=== PATIENT | male | born 1940 | race Caucasian/White ===

== ENCOUNTER → 2016-06-16 | Outpatient (CLI) | payer BC ==
[~2016-06-16] MED LIST: CETI10TA10 PO; FLUO0.05 TOP; LORA-741 PO; LOSA1TAB PO; MISCCAP80 PO; MULT-506 PO; PRAV40TA2 PO; SENNTAB23 PO; TRAM-10 PO
--- NOTE | 2016-06-16 10:56 | DIAGNOSTIC IMAGING REPORT ---
CHEST 2 VIEWS ROUTINE CLINICAL HISTORY: Syncope and collapse. COMPARISON STUDY: Chest radiograph December 20, 2014. FINDINGS: No pneumothorax or pleural effusion is present. There is no evidence of pulmonary edema. No consolidation is identified. Mild cardiomegaly is noted. IMPRESSION: No acute findings. No change in appearance of the chest. Electronically signed by: Art Rivas M.D. 06/16/2016 10:55 AM Dictated Date/Time: 06/16/2016 10:54 AM
[2016-06-16 12:14] LABS: BASO % 0.7 %; BASO ABS # 0.06 K/uL (0-0.2); COMPLETE YES; EOS % 4.6 %; HEMATOCRIT 47.9 % (42-52); IG% 0.1 %; LYMPH % 36.7 %; LYMPH ABS # 3.11 K/uL (1.2-3.4); MEAN CELL VOLUME 93.2 fL (80-100); MEAN CORPUSCULAR HEMOGLOBIN 33.9 pg (25-34); MEAN CORPUSCULAR HGB CONC 36.3 g/dl (32-36); MEAN PLATELET VOLUME 9.7 fL (7.4-10.4); MONO % 11.2 %; NEUT % 46.7 %; PLATELET COUNT 261 K/uL (130-400); RED BLOOD COUNT 5.14 M/uL (4.7-6.1); WHITE BLOOD COUNT 8.47 K/uL (4.8-10.8)
[2016-06-16 12:23] LABS: ALT/SGPT 34 U/L (12-78); BLOOD UREA NITROGEN 14 mg/dl (7-18); BUN/CREATININE RATIO 12.8 (10-20); CALCIUM 8.7 mg/dl (8.5-10.1); CARBON DIOXIDE 29 mmol/L (21-32); CHLORIDE 103 mmol/L (98-107); GLUCOSE 98 mg/dl (70-99); POTASSIUM 3.5 mmol/L (3.5-5.1); SODIUM 140 mmol/L (136-145)
[2016-06-16 12:26] LABS: ALKALINE PHOSPHATASE 73 U/L (45-117); AST/SGOT 17 U/L (15-37)
== END | disposition home or self-care (01) ==
LOC: C.RAD1850 10:26
PROVIDERS: ATTEND Family Medicine
DX: R55 Syncope and collapse (principal)

== ENCOUNTER → 2016-09-07 | Outpatient (CLI) | payer BC ==
[2016-09-07 09:43] LABS: ALT/SGPT 31 U/L (12-78); BLOOD UREA NITROGEN 19 mg/dl (7-18); BUN/CREATININE RATIO 19.3 (10-20); CARBON DIOXIDE 25 mmol/L (21-32); CHLORIDE 105 mmol/L (98-107); CREATININE 0.96 mg/dl (0.60-1.40); GLUCOSE 105 mg/dl (70-99); POTASSIUM 3.9 mmol/L (3.5-5.1); SODIUM 140 mmol/L (136-145)
[2016-09-07 09:44] LABS: CALCIUM 9.1 mg/dl (8.5-10.1)
[2016-09-07 09:46] LABS: CHOLESTEROL 172 mg/dl (0-200); CHOLESTEROL/HDL RATIO 4.2; HDL CHOLESTEROL 41 mg/dl; LDL CHOLESTEROL CALCULATED 93 mg/dl; TRIGLYCERIDES 189 mg/dl (0-150); VERY LOW DENSITY LIPOPROT CALC 38 mg/dl
[2016-09-07 09:56] LABS: ESTIMATED AVERAGE GLUCOSE 126 mg/dl; HA1C FLAG Normal (Normal)
== END | disposition home or self-care (01) ==
LOC: C.LAB1850 07:40
PROVIDERS: ATTEND Family Medicine
DX: R73.9 Hyperglycemia, unspecified (principal); E78.00 Pure hypercholesterolemia, unspecified; I10 Essential (primary) hypertension

== ENCOUNTER → 2017-03-16 | Outpatient (CLI) | payer BC ==
[2017-03-16 09:48] LABS: ESTIMATED AVERAGE GLUCOSE 126 mg/dl; HA1C FLAG Normal (Normal)
[2017-03-16 09:52] LABS: ALT/SGPT 34 U/L (12-78); BLOOD UREA NITROGEN 19 mg/dl (7-18); BUN/CREATININE RATIO 16.9 (10-20); CALCIUM 8.8 mg/dl (8.5-10.1); CARBON DIOXIDE 24 mmol/L (21-32); CHLORIDE 108 mmol/L (98-107); CHOLESTEROL 183 mg/dl (0-200); GLUCOSE 105 mg/dl (70-99); POTASSIUM 3.7 mmol/L (3.5-5.1); SODIUM 141 mmol/L (136-145); TRIGLYCERIDES 207 mg/dl (0-150); VERY LOW DENSITY LIPOPROT CALC 41 mg/dl
[2017-03-16 09:56] LABS: CHOLESTEROL/HDL RATIO 4.1; HDL CHOLESTEROL 45 mg/dl; LDL CHOLESTEROL CALCULATED 97 mg/dl
== END | disposition home or self-care (01) ==
LOC: C.LAB 07:21
PROVIDERS: ATTEND Family Medicine
DX: R73.9 Hyperglycemia, unspecified (principal); E78.00 Pure hypercholesterolemia, unspecified; I10 Essential (primary) hypertension

== ENCOUNTER → 2017-09-07 | Outpatient (CLI) | payer BC ==
--- NOTE | 2017-09-07 15:47 | DIAGNOSTIC IMAGING REPORT ---
L-SPINE MIN 4 VIEWS ROUTINE HISTORY: 77 years-old Male M79.604 Leg pain, diffuse acute low back and right leg pain COMPARISON: Lumbar spine radiographs 10/26/2013 TECHNIQUE: 5 views of the lumbar spine FINDINGS: 12 degrees dextroscoliosis of the lumbar spine measured from L2-L4 there is no acute fracture or subluxation identified. Moderate multilevel endplate spurring with at least mild multilevel intervertebral disc space narrowing. Moderate multilevel facet arthrosis, most pronounced at L4-L5 and L5-S1. No compression fracture, spondylolysis or spondylolisthesis identified. Mild gaseous distention of the stomach incidentally noted. IMPRESSION: 1. Degenerative changes as above without acute fracture or subluxation. 2. Mild dextroscoliosis. The above report was generated using voice recognition software. It may contain grammatical, syntax or spelling errors. Electronically signed by: Maico Joseph M.D. 09/07/2017 3:46 PM Dictated Date/Time: 09/07/2017 3:44 PM
--- NOTE | 2017-09-07 15:49 | DIAGNOSTIC IMAGING REPORT ---
R HIP UNILATERAL 2 VIEWS HISTORY: 77 years-old Male RT LEG PAIN acute right leg pain COMPARISON: CT abdomen and pelvis 02/04/2015 TECHNIQUE: 2 views of the right hip FINDINGS: Mild to moderate degenerative changes about the right femoral acetabular and sacroiliac joints. No acute fracture or dislocation. The imaged right hemipelvis appears intact. Soft tissues are unremarkable without opaque foreign body. IMPRESSION: No acute fracture or dislocation. The above report was generated using voice recognition software. It may contain grammatical, syntax or spelling errors. Electronically signed by: Maico Joseph M.D. 09/07/2017 3:47 PM Dictated Date/Time: 09/07/2017 3:46 PM
== END | disposition home or self-care (01) ==
LOC: C.RAD1850 15:21
PROVIDERS: ATTEND Nurse Practitioner Family
DX: M79.604 Pain in right leg (principal)

== ENCOUNTER → 2017-09-20 | Outpatient (CLI) | payer BC ==
[2017-09-20 11:47] LABS: HEMOGLOBIN A1C 6.3 % (4.5-5.6)
[2017-09-20 13:50] LABS: BLOOD UREA NITROGEN 22 mg/dl (7-18); CALCIUM 8.9 mg/dl (8.5-10.1); CARBON DIOXIDE 29 mmol/L (21-32); CREATININE 1.19 mg/dl (0.60-1.40); GLUCOSE 102 mg/dl (70-99); POTASSIUM 3.4 mmol/L (3.5-5.1); SODIUM 142 mmol/L (136-145)
[2017-09-20 13:53] LABS: ALT/SGPT 51 U/L (12-78); CHOLESTEROL 212 mg/dl (0-200); LDL CHOLESTEROL CALCULATED 111 mg/dl
== END | disposition home or self-care (01) ==
LOC: C.LAB1850 07:37
PROVIDERS: ATTEND Family Medicine
DX: R73.9 Hyperglycemia, unspecified (principal); E78.00 Pure hypercholesterolemia, unspecified; I10 Essential (primary) hypertension

== ENCOUNTER 2022-02-03 09:13 | Observation (INO) ==
[2022-02-03] MEDS ORDERED: LIDOCAINE/EPINEPH/TETRACAINE 1 EA SYR EXT STA (09:24)
[2022-02-03 09:49] LABS: Basophils # (auto) 0.06 K/uL (0-0.2); Basophils % (auto) 0.7 %; Eosinophils # (auto) 0.05 K/uL (0-0.50); Eosinophils % (auto) 0.6 %; Hematocrit (blood only) 47.6 % (40.1-51.0); Immature Granulocytes # (auto) 0.03 K/uL (0.00-0.02); Immature Granulocytes % (auto) 0.4 %; Lymphocytes % (auto) 21.2 %; Mean Corpuscular Hemoglobin 33.1 pg (25.0-34.0); Mean Corpuscular Hgb Conc 35.7 g/dL (32.0-36.0); Mean Corpuscular Volume 92.6 fL (80.0-100.0); Mean Platelet Volume 9.7 fL (9.4-12.4); Monocytes % (auto) 14.2 %; Neutrophils # (auto) 5.34 K/uL (1.4-6.5); Neutrophils % (auto) 62.9 %; Platelet Count 215 K/uL (130-400); RDW Coefficient of Variation 12.3 % (11.5-14.5); RDW Standard Deviation 42.2 fL (36.4-46.3); Red Blood Count 5.14 M/uL (4.63-6.08); White Blood Count 8.48 K/ul (4.8-10.8)
[2022-02-03] MEDS ORDERED: SODIUM CHLORIDE 0.9% 1000ML 1,000 ML IV STA (09:59)
--- NOTE | 2022-02-03 09:59 | Emergency Department Note ---
Impression & Plan Syncope and collapse, Chest pain, CHI (closed head injury), Laceration of scalp, Cervical strain, acute, COVID-19 ED Provider Note INFORMANT: Patient, family, EMS ED PROVIDER(S): Ashwin Luu MD CHIEF COMPLAINT: Syncope PLAN: Disposition: Admitted Condition: Good Outpatient prescription management: none Referral: MEDICAL DECISION MAKING: Patient presented after a syncopal episode. He was evaluated. ECG did not reveal any acute ischemia or dysrhythmia. Cardiac monitoring shows sinus rhythm. The patient was hydrated. Let gel was applied. Patient was sent for CT imaging. CT imaging of the head and cervical spine did not reveal any acute traumatic pathology other than a scalp laceration. The patient's CBC and chemistry panel were well. ECG did not show any acute ischemic change. Patient's laceration was closed by me as noted below. COVID testing was performed on patient and was positive. On further discussion with the patient's she has had URI symptoms recently as well. Further management in the hospital was deemed appropriate. [facility] with the [facility]. Patient was evaluated in the ER and admitted for further management Triage Nursing notes reviewed and agree them. Vital Signs: reviewed and remarkable for no significant abnormalities Differential diagnosis: Vasovagal event, dehydration, infection, hypoglycemia, electrolyte abnormalities , cardiac sources, intracerebral event, pulmonary embolism, seizure, toxicologic, neurologic, as well as other pathologies. Diagnostics interpreted by me: ECG: Twelve-lead ECG reveals sinus rhythm with sinus arrhythmia and first-degree block at [address] Prolonged QT. No ST elevation. Cardiac Monitoring: Cardiac monitoring ordered by me: The patient was placed on continuous cardiac monitoring and observed. It revealed a normal sinus rhythm at 82 beats per minute without ectopy or evidence of dysrhythmia. Imaging studies: CT HPI: The patient is a 81year old male who presents to the Emergency Room with complaints of syncope. This started this morning and is described as a 30-60 second episode. Patient states that he was shaving after getting out of shower. He felt lightheaded and dizziness. He also had some shortness of breath. Patient had the episode and noted chest pain. When he passed out he did strike the back of his head and suffered a laceration. The patient also notes the following associated symptoms, mild cough and generalized weakness. The patient has aspirin for EMS relieving factors. EMS noted the patient's O2 saturation was 70% on room air. He responded well to 6 L nasal cannula oxygen. Upon arrival to the ER patient is pain-free and his O2 saturations are 97% on room air. Current pain is rated as 0/10. Pt denies headache, fevers, chills, diaphoresis, visual changes, neck pain,nausea, vomiting, abdominal pain, back pain, melena, hematochezia, urinary symptoms, numbness, focal weakness, l ymphadenopathy, rash, or other complaints. ROS: See above HPI for pertinent positives & negatives. A total of 10 systems reviewed and were otherwise negative. PAST MEDICAL HISTORY:See Below , high cholesterol, aortic aneurysm, diabetes PAST SURGICAL HISTORY:See Below, FAMILY HISTORY:See Below SOCIAL HISTORY:See Below, non-smoker HOME MEDICATIONS:See Below ALLERGIES:See Below VITALS:See Below PHYSICAL EXAMINATION: GENERAL: Awake, alert, well-appearing, in no distress HENT: Normocephalic, occipital scalp laceration present. Oropharynx unremarkab le. EYES: Normal conjunctiva. Sclera non-icteric. NECK: Inspection normal. Non-tender. Supple. No nuchal rigidity. FROM. No masses. RESPIRATORY: Clear to auscultation. No wheezes. No rales. Normal respiratory effort. CARDIAC: Normal rate. Normal rhythm. No murmurs. No rubs. Extremities warm and well perfused. Pulses equal. No JVD. GI: Soft, non-distended. No tenderness to palpation. No rebound or guarding. No masses. RECTAL: Deferred. MUSCULOSKELETAL: Atraumatic. Chest examination reveals no tenderness. The back is symmetrical on inspection without obvious abnormality. There is no CVA ten derness to palpation. No joint edema. LOWER EXTREMITIES: Calves are equal size bilaterally and non-tender. No edema. No discoloration. NEURO: Normal sensorium. No sensory or motor deficits noted. SKIN: No rash or jaundice noted. LACERATION REPAIR: Location: Scalp Total length: 2.7 cm Complexity: Simple Verbal consent was obtained after the risks and benefits were explained, including but not limited to bleeding, scarring, infection, pain, and bone/nerve damage. At this time, the risks of the procedure are less than the risks of NOT performing the procedure. A time out was taken and the correct patient and site identified. The scalp was prepped with betadine. The target area was anesthetized with let gel and then 3 ml of 1% lidocaine without epinephrine. C opious irrigation was performed using saline. The skin was re-prepped with betadine, the hair cleared from the wound, and a sterile field set. The wound was explored for foreign bodies and none found. Debridement was not performed. The wound edges were approximated using 4 surgical aida in the standard fashion. Hemostasis and excellent approximation was achieved. Antibacterial ointment and a sterile dressing applied. Detailed wound care instructions and signs and symptoms of infection reviewed with the patient and . No complications and the patient tolerated the procedure well. Ashwin Luu MD Past Med/Surg History Medical History Anxiety Bleeding hemorrhoid NOT CURRENLTY BLEEDING Diabetes mellitus type 2, diet-controlled History of anesthesia reaction BRADYCARDIA AND O2 SAT DROPS Hyperlipemia Hypertension Irregular heart beat Osteoarthritis Syncopal episodes "A COUPLE MONTHS AGO" FOLLOWED UP WITH NEUROLOGY (RESULT OF ILLNESS AND DEH YDRATION" Transient ischemic attack (TIA) ? (DX ON MRI BUT NEVER HAD SYMPTOMS OF EVENT) Surgical History History of cataract surgery RT/LEFT History of colonoscopy History of removal of cyst (03/30/19) Back Sebaceous Cyst Excision Dr. Galloway 03/30/19 History of tooth extraction Family History Mother Diabetes Hypertension Father Cancer Family/Other Cancer Other Family history non-contributory Denies family history of Ovarian cancer Prostate cancer Myocardial infarction Breast cancer Colorectal cancer Social History Smoking Status: Never smoker Second Hand Exposure: No; Hx Alcohol Use: No Hx Substance Use: No Preferred Language: Finnish Communication Ability: Effective Visual Impairment: No Limitations Hearing Ability: Normal Certified Caregiver Required: No Beliefs That Will Affect Care: None marital status: Current Living Situation: Spouse current occupational status: retired Feels Safe at Home: Yes Childhood Exposure to Second-Hand Smoke: Yes Dental Care, Regularly: Yes Physical Activity Frequency: 1-2 Times per Week Seatbelt Use: always Sunscreen Use: Yes Assistive Devices: Glasses Allergies Allergies Allergy/AdvReac Type Severity Reaction Status Date / Time acetaminophen AdvReac Intermediate "DOES NOT Verified 02/03/22 10:38 AGREE WITH ME" aspirin AdvReac Intermediate "THIN Verified 02/03/22 10:38 BLOOD" caffeine AdvReac Intermediate "THIN Verified 02/03/22 10:38 BLOOD" phenacetin AdvReac Intermediate "THIN Verified 02/03/22 10:38 BLOOD" Sulfa (Sulfonamide AdvReac Intermediate GI UPSET Verified 02/03/22 10:38 Antibiotics) ANESTHESIA Allergy Intermediate Bradycardia Uncoded 02/03/22 10:38 Arrhythmia and Diaphoretic Home Meds Home Medications Medication Instructions Recorded Confirmed lactobacillus combination no.4 3 3,000 mmu cells PO 3XWK 09/14/18 02/03/22 billion cell capsule (Probiotic) fluocinonide 0.05 % topical cream 1 appln topical DAILY PRN Rash #1 g 12/15/18 02/03/22 cholecalciferol (vitamin D3) 25 1,000 unit PO MOWEFR 03/30/19 02/03/22 mcg (1,000 unit) capsule (Vitamin D3) multivit with min-folic 1 tab PO 3XWK 03/30/19 02/03/22 acid-lutein 400 mcg-250 mcg chewable tablet (Centrum Silver) cetirizine 10 mg tablet (24Hour 10 mg PO DAILY 04/03/19 02/03/22 Allergy) Previous Rx's Medication Instructions Recorded fluticasone propionate 50 2 spray intranasal DAILY #16 grams 09/22/20 mcg/actuation nasal spray,suspension losartan 25 mg tablet 12.5 mg PO QAM #45 tabs 11/21/20 lorazepam 0.5 mg tablet 0.5 mg PO DAILY PRN anxiety #20 09/29/21 tabs pravastatin 40 mg tablet 40 mg PO HS #90 tabs 01/05/22 Results & Data (ED) Vital Signs Vital Signs - 24 hr 02/03/22 09:19 02/03/22 09:30 02/03/22 10:00 Temperature 37.0 C Temperature Source Oral Pulse Rate 82 80 83 Pulse Rate [Apical] Pulse Rate from SpO2 Sensor 79 82 Pulse Rhythm Regular Pulse Strength Normal Respiratory Rate 17 25 H 19 Respiratory Effort / Characteristics Non-Labored Respiratory Depth Normal Respiratory Pattern Regular Blood Pressure 172/108 H 148/102 H 157/103 H Blood Pressure [Right Arm] Blood Pressure Mean 129 117 121 Blood Pressure Mean [Right Arm] Blood Pressure Position Lying Pulse Oximetry 97 95 93 Oxygen Delivery Method Room Air Room Air Room Air Sepsis Recent Fever Within 48 Hours No Sepsis New/Unexplained Change in Mental Status N/A Sepsis Action Taken by Nursing No Action Required 02/03/22 10:30 02/03/22 11:39 Temperature Temperature Source Pulse Rate 72 Pulse Rate [Apical] 86 Pulse Rate from SpO2 Sensor 70 Pulse Rhythm Pulse Strength Respiratory Rate 20 18 Respiratory Effort / Characteristics Non-Labored Spontaneous Respiratory Depth Normal Respiratory Pattern Blood Pressure 151/105 H Blood Pressure [Right Arm] 158/83 H Blood Pressure Mean 120 Blood Pressure Mean [Right Arm] 108 Blood Pressure Position Pulse Oximetry 94 93 Oxygen Delivery Method Room Air Room Air Sepsis Recent Fever Within 48 Hours Sepsis New/Unexplained Change in Mental Status Sepsis Action Taken by Nursing Laboratory Data Result diagrams: 02/03/22 09:30 02/03/22 09:30 Lab Results 02/03/22 02/03/22 02/03/22 Range/Units 09:30 09:30 09:30 WBC 8.48 (4.8-10.8) K/ul RBC 5.14 (4.63-6.08) M/uL Hgb 17.0 (14.0-18.0) g/dl Hct 47.6 (40.1-51.0) % MCV 92.6 (80.0-100.0) fL MCH 33.1 (25.0-34.0) pg MCHC 35.7 (32.0-36.0) g/dL RDW Std Deviation 42.2 (36.4-46.3) fL RDW Coeff of Marily 12.3 (11.5-14.5) % Plt Count 215 (130-400) K/uL MPV 9.7 (9.4-12.4) fL Immature Gran % (Auto) 0.4 % Neut % (Auto) 62.9 % Lymph % (Auto) 21.2 % [place] % (Auto) 14.2 % Eos % (Auto) 0.6 % Baso % (Auto) 0.7 % Neut # (Auto) 5.34 (1.4-6.5) K/uL Lymph # (Auto) 1.80 (1.2-3.4) K/uL [place] # (Auto) 1.20 H (0.24-0.82) K/uL Eos # (Auto) 0.05 (0-0.50) K/uL Baso # (Auto) 0.06 (0-0.2) K/uL Immature Gran # (Auto) 0.03 H (0.00-0.02) K/uL PT 11.6 (9.0-12.0) Seconds INR 1.1 (0.9-1.1) Sodium 136 (136-145) mmol/L Potassium 3.9 (3.5-5.1) mmol/L Chloride 100 (98-107) mmol/L Carbon Dioxide 26 (21-32) mmol/L Anion Gap 10 (3-11) BUN 14 (6-23) mg/dl Creatinine 1.14 (0.6-1.4) mg/dl Est Cr Clr Drug Dosing 61.1 ml/min Est GFR ( Amer) 70.5 ml/min Est GFR (Non-Af Amer) 60.8 ml/min BUN/Creatinine Ratio 12.3 (10-20) Glucose 156 H (70-99(Fasting)) mg/dl Calcium 9.1 (8.5-10.1) mg/dl Magnesium 1.9 (1.7-2.4) mg/dl Total Bilirubin 1.6 H (0.2-1.0) mg/dl AST 22 (13-39) U/L ALT 24 (7-52) U/L Alkaline Phosphatase 50 (34-104) U/L Troponin I High Sens (0-20) pg/ml Total Protein 8.0 (6.0-8.3) gm/dl Albumin 4.3 (3.4-5.0) gm/dl Globulin 3.7 (2.5-4.0) gm/dl Albumin/Globulin Ratio 1.2 (0.9-2) TSH (0.300-4.500) uIu/ml SARS-CoV-2 (PCR) (Negative) 02/03/22 02/03/22 02/03/22 Range/Units 09:30 09:30 09:37 WBC (4.8-10.8) K/ul RBC (4.63-6.08) M/uL Hgb (14.0-18.0) g/dl Hct (40.1-51.0) % MCV (80.0-100.0) fL MCH (25.0-34.0) pg MCHC (32.0-36.0) g/dL RDW Std Deviation (36.4-46.3) fL RDW Coeff of Marily (11.5-14.5) % Plt Count (130-400) K/uL MPV (9.4-12.4) fL Immature Gran % (Auto) % Neut % (Auto) % Lymph % (Auto) % [place] % (Auto) % Eos % (Auto) % Baso % (Auto) % Neut # (Auto) (1.4-6.5) K/uL Lymph # (Auto) (1.2-3.4) K/uL [place] # (Auto) (0.24-0.82) K/uL Eos # (Auto) (0-0.50) K/uL Baso # (Auto) (0-0.2) K/uL Immature Gran # (Auto) (0.00-0.02) K/uL PT (9.0-12.0) Seconds INR (0.9-1.1) Sodium (136-145) mmol/L Potassium (3.5-5.1) mmol/L Chloride (98-107) mmol/L Carbon Dioxide (21-32) mmol/L Anion Gap (3-11) BUN (6-23) mg/dl Creatinine (0.6-1.4) mg/dl Est Cr Clr Drug Dosing ml/min Est GFR ( Amer) ml/min Est GFR (Non-Af Amer) ml/min BUN/Creatinine Ratio (10-20) Glucose (70-99(Fasting)) mg/dl Calcium (8.5-10.1) mg/dl Magnesium (1.7-2.4) mg/dl Total Bilirubin (0.2-1.0) mg/dl AST (13-39) U/L ALT (7-52) U/L Alkaline Phosphatase (34-104) U/L Troponin I High Sens 12.7 (0-20) pg/ml Total Protein (6.0-8.3) gm/dl Albumin (3.4-5.0) gm/dl Globulin (2.5-4.0) gm/dl Albumin/Globulin Ratio (0.9-2) TSH 2.139 (0.300-4.500) uIu/ml SARS-CoV-2 (PCR) POSITIVE A* (Negative) Administered Medications Sodium Chloride (Nss 1000ml) 1,000 mls @ 125 mls/hr IV .Q8H STA Stop: 02/03/22 17:58 Last Admin: 02/03/22 10:58 Dose: 125 mls/hr Documented By: NANCY Magnesium Sulfate/Dextrose (Magnesium Sulfate / D5w) 1 gm in 100 mls @ 50 mls/hr IV ONE ONE Stop: 02/03/22 13:59 Last Admin: 02/03/22 12:27 Dose: 50 mls/hr Documented By: SULMA Discontinued Medications Lidocaine (Lidocaine/Epineph/Tetracaine 1 Ea Syr) 1 each EXT NOW STA Stop: 02/03/22 09:25 Last Admin: 02/03/22 09:34 Dose: 1 each Documented By: NANCY Lidocaine HCl (Xylocaine 1%/Sod Bicarb 20 Ml Vial) Confirm Administered Dose 20 ml INFIL .STK-MED ONE Stop: 02/03/22 11:23 Last Admin: 02/03/22 11:23 Dose: 20 ml Documented By: SULMA Potassium Chloride (Potassium Chloride 20 Meq/15 Ml Udc) Confirm Administered Dose 20 meq .ROUTE .STK-MED ONE Stop: 02/03/22 12:24 Last Admin: 02/03/22 12:27 Dose: 20 meq Documented By: SULMA Imaging Data Radiologist's Impression: Cervical Spine CT 02/03/22 09:21 CT cervical spine wo con CLINICAL HISTORY: fall, CHI TECHNIQUE: Multidetector row helical CT of the cervical spine was performed administration of intravenous contrast. Coronal and sagittal reformations were obtained. Automated dose lowering techniques and/or adjustment according to patient size were utilized for this exam. Comparison: None available at the time of this dictation. FINDINGS: No acute fractures or subluxations are identified. Degenerative changes are seen in the visualized spine. 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 Soft tissues are unremarkable. IMPRESSION: Degenerative changes without evidence of acute bony injury. ACT 112: Negative or not required by law. Electronically signed by: David Pérez M.D. 02/03/2022 10:[address] 02/03/22 09:21 CT head/brain wo con CLINICAL HISTORY: 81 years-old Male with CHI. Acute head trauma status post fall TECHNIQUE: Multiple axial CT images of the head were obtained without contrast. A dose lowering technique was utilized adhering to the principles of ALARA. CT DOSE: 1062.40 mGy.cm COMPARISON: CT cervical spine of same day, head CT 09/14/2018 FINDINGS: No acute intracranial hemorrhage, midline shift, intracranial mass, hydrocephalus, territorial ischemia or abnormal extra-axial collection. Age- related involutional changes. White matter hypodensities suggestive of chronic microvascular ischemic disease. Cerebral vascular calcifications. The calvarium is intact. Mastoid air cells are clear. Moderate mucosal thic kening of the maxillary sinuses with air-fluid levels. Moderate to severe mucosal thickening of the ethmoid air cells with a 2.4 cm focus of polypoid mucosal thickening within the right nasal turbinate. Small contusion with laceration of the right occipital scalp. Prior bilateral lens repair. IMPRESSION: 1. No acute intracranial abnormality or calvarial fracture. 2. Small right occipital scalp with laceration. ACT 112: Negative or not required by law. The above report was generated using voice recognition software. It may contain grammatical, syntax or spelling errors. Electronically signed by: Augusto Joseph M.D. 02/03/2022 10:05 AM Chest X-Ray 02/03/22 09:22 XR chest 1V portable CLINICAL HISTORY: weakness COMPARISON STUDY: Chest radiograph March 28, 2019. Chest CT May 18, 2019. FINDINGS: There is no pneumothorax or pleural effusion. Cardiomegaly is unchanged. There is no evidence for pulmonary edema. There is no consolidation to suggest pneumonia. There is mild elevation of the left hemidiaphragm. IMPRESSION: No acute cardiopulmonary findings. No significant change in appearance of the chest. ACT 112: Negative or not required by law. Electronically signed by: Art Rivas M.D. 02/03/2022 10:56 AM Discharge Plan Visit Data Chief Complaint: Syncope Stated Complaint: CHEST PAIN, SYNCOPE ED Provider: Ashwin Luu Discharge Problem: Syncope and collapse, Chest pain, CHI (closed head injury), Laceration of scalp, Cervical strain, acute, COVID-19 Forms Stand Alone Forms: [employer] Prescriptions Prescriptions: No Action losartan 25 mg tablet 12.5 mg PO QAM Qty: 45 5RF pravastatin 40 mg tablet 40 mg PO HS Qty: 90 3RF fluocinonide 0.05 % cream 1 appln topical DAILY PRN (Reason: Rash) Qty: 1 cetirizine [24Hour Allergy] 10 mg tablet 10 mg PO DAILY fluticasone propionate 50 mcg/actuation spray,suspension 2 spray intranasal DAILY Qty: 16 3RF Rx Instructions: administer 2 sprays into each nostril daily lorazepam 0.5 mg tablet 0.5 mg PO DAILY PRN (Reason: anxiety) Qty: 20 0RF Probiotic 3 billion cell Capsule 3,000 mmu cells PO 3XWK Rx Instructions: TAKES MON, WED, & FRI Centrum Silver 400-250 mcg Tablet,Chewable 1 tab PO 3XWK Rx Instructions: TAKES MON, WED, & FRI. cholecalciferol (vitamin D3) [Vitamin D3] 1,000 unit Capsule 1,000 unit PO MOWEFR Referrals Referrals: Shy Lugo MD [Primary Care Provider] -
--- NOTE | 2022-02-03 10:06 | CT Scan Report ---
CT head/brain wo con CLINICAL HISTORY: 81 years-old Male with CHI. Acute head trauma status post fall TECHNIQUE: Multiple axial CT images of the head were obtained without contrast. A dose lowering tech nique was utilized adhering to the principles of ALARA. CT DOSE: 1062.40 mGy.cm COMPARISON: CT cervical spine of same day, head CT 09/14/2018 FINDINGS: No acute intracranial hemorrhage, midline shift, intracranial mass, hydrocephalus, territorial ischem ia or abnormal extra-axial collection. Age-related involutional changes. White matter hypodensities s uggestive of chronic microvascular ischemic disease. Cerebral vascular calcifications. The calvarium is intact. Mastoid air cells are clear. Moderate mucosal thickening of the maxillary s inuses with air-fluid levels. Moderate to severe mucosal thickening of the ethmoid air cells with a 2 .4 cm focus of polypoid mucosal thickening within the right nasal turbinate. Small contusion with lac eration of the right occipital scalp. Prior bilateral lens repair. IMPRESSION: 1. No acute intracranial abnormality or calvarial fracture. 2. Small right occipital scalp with laceration. ACT 112: Negative or not required by law. The above report was generated using voice recognition software. It may contain grammatical, syntax o r spelling errors. Electronically signed by: Augusto Joseph M.D. 02/03/2022 10:05 AM
[2022-02-03 10:15] LABS: Albumin Globulin Ratio 1.2 (0.9-2); Albumin Level 4.3 gm/dl (3.4-5.0); BUN Creatinine Ratio 12.3 (10-20); Bilirubin,Total 1.6 mg/dl (0.2-1.0); Calcium 9.1 mg/dl (8.5-10.1); Creatinine Clr Calc Pharmacy 61.1 ml/min; Est GFR (African American) 70.5 ml/min; Est GFR (Non-African American) 60.8 ml/min; Globulin 3.7 gm/dl (2.5-4.0); Magnesium 1.9 mg/dl (1.7-2.4); Potassium 3.9 mmol/L (3.5-5.1)
--- NOTE | 2022-02-03 10:22 | CT Scan Report ---
CT cervical spine wo con CLINICAL HISTORY: fall, CHI TECHNIQUE: Multidetector row helical CT of the cervical spine was performed administration of intrave nous contrast. Coronal and sagittal reformations were obtained. Automated dose lowering techniques an d/or adjustment according to patient size were utilized for this exam. Comparison: None available at the time of this dictation. FINDINGS: No acute fractures or subluxations are identified. Degenerative changes are seen in the visualized sp ine. 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 Soft tissues are unremarkable. IMPRESSION: Degenerative changes without evidence of acute bony injury. ACT 112: Negative or not required by law. Electronically signed by: David Pérez M.D. 02/03/2022 10:20 AM
[2022-02-03 10:52] LABS: INR 1.1 (0.9-1.1); Prothrombin Time 11.6 Seconds (9.0-12.0)
--- NOTE | 2022-02-03 10:57 | XRay Report ---
XR chest 1V portable CLINICAL HISTORY: weakness COMPARISON STUDY: Chest radiograph March 28, 2019. Chest CT May 18, 2019. FINDINGS: There is no pneumothorax or pleural effusion. Cardiomegaly is unchanged. There is no eviden ce for pulmonary edema. There is no consolidation to suggest pneumonia. There is mild elevation of th e left hemidiaphragm. IMPRESSION: No acute cardiopulmonary findings. No significant change in appearance of the chest. ACT 112: Negative or not required by law. Electronically signed by: Art Rivas M.D. 02/03/2022 10:56 AM
[2022-02-03] MEDS ORDERED: XYLOCAINE 1%/SOD BICARB 20 ML VIAL INFIL ONE (11:22)
--- NOTE | 2022-02-03 11:22 | History & Physical Report ---
Date of Service February 03, 2022 Assessment & Plan (1) Syncope and collapse: Plan: - Likely vasovagal secondary to recently showering, possibly due to volume depletion/general illness in setting of COVID-19 infection. Also wonder if patient has UTI, given reported increase in urination x 2 days, however no dysuria or elevated WBC to indicate bacterial infection. Patient has had vasovagal episodes previously in the setting of illness. HE was hypoxic right after syncopal event, otherwise without tachycardiac or hypoxia to suggest PE. Patient did have transient chest heaviness/palpitations with incident, however so far EKG unrevealing of any obvious ischemia. Lower suspicion for ACS. 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 - He does have a reported history of an SVT that can last at times for a minute or two, which is typically asymptomatic. He has had a stress echo in 2019 which recorded him to be in A. fib at the end of the test during recovery which resolved on its own abruptly within a minute or two. Per cardiology, no specific therapy required. - Patient will be brought in for observation for IV hydration, echocardiogram, and to trend troponin. - Chest CT w w/o contrast given known aortic dilatation. Last imaging and echo was in 2019 - Aim for K+ > 4.0, Mg++ > 2.0 (2) COVID: Plan: - 2-3 days of general fatigue/weakness/loose stools without any pulmonary or cardiac symptoms until today;s syncopal event.. - Received COVID vaccines and most recent booster last Tuesday. - Transiently 70% on RA after syncopal event, placed on 6L NC and rapidly weaned bcak to RA. - SpO2 > 95% on RA, therefore will defer on remdesivir or steroid treatment for now. - Symptomatic care: IVF, Tylenol for pain or fever, breathing treatments prn. - Isolation precautions. - COVID VTE ppx: 0.5 mg/kg Lovenox BID. (3) Aortic aneurysm: Plan: - Present since 2010, last imaging in May 2019: Mild aneurysmal dilatation of the aortic root measuring 4.5 cm and the ascending aorta measuring 4.4 cm. This has slightly increased since 2010. - Will obtain chest CT w/ w/o contrast while in hospital. (4) Pure hypercholesterolemia: Plan: - Continue pravastatin 40 mg HS. (5) Anxiety state: Plan: - Continue lorazepam 0.5 mg daily PRN. (6) Seasonal allergies: Plan: - Continue Flonase, Zyrtec prn. (7) Benign essential hypertension: Plan: - Continue losartan with BP goal < 150/90. Plan - OBS to med/tele. - SCDs and Lovenox 50 mg BID for VTE ppx. - DNR/DNI. History of Present Illness Chief Complaint: syncopal episode this morning Primary Care Provider: Shy Lugo MD Jamal Barbourr is a 81-year-old male with past medical history significant for hypertension, hyperlipidemia, anxiety, aortic root dilation/aneurysm, and allergies who presents today after syncopal episode at home. Patient was shaving after getting out of the shower when he suddenly felt lightheaded and dizzy. He also notes associated shortness of breath, chest heaviness, and palpitations shortly after passed out for estimated 30 to 60 seconds. He did hit his head off the bathroom floor and has a small laceration occipital region. His witnessed the event did say that he fell very hard and did not lose consciousness during the event but had his eyes open but was unable to speak. Patient was incontinent of bowel. EMS arrived within 5 to 10 minutes of the event transported patient to ED for further evaluation. Prior to this, patient had been feeling generally more weak and fatigued over the past 2 days or so but did not have any fever chills, chest pain, palpitations, shortness of breath at rest or with activity. He has not noticed any leg swelling or pain. He does have a history of vasovagal syncopal events related to illnesses and dehydration. As noted patient's O2 sats were 70% on room air responded well to 6 L NC. On arrival to the ED patient slightly hypertensive, otherwise vital signs within normal limits, HR 70-80s, 97% on RA, afebrile. He is COVID-positive in ED, otherwise labs largely unremarkable, his T bili is elevated at 1.6 is consistent with his baseline over the past 2 years. Glucose is mildly elevated 156. No leukocytosis, anemia, electrolyte abnormalities, or acute renal or hepatic dysfunction. trop pending Imaging was given due to trauma sustained in fall, CT of the spine shows degenerative changes without evidence of acute bony injury. Head CT shows small right septal scalp laceration, no acute intracranial abnormality or fractures. Chest x-ray without any acute cardiopulmonary findings or significant change in appearance of chest when compared with imaging from 2 years ago. Allergies Allergy/AdvReac Type Severity Reaction Status Date / Time acetaminophen AdvReac Intermediate "DOES NOT Verified 02/03/22 10:38 AGREE WITH ME" aspirin AdvReac Intermediate "THIN Verified 02/03/22 10:38 BLOOD" caffeine AdvReac Intermediate "THIN Verified 02/03/22 10:38 BLOOD" phenacetin AdvReac Intermediate "THIN Verified 02/03/22 10:38 BLOOD" Sulfa (Sulfonamide AdvReac Intermediate GI UPSET Verified 02/03/22 10:38 Antibiotics) ANESTHESIA Allergy Intermediate Bradycardia Uncoded 02/03/22 10:38 Arrhythmia and Diaphoretic Home Medications Medication Instructions Recorded Confirmed Type lactobacillus combination no.4 3 3,000 mmu cells PO 3XWK 09/14/18 02/03/22 History billion cell capsule (Probiotic) fluocinonide 0.05 % topical cream 1 appln topical DAILY PRN Rash #1 g 12/15/18 02/03/22 History cholecalciferol (vitamin D3) 25 1,000 unit PO MOWEFR 03/30/19 02/03/22 History mcg (1,000 unit) capsule (Vitamin D3) multivit with min-folic 1 tab PO 3XWK 03/30/19 02/03/22 History acid-lutein 400 mcg-250 mcg chewable tablet (Centrum Silver) cetirizine 10 mg tablet (24Hour 10 mg PO DAILY 04/03/19 02/03/22 History Allergy) fluticasone propionate 50 2 spray intranasal DAILY #16 grams 09/22/20 02/03/22 Rx mcg/actuation nasal spray,suspension losartan 25 mg tablet 12.5 mg PO QAM #45 tabs 11/21/20 02/03/22 Rx lorazepam 0.5 mg tablet 0.5 mg PO DAILY PRN anxiety #20 09/29/21 02/03/22 Rx tabs pravastatin 40 mg tablet 40 mg PO HS #90 tabs 01/05/22 02/03/22 Rx Past Med/Surg History Medical History Anxiety Bleeding hemorrhoid NOT CURRENLTY BLEEDING Diabetes mellitus type 2, diet-controlled History of anesthesia reaction BRADYCARDIA AND O2 SAT DROPS Hyperlipemia Hypertension Irregular heart beat Osteoarthritis Syncopal episodes "A COUPLE MONTHS AGO" FOLLOWED UP WITH NEUROLOGY (RESULT OF ILLNESS AND DEHYDRATION" Transient ischemic attack (TIA) ? (DX ON MRI BUT NEVER HAD SYMPTOMS OF EVENT) Surgical History History of cataract surgery RT/LEFT History of colonoscopy History of removal of cyst (03/30/19) Back Sebaceous Cyst Excision Dr. Galloway 03/30/19 History of tooth extraction Family History Mother Diabetes Hypertension Father Cancer Family/Other Cancer Other Family history non-contributory Denies family history of Ovarian cancer Prostate cancer Myocardial infarction Breast cancer Colorectal cancer Social History Smoking Status: Never smoker Second Hand Exposure: No; Hx Alcohol Use: No Hx Substance Use: No Preferred Language: Thai Communication Ability: Effective Visual Impairment: No Limitations Hearing Ability: Normal Tail Dogger Required: No Beliefs That Will Affect Care: None marital status: Current Living Situation: Spouse current occupational status: retired Feels Safe at Home: Yes Childhood Exposure to Second-Hand Smoke: Yes Dental Care, Regularly: Yes Physical Activity Frequency: 1-2 Times per Week Seatbelt Use: always Sunscreen Use: Yes Assistive Devices: Glasses Review of Systems Review of Systems: Constitutional: general weakness/fatigue x 1-2 days; No fever/chills, myalgias, anorexia, night sweats Eyes: No diplopia, no worsening or blurred vision ENT: normal hearing, no trouble swallowing Respiratory: transient SOB prior to passing out today, resolved; No cough, sputum, dyspnea at rest or on exertion Cardiovascular: transient chest heaviness with palpitations prior to passing out today, resolved Abdomen: intermittent loose stools x several days; No pain, nausea, vomiting, or constipation : increased urinary frequency x 1-2 days; Denies dysuria, hematuria, urinary retention Musculoskeletal: No joint pain, calf pain, swelling Neurologic: No weakness, numbness/tingling, or balance problems Psychiatric: No anxiety or depression Skin: No rash or itch Physical Exam Physical Exam: General: awake, alert, no apparent distress Head: Normocephalic, atraumatic ENT: PERRL, EOMI, no pharyngeal exudate, mucous membranes moist Chest: Clear to auscultation, on room air, no adventitious breath sounds Cardiac: Regular rate and rhythm, no murmur, no JVD, normal peripheral pulses, equal; good capillary refill Abdominal: NABS x 4 quadrants, soft, nontender to palpation, no rebound, guarding or tenderness Extremities: Normal inspection, no peripheral edema or erythema, calfs nonten edwin to palpation Psych: Normal mood and affect Neuro: AAO x 3, strength intact bilaterally and rated 5/5, no motor deficits, speech is clear, no peripheral sensory deficits Skin: no rash or erythema Results & Data Results & Data ([facility]) Vital Signs (Past 12 Hours) Vital Signs Temp Pulse Resp BP Pulse Ox O2 Del Method 02/03/22 10:30 72 20 151/105 H 94 Room Air 02/03/22 10:00 83 19 157/103 H 93 Room Air 02/03/22 09:30 80 25 H 148/102 H 95 Room Air 02/03/22 09:19 37.0 C 82 17 172/108 H 97 Room Air Laboratory Results Abnormal lab results 02/03/22 02/03/22 02/03/22 Range/Units 09:30 09:30 09:37 [place] # (Auto) 1.20 H (0.24-0.82) K/uL Immature Gran # (Auto) 0.03 H (0.00-0.02) K/uL Glucose 156 H (70-99(Fasting)) mg/dl Total Bilirubin 1.6 H (0.2-1.0) mg/dl SARS-CoV-2 (PCR) POSITIVE A* (Negative) Diagnostic Findings Cervical Spine CT 02/03/22 09:21 CT cervical spine wo con CLINICAL HISTORY: fall, CHI TECHNIQUE: Multidetector row helical CT of the cervical spine was performed administration of intravenous contrast. Coronal and sagittal reformations were obtained. Automated dose lowering techniques and/or adjustment according to patient size were utilized for this exam. Comparison: None available at the time of this dictation. FINDINGS: No acute fractures or subluxations are identified. Degenerative changes are seen in the visualized spine. 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 Soft tissues are unremarkable. IMPRESSION: Degenerative changes without evidence of acute bony injury. ACT 112: Negative or not required by law. Electronically signed by: David Péerz M.D. 02/03/2022 10:[address] 02/03/22 09:21 CT head/brain wo con CLINICAL HISTORY: 81 years-old Male with CHI. Acute head trauma status post fall TECHNIQUE: Multiple axial CT images of the head were obtained without contrast. A dose lowering technique was utilized adhering to the principles of ALARA. CT DOSE: 1062.40 mGy.cm COMPARISON: CT cervical spine of same day, head CT 09/14/2018 FINDINGS: No acute intracranial hemorrhage, midline shift, intracranial mass, hydrocephalus, territorial ischemia or abnormal extra-axial collection. Age- related involutional changes. White matter hypodensities suggestive of chronic microvascular ischemic disease. Cerebral vascular calcifications. The calvarium is intact. Mastoid air cells are clear. Moderate mucosal thickening of the maxillary sinuses with air-fluid levels. Moderate to severe mucosal thickening of the ethmoid air cells with a 2.4 cm focus of polypoid mucosal thickening within the right nasal turbinate. Small contusion with laceration of the right occipital scalp. Prior bilateral lens repair. IMPRESSION: 1. No acute intracranial abnormality or calvarial fracture. 2. Small right occipital scalp with laceration. ACT 112: Negative or not required by law. The above report was generated using voice recognition software. It may contain grammatical, syntax or spelling errors. Electronically signed by: Augusto Joseph M.D. 02/03/2022 10:05 AM Chest X-Ray 02/03/22 09:22 XR chest 1V portable CLINICAL HISTORY: weakness COMPARISON STUDY: Chest radiograph March 28, 2019. Chest CT May 18, 2019. FINDINGS: There is no pneumothorax or pleural effusion. Cardiomegaly is unchanged. There is no evidence for pulmonary edema. There is no consolidation to suggest pneumonia. There is mild elevation of the left hemidiaphragm. IMPRESSION: No acute cardiopulmonary findings. No significant change in appearance of the chest. ACT 112: Negative or not required by law. Electronically signed by: Art Rivas M.D. 02/03/2022 10:56 AM Code Status & VTE Plan Code Status Sinus rhythm with sinus arrhythmia with 1st degree A-V block Nonspecific T wave abnormality Prolonged QT Abnormal ECG When compared with ECG of 30-MAR-2019 10:09, No significant change was found. Supervising Physician Co-Signing Physician Notes Patient seen and examined, chart reviewed, case discussed with Kristyn Escamilla PA-C and I agree with the assessment and plan as above except as otherwise noted Labs and images reviewed 81-year-old male with a history of vasovagal syncope who presents with an episode of syncope and hypoxia and to is COVID-positive in ER. He has been recommended for observation and treatment of COVID given hypoxia requiring initial 6 L nasal cannula now weaned to room air and cardiac evaluation. Your imaging including CTspine, CThead shows no fracture or bony injury, right scalp laceration is present. No stroke/hemorrhage. CXR without acute findings. Troponin is normal on admission. At bedside assessment patient reports he feels well, no symptoms including shortness of breath, chest pain, chest pressure, lightheadedness, headache. He reports he has had episodes of vasovagal syncope when standing, and has a prodrome where he gets lightheaded before this occurs. No episodes of sudden syncope. He reports he had used the bathroom, showered, and then was standing from a stooped position to shave when he felt a wave of lightheadedness, over him and for which she sat down and then had an episode of passing out similar to his prior vasovagal episodes. Denies chest pain at assessment, reports he felt a little bit of chest discomfort on initially waking up. Was noted by EMS report to be hypoxic which improved with 6 L of nasal cannula, rapidly returned to normal oxygen saturations on room air. CTA B, RRR, no acute distress. Head is in bandage. Has had no updated thoracic aneurysm screening in the last 2 years as far as he is aware Syncope, suspect vasovagal in the setting of COVID - Did repeat momentary chest pressure when waking up No KARINE - Hx ascending aneurysm at noted below Hypoxia resolved with 6 L nasal cannula rapidly weaned back to room air, no acute findings on CT TTE pending for syncope Troponin normal on initial assessment, 2-hour trend pending. EKG NSR without ST segment changes. QTc 465, ID 214. First-degree AV block. As patient was hypoxic in the setting of syncope and rapidly returned to the duration >98% on room air 1st Degree HB: Noted on EKG, By report hx of type 2, but no ekg to confirm. Continue tele, K goal 4.0, Mg 2.0. Ascending AA: Minimal change on serial imaging over last decade. 4.5cm in 2020. Surveillence biannual recommended, repeat CTA pending. Not on BB. Hx SVT: Continue on monitor, RRR at beside Agree with management above. PG Care Time/CCT Total # of Minutes Spent Total Time Spent with Patient: Total time spent is greater than 50% in coordination of care (as documented) at patient's floor/unit and/or counseling patient: Coding Level of Care Code INT OBSERVATION CARE 70M LVL 3 Diagnoses Syncope and collapse R55 COVID U07.1 Aortic aneurysm I71.9 Pure hypercholesterolemia E78.00 Anxiety state F41.1 Seasonal allergies J30.2 Benign essential hypertension I10
[2022-02-03] MEDS ORDERED: MAGNESIUM SULFATE / D5W 1 GM/100 ML BAG IV ONE (12:00)
[2022-02-03] MEDS ORDERED: POTASSIUM CHLORIDE 20 MEQ/15 ML UDC ONE (12:23)
[2022-02-03] MEDS: POTASSIUM CHLORIDE 20 MEQ/15 ML UDC PO SCH ×2 (12:51→20:42)
[2022-02-03] MEDS ORDERED: CHOLECALCIFEROL 1,000 UNITS 25 MCG TAB PO SCH (14:41)
[2022-02-03] MEDS ORDERED: ACETAMINOPHEN 325 MG TAB PO PRN (14:41)
[2022-02-03] MEDS ORDERED: POLYETHYLENE (MIRALAX) 17 GM PACK PO PRN (14:41)
[2022-02-03] MEDS ORDERED: LORazepam 0.5 MG TAB PO PRN (14:41)
[2022-02-03] MEDS ORDERED: ONDANSETRON INJ 2 MG/ML 2 ML VIAL IV PRN (14:41)
[2022-02-03] MEDS ORDERED: NITROGLYCERIN SL 0.4 MG/TAB TAB SL PRN (14:41)
[2022-02-03] MEDS ORDERED: FLUOCINONIDE 0.05% CR 15 GM TUBE EXT PRN (14:46)
[2022-02-03] MEDS ORDERED: CEROVITE ADV FORMULA TAB PO SCH (14:55)
[2022-02-03] MEDS ORDERED: ADVANCED PROBIOTIC 1250 MG CAPSULE PO SCH (14:56)
[2022-02-03 15:10] LABS: Appearance Urine Cloudy (Clear); Bacteria Urine Automated Negative (Negative); Bilirubin Urine Negative (Negative); Blood Urine Trace (Negative); Color Urine Yellow; Glucose Urine UA 1+ (Negative); Ketones Urine Trace (Negative); Leukocyte Esterase Urine Negative (Negative); Nitrite Urine Negative (Negative); Protein Urine 1+ (Negative); RBC Urine Automated 0-4 /hpf (0-4); Specific Gravity Urine 1.014 (1.000-1.030); Urobilinogen Urine Negative (Negative)
[2022-02-03] MEDS: ENOXAPARIN INJ 60 MG/0.6 ML SYR SQ SCH (19:04)
[2022-02-03] MEDS ORDERED: OPTIRAY 300 500mL IV ONE (19:57)
--- NOTE | 2022-02-03 20:46 | CT Scan Report ---
CT ANGIOGRAM OF THE CHEST COMBO CLINICAL HISTORY: Syncope. Aortic dilatation. COMPARISON STUDY: Chest CT dated 05/18/2019. Chest x-ray dated 02/03/2022. TECHNIQUE: Before and following the IV administration of 118 cc of Optiray 300, CT angiogram of the c hest was performed from the thoracic inlet to the upper abdomen utilizing the dissection protocol. Im ages are reviewed in the axial, sagittal, and coronal planes. 3-D MIPS images are created and assesse d. IV contrast was administered without complication. A dose lowering technique was utilized adherin g to the principles of ALARA. CT DOSE: 1124.00 mGy.cm FINDINGS: Thyroid: Imaged portions of the thyroid gland are normal in size and attenuation. Thoracic aorta: No intramural hematoma is seen on the unenhanced series. There is mild atheroscleroti c calcification of the thoracic aorta. There is ectasia of the aortic root which measures up to 4.6 c m. There is mild aneurysmal dilatation of the ascending thoracic aorta which measures up to 4.6 cm d iameter. The remainder of the thoracic aorta is normal in caliber, and the arch demonstrates standard 3-vessel anatomy. No dissection is seen. The arch vessels are widely patent. Pulmonary vasculature: The pulmonary trunk is normal in caliber. There are no filling defects identif ied in the major, lobar, or segmental pulmonary vessels to indicate pulmonary embolus. Heart: The heart is mildly enlarged noting trace pericardial effusion. The coronary arteries are dens anastasia calcified. Lungs and pleural spaces: There is no airspace consolidation or pleural effusion. Scarring/atelectasi s is seen at the lung bases. Minimal secretions are noted in the trachea. An 8 mm right middle lobe n odular density on image #183 and a 4 mm left basilar nodule image 214 are unchanged from 2020 and of doubtful significance. Mediastinum: There is no mediastinal lymphadenopathy. Kathleen: Clear. Axillae: There is no axillary lymphadenopathy. Upper abdomen: A 2.7 cm simple cyst is noted in the right lobe of the liver. A 2.2 cm cyst is again s een in the upper pole of the right kidney. Skeletal structures: The skeletal structures are osteopenic. Degenerative change and hyperkyphosis is noted in the thoracic spine. No lytic or blastic bony lesions are seen. IMPRESSION: 1. Ectasia of the aortic root and mild aneurysmal dilatation of the ascending thoracic aorta has not significantly changed as compared to 05/18/2019. This measures up to 4.6 cm diameter. 2. No dissection is seen. 3. There is no evidence of pulmonary embolus in the main, lobar, or segmental pulmonary arteries. 4. There is no airspace consolidation or pleural effusion. 5. Additional findings as above. ACT 112: Negative or not required by law. Electronically signed by: Donte Viramontes M.D. 02/03/2022 8:45 PM
[2022-02-03] MEDS ORDERED: PRAVASTATIN SOD 40 MG TAB PO SCH (21:00)
[2022-02-04] MEDS: ENOXAPARIN INJ 60 MG/0.6 ML SYR SQ SCH (04:00)
--- NOTE | 2022-02-04 05:54 | Electrocardiogram Report ---
Test Reason : Blood Pressure : / mmHG Vent. Rate : 078 BPM Atrial Rate : 078 BPM P-R Int : 214 ms QRS Dur : 096 ms QT Int : 408 ms P-R-T Axes : 071 -14 121 degrees QTc Int : 465 ms Sinus rhythm with sinus arrhythmia with 1st degree A-V block Nonspecific T wave abnormality Abnormal ECG When compared with ECG of 30-MAR-2019 10:09, No significant change was found Confirmed by Rob Cooper ([id number]) on 02/04/2022 5:54:22 AM Referred By: Confirmed By:Rob Cooper
--- NOTE | 2022-02-04 05:56 | Electrocardiogram Report ---
Test Reason : Blood Pressure : / mmHG Vent. Rate : 091 BPM Atrial Rate : 091 BPM P-R Int : 220 ms QRS Dur : 080 ms QT Int : 368 ms P-R-T Axes : 076 -05 070 degrees QTc Int : 452 ms Sinus rhythm with 1st degree A-V block Cannot rule out Anterior infarct , age undetermined Nonspecific ST abnormality Abnormal ECG When compared with ECG of 03-FEB-2022 09:22, Nonspecific T wave abnormality no longer evident in Inferior leads Nonspecific T wave abnormality no longer evident in Anterolateral leads Confirmed by Rob Cooper ([id number]) on 02/04/2022 5:56:21 AM Referred By: REFERRED SELF Confirmed By:Rob Cooper
[2022-02-04 07:23] LABS: Basophils # (auto) 0.06 K/uL (0-0.2); Basophils % (auto) 1.1 %; Eosinophils # (auto) 0.18 K/uL (0-0.50); Eosinophils % (auto) 3.3 %; Hematocrit (blood only) 43.3 % (40.1-51.0); Hemoglobin 15.4 g/dl (14.0-18.0); Immature Granulocytes # (auto) 0.02 K/uL (0.00-0.02); Immature Granulocytes % (auto) 0.4 %; Lymphocytes # (auto) 1.82 K/uL (1.2-3.4); Lymphocytes % (auto) 33.6 %; Mean Corpuscular Hemoglobin 33.1 pg (25.0-34.0); Mean Corpuscular Hgb Conc 35.6 g/dL (32.0-36.0); Mean Corpuscular Volume 93.1 fL (80.0-100.0); Mean Platelet Volume 9.9 fL (9.4-12.4); Monocytes # (auto) 0.89 K/uL (0.24-0.82); Monocytes % (auto) 16.4 %; Neutrophils # (auto) 2.45 K/uL (1.4-6.5); Neutrophils % (auto) 45.2 %; Platelet Count 202 K/uL (130-400); RDW Coefficient of Variation 12.5 % (11.5-14.5); RDW Standard Deviation 42.7 fL (36.4-46.3); Red Blood Count 4.65 M/uL (4.63-6.08); White Blood Count 5.42 K/ul (4.8-10.8)
[2022-02-04] MEDS ORDERED: CETIRIZINE HCL 10 MG TABLET PO SCH (09:00)
[2022-02-04] MEDS ORDERED: LOSARTAN POTASSIUM 25 MG TAB PO SCH (09:00)
[2022-02-04] MEDS ORDERED: FLUTICASONE PROPIONATE NA SPR 16 GM BTL SCH (09:00)
[2022-02-04 10:33] LABS: Albumin Globulin Ratio 1.3 (0.9-2); BUN Creatinine Ratio 17.3 (10-20); Bilirubin,Total 1.3 mg/dl (0.2-1.0); Calcium 8.6 mg/dl (8.5-10.1); Est GFR (African American) 78.8 ml/min; Globulin 3.2 gm/dl (2.5-4.0); Magnesium 2.2 mg/dl (1.7-2.4); Potassium 3.8 mmol/L (3.5-5.1); Total Protein 7.2 gm/dl (6.0-8.3); Troponin I High Sensitivity 9.8 pg/ml (0-20)
--- NOTE | 2022-02-04 11:10 | Discharge Summary ---
Date of Service February 04, 2022 Admission HPI Per Admitting Provider Jamal Monson is a 81-year-old male with past medical history significant for hypertension, hyperlipidemia, anxiety, aortic root dilation/aneurysm, and allergies who presents today after syncopal episode at home. Patient was shaving after getting out of the shower when he suddenly felt lightheaded and dizzy. He also notes associated shortness of breath, chest heaviness, and palpitations shortly after passed out for estimated 30 to 60 seconds. He did hit his head off the bathroom floor and has a small laceration occipital region. His witnessed the event did say that he fell very hard and did not lose consciousness during the event but had his eyes open but was unable to speak. Patient was incontinent of bowel. EMS arrived within 5 to 10 minutes of the event transported patient to ED for further evaluation. Prior to this, patient had been feeling generally more weak and fatigued over the past 2 days or so but did not have any fever chills, chest pain, palpitations, shortness of breath at rest or with activity. He has not noticed any leg swelling or pain. He does have a history of vasovagal syncopal events related to illnesses and dehydration. As noted patient's O2 sats were 70% on room air responded well to 6 L NC. On arrival to the ED patient slightly hypertensive, otherwise vital signs within normal limits, HR 70-80s, 97% on RA, afebrile. He is COVID-positive in ED, otherwise labs largely unremarkable, his T bili is elevated at 1.6 is consistent with his baseline over the past 2 years. Glucose is mildly elevated 156. No leukocytosis, anemia, electrolyte abnormalities, or acute renal or hepatic dysfunction. trop pending Imaging was given due to trauma sustained in fall, CT of the spine shows degenerative changes without evidence of acute bony injury. Head CT shows small right septal scalp laceration, no acute intracranial abnormality or fractures. Chest x-ray without any acute cardiopulmonary findings or significant change in appearance of chest when compared with imaging from 2 years ago. Principal Diagnosis Vasovagal syncope, COVID-19 without hypoxia Discharge Exam General: A&Ox3. NAD. Cooperative. HEENT: Atraumatic, normocephalic. Pupils equal and reactive to light. Visual acuity and hearing grossly intact Pulm: CTAB A&P. -wheezes, -rales, -rhonchi. Symmetrical chest rise. No increase in work of breathing. No respiratory distress. Cardiac: RRR, -mrg. Radial pulses intact and symmetrical. Abdominal: Nontender, nondistended, soft. BS present. Extremities: Warm, dry. Sensation soft touch intact in hands and feet without asymmetry. Manager Valuation strength, hip flexion, elbow flexion, and dorsiflexion/plantarflexion 5/5 at bedside. Patient able to pass get up and go test without supporting arms on bed at bedside. Discharge Data Allergies Allergy/AdvReac Type Severity Reaction Status Date / Time acetaminophen AdvReac Intermediate "DOES NOT Verified 02/03/22 10:38 AGREE WITH ME" aspirin AdvReac Intermediate "THIN Verified 02/03/22 10:38 BLOOD" caffeine AdvReac Intermediate "THIN Verified 02/03/22 10:38 BLOOD" phenacetin AdvReac Intermediate "THIN Verified 02/03/22 10:38 BLOOD" Sulfa (Sulfonamide AdvReac Intermediate GI UPSET Verified 02/03/22 10:38 Antibiotics) ANESTHESIA Allergy Intermediate Bradycardia Uncoded 02/03/22 10:38 Arrhythmia and Diaphoretic Consultations 02/03/22 11:37 ED Decision to Admit Stat Ordered Studies 02/03/22 09:21 CT cervical spine wo con Stat CT head/brain wo con Stat 02/03/22 14:41 CT angio chest dissec wo/w con Routine Hospital Course (1) Syncope and collapse: Syncope, suspect vasovagal - Likely vasovagal secondary to recently showering, possibly due to volume depletion/general illness in setting of COVID-19 infection. Also wonder if patient has UTI, given reported increase in urination x 2 days, however no dysuria or elevated WBC to indicate bacterial infection. Patient has had vasovagal episodes previously in the setting of illness. HE was hypoxic right after syncopal event, otherwise without tachycardiac or hypoxia to suggest PE. Patient did have transient chest heaviness/palpitations with incident, however so far EKG unrevealing of any obvious ischemia. Lower suspicion for ACS. 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 - He does have a reported history of an SVT that can last at times for a minute or two, which is typically asymptomatic. He has had a stress echo in 2019 which recorded him to be in A. fib at the end of the test during recovery which resolved on its own abruptly within a minute or two. Per cardiology, no specific therapy required. No SVT appreciated on monitoring, electrolytes were normal at discharge including sodium/potassium/chloride, renal function was normal and discharge creatinine 1.04 -CTA shows stable thoracic aortic aneurysm without interval change, no PEs EKG with no ST changes/arrhythmia, high-sensitivity troponin normal x3 (2) COVID: - 2-3 days of general fatigue/weakness/loose stools without any pulmonary or cardiac symptoms until today;s syncopal event.. - Received COVID vaccines and most recent booster last Tuesday. - Transiently 70% on RA after syncopal event, placed on 6L NC and rapidly weaned bcak to RA. - SpO2 > 95% on RA, therefore will defer on remdesivir or steroid treatment for now. - Symptomatic care: IVF, Tylenol for pain or fever, breathing treatments prn. - Isolation precautions. - COVID VTE ppx: 0.5 mg/kg Lovenox BID during admission Return precautions given for worsening symptoms (3) Aortic aneurysm: - Present since 2010, last imaging in May 2019: Mild aneurysmal dilatation of the aortic root measuring 4.5 cm and the ascending aorta measuring 4.4 cm. This has slightly increased since 2010. -Repeat CTA stable without expansion of aneurysm. (4) Pure hypercholesterolemia: - Continue pravastatin 40 mg HS. (5) Anxiety state: - Continue lorazepam 0.5 mg daily PRN. (6) Seasonal allergies: - Continue Flonase, Zyrtec prn. (7) Benign essential hypertension: - Continue losartan with BP goal < 150/90. Plan - OBS to med/tele. - SCDs and Lovenox 50 mg BID for VTE ppx. - DNR/DNI. Total Time Total Time Spent Total Time Spent (In Minutes): Time spend day of discharge 35 minutes including direct patient care, documentation, review of labs and images, and coordination of care. Discharge Plan Discharge Items Patient Disposition: Home - Self-Care Reason For Visit: CHEST PAIN, SYNCOPE Discharge Diagnosis: Vasovagal syncope, COVID-19 without hypoxia Activity: Per Instructions section Non-emergency contact: Primary Care Provider Call non-emergency contact if: you have any medication questions, your symptoms worsen and you have a fever Follow-up/Referrals: Shy Lugo MD [Primary Care Provider] - Diet: Heart Healthy Addtl Attending Provider Instructions: You are seen in the hospital for an episode of syncope which occurred after using the bathroom, showering, and standing. EKG did not show any rhythm abnormalities, and no ST segment changes suggestive of heart attack. A CT of your chest with contrast was performed which did not show any evidence of blood clots in your known aortic dilatation/thoracic aneurysm showed no change from prior testing in 2021. You were positive for COVID, you did not require oxygen following admission and as such steroids/remdesivir was not recommended. He felt well with supportive care overnight, and were comfortable with discharge home. Please continue to stay hydrated and continue a normal salt intake. If you have any new or worsening symptoms please seek medical reevaluation. Some patients with COVID worsen after 10 days of illness, if you experience shortness of breath, difficulty breathing, low oxygen levels (below 90% on home pulse ox), or other concerning symptoms please seek prompt medical reevaluation. Your kidney numbers (creatinine), liver numbers (AST/ALT/alkaline phosphatase, and heart markers (high-sensitivity troponin) were all normal at time of discharge. If you develop any new or worsening symptoms including fever, chills, sweats, chest pain, chest pressure, difficulty breathing, uncontrolled nausea/vomiting, rash, wheezing, passing out or nearly passing out, bleeding, black/bloody bowel movements, or other new or concerning symptoms please call your primary care physician, or call 911 for re-evaluation in the emergency department if you are very concerned. Pending Studies at Discharge: No Stand-Alone Forms: [facility], Sm[facility] Cessation Medications and DC Order Prescriptions: Continued losartan 25 mg tablet 12.5 mg PO QAM Qty: 45 5RF pravastatin 40 mg tablet 40 mg PO HS Qty: 90 3RF fluocinonide 0.05 % cream 1 appln topical DAILY PRN (Reason: Rash) Qty: 1 cetirizine [24Hour Allergy] 10 mg tablet 10 mg PO DAILY fluticasone propionate 50 mcg/actuation spray,suspension 2 spray intranasal DAILY Qty: 16 3RF Rx Instructions: administer 2 sprays into each nostril daily lorazepam 0.5 mg tablet 0.5 mg PO DAILY PRN (Reason: anxiety) Qty: 20 0RF Probiotic 3 billion cell Capsule 3,000 mmu cells PO 3XWK Rx Instructions: TAKES MON, WED, & FRI Centrum Silver 400-250 mcg Tablet,Chewable 1 tab PO 3XWK Rx Instructions: TAKES MON, WED, & FRI. cholecalciferol (vitamin D3) [Vitamin D3] 1,000 unit Capsule 1,000 unit PO MOWEFR Discharge Orders: Discharge Order (Routine); Ordered 02/04/22 Ordered By: Hoawrd Xiong Admission Data Admit Date/Time: 02/03/22 11:46 Attending Provider: Howard Xiong Admit Provider: Howard Xiong Primary Care Provider: Shy Lugo Other Providers: Howard Xiong Coding Level of Care Code D/C DAY MANAGEMENT >30 MINS Diagnoses Syncope and collapse R55 COVID U07.1 Aortic aneurysm I71.9 Pure hypercholesterolemia E78.00 Anxiety state F41.1 Seasonal allergies J30.2 Benign essential hypertension I10
[2022-02-04] MEDS ORDERED: amLODIPine BESYLATE 5 MG TAB PO STA (11:35)
--- NOTE | 2022-02-04 13:10 | XCELERA ---
[id number]
--- NOTE | 2022-02-04 21:24 | Electrocardiogram Report ---
Test Reason : Blood Pressure : / mmHG Vent. Rate : 070 BPM Atrial Rate : 070 BPM P-R Int : 212 ms QRS Dur : 104 ms QT Int : 428 ms P-R-T Axes : 057 -37 042 degrees QTc Int : 462 ms Sinus rhythm with 1st degree A-V block with occasional Premature ventricular complexes and Premature atrial complexes Left axis deviation Abnormal ECG When compared with ECG of 03-FEB-2022 10:23, Premature ventricular complexes are now Present Premature atrial complexes are now Present QRS duration has increased T wave amplitude has decreased in Inferior leads Confirmed by Rob Cooper ([id number]) on 02/04/2022 9:23:41 PM Referred By: REFERRED SELF Confirmed By:Rob Cooper
[2022-02-05] MEDS ORDERED: amLODIPine BESYLATE 5 MG TAB PO SCH (09:00)
== END 2022-02-04 12:51 | disposition home or self-care (01) ==
LOC: ED 09:13 → EDINP 09:13 → 2S 14:40

== ENCOUNTER 2023-03-11 09:52 | Observation (INO) ==
[2023-03-11] MEDS ORDERED: OPTIRAY 320 500ml IV ONE (09:59)
[2023-03-11] MEDS ORDERED: SODIUM CHLORIDE 0.9% 1,000 ML IV SCH (10:00)
--- NOTE | 2023-03-11 10:16 | CT Scan Report ---
CT OF THE HEAD WITHOUT CONTRAST CLINICAL HISTORY: neuro deficit, acute stroke suspected COMPARISON STUDY: MRI of the brain October 01, 2020. Head CT February 03, 2022. TECHNIQUE: Helical axial images of the head were obtained without IV contrast. Automated exposure con trol was utilized for the study. A dose lowering technique was utilized adhering to the principles o f ALARA. FINDINGS: No acute intracranial hemorrhage, midline shift or mass effect is present. The ventricular system is stable. White matter hypodensities are similar to prior exam and favor small vessel disease . The basal cisterns are patent. No extra-axial collections are present. There are no findings to sug gest acute dural sinus thrombosis or acute territorial infarct. No significant calvarial abnormalitie s are present. Left maxillary sinus air-fluid level is noted. This has decreased in size when compare d to prior CT. There are secretions within the left maxillary sinus. There is mild ethmoid sinus muco ejff thickening. IMPRESSION: No acute intracranial findings. ACT 112: Negative or not required by law. Electronically signed by: Art Rivas M.D. 03/11/2023 10:14 AM
[2023-03-11 10:24] LABS: Basophils # (auto) 0.08 K/uL (0.00-0.20); Basophils % (auto) 1.2 %; Eosinophils # (auto) 0.29 K/uL (0.00-0.50); Eosinophils % (auto) 4.3 %; Hematocrit (blood only) 41.7 % (42.0-52.0); Hemoglobin 15.1 g/dl (14.0-18.0); Immature Granulocytes # (auto) 0.01 K/uL (0.01-0.20); Immature Granulocytes % (auto) 0.1 %; Lymphocytes # (auto) 2.33 K/uL (1.20-3.40); Lymphocytes % (auto) 34.2 %; Mean Corpuscular Hemoglobin 33.9 pg (25.0-34.0); Mean Corpuscular Hgb Conc 36.2 g/dL (32.0-36.0); Mean Corpuscular Volume 93.7 fL (80.0-100.0); Mean Platelet Volume 9.6 fL (9.4-12.4); Monocytes # (auto) 0.69 K/uL (0.11-0.59); Monocytes % (auto) 10.1 %; Neutrophils # (auto) 3.42 K/uL (1.40-6.50); Neutrophils % (auto) 50.1 %; Platelet Count 213 K/uL (130-400); RDW Coefficient of Variation 12.7 % (11.5-14.5); RDW Standard Deviation 43.8 fL (36.4-46.3); Red Blood Count 4.45 M/uL (4.70-6.10); White Blood Count 6.82 K/ul (4.8-10.8)
--- NOTE | 2023-03-11 10:26 | XRay Report ---
XR chest 1V portable HISTORY: neuro deficit, acute stroke suspected COMPARISON: Chest 02/03/2022. FINDINGS: There are low lung volumes. The heart remains enlarged. No new focal lung consolidations to suggest a pneumonia. No evidence for pulmonary edema. No acute fractures identified. IMPRESSION: Stable cardiomegaly. ACT 112: Negative or not required by law. Electronically signed by: Ilia Miller M.D. 03/11/2023 10:24 AM
--- NOTE | 2023-03-11 10:27 | CT Scan Report ---
CT ANGIOGRAPHY OF THE NECK WITH CONTRAST CLINICAL HISTORY: neuro deficit, acute stroke suspected COMPARISON STUDY: No previous studies for comparison. Technique: CT angiography of the carotid and vertebral arteries was obtained using Opt[employer] and 3D rec onstruction on an independent workstation. NASCET criteria was utilized. Automated exposure control was utilized for the study. A dose lowering technique was utilized adhering to the principles of ALA RA. CT DOSE: 1339.47 mGy.cm Findings: Visualized portions of these are unremarkable. There is no cervical lymphadenopathy. No cer vical spine fracture is present. There is dilatation of visualized portions of the ascending aorta, m easuring up to 4.3 cm. The bilateral common carotid, cervical internal carotid and vertebral arteries are patent. There is moderate plaque within the proximal left internal carotid artery without signif icant stenosis. There is mild plaque within the proximal right internal carotid artery without stenos is. Stenosis of the intracranial portions of the vertebral arteries are better depicted on the CTA of the head. No dissection or aneurysm within the neck. IMPRESSION: 1. Mild to moderate plaque within the proximal bilateral internal carotid arteries without stenosis. 2. No stenoses within the cervical portions of the bilateral vertebral arteries. 3. Mild dilatation of visualized portions of the ascending aorta, measuring up to 4.3 cm. ACT 112: Negative or not required by law. Electronically signed by: Art Rivas M.D. 03/11/2023 10:26 AM
--- NOTE | 2023-03-11 10:31 | Emergency Department Note ---
Impression & Plan Stroke-like symptoms ED Provider Note NAME: JACQUELYN JUAREZR AGE: 82 SEX: Male INFORMANT: Patient and ED PROVIDER(S): Ashwin Luu MD CHIEF COMPLAINT: Strokelike symptoms PLAN: Disposition: Admitted Outpatient prescription management: none Referral: None MEDICAL DECISION MAKING: Patient was brought in as a stroke alert. Prehospital medical command was done by me. Patient was taken emergently to CT imaging. Thankfully CT imaging did not reveal any acute findings. Patient was feeling better on reassessment with only minimal findings of left lower facial droop. Patient had a consultation placed with telestroke, Dr. Singh. He noted given the minimal findings the patient was not recommended for TNK. Patient also has a history of recent GI bleed. He felt that given the strokelike event that the patient would likely require reinitiation of his anticoagulation but recommended stroke work-up first. Patient was given aspirin by his direction. The patient will need further management in the hospital. Consultation was made with Dr. Elliott of the [facility] service. Case was discussed and diagnostics were reviewed. Patient was evaluated in the ER and admitted for further management. Care/management discussed with: cleaning manager Level of care consideration(s): After review of the information above and other included data, I feel the patient requires escalation of care to admission. Triage Nursing notes: reviewed and agree them. Vital Signs: reviewed and remarkable for no significant abnormalities Additional History obtained from: Patient's . She does note that he has persistent left facial droop. Chronic Medical/Social Conditions affecting care: Atrial fibrillation Prior/ Outside/ External records reviewed: Cardiology records reviewed. Patient is currently off anticoagulation. Differential Diagnosis: CVA, TIA, ICH, Infection, dehydration, metabolic abnormality, hypo/hyperglycemia, electrolyte disturbance, anemia, hypoxia, cardiac sources, intracerebral event, toxicologic, neurologic, as well as other pathologies. Diagnostics, independently interpreted by me: ECG: Twelve-lead ECG reveals atrial fibrillation at 77 bpm. Inferior Q waves. Poor R wave progression anteriorly. No ST elevation. Cardiac Monitoring: Cardiac monitoring ordered by me: The patient was placed on continuous cardiac monitoring and observed. It revealed a atrial fibrillation at 68 bpm. Medical decision rules: none Imaging studies: Head CT: A noncontrast CT scan of the head was performed and was negative for tumor, fracture, intracranial hemorrhage, or other acute pathology. HPI: 82 year old Male arrives for evaluation of strokelike symptoms. Patient notes the onset of slurred speech and weakness that occurred at about 910 this morning. Patient was doing some work on a house with other people and symptoms started abruptly. Patient does have a history of atrial fibrillation and is currently not on anticoagulation. EMS was summoned. They did note some slurred speech as well as left facial weakness. They appreciated some left arm weakness as well. They were concerned about stroke and called for medical command. I discussed the case with the construction controller and patient was made a stroke alert. On arrival the patient is feeling much better. He does not note any weakness in the extremities. He feels his speech is back to normal. He still has some mild left facial droop. Denies any fall or trauma. Pt denies LOC, headache, fevers, chills, diaphoresis, visual changes, neck pain, chest pain, breathing difficulties, nausea, vomiting, abdominal pain, back pain, melena, hematochezia, urinary symptoms, numbness, lymphadenopathy, rash, or other complaints. PAST MEDICAL HISTORY: See Below, GI bleed, atrial fibrillation PAST SURGICAL HISTORY: See Below, ablation SOCIAL HISTORY: , see below HOME MEDICATIONS: See Below ALLERGIES: See Below VITALS: See Below PHYSICAL EXAMINATION: GENERAL: Awake, alert, well-appearing, in no distress HENT: Normocephalic, atraumatic. Oropharynx unremarkable. EYES: Normal conjunctiva. Sclera non-icteric. PERRLA. EOMI. NECK: Inspection normal. Non-tender. Supple. No nuchal rigidity. FROM. No masses. RESPIRATORY: Clear to auscultation. No wheezes. No rales. Normal respiratory effort. CARDIAC: Normal rate. Normal rhythm. No murmurs. No rubs. Extremities warm and well perfused. Pulses equal. No JVD. GI: Soft, non-distended. No tenderness to palpation. No rebound or guarding. No masses. RECTAL: Deferred. MUSCULOSKELETAL: Atraumatic. Chest examination reveals no tenderness. The back is symmetrical on inspection without obvious abnormality. There is no CVA tenderness to palpation. No joint edema. LOWER EXTREMITIES: Calves are equal size bilaterally and non-tender. No edema. No discoloration. NEURO: Normal sensorium. No sensory or motor deficits noted except for some mild left facial droop in the nasolabial fold. Speech normal. Cranial nerves II through XII intact otherwise. No drift. Normal rapid alternating movements. SKIN: No rash or jaundice noted. PROCEDURES: none CRITICAL CARE: none OBSERVATION NOTE: none Past Med/Surg History Medical History Anxiety Bleeding hemorrhoid COVID-19 Diabetes mellitus type 2, diet-controlled History of anesthesia reaction Hyperlipemia Hypertension Irregular heart beat Osteoarthritis Stroke Syncopal episodes Transient ischemic attack (TIA) Surgical History History of cataract surgery History of colonoscopy History of removal of cyst (03/30/19) History of tooth extraction Family History Mother Diabetes Hypertension Father Cancer Family/Other Cancer Other Family history non-contributory Denies family history of Ovarian cancer Prostate cancer Myocardial infarction Breast cancer Colorectal cancer Social History Smoking Status: Former smoker Second Hand Exposure: No; Do You Dip or Chew Tobacco: No; Hx Alcohol Use: No Hx Substance Use: No Preferred Language: Somali Communication Ability: Effective Visual Impairment: No Limitations Hearing Ability: Normal Finisher Machine Required: No Beliefs That Will Affect Care: None marital status: Current Living Situation: Spouse current occupational status: retired 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 Feels Safe at Home: Yes Safety Concerns: Feels Safe At This Time Childhood Exposure to Second-Hand Smoke: Yes Diet: regular Dental Care, Regularly: Yes Physical Activity Frequency: Does not Exercise Seatbelt Use: always Sunscreen Use: No Assistive Devices: Glasses Allergies Allergies Allergy/AdvReac Type Severity Reaction Status Date / Time acetaminophen AdvReac Intermediate "DOES NOT Verified 03/11/23 11:42 AGREE WITH ME" aspirin AdvReac Intermediate "THIN Verified 03/11/23 11:42 BLOOD" caffeine AdvReac Intermediate "THIN Verified 03/11/23 11:42 BLOOD" phenacetin AdvReac Intermediate "THIN Verified 03/11/23 11:42 BLOOD" Sulfa (Sulfonamide AdvReac Intermediate GI UPSET Verified 03/11/23 11:42 Antibiotics) ANESTHESIA Allergy Intermediate Bradycardia Uncoded 03/11/23 11:42 Arrhythmia and Diaphoretic Home Meds Home Medications Medication Instructions Recorded Confirmed lactobacillus combination no.4 3 3,000 mmu cells PO 3XWK 09/14/18 03/11/23 billion cell capsule (Probiotic) cholecalciferol (vitamin D3) 25 1,000 unit PO MOWEFR 03/30/19 03/11/23 mcg (1,000 unit) capsule (Vitamin D3) multivit with min-folic 1 tab PO 3XWK 03/30/19 03/11/23 acid-lutein 400 mcg-250 mcg chewable tablet (Centrum Silver) metoprolol succinate 50 mg 50 mg PO QAM 03/11/23 03/11/23 tablet,extended release 24 hr Previous Rx's Medication Instructions Recorded fluticasone propionate 50 2 spray intranasal DAILY #16 grams 09/22/20 mcg/actuation nasal spray,suspension lorazepam 0.5 mg tablet 0.5 mg PO DAILY PRN anxiety #20 09/29/21 tabs losartan 25 mg tablet 12.5 mg (1/2 x 25 mg) PO QAM #45 02/08/22 tabs pravastatin 40 mg tablet 40 mg PO HS #90 tabs 07/05/22 Results & Data (ED) Vital Signs Vital Signs - 24 hr 03/11/23 09:47 03/11/23 10:08 03/11/23 10:50 Temperature 36.5 C Temperature Source Oral Pulse Rate 96 H 82 81 Pulse Rate from SpO2 Sensor 85 Respiratory Rate 18 17 Respiratory Effort / Characteristics Non-Labored Spontaneous Respiratory Depth Normal Respiratory Pattern Regular Blood Pressure 146/98 H 146/98 H Blood Pressure Mean 114 114 Pulse Oximetry 96 96 Oxygen Delivery Method Room Air Sepsis Recent Fever Within 48 Hours No Sepsis New/Unexplained Change in Mental Status No Sepsis Action Taken by Nursing No Action Required Laboratory Data 03/11/23 10:08 03/11/23 10:08 Lab Results 03/11/23 03/11/23 Range/Units 10:08 10:18 WBC 6.82 (4.8-10.8) K/ul RBC 4.45 L (4.70-6.10) M/uL Hgb 15.1 (14.0-18.0) g/dl Hct 41.7 L (42.0-52.0) % MCV 93.7 (80.0-100.0) fL MCH 33.9 (25.0-34.0) pg MCHC 36.2 H (32.0-36.0) g/dL RDW Std Deviation 43.8 (36.4-46.3) fL RDW Coeff of Marily 12.7 (11.5-14.5) % Plt Count 213 (130-400) K/uL MPV 9.6 (9.4-12.4) fL Immature Gran % (Auto) 0.1 % Neut % (Auto) 50.1 % Lymph % (Auto) 34.2 % Cuming % (Auto) 10.1 % Eos % (Auto) 4.3 % Baso % (Auto) 1.2 % Neut # (Auto) 3.42 (1.40-6.50) K/uL Lymph # (Auto) 2.33 (1.20-3.40) K/uL Cuming # (Auto) 0.69 H (0.11-0.59) K/uL Eos # (Auto) 0.29 (0.00-0.50) K/uL Baso # (Auto) 0.08 (0.00-0.20) K/uL Immature Gran # (Auto) 0.01 (0.01-0.20) K/uL PT 12.1 H (9.0-12.0) Seconds INR 1.1 (0.9-1.1) APTT 25.6 (21.0-31.0) Seconds PTT Ratio 0.9 Sodium 134 L (136-145) mmol/L Potassium 4.1 (3.5-5.1) mmol/L Chloride 101 (98-107) mmol/L Carbon Dioxide 26 (21-32) mmol/L Anion Gap 7 (3-11) BUN 19 (6-23) mg/dl Creatinine 1.16 (0.6-1.4) mg/dl Est Cr Clr Drug Dosing 64.5 ml/min Est GFR ( Amer) 68.6 ml/min Est GFR (Non-Af Amer) 59.1 ml/min BUN/Creatinine Ratio 16.4 (10-20) Glucose 177 H (70-99(Fasting)) mg/dl POC Glucose 166 H (70-99) mg/dl Calcium 8.6 (8.6-10.3) mg/dl Magnesium 1.9 (1.7-2.4) mg/dl Total Bilirubin 1.4 H (0.2-1.0) mg/dl AST 17 (13-39) U/L ALT 17 (7-52) U/L Alkaline Phosphatase 38 (34-104) U/L Troponin I High Sens 3.3 (0-20) pg/ml Total Protein 6.9 (6.0-8.3) gm/dl Albumin 3.9 (3.4-5.0) gm/dl Globulin 3.0 (2.5-4.0) gm/dl Albumin/Globulin Ratio 1.3 (0.9-2) Blood Type A Positive Antibody Screen NEGATIVE Administered Medications Discontinued Medications Aspirin (Aspirin Chew 324 Mg) 324 mg PO NOW STA Stop: 03/11/23 10:56 Last Admin: 03/11/23 11:17 Dose: 324 mg Documented By: TRISTON Sodium Chloride (Nss) 1,000 mls @ 50 mls/hr IV .Q20H HAWK Stop: 04/10/23 09:59 Last Admin: 03/11/23 13:53 Dose: Not Given Documented By: NADYA Ioversol (Optiray 320 500ml) 118 ml IV ONCE ONE Stop: 03/11/23 10:00 Last Admin: 03/11/23 09:59 Dose: 118 ml Documented By: PAMELA Imaging Data Radiologist's Impression: Chest X-Ray 03/11/23 09:47 XR chest 1V portable HISTORY: neuro deficit, acute stroke suspected COMPARISON: Chest 02/03/2022. FINDINGS: There are low lung volumes. The heart remains enlarged. No new focal lung consolidations to suggest a pneumonia. No evidence for pulmonary edema. No acute fractures identified. IMPRESSION: Stable cardiomegaly. ACT 112: Negative or not required by law. Electronically signed by: Ilia Miller M.D. 03/11/2023 10:[address] 03/11/23 09:47 CT OF THE HEAD WITHOUT CONTRAST CLINICAL HISTORY: neuro deficit, acute stroke suspected COMPARISON STUDY: MRI of the brain October 01, 2020. Head CT February 03, 2022. TECHNIQUE: Helical axial images of the head were obtained without IV contrast. Automated exposure control was utilized for the study. A dose lowering technique was utilized adhering to the principles of ALARA. FINDINGS: No acute intracranial hemorrhage, midline shift or mass effect is present. The ventricular system is stable. White matter hypodensities are similar to prior exam and favor small vessel disease. The basal cisterns are patent. No extra-axial collections are present. There are no findings to suggest acute dural sinus thrombosis or acute territorial infarct. No significant calvarial abnormalities are present. Left maxillary sinus air-fluid level is noted. This has decreased in size when compared to prior CT. There are secretions within the left maxillary sinus. There is mild ethmoid sinus mucosal thickening. IMPRESSION: No acute intracranial findings. ACT 112: Negative or not required by law. Electronically signed by: Art Rivas M.D. 03/11/2023 10:14 AM Head CTA 03/11/23 09:47 HEAD CTA HISTORY: neuro deficit, acute stroke suspected TECHNIQUE: Multiaxial CT images of the head were performed both before and after the intravenous administration of contrast to evaluate the major cerebral vessels. 3D/MIP images were also obtained. Sagittal and coronal reformats were reviewed. A dose lowering technique was utilized adhering to the principles of ALARA. COMPARISON: Noncontrast head CT 03/11/2023. FINDINGS: There is no mass, hematoma, midline shift, or acute infarct. Moderate calcified plaque within the bilateral carotid siphons with mild to moderate stenosis of the bilateral supraclinoid ICAs. There is multifocal stenosis within the bilateral distal intracranial vertebral arteries. This is most pronounced on the right which demonstrates a focal area of high-grade stenosis on image 29. Mild multifocal stenosis within the basilar artery. There is a 3 mm segment of high-grade stenosis versus near occlusion within the P2 segment of the left ASSEMBLY TECHNICIAN on image 98. There is immediate distal reconstitution of the distal left ASSEMBLY TECHNICIAN. There is a persistent left posterior circulation. There is multifocal mild stenosis within the right ASSEMBLY TECHNICIAN. There is a hypoplastic left A1 segment. Multifocal mild to moderate stenoses within the bilateral mid to distal ACAs. Focal area of moderate stenosis within the left proximal MCA. Multifocal areas of mild stenosis within the remaining bilateral MCAs. No aneurysms identified. The major dural venous sinuses are patent. IMPRESSION: 1. There is a 3 mm segment of high-grade stenosis versus near occlusion within the mid left ASSEMBLY TECHNICIAN. However, there is immediate reconstitution of flow within the distal left ASSEMBLY TECHNICIAN. 2. Multiple additional areas of multifocal stenosis seen throughout the cerebral arteries as described above. ACT 112: Negative or not required by law. Electronically signed by: Ilia Miller M.D. 03/11/2023 10:34 AM Neck CTA 03/11/23 09:47 CT ANGIOGRAPHY OF THE NECK WITH CONTRAST CLINICAL HISTORY: neuro deficit, acute stroke suspected COMPARISON STUDY: No previous studies for comparison. Technique: CT angiography of the carotid and vertebral arteries was obtained using Opt[employer] and 3D reconstruction on an independent workstation. NASCET criteria was utilized. Automated exposure control was utilized for the study. A dose lowering technique was utilized adhering to the principles of ALARA. CT DOSE: 1339.47 mGy.cm Findings: Visualized portions of these are unremarkable. There is no cervical lymphadenopathy. No cervical spine fracture is present. There is dilatation of visualized portions of the ascending aorta, measuring up to 4.3 cm. The bilateral common carotid, cervical internal carotid and vertebral arteries are patent. There is moderate plaque within the proximal left internal carotid artery without significant stenosis. There is mild plaque within the proximal right internal carotid artery without stenosis. Stenosis of the intracranial portions of the vertebral arteries are better depicted on the CTA of the head. No dissection or aneurysm within the neck. IMPRESSION: 1. Mild to moderate plaque within the proximal bilateral internal carotid arteries without stenosis. 2. No stenoses within the cervical portions of the bilateral vertebral arteries. 3. Mild dilatation of visualized portions of the ascending aorta, measuring up to 4.3 cm. ACT 112: Negative or not required by law. Electronically signed by: Art Rivas M.D. 03/11/2023 10:26 AM Discharge Plan Visit Data Chief Complaint: Stroke Alert ED Provider: Ashwin Luu Discharge Problem: Stroke-like symptoms Patient Disposition: Admitted As Inpatient Discharge Instructions Interventions: ED Discharge Assessment Last Done: 03/11/23 12:43
--- NOTE | 2023-03-11 10:36 | CT Scan Report ---
HEAD CTA HISTORY: neuro deficit, acute stroke suspected TECHNIQUE: Multiaxial CT images of the head were performed both before and after the intravenous admi nistration of contrast to evaluate the major cerebral vessels. 3D/MIP images were also obtained. Sag ittal and coronal reformats were reviewed. A dose lowering technique was utilized adhering to the mona William. COMPARISON: Noncontrast head CT 03/11/2023. FINDINGS: There is no mass, hematoma, midline shift, or acute infarct. Moderate calcified plaque with in the bilateral carotid siphons with mild to moderate stenosis of the bilateral supraclinoid ICAs. T here is multifocal stenosis within the bilateral distal intracranial vertebral arteries. This is most pronounced on the right which demonstrates a focal area of high-grade stenosis on image 29. Mild mul tifocal stenosis within the basilar artery. There is a 3 mm segment of high-grade stenosis versus jessica r occlusion within the P2 segment of the left COMMERCIAL SALES SPECIALIST on image 98. There is immediate distal reconstituti on of the distal left COMMERCIAL SALES SPECIALIST. There is a persistent left posterior circulation. There is multifoca l mild stenosis within the right COMMERCIAL SALES SPECIALIST. There is a hypoplastic left A1 segment. Multifocal mild to mode rate stenoses within the bilateral mid to distal ACAs. Focal area of moderate stenosis within the lef t proximal MCA. Multifocal areas of mild stenosis within the remaining bilateral MCAs. No aneurysms i dentified. The major dural venous sinuses are patent. IMPRESSION: 1. There is a 3 mm segment of high-grade stenosis versus near occlusion within the mid left COMMERCIAL SALES SPECIALIST. Britton alexia, there is immediate reconstitution of flow within the distal left COMMERCIAL SALES SPECIALIST. 2. Multiple additional areas of multifocal stenosis seen throughout the cerebral arteries as describe d above. ACT 112: Negative or not required by law. Electronically signed by: Ilia Miller M.D. 03/11/2023 10:34 AM
[2023-03-11 10:41] LABS: Albumin Globulin Ratio 1.3 (0.9-2); Albumin Level 3.9 gm/dl (3.4-5.0); BUN Creatinine Ratio 16.4 (10-20); Bilirubin,Total 1.4 mg/dl (0.2-1.0); Calcium 8.6 mg/dl (8.6-10.3); Creatinine Clr Calc Pharmacy 64.5 ml/min; Est GFR (African American) 68.6 ml/min; Est GFR (Non-African American) 59.1 ml/min; Magnesium 1.9 mg/dl (1.7-2.4); Potassium 4.1 mmol/L (3.5-5.1); Total Protein 6.9 gm/dl (6.0-8.3)
[2023-03-11 10:47] LABS: Troponin I High Sensitivity 3.3 pg/ml (0-20)
[2023-03-11 10:53] LABS: INR 1.1 (0.9-1.1); Partial Thromboplastin Ratio 0.9; Partial Thromboplastin Time 25.6 Seconds (21.0-31.0); Prothrombin Time 12.1 Seconds (9.0-12.0)
[2023-03-11] MEDS ORDERED: ASPIRIN CHEW 324 MG PO STA (10:55)
--- NOTE | 2023-03-11 13:07 | History & Physical Report ---
Date of Service March 11, 2023 Assessment & Plan (1) Stroke-like symptoms: Plan: History more consistent with presyncopal episode in setting of working outside rather than stroke Telestroke did note mild left facial droop however therefore will get brain MRI Will continue his usual BP medications if Brain MRI negative but with orthostatics tomorrow to make sure dizziness does not recur - stop losartan if orthostatic as he requires metoprolol for rate control No clear cause of his lightheadedness with nausea the last 2 days but appears to be very intermittent - will get serial troponins to rule out cardiac cause TTE for stroke workup and also to assess cause of dizziness/presyncope Will defer consulting neurology unless MRI brain shows stroke Patient to consider going back on anticoagulation for a. fib as he remains higher risk of a stroke even if this was not one - consider watchman as outpatient (2) Unspecified atrial fibrillation: Plan: Continue metoprolol for rate control Previous Eliquis use caused hematochezia that was never investigated Recommend trying again and if hematochezia recurs to have colonoscopy F/U with cardiology to consider watchman (3) Hypertension, essential: Plan: Continue current medication if MRI negative for stroke (4) Diabetes mellitus type 2, diet-controlled: Plan: HbA1C 7.0. Patient is not on any outpatient medications for this Diet controlled Consider metformin on discharge given known carotid and intracerebral artery disease HbA1C with AM labs BSG ACHS Novolog for correction only (5) S/P ablation of atrial flutter: Plan VTE Prophylaxis - deferred, pt to consider anticoagulation to start tomorrow Diet - heart healthy Disposition - observation to PCU Admission and Anticipated Discharge Date Admission Date: March 11, 2023 History of Present Illness Chief Complaint: Stroke-like symptoms Primary Care Provider: Shy Lugo MD Jamal Barbourr is an 82 year old male who presents to the ER as a stroke alert with concerns for left sided facial droop, slurred speech and weakness. Patient symptoms had completely resolved when seen and he denies ever having left sided weakness and left facial droop he reports was not noticed by any family members just by EMS and telestroke neurologist. He reports slipping on dewy grass this morning. 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 He slipped and fell around 8:30am. Did not hit his head or lose consciousness. Mild scratches on his right knee. He got back up and continued working. Half an hour later he started feeling nauseous and dizzy (lightheaded). He knew where he was but not direction he was pointed in and felt disorientated. He reports drifting off lying down but unsure if he fully lost consciousness. He reports similar dizziness episode occurred once yesterday in addition but was short lived. No chest pain, abdominal pain, respiratory symptoms, diarrhea or urinary symptoms. He reports getting heartburn once tori while and takes tums once every 2-3 weeks but did not have heartburn yesterday or today. No recent lorazepam use. He has a notably history of atrial fibrillation for which he was tried on Eliquis by his cardiology in April 2022. Unfortunately this caused some hematochezia for which he never sought medical attention but self discontinued the Eliquis following this and has not wanted to go back on anticoagulation. He has no prior history of stroke. HbA1C 7.0 - he has been advised diet modification by his PCP for this. Allergies Allergy/AdvReac Type Severity Reaction Status Date / Time acetaminophen AdvReac Intermediate "DOES NOT Verified 03/11/23 11:42 AGREE WITH ME" aspirin AdvReac Intermediate "THIN Verified 03/11/23 11:42 BLOOD" caffeine AdvReac Intermediate "THIN Verified 03/11/23 11:42 BLOOD" phenacetin AdvReac Intermediate "THIN Verified 03/11/23 11:42 BLOOD" Sulfa (Sulfonamide AdvReac Intermediate GI UPSET Verified 03/11/23 11:42 Antibiotics) ANESTHESIA Allergy Intermediate Bradycardia Uncoded 03/11/23 11:42 Arrhythmia and Diaphoretic Home Medications Medication Instructions Recorded Confirmed Type lactobacillus combination no.4 3 3,000 mmu cells PO 3XWK 09/14/18 03/11/23 History billion cell capsule (Probiotic) cholecalciferol (vitamin D3) 25 1,000 unit PO MOWEFR 03/30/19 03/11/23 History mcg (1,000 unit) capsule (Vitamin D3) multivit with min-folic 1 tab PO 3XWK 03/30/19 03/11/23 History acid-lutein 400 mcg-250 mcg chewable tablet (Centrum Silver) fluticasone propionate 50 2 spray intranasal DAILY #16 grams 09/22/20 03/11/23 Rx mcg/actuation nasal spray,suspension lorazepam 0.5 mg tablet 0.5 mg PO DAILY PRN anxiety #20 09/29/21 03/11/23 Rx tabs losartan 25 mg tablet 12.5 mg (1/2 x 25 mg) PO QAM #45 02/08/22 03/11/23 Rx tabs pravastatin 40 mg tablet 40 mg PO HS #90 tabs 07/05/22 03/11/23 Rx metoprolol succinate 50 mg 50 mg PO QAM 03/11/23 03/11/23 History tablet,extended release 24 hr Past Med/Surg History Medical History Anxiety Bleeding hemorrhoid COVID-19 Diabetes mellitus type 2, diet-controlled History of anesthesia reaction Hyperlipemia Hypertension Irregular heart beat Osteoarthritis Stroke Syncopal episodes Transient ischemic attack (TIA) Surgical History History of cataract surgery History of colonoscopy History of removal of cyst (03/30/19) History of tooth extraction Family History Mother Diabetes Hypertension Father Cancer Family/Other Cancer Other Family history non-contributory Denies family history of Ovarian cancer Prostate cancer Myocardial infarction Breast cancer Colorectal cancer Social History Smoking Status: Former smoker Second Hand Exposure: No; Do You Dip or Chew Tobacco: No; Hx Alcohol Use: No Hx Substance Use: No Preferred Language: Wolof Communication Ability: Effective Visual Impairment: No Limitations Hearing Ability: Normal 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[employer] Work Required: No Beliefs That Will Affect Care: None marital status: Current Living Situation: Spouse current occupational status: retired 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 Feels Safe at Home: Yes Safety Concerns: Feels Safe At This Time Childhood Exposure to Second-Hand Smoke: Yes Diet: regular Dental Care, Regularly: Yes Physical Activity Frequency: Does not Exercise Seatbelt Use: always Sunscreen Use: No Assistive Devices: Glasses Review of Systems Review of Systems: All systems reviewed & are unremarkable except as noted in HPI & below Physical Exam Constitutional: WD/WN, vitals as above Eyes: PERRL, conjunctivae normal, anicteric sclerae ENMT: external ear and nose normal, oropharynx normal Neck: trachea midline, no thyromegaly Respiratory: normal respiratory effort, lungs clear to auscultation Cardiovascular: Rate/Rhythm: regular rhythm and + irregularly irregular Heart Sounds: no murmur Extremities: normal capillary refill; no calf tenderness and no pedal edema Gastrointestinal (Abdomen): normal bowel sounds, soft, nontender, no hepatosplenomegaly Musculoskeletal: no cyanosis or clubbing, extremities motor strength 5/5 Skin: no rashes, warm and dry Neurologic: moves all extremities and awake; no focal motor deficits and not confused Speech / Cognition: normal speech Motor/Sensory: no tremor, normal movement, no pronator drift and no sensory deficit Cranial Nerves: PERRL, EOM intact bilaterally, normal facial strength, tongue midline, able to rotate head bilaterally, able to elevate shoulders bilaterally, no nystagmus and symmetric palate elevation Coordination: normal [id number] test lip thinner on left side and could be seen as possible mild facial droop although son reports not noticing any change from pt baseline and patient does not feel any change Psychiatric: A+Ox3, euthymic affect Results & Data Results & Data Vital Signs (Past 12 Hours) Vital Signs Temp Pulse Pulse Resp BP BP Pulse Ox 03/11/23 11:43 76 18 166/98 H 96 03/11/23 10:50 81 03/11/23 10:08 82 17 146/98 H 96 03/11/23 09:47 36.5 C 96 H 18 146/98 H 96 O2 Del Method 03/11/23 11:43 Room Air 03/11/23 10:50 03/11/23 10:08 03/11/23 09:47 Room Air Laboratory Results Abnormal lab results 03/11/23 03/11/23 03/11/23 Range/Units 10:08 10:18 13:45 RBC 4.45 L (4.70-6.10) M/uL Hct 41.7 L (42.0-52.0) % MCHC 36.2 H (32.0-36.0) g/dL [place] # (Auto) 0.69 H (0.11-0.59) K/uL PT 12.1 H (9.0-12.0) Seconds Sodium 134 L (136-145) mmol/L Glucose 177 H (70-99(Fasting)) mg/dl POC Glucose 166 H (70-99) mg/dl Total Bilirubin 1.4 H (0.2-1.0) mg/dl Ur Specific [place] > 1.045 H (1.000-1.030) Diagnostic Findings XR chest 1V portable HISTORY: neuro deficit, acute stroke suspected COMPARISON: Chest 02/03/2022. FINDINGS: There are low lung volumes. The heart remains enlarged. No new focal lung consolidations to suggest a pneumonia. No evidence for pulmonary edema. No acute fractures identified. IMPRESSION: Stable cardiomegaly. CT OF THE HEAD WITHOUT CONTRAST CLINICAL HISTORY: neuro deficit, acute stroke suspected COMPARISON STUDY: MRI of the brain October 01, 2020. Head CT February 03, 2022. TECHNIQUE: Helical axial images of the head were obtained without IV contrast. Automated exposure control was utilized for the study. A dose lowering technique was utilized adhering to the principles of ALARA. FINDINGS: No acute intracranial hemorrhage, midline shift or mass effect is present. The ventricular system is stable. White matter hypodensities are similar to prior exam and favor small vessel disease. The basal cisterns are patent. No extra-axial collections are present. There are no findings to suggest acute dural sinus thrombosis or acute territorial infarct. No significant calvarial abnormalities are present. Left maxillary sinus air-fluid level is noted. This has decreased in size when compared to prior CT. There are secretions within the left maxillary sinus. There is mild ethmoid sinus mucosal thickening. IMPRESSION: No acute intracranial findings. HEAD CTA HISTORY: neuro deficit, acute stroke suspected TECHNIQUE: Multiaxial CT images of the head were performed both before and after the intravenous administration of contrast to evaluate the major cerebral vessels. 3D/MIP images were also obtained. Sagittal and coronal reformats were reviewed. A dose lowering technique was utilized adhering to the principles of ALARA. COMPARISON: Noncontrast head CT 03/11/2023. FINDINGS: There is no mass, hematoma, midline shift, or acute infarct. Moderate calcified plaque within the bilateral carotid siphons with mild to moderate stenosis of the bilateral supraclinoid ICAs. There is multifocal stenosis within the bilateral distal intracranial vertebral arteries. This is most pronounced on the right which demonstrates a focal area of high-grade stenosis on image 29. Mild multifocal stenosis within the basilar artery. There is a 3 mm segment of high-grade stenosis versus near occlusion within the P2 segment of the left RESIDENTIAL ROOFER on image 98. There is immediate distal reconstitution of the distal left RESIDENTIAL ROOFER. There is a persistent left posterior circulation. There is multifocal mild stenosis within the right RESIDENTIAL ROOFER. There is a hypoplastic left A1 segment. Multifocal mild to moderate stenoses within the bilateral mid to distal ACAs. Focal area of moderate stenosis within the left proximal MCA. Multifocal areas of mild stenosis within the remaining bilateral MCAs. No aneurysms identified. The major dural venous sinuses are patent. IMPRESSION: 1. There is a 3 mm segment of high-grade stenosis versus near occlusion within the mid left RESIDENTIAL ROOFER. However, there is immediate reconstitution of flow within the distal left RESIDENTIAL ROOFER. 2. Multiple additional areas of multifocal stenosis seen throughout the cerebral arteries as described above. CT ANGIOGRAPHY OF THE NECK WITH CONTRAST CLINICAL HISTORY: neuro deficit, acute stroke suspected COMPARISON STUDY: No previous studies for comparison. Technique: CT angiography of the carotid and vertebral arteries was obtained using Optiray and 3D reconstruction on an independent workstation. NASCET criteria was utilized. Automated exposure control was utilized for the study. A dose lowering technique was utilized adhering to the principles of ALARA. CT DOSE: 1339.47 mGy.cm Findings: Visualized portions of these are unremarkable. There is no cervical lymphadenopathy. No cervical spine fracture is present. There is dilatation of visualized portions of the ascending aorta, measuring up to 4.3 cm. The bilateral common carotid, cervical internal carotid and vertebral arteries are patent. There is moderate plaque within the proximal left internal carotid artery without significant stenosis. There is mild plaque within the proximal right internal carotid artery without stenosis. Stenosis of the intracranial portions of the vertebral arteries are better depicted on the CTA of the head. No dissection or aneurysm within the neck. IMPRESSION: 1. Mild to moderate plaque within the proximal bilateral internal carotid arteries without stenosis. 2. No stenoses within the cervical portions of the bilateral vertebral arteries. 3. Mild dilatation of visualized portions of the ascending aorta, measuring up to 4.3 cm. Medications Administered ER Medications Given: ASA 324mg PO ECG Rate (beats per minute): 77 Rhythm: atrial fibrillation Findings: no acute ischemic change Comparison ECG Date: from (November 12, 2022) Change: no significant change Code Status & VTE Plan Code Status Full VTE Prophylaxis Plan VTE Prophylaxis will be ordered: No PG Care Time/CCT Total # of Minutes Spent Total Time Spent with Patient: Total time spent is greater than 50% in coordination of care (as documented) at patient's floor/unit and/or counseling patient: Coding Level of Care Code 66561 INT INP/OBS CARE 3/75MIN Diagnoses Stroke-like symptoms R29.90 Unspecified atrial fibrillation I48.91 Hypertension, essential I10 Diabetes mellitus type 2, diet-controlled E11.9 S/P ablation of atrial flutter Z98.890; Z86.79
--- NOTE | 2023-03-11 13:16 | Magnetic Resonance Report ---
MRI OF THE BRAIN WITHOUT CONTRAST CLINICAL HISTORY: Left sided facial droop, slurred speech, weakness COMPARISON STUDY: MRI of the brain October 01, 2020. Head CT and CTA of the head performed earlier today. TECHNIQUE: Utilizing a 1.5 Yovana magnet and dedicated coil, multiplanar, multiecho imaging of the bra in was performed without IV contrast. FINDINGS: There are no foci of restricted diffusion to suggest acute infarct. No acute intracranial h emorrhage, midline shift or mass effect is present. Ventricular system is stable since previous MRI. There is moderate atrophy. White matter T2 hyperintense foci are unchanged and suggest small vessel d isease. The appearance of the brain is similar to previous MRI. No intracranial masses are identified on this unenhanced exam. Calvarial signal is normal. Air-fluid level with secretions within the left maxillary sinus are noted. There is moderate ethmoid sinus mucosal thickening. IMPRESSION: No acute intracranial findings. No significant change in appearance of the brain since M RI of October 01, 2020. ACT 112: Negative or not required by law. Electronically signed by: Art Rivas M.D. 03/11/2023 1:15 PM
[2023-03-11] MEDS ORDERED: PHARMACIST DISCHARGE MED REC CONSULT PRN (13:29)
[2023-03-11] MEDS ORDERED: ACETAMINOPHEN 325 MG TAB PO PRN (13:29)
[2023-03-11 16:04] LABS: Appearance Urine Clear (Clear); Bilirubin Urine Negative (Negative); Blood Urine Negative (Negative); Color Urine Yellow; Glucose Urine UA Negative (Negative); Ketones Urine Negative (Negative); Leukocyte Esterase Urine Negative (Negative); Nitrite Urine Negative (Negative); Protein Urine Negative (Negative); Specific Gravity Urine > 1.045 (1.000-1.030); Urobilinogen Urine Negative (Negative); pH Urine 5.5 (4.5-7.5)
--- NOTE | 2023-03-11 19:48 | XCELERA ---
[id number] \\[email or web address]\[id number]
--- NOTE | 2023-03-11 20:35 | Electrocardiogram Report ---
Test Reason : Blood Pressure : / mmHG Vent. Rate : 077 BPM Atrial Rate : 000 BPM P-R Int : 000 ms QRS Dur : 094 ms QT Int : 402 ms P-R-T Axes : 000 -23 -05 degrees QTc Int : 454 ms Atrial fibrillation Abnormal ECG When compared with ECG of 12-NOV-2022 10:34, (unconfirmed) No significant change was found Confirmed by Farhan Henry ([id number]) on 03/11/2023 8:35:31 PM Referred By: REFERRED SELF Confirmed By:Gurpreet Henry
[2023-03-11] MEDS: PRAVASTATIN SOD 40 MG TAB PO SCH (22:12)
[2023-03-12] MEDS ORDERED: GLUCOSE 10 TAB/TUBE PO PRN (06:05)
[2023-03-12] MEDS ORDERED: GLUCOSE 40% GEL 15 GM TUBE PO PRN (06:05)
[2023-03-12] MEDS ORDERED: GLUCAGON FOR INJ 1 MG VIAL SQ PRN (06:05)
[2023-03-12] MEDS ORDERED: CARBOHYDRATES FOR HYPOGLYCEMIA PO PRN (06:05)
[2023-03-12] MEDS ORDERED: DEXTROSE 50% 50 ML SYRINGE IV PRN (06:05)
[2023-03-12 06:28] LABS: Basophils # (auto) 0.07 K/uL (0.00-0.20); Eosinophils # (auto) 0.31 K/uL (0.00-0.50); Eosinophils % (auto) 4.4 %; Hematocrit (blood only) 43.8 % (42.0-52.0); Hemoglobin 15.5 g/dl (14.0-18.0); Immature Granulocytes # (auto) 0.03 K/uL (0.01-0.20); Immature Granulocytes % (auto) 0.4 %; Lymphocytes # (auto) 2.14 K/uL (1.20-3.40); Lymphocytes % (auto) 30.4 %; Mean Corpuscular Hemoglobin 33.2 pg (25.0-34.0); Mean Corpuscular Hgb Conc 35.4 g/dL (32.0-36.0); Mean Corpuscular Volume 93.8 fL (80.0-100.0); Mean Platelet Volume 9.9 fL (9.4-12.4); Monocytes # (auto) 0.67 K/uL (0.11-0.59); Monocytes % (auto) 9.5 %; Neutrophils # (auto) 3.83 K/uL (1.40-6.50); Neutrophils % (auto) 54.3 %; Platelet Count 214 K/uL (130-400); RDW Coefficient of Variation 12.9 % (11.5-14.5); RDW Standard Deviation 44.1 fL (36.4-46.3); Red Blood Count 4.67 M/uL (4.70-6.10); White Blood Count 7.05 K/ul (4.8-10.8)
[2023-03-12 06:38] LABS: BUN Creatinine Ratio 18.3 (10-20); Calcium 8.9 mg/dl (8.6-10.3); Chol HDL Ratio 4.2 (0-5); Est GFR (African American) 69.3 ml/min; Est GFR (Non-African American) 59.8 ml/min; Potassium 3.9 mmol/L (3.5-5.1)
[2023-03-12 06:45] LABS: Troponin I High Sensitivity 4.4 pg/ml (0-20)
[2023-03-12 07:39] LABS: Estimated Average Glucose 154 mg/dl
[2023-03-12] MEDS: INSULIN ASPART PER UNIT CHARGE SC SCH ×4 (08:36→21:26)
[2023-03-12] MEDS: LOSARTAN POTASSIUM 25 MG TAB PO SCH (08:38)
[2023-03-12] MEDS: FLUTICASONE PROPIONATE NA SPR 16 GM BTL NAE SCH (08:38)
[2023-03-12] MEDS: METOPROLOL SUCC 50MG EXT REL TAB PO SCH (08:40)
[2023-03-12] MEDS: SODIUM CHLORIDE 0.9% 1,000 ML IV SCH ×2 (11:21→23:52)
--- NOTE | 2023-03-12 12:20 | Hospitalist Progress Note ---
Date of Service March 12, 2023 Assessment & Plan (1) Stroke-like symptoms: Plan: History more consistent with presyncopal episode in setting of working outside rather than stroke Telestroke did note mild left facial droop however. Therefore brain MRI was ordered which came back negative TTE was unreliable due to suboptimal image quality. May need to be repeated outpatient. There did not appear to be any PFO. Most likely her symptoms are related to dehydration and orthostatic hypotension Orthostatic vital signs were done today. There was a mild drop of less than 10 points. The patient stated that he had not been drinking enough fluids lately. We will hydrate him gently and repeat orthostatic vital signs tomorrow (2) Unspecified atrial fibrillation: Plan: Continue metoprolol for rate control Previous Eliquis use caused hematochezia that was never investigated Recommend trying again and if hematochezia recurs to have colonoscopy Spoke to the patient and his who wished to follow-up with PCP to decide on resuming Eliquis. F/U with cardiology to consider watchman (3) Hypertension, essential: Plan: Continue current medication if MRI negative for stroke (4) Diabetes mellitus type 2, diet-controlled: Plan: HbA1C 7.0. Patient is not on any outpatient medications for this Diet controlled Consider metformin on discharge given known carotid and intracerebral artery disease BSG ACHS Novolog for correction only (5) S/P ablation of atrial flutter: Plan VTE Prophylaxis -start Lovenox as the patient is deciding against starting anticoagulation during this hospital stay. Diet - heart healthy Likely discharge tomorrow if orthostatic vital signs are negative. Admission and Anticipated Discharge Date Admission Date: March 11, 2023 Subjective Patient feels well today. Denies chest pain or shortness of breath. He says that he has been feeling dizzy lately. He also says that he was not drinking enough fluids in the last few days. Review of Systems Review of Systems: All systems reviewed & are unremarkable except as noted in Subjective Physical Exam Physical Exam: General: Awake, conversant Heart: S1, S2/regular rate and rhythm, no murmur rubs or gallops Lungs: Clear to auscultation bilaterally. Normal effort Abdomen: Soft/nontender/nondistended. No hepatosplenomegaly Extremities: No clubbing/cyanosis. No edema Behavior: Appropriate, cooperative Results & Data Results & Data Vital Signs (Past 12 Hours) Vital Signs Temp Pulse Resp BP Pulse Ox O2 Del Method 03/12/23 07:44 36.5 C 89 18 125/74 95 Room Air 03/12/23 02:47 36.5 C 85 20 119/67 98 Room Air Laboratory Results Abnormal lab results 03/11/23 03/12/23 03/12/23 Range/Units 13:45 05:21 07:20 RBC 4.67 L (4.70-6.10) M/uL [place] # (Auto) 0.67 H (0.11-0.59) K/uL Glucose 149 H (70-99(Fasting)) mg/dl POC Glucose 153 H (70-99) mg/dl Hemoglobin A1c 7.0 H (4.5-5.6) % Triglycerides 174 H (0-150) mg/dl VLDL Cholesterol, Calc 35 H (0-30) mg/dl Ur Specific [place] > 1.045 H (1.000-1.030) 03/12/23 Range/Units 11:22 RBC (4.70-6.10) M/uL [place] # (Auto) (0.11-0.59) K/uL Glucose (70-99(Fasting)) mg/dl POC Glucose 142 H (70-99) mg/dl Hemoglobin A1c (4.5-5.6) % Triglycerides (0-150) mg/dl VLDL Cholesterol, Calc (0-30) mg/dl Ur Specific [place] (1.000-1.030) Diagnostic Findings Brain MRI 03/11/23 11:14 MRI OF THE BRAIN WITHOUT CONTRAST CLINICAL HISTORY: Left sided facial droop, slurred speech, weakness COMPARISON STUDY: MRI of the brain October 01, 2020. Head CT and CTA of the head performed earlier today. TECHNIQUE: Utilizing a 1.5 Yovana magnet and dedicated coil, multiplanar, multiecho imaging of the brain was performed without IV contrast. FINDINGS: There are no foci of restricted diffusion to suggest acute infarct. No acute intracranial hemorrhage, midline shift or mass effect is present. Ventricular system is stable since previous MRI. There is moderate atrophy. White matter T2 hyperintense foci are unchanged and suggest small vessel disease. The appearance of the brain is similar to previous MRI. No intracranial masses are identified on this unenhanced exam. Calvarial signal is normal. Air- fluid level with secretions within the left maxillary sinus are noted. There is moderate ethmoid sinus mucosal thickening. IMPRESSION: No acute intracranial findings. No significant change in appearance of the brain since MRI of October 01, 2020. ACT 112: Negative or not required by law. Electronically signed by: Art Rivas M.D. 03/11/2023 1:15 PM PG Care Time/CCT Total # of Minutes Spent Total Time Spent with Patient: Total time spent is greater than 50% in coordination of care (as documented) at patient's floor/unit and/or counseling patient: Coding Level of Care Code 64847 SUB INP/OBS CARE 2/35MIN Diagnoses Stroke-like symptoms R29.90 Unspecified atrial fibrillation I48.91 Hypertension, essential I10 Diabetes mellitus type 2, diet-controlled E11.9 S/P ablation of atrial flutter Z98.890; Z86.79
[2023-03-12] MEDS: ENOXAPARIN INJ 40 MG/0.4 ML SYR SQ SCH (14:00)
[2023-03-12] MEDS: PRAVASTATIN SOD 40 MG TAB PO SCH (21:26)
[2023-03-13] MEDS ORDERED: METOPROLOL TARTRATE 50 MG TAB PO STA (07:34)
[2023-03-13 07:39] LABS: Basophils # (auto) 0.06 K/uL (0.00-0.20); Eosinophils % (auto) 4.8 %; Hematocrit (blood only) 45.5 % (42.0-52.0); Hemoglobin 16.2 g/dl (14.0-18.0); Immature Granulocytes # (auto) 0.02 K/uL (0.01-0.20); Immature Granulocytes % (auto) 0.3 %; Lymphocytes # (auto) 1.81 K/uL (1.20-3.40); Lymphocytes % (auto) 29.1 %; Mean Corpuscular Hemoglobin 33.5 pg (25.0-34.0); Mean Corpuscular Hgb Conc 35.6 g/dL (32.0-36.0); Mean Platelet Volume 9.6 fL (9.4-12.4); Monocytes # (auto) 0.61 K/uL (0.11-0.59); Monocytes % (auto) 9.8 %; Neutrophils # (auto) 3.43 K/uL (1.40-6.50); Platelet Count 206 K/uL (130-400); RDW Coefficient of Variation 12.8 % (11.5-14.5); RDW Standard Deviation 44.1 fL (36.4-46.3); Red Blood Count 4.84 M/uL (4.70-6.10); White Blood Count 6.23 K/ul (4.8-10.8)
[2023-03-13] MEDS: INSULIN ASPART PER UNIT CHARGE SC SCH ×4 (07:56→21:03)
[2023-03-13 07:57] LABS: BUN Creatinine Ratio 16.3 (10-20); Calcium 8.8 mg/dl (8.6-10.3); Creatinine Clr Calc Pharmacy 69.9 ml/min; Est GFR (African American) 84.1 ml/min; Est GFR (Non-African American) 72.5 ml/min
[2023-03-13] MEDS: LOSARTAN POTASSIUM 25 MG TAB PO SCH (08:10)
[2023-03-13] MEDS: METOPROLOL SUCC 50MG EXT REL TAB PO SCH (08:10)
[2023-03-13] MEDS: ENOXAPARIN INJ 40 MG/0.4 ML SYR SQ SCH (08:12)
[2023-03-13] MEDS: FLUTICASONE PROPIONATE NA SPR 16 GM BTL NAE SCH (08:12)
--- NOTE | 2023-03-13 13:57 | Hospitalist Progress Note ---
Date of Service March 13, 2023 Assessment & Plan (1) Stroke-like symptoms: Plan: History more consistent with presyncopal episode in setting of working outside rather than stroke Telestroke did note mild left facial droop however. Therefore brain MRI was ordered which came back negative TTE was unreliable due to suboptimal image quality. May need to be repeated outpatient. There did not appear to be any PFO. Most likely his symptoms are related to dehydration and orthostatic hypotension Orthostatic vital signs mildly positive with a mild drop of less than 10 points. The patient stated that he had not been drinking enough fluids lately. Repeat orthostatic vital signs after hydration have been negative. Patient is feeling well today. (2) Unspecified atrial fibrillation: Plan: Continue metoprolol for rate control Previous Eliquis use caused hematochezia that was never investigated Patient was told to consider resuming Eliquis and he was been discussed with his PCP. However, he started having bright red blood per rectum in response to the prophylactic dose of Lovenox that he has been getting in the hospital. is requesting a GI work-up (3) Hypertension, essential: Plan: Continue current medication if MRI negative for stroke (4) Diabetes mellitus type 2, diet-controlled: Plan: HbA1C 7.0. Patient is not on any outpatient medications for this Diet controlled Consider metformin on discharge given known carotid and intracerebral artery disease BSG ACHS Novolog for correction only (5) S/P ablation of atrial flutter: (6) GI bleed: Plan: patient started having bright red blood per rectum today The first noticed blood staining the back of his scalp and then noticed that blood was flowing out of his rectum. Patient was on subcu Lovenox prophylactic dose Discontinue subcu Lovenox Consult GI N.p.o. postmidnight for possible GI procedure No belly pain Plan VTE Prophylaxis - discontinue Lovenox due to GI bleed Diet - heart healthy Admission and Anticipated Discharge Date Admission Date: March 11, 2023 Subjective patient does not feel dizzy today. Orthostatic vital signs are negative. pointed out that he has been GI bleeding. She still blood in the back of his gown and blood coming out of his rectum. would like a GI work-up done prior to discharge. She says that he has had bleeding per rectum in the past which is why he had stopped taking his Eliquis. the patient has not had any bowel movement. He does not complain of constipation. Review of Systems Review of Systems: All systems reviewed & are unremarkable except as noted in Subjective Physical Exam Physical Exam: General: Awake, conversant Heart: S1, S2/regular rate and rhythm, no murmur rubs or gallops Lungs: Clear to auscultation bilaterally. Normal effort Abdomen: Soft/nontender/nondistended. No hepatosplenomegaly Extremities: No clubbing/cyanosis. No edema Behavior: Appropriate, cooperative Results & Data Results & Data Vital Signs (Past 12 Hours) Vital Signs Temp Pulse Pulse Resp BP Pulse Ox O2 Del Method 03/13/23 11:27 36.5 C 82 16 143/88 H 94 Room Air 03/13/23 07:47 36.6 C 83 17 156/100 H 96 Room Air 03/13/23 07:13 110 H 03/13/23 03:00 36.7 C 61 18 148/75 H 97 Room Air PG Care Time/CCT Total # of Minutes Spent Total Time Spent with Patient: Total time spent is greater than 50% in coordination of care (as documented) at patient's floor/unit and/or counseling patient: Coding Level of Care Code 00905 SUB INP/OBS CARE 2/35MIN Diagnoses Stroke-like symptoms R29.90 Unspecified atrial fibrillation I48.91 Hypertension, essential I10 Diabetes mellitus type 2, diet-controlled E11.9 S/P ablation of atrial flutter Z98.890; Z86.79 GI bleed K92.2
[2023-03-13] MEDS: PRAVASTATIN SOD 40 MG TAB PO SCH (21:33)
[2023-03-14] MEDS ORDERED: Nursing to Pharmacy Communication ONE (05:51)
[2023-03-14] MEDS: INSULIN ASPART PER UNIT CHARGE SC SCH ×2 (06:03→11:59)
[2023-03-14 07:24] LABS: Basophils # (auto) 0.07 K/uL (0.00-0.20); Eosinophils # (auto) 0.37 K/uL (0.00-0.50); Eosinophils % (auto) 5.1 %; Hematocrit (blood only) 43.5 % (42.0-52.0); Hemoglobin 15.7 g/dl (14.0-18.0); Immature Granulocytes # (auto) 0.01 K/uL (0.01-0.20); Immature Granulocytes % (auto) 0.1 %; Lymphocytes # (auto) 2.04 K/uL (1.20-3.40); Lymphocytes % (auto) 27.9 %; Mean Corpuscular Hemoglobin 33.7 pg (25.0-34.0); Mean Corpuscular Hgb Conc 36.1 g/dL (32.0-36.0); Mean Corpuscular Volume 93.3 fL (80.0-100.0); Mean Platelet Volume 9.5 fL (9.4-12.4); Monocytes # (auto) 0.79 K/uL (0.11-0.59); Monocytes % (auto) 10.8 %; Neutrophils # (auto) 4.04 K/uL (1.40-6.50); Neutrophils % (auto) 55.1 %; Platelet Count 217 K/uL (130-400); RDW Coefficient of Variation 12.6 % (11.5-14.5); RDW Standard Deviation 43.3 fL (36.4-46.3); Red Blood Count 4.66 M/uL (4.70-6.10); White Blood Count 7.32 K/ul (4.8-10.8)
[2023-03-14] MEDS: METOPROLOL SUCC 50MG EXT REL TAB PO SCH (07:33)
[2023-03-14] MEDS: LOSARTAN POTASSIUM 25 MG TAB PO SCH (07:34)
[2023-03-14] MEDS: FLUTICASONE PROPIONATE NA SPR 16 GM BTL NAE SCH (07:34)
[2023-03-14 07:37] LABS: BUN Creatinine Ratio 16.8 (10-20); Calcium 8.9 mg/dl (8.6-10.3); Creatinine Clr Calc Pharmacy 67.8 ml/min; Est GFR (Non-African American) 69.9 ml/min; Potassium 3.8 mmol/L (3.5-5.1)
--- NOTE | 2023-03-14 10:23 | Gastrointestinal Consultation ---
Date of Consultation March 14, 2023 Assessment & Plan (1) Rectal bleeding: I had reviewed this case with Dr. Dunne. Patient tells me that he has had a long standing issue with rectal bleeding that does seem to worsen on anticoagulation. He tells me in the past he was told it was hemorrhoidal in nature and I do suspect his issue are hemorrhoidal since this has been such a long standing issue. no need for urgent colonoscopy at this time given stable hgb and the patient and his agree. They would like to pursue a colonoscopy as an outpatient. I will have our office reach out to the patient to have set up. Supervising Physician Co-Signing Physician Notes Agree with SALLIE Turner as above Patient was discharged prior to my evaluation History of Present Illness Reason for Consultation: GIB Requesting Physician: Fadumo Bruce MD Attending Physician: Fadumo Bruce MD History of Present Illness Patient is an 82 year old male who presented to the ER as a stroke alert with concerns for left sided facial droop, slurred speech and weakness. The patient denies any of this. 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 He tells me he has been having issues with this for a long time but those who he was working with had recommended he go to the hospital. He was brought to the ED for further evaluation. He had undergone evaluation for stroke but this was felt to have not been the case given negative MRI and it was questionable if symptoms he had were due to dehydration and/or hypotension. During his hospital stay he was given lovenox and had developed some rectal bleeding with this. Patient tells me that this is not new for him and that he has had episodes with rectal bleeding in the past when he was given eliquis for his a fib in 04/2022. He tells me he had another episode of bleeding with a retrial of eliquis in July earlier this year. he has not been on anticoagulation since. He tells me that issues with rectal bleeding have been happening on and off for the better part of 15 years. He tells me in the past it was thought that his bleeding was hemorrhoidal in nature. Last colonoscopy in 2015 shown internal hemorrhoids as well as tubular adenoma and hyperplastic colon polyps. Hgb on 03/13/23 was 16.2. Hgb on 03/14/23 was 15.7. He tells me that he moves his bowels daily to every other day which is his baseline. no straining. He has had no rectal bleeding today. Patient denies any current issues with nausea, vomiting, dysphagia, heartburn, abdominal pain, unintentional weight loss, change in bowels, or melena. patient's was at bedside and helped provide history. Allergies Allergy/AdvReac Type Severity Reaction Status Date / Time acetaminophen AdvReac Intermediate "DOES NOT Verified 03/11/23 11:42 AGREE WITH ME" aspirin AdvReac Intermediate "THIN Verified 03/11/23 11:42 BLOOD" caffeine AdvReac Intermediate "THIN Verified 03/11/23 11:42 BLOOD" phenacetin AdvReac Intermediate "THIN Verified 03/11/23 11:42 BLOOD" Sulfa (Sulfonamide AdvReac Intermediate GI UPSET Verified 03/11/23 11:42 Antibiotics) ANESTHESIA Allergy Intermediate Bradycardia Uncoded 03/11/23 11:42 Arrhythmia and Diaphoretic Home Medications Medication Instructions Recorded Confirmed Type lactobacillus combination no.4 3 3,000 mmu cells PO 3XWK 09/14/18 03/11/23 History billion cell capsule (Probiotic) cholecalciferol (vitamin D3) 25 1,000 unit PO MOWEFR 03/30/19 03/11/23 History mcg (1,000 unit) capsule (Vitamin D3) multivit with min-folic 1 tab PO 3XWK 03/30/19 03/11/23 History acid-lutein 400 mcg-250 mcg chewable tablet (Centrum Silver) fluticasone propionate 50 2 spray intranasal DAILY #16 grams 09/22/20 03/11/23 Rx mcg/actuation nasal spray,suspension lorazepam 0.5 mg tablet 0.5 mg PO DAILY PRN anxiety #20 09/29/21 03/11/23 Rx tabs losartan 25 mg tablet 12.5 mg (1/2 x 25 mg) PO QAM #45 02/08/22 03/11/23 Rx tabs pravastatin 40 mg tablet 40 mg PO HS #90 tabs 07/05/22 03/11/23 Rx metoprolol succinate 50 mg 50 mg PO QAM 03/11/23 03/11/23 History tablet,extended release 24 hr Patient History Medical History Anxiety Bleeding hemorrhoid COVID-19 Diabetes mellitus type 2, diet-controlled History of anesthesia reaction Hyperlipemia Hypertension Irregular heart beat Osteoarthritis Stroke Syncopal episodes Transient ischemic attack (TIA) Surgical History History of cataract surgery History of colonoscopy History of removal of cyst (03/30/19) History of tooth extraction Family History Mother Diabetes Hypertension Father Cancer Family/Other Cancer Other Family history non-contributory Denies family history of Ovarian cancer Prostate cancer Myocardial infarction Breast cancer Colorectal cancer Social History Smoking Status: Former smoker Second Hand Exposure: No; Do You Dip or Chew Tobacco: No; Hx Alcohol Use: No Hx Substance Use: No Preferred Language: [place] Communication Ability: Effective Visual Impairment: No Limitations Hearing Ability: Normal Knitting Tester Required: No Beliefs That Will Affect Care: None marital status: Current Living Situation: Spouse current occupational status: retired 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 Feels Safe at Home: Yes Childhood Exposure to Second-Hand Smoke: Yes Diet: regular Dental Care, Regularly: Yes Physical Activity Frequency: Does not Exercise Seatbelt Use: always Sunscreen Use: No Assistive Devices: None Review of Systems Review of Systems: All systems reviewed & are unremarkable except as noted in HPI & below Physical Exam Constitutional: WD/WN, vitals as above Respiratory: normal respiratory effort, lungs clear to auscultation Cardiovascular: RRR, no murmur, no edema Gastrointestinal (Abdomen): normal bowel sounds, soft, nontender, no hepatosplenomegaly Skin: no rashes, warm and dry Psychiatric: Orientation: alert and oriented x 3 Affect: euthymic affect Results & Data Vital Signs (Past 12 Hours) Vital Signs Temp Pulse Resp BP Pulse Ox O2 Del Method 03/14/23 08:00 97.7 F 95 H 26 H 151/86 H 95 Room Air PG Care Time/CCT Total # of Minutes Spent Total Time Spent with Patient: Total time spent is greater than 50% in coordination of care (as documented) at patient's floor/unit and/or counseling patient: Coding Level of Care Code 30579 INT INP/OBS CARE 2MIN Diagnoses Rectal bleeding K62.5 Time Spent (min) 63
--- NOTE | 2023-03-14 12:37 | Discharge Summary ---
Date of Service March 14, 2023 Admission HPI Per Admitting Provider Jamal Monson is an 82 year old male who presents to the ER as a stroke alert with concerns for left sided facial droop, slurred speech and weakness. Patient symptoms had completely resolved when seen and he denies ever having left sided weakness and left facial droop he reports was not noticed by any family members just by EMS and telestroke neurologist. He reports slipping on dewy grass this morning. 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 He slipped and fell around 8:30am. Did not hit his head or lose consciousness. Mild scratches on his right knee. He got back up and continued working. Half an hour later he started feeling nauseous and dizzy (lightheaded). He knew where he was but not direction he was pointed in and felt disorientated. He reports drifting off lying down but unsure if he fully lost consciousness. He reports similar dizziness episode occurred once yesterday in addition but was short lived. No chest pain, abdominal pain, respiratory symptoms, diarrhea or urinary symptoms. He reports getting heartburn once tori while and takes tums once every 2-3 weeks but did not have heartburn yesterday or today. No recent lorazepam use. He has a notably history of atrial fibrillation for which he was tried on Eliquis by his cardiology in April 2022. Unfortunately this caused some hematochezia for which he never sought medical attention but self discontinued the Eliquis following this and has not wanted to go back on anticoagulation. He has no prior history of stroke. HbA1C 7.0 - he has been advised diet modification by his PCP for this. Admission Exam Per Admitting Provider Constitutional: WD/WN, vitals as above Eyes: PERRL, conjunctivae normal, anicteric sclerae ENMT: external ear and nose normal, oropharynx normal Neck: trachea midline, no thyromegaly Respiratory: normal respiratory effort, lungs clear to auscultation Cardiovascular: Rate/Rhythm: regular rhythm and + irregularly irregular Heart Sounds: no murmur Extremities: normal capillary refill; no calf tenderness and no pedal edema Gastrointestinal (Abdomen): normal bowel sounds, soft, nontender, no hepatosplenomegaly Musculoskeletal: no cyanosis or clubbing, extremities motor strength 5/5 Skin: no rashes, warm and dry Neurologic: moves all extremities and awake; no focal motor deficits and not confused Speech / Cognition: normal speech Motor/Sensory: no tremor, normal movement, no pronator drift and no sensory deficit Cranial Nerves: PERRL, EOM intact bilaterally, normal facial strength, tongue midline, able to rotate head bilaterally, able to elevate shoulders bilaterally, no nystagmus and symmetric palate elevation Coordination: normal [id number] test lip thinner on left side and could be seen as possible mild facial droop although son reports not noticing any change from pt baseline and patient does not feel any change Psychiatric: A+Ox3, euthymic affect Principal Diagnosis Presyncope secondary to dehydration and orthostatic hypotension Atrial fibrillation, may need to be on anticoagulation once GI work-up completed Diabetes mellitus type 2, A1c 7. Will need to be started on oral hypoglycemic agents Hematochezia, likely hemorrhoidal bleed. Will need colonoscopy which will be arranged by GI Discharge Exam General: Awake, conversant Heart: S1, S2/regular rate and rhythm, no murmur rubs or gallops Lungs: Clear to auscultation bilaterally. Normal effort Abdomen: Soft/nontender/nondistended. No hepatosplenomegaly Extremities: No clubbing/cyanosis. No edema Behavior: Appropriate, cooperative Discharge Data Allergies Allergy/AdvReac Type Severity Reaction Status Date / Time acetaminophen AdvReac Intermediate "DOES NOT Verified 03/11/23 11:42 AGREE WITH ME" aspirin AdvReac Intermediate "THIN Verified 03/11/23 11:42 BLOOD" caffeine AdvReac Intermediate "THIN Verified 03/11/23 11:42 BLOOD" phenacetin AdvReac Intermediate "THIN Verified 03/11/23 11:42 BLOOD" Sulfa (Sulfonamide AdvReac Intermediate GI UPSET Verified 03/11/23 11:42 Antibiotics) ANESTHESIA Allergy Intermediate Bradycardia Uncoded 03/11/23 11:42 Arrhythmia and Diaphoretic Consultations 03/11/23 11:23 ED Decision to Admit Stat 03/13/23 12:22 Consult Gastroenterology Routine Ordered Studies 03/11/23 09:47 CT angio head w con Stat CT angio neck with con Stat CT head/brain wo con Stat 03/11/23 11:14 MRI Brain [MR brain wo con] Urgent Hospital Course (1) Stroke-like symptoms: History more consistent with presyncopal episode in setting of working outside rather than stroke Telestroke did note mild left facial droop however. Therefore brain MRI was ordered which came back negative TTE was unreliable due to suboptimal image quality. May need to be repeated outpatient. There did not appear to be any PFO. Most likely his symptoms are related to dehydration and orthostatic hypotension Orthostatic vital signs mildly positive with a mild drop of less than 10 points And not below systolic blood pressure of 120.. The patient stated that he had not been drinking enough fluids lately. Patient is feeling well today. (2) Unspecified atrial fibrillation: Continue metoprolol for rate control Previous Eliquis use caused hematochezia that was never investigated Patient was told to consider resuming Eliquis and he was been discussed with his PCP. However, he started having bright red blood per rectum in response to the prophylactic dose of Lovenox that he has been getting in the hospital. is requesting a GI work-up GI evaluated the patient and thought that this is most likely related to hemorrhoid. No drop in H&H GI plans to do a outpatient colonoscopy. GI office will call the patient. Hold anticoagulation until GI work-up completed (3) Hypertension, essential: Continue current medication if MRI negative for stroke Patient did have some episodes of orthostatic hypotension, part of which could be related to dehydration. This will need to be pursued outpatient. Emphasized on fluid intake (4) Diabetes mellitus type 2, diet-controlled: HbA1C 7.0. Patient is not on any outpatient medications for this Diet controlled Patient was told that he will need to be started on oral hypoglycemic agent Patient wanted to follow-up with his PCP to discuss initiation of oral hypoglycemic agents. BSG ACHS Novolog for correction only (5) S/P ablation of atrial flutter: (6) GI bleed: patient started having bright red blood per rectum 03/13 The first noticed blood staining the back of his scalp and then noticed that blood was flowing out of his rectum. Patient was on subcu Lovenox prophylactic dose Discontinue subcu Lovenox Consult GI GI recommended outpatient colonoscopy Most likely hemorrhoidal bleed No anticoagulation until GI work-up completed No drop in H&H Plan discharge today Total Time Total Time Spent Total Time Spent (In Minutes): 35 Discharge Plan Discharge Items Patient Disposition: Home - Self-Care Reason For Visit: STROKE LIKE SYMPTOMS Discharge Diagnosis: Presyncope secondary to dehydration and orthostatic hypotension Atrial fibrillation, may need to be on anticoagulation once GI work-up completed Diabetes mellitus type 2, A1c 7. Will need to be started on oral hypoglycemic agents Hematochezia, likely hemorrhoidal bleed. Will need colonoscopy which will be arranged by GI Activity: Resume your previous activity Non-emergency contact: Primary Care Provider Call non-emergency contact if: you have any medication questions and your symptoms worsen Follow-up/Referrals: Shy Lugo MD [Primary Care Provider] - 03/23/23 9:30 am (APPOINTMENT WITH TAWANNA CABRERA) Diet: Carb Consistent or DM2 and Heart Healthy Addtl Attending Provider Instructions: Advised to follow-up with PCP in 1 week Advised to talk to PCP about starting Eliquis trial again for stroke prophylaxis once the GI work-up has been completed Advised to talk to PCP about getting an echocardiogram done outpatient as the echocardiogram done in the hospital was unreliable due to suboptimal images. Advised to note that you are now a diabetic. He will now need to be on oral hypoglycemic agent. Advised to talk to your PCP Advised to note that the GI office will reach out to you to schedule your colonoscopy. Advised to drink plenty of fluids and to stay hydrated Pending Studies at Discharge: No Stand-Alone Forms: My [facility] Medications and DC Order Prescriptions: Continued losartan 25 mg tablet 12.5 mg PO QAM Qty: 45 5RF pravastatin 40 mg tablet 40 mg PO HS Qty: 90 3RF fluticasone propionate 50 mcg/actuation spray,suspension 2 spray intranasal DAILY Qty: 16 3RF Rx Instructions: administer 2 sprays into each nostril daily lorazepam 0.5 mg tablet 0.5 mg PO DAILY PRN (Reason: anxiety) Qty: 20 0RF Probiotic 3 billion cell Capsule 3,000 mmu cells PO 3XWK Rx Instructions: TAKES MON, WED, & FRI Centrum Silver 400-250 mcg Tablet,Chewable 1 tab PO 3XWK Rx Instructions: TAKES MON, WED, & FRI. cholecalciferol (vitamin D3) [Vitamin D3] 1,000 unit Capsule 1,000 unit PO MOWEFR metoprolol succinate 50 mg tablet extended release 24 hr 50 mg PO QAM Discharge Orders: Discharge Order (Routine); Ordered 03/14/23 Ordered By: Fadumo Ball/Other Patient Handouts: Managing Type 2 Diabetes Admission Data Admit Date/Time: 03/11/23 11:08 Attending Provider: Fadumo Bruce Admit Provider: Arash Elliott Primary Care Provider: Shy Lugo Other Providers: Arash Elliott; Raquel Britt Other Interventions: Discharge Summary Assessment (RN) Last Done: 03/14/23 12:55 Coding Level of Care Code 60289 INP/OBS DISCH >30 MIN Diagnoses Stroke-like symptoms R29.90 Unspecified atrial fibrillation I48.91 Hypertension, essential I10 Diabetes mellitus type 2, diet-controlled E11.9 S/P ablation of atrial flutter Z98.890; Z86.79 GI bleed K92.2
[2023-03-14] MEDS ORDERED: INSULIN ASPART PER UNIT CHARGE SC SCH (16:30)
== END 2023-03-14 13:44 | disposition home or self-care (01) ==
LOC: ED 09:52 → 2S 09:52 → SUATTDRO 11:08 → 2S 12:43 → 3W 03-13 19:01

== ENCOUNTER 2024-03-30 21:44 | Observation (INO) ==
[2024-03-30 22:06] LABS: Eosinophils # (auto) 0.55 K/uL (0.00-0.50); Eosinophils % (auto) 5.8 %; Hematocrit (blood only) 47.8 % (42.0-52.0); Immature Granulocytes # (auto) 0.03 K/uL (0.01-0.20); Immature Granulocytes % (auto) 0.3 %; Lymphocytes # (auto) 2.92 K/uL (1.20-3.40); Lymphocytes % (auto) 30.5 %; Mean Corpuscular Hemoglobin 33.1 pg (25.0-34.0); Mean Corpuscular Hgb Conc 35.6 g/dL (32.0-36.0); Mean Platelet Volume 9.3 fL (9.4-12.4); Monocytes # (auto) 1.18 K/uL (0.11-0.59); Monocytes % (auto) 12.3 %; Neutrophils # (auto) 4.78 K/uL (1.40-6.50); Neutrophils % (auto) 50.1 %; Platelet Count 231 K/uL (130-400); RDW Coefficient of Variation 12.2 % (11.5-14.5); RDW Standard Deviation 42.3 fL (36.4-46.3); Red Blood Count 5.14 M/uL (4.70-6.10); White Blood Count 9.56 K/ul (4.8-10.8)
--- NOTE | 2024-03-30 22:08 | Emergency Department Note ---
Impression & Plan Chest pain ED Provider Note HISTORY OF PRESENT ILLNESS: Patient is an 83-year-old male presenting with chest pain. Patient reports that he was in his bed and got up to go to the bathroom at around 2100 and when he came back to his bed he developed sudden onset of left-sided chest pain that radiated into his bilateral arms. He reports he was short of breath with the episode. Denies any lightheadedness or dizziness. Describes it as a pressure- like sensation. He denies any history of cardiac stents. He is on aspirin daily. He has a history of permanent A-fib and has a watchman in place. He reports some associated shortness of breath with the episode but denies any nausea or vomiting. Denies any pain radiating into his back or into his abdomen. He denies ever having pain like this before. Patient is chest pain free on arrival to ER. ROS: as above PHYSICAL EXAM: Constitutional: Patient appears in no acute distress. HENT: Head: Normocephalic and atraumatic. Eyes: EOMI, PERRL Mouth/Throat: Mucous membranes moist. Neck: Trachea midline. Neck supple. Cardiovascular: Tachycardic with irregularly irregular. No murmurs, rubs or gallops. Intact distal pulses. Pulmonary/Chest: No respiratory distress. Breath sounds clear and equal bilaterally. No wheezes or rales. Abdominal: Abdomen soft, no tenderness, rebound or guarding. Musculoskeletal: No edema, tenderness or deformity noted. Skin: Warm and dry. No rash, erythema, pallor or cyanosis Psychiatric: Appropriate mood and affect for situation. Neurological: Alert and keenly responsive. CN II-XII grossly intact, moving all extremities equally and fully. MDM: - Vitals signs showed hypertension and tachycardia - History obtained via patient. History as above. - Chronic conditions affecting care: DM-2; SVT; HTN; HLD; atrial flutter; CVA - Differential diagnoses include, but are not limited to: Acute coronary syndrome; pulmonary embolism; dissection; tension pneumothorax; esophageal rupture; pneumonia - Order placed for continuous cardiac monitoring. At this time, monitor showed rate of 101 bpm with irregular rhythm, per my interpretation. - External medical records reviewed. Cardiology visit note dated 03/23/2024 was reviewed. Patient has a history of paroxysmal supraventricular tachycardia and permanent A-fib. He has a known aortic root dilatation at 4.9 cm at last evaluation. - EKG interpreted by myself showed atrial fibrillation. Rate tachycardic at 119 bpm. QT 344. No acute ischemic changes. - Laboratory workup interpreted by myself showed normal WBC; normal PT/INR; stable electrolytes; elevated total bilirubin (1.3); normal troponin; normal lipase - CXR negative for pneumonia, per my interpretation. - CTA chest noted to have an ascending aortic aneurysm without any dissection. No focal airspace opacity. Noted to have some prominent peribronchial cuffing concerning for potential inflammatory or infectious bronchitis. - Patient pain free on arrival to ER. - HEART score 5 (History +1 moderately suspicious; EKG +0; Age +2; Risk factors +2; Initial troponin +0), amounting to a moderate score. - Repeat troponin within normal limits. - Discussion was had with caseworker about patient's case and need for admission - Hospitalist, Dr. Pena, consulted for admission - Patient admitted to [facility] service for further evaluation and management. ASSESSMENT AND PLAN: Diagnosis: chest pain Plan: admit Past Med/Surg History Problem List (Updated 03/31/24 @ 01:10 by Franny Mensah MD) Chest pain (Acute) Presence of Watchman left atrial appendage closure device Stroke-like symptoms (Acute) S/P ablation of atrial flutter Unspecified atrial fibrillation Status post catheter ablation of atrial flutter LVH (left ventricular hypertrophy) PSVT (paroxysmal supraventricular tachycardia) Atrial flutter Pure hypercholesterolemia (Chronic) Diverticulosis of colon (without mention of hemorrhage) (Chronic) Vasovagal syncope (Chronic) Umbilical hernia (Chronic) Seasonal allergies (Chronic) Osteoarthritis of knee (Chronic) Onychomycosis of toenail (Chronic) Hypercholesterolemia (Chronic) Essential hypertriglyceridemia (Chronic) Eczema (Chronic) Benign prostatic hyperplasia (Chronic) Atrial premature complex (Chronic) Arthritis (Chronic) Anxiety disorder (Chronic) Aneurysm of aortic arch (Chronic) Cyst of soft tissue Hypertension, essential SVT (supraventricular tachycardia) Diabetes mellitus type 2, diet-controlled Cervical strain, acute (Acute) Medical History Anxiety Bleeding hemorrhoid COVID-19 Diabetes mellitus type 2, diet-controlled History of anesthesia reaction Hyperlipemia Hypertension Irregular heart beat Osteoarthritis Stroke Syncopal episodes Transient ischemic attack (TIA) Surgical History History of removal of cyst (03/30/19) History of colonoscopy History of tooth extraction History of cataract surgery Family History Mother Diabetes Hypertension Father Cancer Family/Other Cancer Other Family history non-contributory Denies family history of Ovarian cancer Prostate cancer Myocardial infarction Breast cancer Colorectal cancer Social History Smoking Status: Former smoker Tobacco Type: Cigarettes Age Started Using Tobacco: 18; Age Quit Using Tobacco: 44; packs per day: 0.5; Second Hand Exposure: No; Do You Dip or Chew Tobacco: No; Hx Alcohol Use: No Hx Substance Use: No Preferred Language: Romansh Communication Ability: Effective Visual Impairment: No Limitations Hearing Ability: Normal [employer] Service Unit Operator Required: No Beliefs That Will Affect Care: None marital status: Current Living Situation: Spouse current occupational status: retired 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 Feels Safe at Home: Yes Childhood Exposure to Second-Hand Smoke: Yes Diet: regular Dental Care, Regularly: Yes Physical Activity Frequency: Does not Exercise Seatbelt Use: always Sunscreen Use: No Assistive Devices: None Allergies Allergies Allergy/AdvReac Type Severity Reaction Status Date / Time acetaminophen AdvReac Intermediate "DOES NOT Verified 03/23/24 10:41 AGREE WITH ME" aspirin AdvReac Intermediate "THIN Verified 03/23/24 10:41 BLOOD" caffeine AdvReac Intermediate "THIN Verified 03/23/24 10:41 BLOOD" phenacetin AdvReac Intermediate "THIN Verified 03/23/24 10:41 BLOOD" Sulfa (Sulfonamide AdvReac Intermediate GI UPSET Verified 03/23/24 10:41 Antibiotics) ANESTHESIA Allergy Intermediate Bradycardia Uncoded 03/23/24 10:41 Arrhythmia and Diaphoretic Home Meds Home Medications Medication Instructions Recorded Confirmed lactobacillus combination no.4 3 3,000 mmu cells PO 3XWK 09/14/18 03/23/24 billion cell capsule (Probiotic) cholecalciferol (vitamin D3) 25 1,000 unit PO MOWEFR 03/30/19 03/23/24 mcg (1,000 unit) capsule (Vitamin D3) tsrthmmaaurn-hobgcnd-zouoz acid 1 tab PO 3XWK 03/30/19 03/23/24 400 mcg-lutein 250 mcg chewable tablet (Centrum Silver) aspirin 81 mg tablet,delayed 81 mg PO DAILY 03/23/24 03/23/24 release (Adult Low Dose Aspirin) Previous Rx's Medication Instructions Recorded fluticasone propionate 50 2 spray intranasal DAILY #16 grams 09/22/20 mcg/actuation nasal spray,suspension lorazepam 0.5 mg tablet 0.5 mg PO DAILY PRN anxiety #20 09/29/21 tabs losartan 25 mg tablet 12.5 mg (1/2 x 25 mg) PO QAM #45 05/10/23 tabs pravastatin 40 mg tablet 40 mg PO HS #90 tabs 06/27/23 metoprolol succinate 50 mg 50 mg PO QAM #90 tabs 03/14/24 tablet,extended release 24 hr Results & Data (ED) Vital Signs Vital Signs - 24 hr 03/30/24 21:39 03/30/24 21:39 03/30/24 21:47 Temperature 36.4 C L Temperature Source Oral Pulse Rate Pulse Rate [Apical] 97 H Pulse Rhythm [Apical] Regular Pulse Strength [Apical] Normal Respiratory Rate 18 Respiratory Effort / Characteristics Non-Labored Respiratory Depth Normal Respiratory Pattern Regular Blood Pressure Blood Pressure [Right Arm] 137/119 H Blood Pressure Mean Blood Pressure Mean [Right Arm] 125 Blood Pressure Position Blood Pressure Position [Right Arm] Sitting Pulse Oximetry 95 95 Oxygen Delivery Method Room Air Room Air Room Air Sepsis Recent Fever Within 48 Hours Sepsis New/Unexplained Change in Mental Status Sepsis Action Taken by Nursing 03/30/24 21:51 03/30/24 21:56 Temperature 36.4 C L Temperature Source Oral Pulse Rate 102 H 103 H Pulse Rate [Apical] Pulse Rhythm [Apical] Pulse Strength [Apical] Respiratory Rate 18 Respiratory Effort / Characteristics Non-Labored Respiratory Depth Normal Respiratory Pattern Regular Blood Pressure 137/119 H Blood Pressure [Right Arm] Blood Pressure Mean 125 Blood Pressure Mean [Right Arm] Blood Pressure Position Sitting Blood Pressure Position [Right Arm] Pulse Oximetry 95 Oxygen Delivery Method Room Air Sepsis Recent Fever Within 48 Hours No Sepsis New/Unexplained Change in Mental Status N/A Sepsis Action Taken by Nursing No Action Required Laboratory Data 03/30/24 21:49 03/30/24 21:49 Lab Results 03/30/24 03/31/24 Range/Units 21:49 00:25 WBC 9.56 (4.8-10.8) K/ul RBC 5.14 (4.70-6.10) M/uL Hgb 17.0 (14.0-18.0) g/dl Hct 47.8 (42.0-52.0) % MCV 93.0 (80.0-100.0) fL MCH 33.1 (25.0-34.0) pg MCHC 35.6 (32.0-36.0) g/dL RDW Std Deviation 42.3 (36.4-46.3) fL RDW Coeff of Marily 12.2 (11.5-14.5) % Plt Count 231 (130-400) K/uL MPV 9.3 L (9.4-12.4) fL Immature Gran % (Auto) 0.3 % Neut % (Auto) 50.1 % Lymph % (Auto) 30.5 % [place] % (Auto) 12.3 % Eos % (Auto) 5.8 % Baso % (Auto) 1.0 % Neut # (Auto) 4.78 (1.40-6.50) K/uL Lymph # (Auto) 2.92 (1.20-3.40) K/uL [place] # (Auto) 1.18 H (0.11-0.59) K/uL Eos # (Auto) 0.55 H (0.00-0.50) K/uL Baso # (Auto) 0.10 (0.00-0.20) K/uL Immature Gran # (Auto) 0.03 (0.01-0.20) K/uL PT 10.9 (9.0-12.0) Seconds INR 1.0 (0.9-1.1) Sodium 137 (136-145) mmol/L Potassium 4.3 (3.5-5.1) mmol/L Chloride 102 (98-107) mmol/L Carbon Dioxide 29 (21-32) mmol/L Anion Gap 6 (3-11) BUN 15 (6-23) mg/dl Creatinine 1.07 (0.6-1.4) mg/dl Est Cr Clr Drug Dosing 63.0 ml/min eGFR 69.72 BUN/Creatinine Ratio 14.0 (10-20) Glucose 165 H (70-99(Fasting)) mg/dl Calcium 9.7 (8.6-10.3) mg/dl Total Bilirubin 1.3 H (0.2-1.0) mg/dl AST 17 (13-39) U/L ALT 19 (7-52) U/L Alkaline Phosphatase 50 (34-104) U/L Troponin I High Sens 8.2 9.1 (0-20) pg/ml Total Protein 8.2 (6.0-8.3) gm/dl Albumin 4.4 (3.4-5.0) gm/dl Globulin 3.8 (2.5-4.0) gm/dl Albumin/Globulin Ratio 1.2 (0.9-2) Lipase 41 (11-82) U/L Administered Medications Discontinued Medications Ioversol (Optiray 320 125ml) 120 ml IV ONCE ONE Stop: 03/30/24 22:56 Last Admin: 03/30/24 22:55 Dose: 120 ml Documented By: DENNIS Discharge Plan Visit Data Chief Complaint: Chest Pain Stated Complaint: Chest Pain, Afib RVR ED Provider: Franny Mensah Discharge Problem: Chest pain Forms Stand Alone Forms: My [facility] Prescriptions Prescriptions: No Action losartan 25 mg tablet 12.5 mg PO QAM Qty: 45 5RF pravastatin 40 mg tablet 40 mg PO HS Qty: 90 3RF metoprolol succinate 50 mg tablet extended release 24 hr 50 mg PO QAM Qty: 90 3RF fluticasone propionate 50 mcg/actuation spray,suspension 2 spray intranasal DAILY Qty: 16 3RF Rx Instructions: administer 2 sprays into each nostril daily lorazepam 0.5 mg tablet 0.5 mg PO DAILY PRN (Reason: anxiety) Qty: 20 0RF aspirin [Adult Low Dose Aspirin] 81 mg tablet,delayed release (DR/EC) 81 mg PO DAILY Probiotic 3 billion cell Capsule 3,000 mmu cells PO 3XWK Rx Instructions: TAKES MON, WED, & FRI Centrum Silver 400-250 mcg Tablet,Chewable 1 tab PO 3XWK Rx Instructions: TAKES MON, WED, & FRI. cholecalciferol (vitamin D3) [Vitamin D3] 1,000 unit Capsule 1,000 unit PO MOWEFR Referrals Referrals: Shy Lugo MD [Primary Care Provider] -
[2024-03-30 22:19] LABS: Albumin Globulin Ratio 1.2 (0.9-2); Albumin Level 4.4 gm/dl (3.4-5.0); Bilirubin,Total 1.3 mg/dl (0.2-1.0); Calcium 9.7 mg/dl (8.6-10.3); Globulin 3.8 gm/dl (2.5-4.0); Potassium 4.3 mmol/L (3.5-5.1); Total Protein 8.2 gm/dl (6.0-8.3)
[2024-03-30 22:26] LABS: Troponin I High Sensitivity 8.2 pg/ml (0-20)
[2024-03-30] MEDS: OPTIRAY 320 125ml IV ONE (22:55)
[2024-03-30 23:51] LABS: Prothrombin Time 10.9 Seconds (9.0-12.0)
--- NOTE | 2024-03-31 01:31 | History & Physical Report ---
Date of Service March 31, 2024 Assessment & Plan (1) Chest pain radiating to arm: (2) Presence of Watchman left atrial appendage closure device: (3) S/P ablation of atrial flutter: (4) Unspecified atrial fibrillation: (5) Thoracic ascending aortic aneurysm: (6) Shortness of breath: Plan Chest pain radiating to bilateral arms/accompanied by shortness of breath- The patient will be admitted to telemetry for serial cardiac enzymes, serial EKG's, cardiac rhythm monitoring and a 2-D echocardiogram with Dopplers. Initial troponin 8.2, with follow-up 9.1 CT angiography PE protocol, negative for PE or aortic dissection. Does note a 4.8 x 4.4 cm thoracic ascending aortic aneurysm, similar to previous size 4.6 x 4.5 Continue aspirin, metoprolol succinate. Hold losartan Follows with Dr. eHnry in the outpatient setting Presence of Watchman left atrial appendage closure device- Status postplacement 02/01/[address] Shields at [facility] [place] Infectious/inflammatory bronchitis- His ongoing shortness of breath over the past few months may be due to this diagnosis Placed on Mucinex 600 mg p.o. every 12 hours May benefit from a course of steroids/inhalers, but will wait until cardiac workup is complete Mild gastric distention and tympany Likely secondary to aerophagia Simethicone 80 mg chewables 4 times daily Right subclavian artery moderate proximal narrowing- As noted on CTA PE protocol Can be followed serially, as patient is not symptomatic at this time Hyperlipidemia- Continue pravastatin History of Present Illness Chief Complaint: The patient reports that he had gone to bed, and was getting up to go to the bathroom around 9:00 PM this evening, when he developed sudden onset of left- sided chest pain, radiating down to both arms, accompanied by shortness of breath. Due to the intensity persistence of the symptoms, he, per family, who then brought him to the emergency department for assessment. Primary Care Provider: Shy Lugo MD The patient is an 83-year-old male with a past medical history including atrial fibrillation status postplacement of Watchman left atrial appendage closure lelia ce on 02/01/2024, history of strokelike symptoms, status post ablation of atrial flutter, unspecified atrial fibrillation, PSVT history, history of vasovagal syncope, hypercholesterolemia, BPH with LUTS, diabetes mellitus type 2 and hypertension. Patient presents to the emergency department with symptoms as noted above. His reports that he has had a persistent intermittent cough over the past few months Allergies Allergy/AdvReac Type Severity Reaction Status Date / Time acetaminophen AdvReac Intermediate "DOES NOT Verified 03/31/24 02:00 AGREE WITH ME" aspirin AdvReac Intermediate "THIN Verified 03/31/24 02:00 BLOOD" caffeine AdvReac Intermediate "THIN Verified 03/31/24 02:00 BLOOD" phenacetin AdvReac Intermediate "THIN Verified 03/31/24 02:00 BLOOD" Sulfa (Sulfonamide AdvReac Intermediate GI UPSET Verified 03/31/24 02:00 Antibiotics) ANESTHESIA Allergy Intermediate Bradycardia Uncoded 03/31/24 02:00 Arrhythmia and Diaphoretic Home Medications Medication Instructions Recorded Confirmed Type lactobacillus combination no.4 3 3,000 mmu cells PO 3XWK 09/14/18 03/23/24 History billion cell capsule (Probiotic) cholecalciferol (vitamin D3) 25 1,000 unit PO MOWEFR 03/30/19 03/31/24 History mcg (1,000 unit) capsule (Vitamin D3) aybfhmnputzb-fokdyzg-pgqhl acid 1 tab PO 3XWK 03/30/19 03/31/24 History 400 mcg-lutein 250 mcg chewable tablet (Centrum Silver) fluticasone propionate 50 2 spray intranasal DAILY #16 grams 09/22/20 03/31/24 Rx mcg/actuation nasal spray,suspension lorazepam 0.5 mg tablet 0.5 mg PO DAILY PRN anxiety #20 09/29/21 03/31/24 Rx tabs losartan 25 mg tablet 12.5 mg (1/2 x 25 mg) PO QAM #45 05/10/23 03/31/24 Rx tabs pravastatin 40 mg tablet 40 mg PO HS #90 tabs 06/27/23 03/31/24 Rx metoprolol succinate 50 mg 50 mg PO QAM #90 tabs 03/14/24 03/31/24 Rx tablet,extended release 24 hr aspirin 81 mg tablet,delayed 81 mg PO DAILY 03/23/24 03/31/24 History release (Adult Low Dose Aspirin) Past Med/Surg History Problem List (Updated 03/31/24 @ 05:14 by Sunil Pena MD) Shortness of breath Thoracic ascending aortic aneurysm Chest pain radiating to arm Chest pain (Acute) Presence of Watchman left atrial appendage closure device Stroke-like symptoms (Acute) S/P ablation of atrial flutter Unspecified atrial fibrillation Status post catheter ablation of atrial flutter LVH (left ventricular hypertrophy) PSVT (paroxysmal supraventricular tachycardia) Atrial flutter Pure hypercholesterolemia (Chronic) Diverticulosis of colon (without mention of hemorrhage) (Chronic) Vasovagal syncope (Chronic) Umbilical hernia (Chronic) Seasonal allergies (Chronic) Osteoarthritis of knee (Chronic) Onychomycosis of toenail (Chronic) Hypercholesterolemia (Chronic) Essential hypertriglyceridemia (Chronic) Eczema (Chronic) Benign prostatic hyperplasia (Chronic) Atrial premature complex (Chronic) Arthritis (Chronic) Anxiety disorder (Chronic) Aneurysm of aortic arch (Chronic) Cyst of soft tissue Hypertension, essential SVT (supraventricular tachycardia) Diabetes mellitus type 2, diet-controlled Cervical strain, acute (Acute) Medical History Anxiety Bleeding hemorrhoid COVID-19 Diabetes mellitus type 2, diet-controlled History of anesthesia reaction Hyperlipemia Hypertension Irregular heart beat Osteoarthritis Stroke Syncopal episodes Transient ischemic attack (TIA) Surgical History History of removal of cyst (03/30/19) History of colonoscopy History of tooth extraction History of cataract surgery Family History Mother Diabetes Hypertension Father Cancer Family/Other Cancer Other Family history non-contributory Denies family history of Ovarian cancer Prostate cancer Myocardial infarction Breast cancer Colorectal cancer Social History Smoking Status: Former smoker Tobacco Type: Cigarettes Age Started Using Tobacco: 18; Age Quit Using Tobacco: 44; packs per day: 0.5; Smoking End Date: approx 40yrs ago; Second Hand Exposure: No; Do You Dip or Chew Tobacco: No; Hx Alcohol Use: No Hx Substance Use: No Preferred Language: [place] Communication Ability: Effective Visual Impairment: No Limitations Hearing Ability: Normal Employment Clerk Required: No Beliefs That Will Affect Care: None marital status: Current Living Situation: Spouse current occupational status: retired 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 Feels Safe at Home: Yes Safety Concerns: Feels Safe At This Time Childhood Exposure to Second-Hand Smoke: Yes Diet: regular Dental Care, Regularly: Yes Physical Activity Frequency: Does not Exercise Seatbelt Use: always Sunscreen Use: No Assistive Devices: Glasses Review of Systems Review of Systems: The patient denies palpitations, lower extremity swelling, sore throat, fevers, chills, sweats, nausea, vomiting, diarrhea , constipation, abdominal pain, pelvic pain, blood in urine or stool, dysuria, urinary frequency or urgency, lightheadedness, dizziness, headache, loss of consciousness, rash, abnormal bruising or bleeding, imbalance, focal weakness, numbness or tingling in arms or legs, generalized arthralgias or myalgias, back or neck pain, or night sweats. The review of systems is otherwise negative other than for that already noted above, and at least 10 systems have been reviewed. Physical Exam Physical Exam: The patient is awake, alert and oriented 3, well developed and well nourished, normocephalic and atraumatic, lying in bed and in no acute distress. HEENT--PERRL, EOMI, mucous membranes and oropharynx normal Neck--supple. No JVD. No bruits. Thyroid normal, trachea midline, no adenopathy. Heart--normal S1 and S2. No murmurs, rubs or gallops. Lungs--clear bilaterally. No respiratory distress, no accessory muscle use. Abdomen--normal bowel sounds and soft. Nontender. Nondistended, no hernias or masses, no organomegaly. Extremities--no cyanosis or clubbing. No edema. There are good distal pulses b/l. Dermatologic--normal skin turgor, normal color, no abnormal lymph nodes, no rash. Neurologic--cranial nerves II through XII grossly intact. Rheumatologic--normal range of motion. Psychiatric--normal affect. Results & Data Results & Data Vital Signs (Past 12 Hours) Vital Signs Temp Pulse Pulse Resp BP BP Pulse Ox 03/31/24 01:13 118 H 26 H 139/108 H 93 03/31/24 00:00 125 H 24 175/84 H 94 03/30/24 23:00 116 H 22 152/116 H 94 03/30/24 22:01 120 H 16 165/106 H 95 03/30/24 21:56 103 H 03/30/24 21:51 36.4 C L 102 H 18 137/119 H 95 03/30/24 21:47 95 03/30/24 21:39 36.4 C L 97 H 18 137/119 H 95 03/30/24 21:39 O2 Del Method 03/31/24 01:13 Room Air 03/31/24 00:00 03/30/24 23:00 03/30/24 22:01 03/30/24 21:56 03/30/24 21:51 Room Air 03/30/24 21:47 Room Air 03/30/24 21:39 Room Air 03/30/24 21:39 Room Air Laboratory Results Laboratory Results WBC 9.56 K/ul (4.8-10.8) 03/30/24 21:49 RBC 5.14 M/uL (4.70-6.10) 03/30/24 21:49 Hgb 17.0 g/dl (14.0-18.0) 03/30/24 21:49 Hct 47.8 % (42.0-52.0) 03/30/24 21:49 MCV 93.0 fL (80.0-100.0) 03/30/24 21:49 MCH 33.1 pg (25.0-34.0) 03/30/24 21:49 MCHC 35.6 g/dL (32.0-36.0) 03/30/24 21:49 RDW Std Deviation 42.3 fL (36.4-46.3) 03/30/24 21:49 RDW Coeff of Marily 12.2 % (11.5-14.5) 03/30/24 21:49 Plt Count 231 K/uL (130-400) 03/30/24 21:49 MPV 9.3 fL (9.4-12.4) L 03/30/24 21:49 Immature Gran % (Auto) 0.3 % 03/30/24 21:49 Neut % (Auto) 50.1 % 03/30/24 21:49 Lymph % (Auto) 30.5 % 03/30/24 21:49 [place] % (Auto) 12.3 % 03/30/24 21:49 Eos % (Auto) 5.8 % 03/30/24 21:49 Baso % (Auto) 1.0 % 03/30/24 21:49 Neut # (Auto) 4.78 K/uL (1.40-6.50) 03/30/24 21:49 Lymph # (Auto) 2.92 K/uL (1.20-3.40) 03/30/24 21:49 [place] # (Auto) 1.18 K/uL (0.11-0.59) H 03/30/24 21:49 Eos # (Auto) 0.55 K/uL (0.00-0.50) H 03/30/24 21:49 Baso # (Auto) 0.10 K/uL (0.00-0.20) 03/30/24 21:49 Immature Gran # (Auto) 0.03 K/uL (0.01-0.20) 03/30/24 21:49 PT 10.9 Seconds (9.0-12.0) 03/30/24 21:49 INR 1.0 (0.9-1.1) 03/30/24 21:49 Sodium 137 mmol/L (136-145) 03/30/24 21:49 Potassium 4.3 mmol/L (3.5-5.1) 03/30/24 21:49 Chloride 102 mmol/L (98-107) 03/30/24 21:49 Carbon Dioxide 29 mmol/L (21-32) 03/30/24 21:49 Anion Gap 6 (3-11) 03/30/24 21:49 BUN 15 mg/dl (6-23) 03/30/24 21:49 Creatinine 1.07 mg/dl (0.6-1.4) 03/30/24 21:49 Est Cr Clr Drug Dosing 63.0 ml/min 03/30/24 21:49 eGFR 69.72 03/30/24 21:49 BUN/Creatinine Ratio 14.0 (10-20) 03/30/24 21:49 Glucose 165 mg/dl (70-99(Fasting)) H 03/30/24 21:49 Calcium 9.7 mg/dl (8.6-10.3) 03/30/24 21:49 Total Bilirubin 1.3 mg/dl (0.2-1.0) H 03/30/24 21:49 AST 17 U/L (13-39) 03/30/24 21:49 ALT 19 U/L (7-52) 03/30/24 21:49 Alkaline Phosphatase 50 U/L (34-104) 03/30/24 21:49 Troponin I High Sens 9.1 pg/ml (0-20) 03/31/24 00:25 Total Protein 8.2 gm/dl (6.0-8.3) 03/30/24 21:49 Albumin 4.4 gm/dl (3.4-5.0) 03/30/24 21:49 Globulin 3.8 gm/dl (2.5-4.0) 03/30/24 21:49 Albumin/Globulin Ratio 1.2 (0.9-2) 03/30/24 21:49 Lipase 41 U/L (11-82) 03/30/24 21:49 Code Status & VTE Plan Code Status Full code VTE Prophylaxis Plan VTE Prophylaxis will be ordered: Yes PG Care Time/CCT Total # of Minutes Spent Total Time Spent with Patient: Total time spent is greater than 50% in coordination of care (as documented) at patient's floor/unit and/or counseling patient: Coding Level of Care Code 27437 INT INP/OBS CARE 3/75MIN Diagnoses Chest pain radiating to arm R07.89 Presence of Watchman left atrial appendage closure device Z95.818 S/P ablation of atrial flutter Z98.890; Z86.79 Atrial fibrillation, unspecified type I48.91 Atrial fibrillation type: unspecified Thoracic ascending aortic aneurysm I71.21 Shortness of breath R06.02 (4) Unspecified atrial fibrillation Atrial fibrillation type: unspecified Qualified Code(s): I48.91 - Unspecified atrial fibrillation
[2024-03-31] MEDS: SIMETHICONE 80 MG CHEW PO ONE (01:50)
[2024-03-31] MEDS ORDERED: ONDANSETRON INJ 2 MG/ML 2 ML VIAL IV PRN (02:36)
[2024-03-31] MEDS ORDERED: ACETAMINOPHEN 325 MG TAB PO PRN (02:36)
[2024-03-31] MEDS ORDERED: LORazepam 0.5 MG TAB PO PRN (02:36)
[2024-03-31 07:13] LABS: Basophils # (auto) 0.08 K/uL (0.00-0.20); Basophils % (auto) 0.8 %; Eosinophils % (auto) 3.9 %; Hematocrit (blood only) 43.9 % (42.0-52.0); Hemoglobin 15.9 g/dl (14.0-18.0); Immature Granulocytes # (auto) 0.04 K/uL (0.01-0.20); Immature Granulocytes % (auto) 0.4 %; Lymphocytes # (auto) 2.71 K/uL (1.20-3.40); Lymphocytes % (auto) 26.1 %; Mean Corpuscular Hemoglobin 33.8 pg (25.0-34.0); Mean Corpuscular Hgb Conc 36.2 g/dL (32.0-36.0); Mean Corpuscular Volume 93.2 fL (80.0-100.0); Mean Platelet Volume 9.6 fL (9.4-12.4); Monocytes # (auto) 1.31 K/uL (0.11-0.59); Monocytes % (auto) 12.6 %; Neutrophils # (auto) 5.84 K/uL (1.40-6.50); Neutrophils % (auto) 56.2 %; Platelet Count 210 K/uL (130-400); RDW Coefficient of Variation 12.3 % (11.5-14.5); RDW Standard Deviation 42.4 fL (36.4-46.3); Red Blood Count 4.71 M/uL (4.70-6.10); White Blood Count 10.38 K/ul (4.8-10.8)
--- NOTE | 2024-03-31 07:18 | Electrocardiogram Report ---
Test Reason : Blood Pressure : */* mmHG Vent. Rate : 119 BPM Atrial Rate : * BPM P-R Int : * ms QRS Dur : 92 ms QT Int : 344 ms P-R-T Axes : * -22 64 degrees QTcB Int : 483 ms Atrial fibrillation with rapid ventricular response Abnormal ECG When compared with ECG of 11-Mar-2023 10:20, Vent. rate has increased by 42 bpm Nonspecific T wave abnormality now evident in Lateral leads Confirmed by Farhan Henry ([id number]) on 03/31/2024 7:18:48 AM Referred By: REFERRED SELF Confirmed By: Farhan Henry
[2024-03-31 07:25] VITALS: BP 154/77; PULSE 99; RESP 18; TEMP 97.7; O2SAT 96
[2024-03-31 07:30] LABS: Appearance Urine Clear (Clear); Bilirubin Urine Negative (Negative); Blood Urine Negative (Negative); Color Urine Yellow; Glucose Urine UA 1+ (Negative); Ketones Urine Negative (Negative); Leukocyte Esterase Urine Negative (Negative); Nitrite Urine Negative (Negative); Protein Urine Negative (Negative); Specific Gravity Urine 1.033 (1.000-1.030); Urobilinogen Urine Negative (Negative); pH Urine 6.5 (4.5-7.5)
[2024-03-31 07:51] LABS: Albumin Level 4.1 gm/dl (3.4-5.0); BUN Creatinine Ratio 12.9 (10-20); Calcium 9.4 mg/dl (8.6-10.3); Creatinine Clr Calc Pharmacy 66.7 ml/min; Magnesium 1.9 mg/dl (1.7-2.4); Phosphorus 3.1 mg/dl (2.5-4.9); Potassium 3.9 mmol/L (3.5-5.1)
[2024-03-31] MEDS: ASPIRIN 81 MG ECTAB PO SCH (08:21)
[2024-03-31] MEDS: guaiFENesin 600 MG TABCR PO SCH (08:21)
[2024-03-31] MEDS: METOPROLOL SUCC 50MG EXT REL TAB PO SCH (08:21)
[2024-03-31] MEDS: FLUTICASONE PROPIONATE NA SPR 16 GM BTL NAE SCH (08:21)
[2024-03-31 08:31] LABS: Troponin I High Sensitivity 12.5 pg/ml (0-20)
--- NOTE | 2024-03-31 09:12 | Cardiology Consultation ---
Date of Consultation March 31, 2024 Assessment & Plan (1) Chest pain: (2) Presence of Watchman left atrial appendage closure device: (3) Unspecified atrial fibrillation: (4) Thoracic ascending aortic aneurysm: (5) Aortic regurgitation: Plan 1. Chest pain: Chest pain somewhat atypical in the sense that it was described as "sharp" and occurred at rest. According to his the initial symptoms seem to simply be restlessness and bilateral hand discomfort. Eventually he describes some chest discomfort as well. The symptoms appear to be fairly prolonged in nature. No objective evidence of cardiac ischemia. Biomarkers are normal. EKG demonstrates atrial fibrillation but no ischemic changes. This does not appear to have involved an acute coronary syndrome. 2. Atrial fibrillation: Permanent atrial fibrillation. On anticoagulation previously with hemorrhoidal bleeding and epistaxis. In January of this year he underwent left atrial appendage occlusion. Reportedly uncomplicated. Not symptomatic from the atrial fibrillation. Perhaps high rates at times. On outpatient basis seem to have good control but here in the hospital heart rates are elevated. I think will attempt increasing his metoprolol succinate to 75 mg daily. 3. Thoracic aortic aneurysm: This has been followed over time. We had a discussion in the clinic recently about repeat imaging. The conversation centered around whether he would want intervention if it became larger. He had not decided on whether he wanted repeat imaging. However, chest CTA was obtained at the time of admission. There does sound as if there has been any significant change. No evidence of dissection by report. 4. Aortic regurgitation: Mild to moderate. We will follow this over time. Essentially unchanged If he is feeling well and ambulatory think he could be safely discharged from a cardiac standpoint. (provided the formal CTA reports are available and there was no significant abnormality). Increasing his metoprolol succinate to 75 mg daily would be recommended. History of Present Illness Reason for Consultation: Chest pain Requesting Physician: Becky Attending Physician: Noreen Moss MD History of Present Illness The patient is an 83-year-old gentleman with a history of atrial fibrillation, valvular heart disease and aortic root dilation who presented to the hospital after an episode of chest discomfort. The patient states that he was performing his usual nighttime routine when he experienced an episode of "sharp" pains in the chest. The symptoms appear to radiate to both arms. He also described these symptoms as pains in the arms. It did not appear to involve significant breathing difficulty. It did not radiate to the back or jaw. The patient was concerned about the symptoms and called his who eventually notified EMS and he was brought to the hospital for an evaluation. It seems the patient may have initially attempted to improve his symptoms by getting ready for bed, but this did not change the pain. By his report the episode may have lasted up to an hour. He cannot recall any specific intervention which relieved his symptoms. He was confident that by the time he reached the emergency room his symptoms had resolved. I spoke to the patient's who provided some supplemental history. The patient does have an element of dementia, and may have forgotten some of the details of yesterday evening. However, his states that his symptoms started around 7 PM. At first the seem to be a very diffuse symptom complex. The patient was uncomfortable and restless. He complained of bilateral hand pain which was fairly severe. His could tell that he was not feeling well and recommended that he try to get in bed and become more comfortable. However, he continued to be restless and complaining of hand and arm pain. He eventually complained of some chest discomfort as well and she contacted EMS. On their arrival his blood pressure was notably elevated. By the time she met him at the emergency room his symptoms appeared to have resolved. She felt like he was somewhat pale initially but his color had improved by the time he reached the emergency room. Overall duration of symptoms appeared to exceed 2 hours. He states that he had not been feeling well earlier in the day. He had difficulty describing the exact symptoms, but appeared to be more fatigued. He had checked his pulse oximeter earlier in the day and may have had a lower heart rate. In general he is very sedentary. He rarely leaves the house for exercise or errands. Occasionally he will have some dyspnea with more extremes of activity. Currently feeling well. No current chest discomfort or breathing difficulty. Not currently aware of any palpitations. Allergies Allergy/AdvReac Type Severity Reaction Status Date / Time acetaminophen AdvReac Intermediate "DOES NOT Verified 03/31/24 02:00 AGREE WITH ME" aspirin AdvReac Intermediate "THIN Verified 03/31/24 02:00 BLOOD" caffeine AdvReac Intermediate "THIN Verified 03/31/24 02:00 BLOOD" phenacetin AdvReac Intermediate "THIN Verified 03/31/24 02:00 BLOOD" Sulfa (Sulfonamide AdvReac Intermediate GI UPSET Verified 03/31/24 02:00 Antibiotics) ANESTHESIA Allergy Intermediate Bradycardia Uncoded 03/31/24 02:00 Arrhythmia and Diaphoretic Home Medications Medication Instructions Recorded Confirmed Type lactobacillus combination no.4 3 3,000 mmu cells PO 3XWK 09/14/18 03/23/24 History billion cell capsule (Probiotic) cholecalciferol (vitamin D3) 25 1,000 unit PO MOWEFR 03/30/19 03/31/24 History mcg (1,000 unit) capsule (Vitamin D3) ruxotoqwbpxn-vrhbzak-tjjop acid 1 tab PO 3XWK 03/30/19 03/31/24 History 400 mcg-lutein 250 mcg chewable tablet (Centrum Silver) fluticasone propionate 50 2 spray intranasal DAILY #16 grams 09/22/20 03/31/24 Rx mcg/actuation nasal spray,suspension lorazepam 0.5 mg tablet 0.5 mg PO DAILY PRN anxiety #20 09/29/21 03/31/24 Rx tabs losartan 25 mg tablet 12.5 mg (1/2 x 25 mg) PO QAM #45 05/10/23 03/31/24 Rx tabs pravastatin 40 mg tablet 40 mg PO HS #90 tabs 06/27/23 03/31/24 Rx metoprolol succinate 50 mg 50 mg PO QAM #90 tabs 03/14/24 03/31/24 Rx tablet,extended release 24 hr aspirin 81 mg tablet,delayed 81 mg PO DAILY 03/23/24 03/31/24 History release (Adult Low Dose Aspirin) Patient History Medical History (Updated 03/31/24 @ 09:10 by Farhan Henry MD) Unspecified atrial fibrillation COVID-19 History of anesthesia reaction BRADYCARDIA AND O2 SAT DROPS Osteoarthritis Bleeding hemorrhoid NOT CURRENLTY BLEEDING Anxiety Syncopal episodes "A COUPLE MONTHS AGO" FOLLOWED UP WITH NEUROLOGY (RESULT OF ILLNESS AND DEHYDRATION" Transient ischemic attack (TIA) ? (DX ON MRI BUT NEVER HAD SYMPTOMS OF EVENT) Irregular heart beat Hyperlipemia Hypertension Stroke Surgical History History of removal of cyst (03/30/19) Back Sebaceous Cyst Excision Dr. Galloway 03/30/19 History of colonoscopy History of tooth extraction History of cataract surgery RT/LEFT Family History Mother Diabetes Hypertension Father Cancer Family/Other Cancer Other Family history non-contributory Denies family history of Ovarian cancer Prostate cancer Myocardial infarction Breast cancer Colorectal cancer Social History Smoking Status: Former smoker Tobacco Type: Cigarettes Age Started Using Tobacco: 18; Age Quit Using Tobacco: 44; packs per day: 0.5; Smoking End Date: approx 40yrs ago; Second Hand Exposure: No; Do You Dip or Chew Tobacco: No; Hx Alcohol Use: No Hx Substance Use: No Preferred Language: Japanese Communication Ability: Effective Visual Impairment: No Limitations Hearing Ability: Normal Account Liaison H[facility]ice Required: No Beliefs That Will Affect Care: None marital status: Current Living Situation: Spouse current occupational status: retired 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 Mood and affect appeared normal. He answered all questions appropriately. Forgetful at times. HEENT: Pupils are equal and reactive to light and accommodation. Extraocular movements are intact. The sclerae are anicteric. Neuro: Cranial nerves intact Lungs: Clear to auscultation bilaterally. He has good air movement without use of accessory muscles. No rales wheezes or rhonchi. Cardiac: Heart demonstrates an irregular rhythm and rapid rate. Normal S1 and S2. No murmurs on examination. Pulses: The patient has palpable radial pulses bilaterally that are equal in intensity Extremities: There was no evidence of hypoperfusion. There is no cyanosis or clubbing. There is no edema. Skin: I did not appreciate any rashes on examination today. Results & Data Vital Signs (Past 12 Hours) Vital Signs Temp Pulse Pulse Resp BP BP Pulse Ox 03/31/24 07:24 36.5 C 99 H 18 154/77 H 96 03/31/24 02:45 36.4 C L 108 H 16 164/98 H 94 03/31/24 02:36 03/31/24 02:15 107 H 21 138/104 H 98 03/31/24 01:13 118 H 26 H 139/108 H 93 03/31/24 00:00 125 H 24 175/84 H 94 03/30/24 23:00 116 H 22 152/116 H 94 03/30/24 22:01 120 H 16 165/106 H 95 03/30/24 21:56 103 H 03/30/24 21:51 36.4 C L 102 H 18 137/119 H 95 03/30/24 21:47 95 03/30/24 21:39 36.4 C L 97 H 18 137/119 H 95 03/30/24 21:39 Pulse Ox O2 Del Method O2 Del Method 03/31/24 07:24 Room Air 03/31/24 02:45 Room Air 03/31/24 02:36 94 Room Air 03/31/24 02:15 Room Air 03/31/24 01:13 Room Air 03/31/24 00:00 03/30/24 23:00 03/30/24 22:01 03/30/24 21:56 03/30/24 21:51 Room Air 03/30/24 21:47 Room Air 03/30/24 21:39 Room Air 03/30/24 21:39 Room Air Laboratory Results Abnormal Lab Results 03/30/24 03/31/24 03/31/24 21:49 00:25 06:00 WBC 9.56 RBC 5.14 Hgb 17.0 Hct 47.8 MCV 93.0 MCH 33.1 MCHC 35.6 RDW Std Deviation 42.3 RDW Coeff of Marily 12.2 Plt Count 231 MPV 9.3 L Immature Gran % (Auto) 0.3 Neut % (Auto) 50.1 Lymph % (Auto) 30.5 [place] % (Auto) 12.3 Eos % (Auto) 5.8 Baso % (Auto) 1.0 Neut # (Auto) 4.78 Lymph # (Auto) 2.92 [place] # (Auto) 1.18 H Eos # (Auto) 0.55 H Baso # (Auto) 0.10 Immature Gran # (Auto) 0.03 PT 10.9 INR 1.0 Sodium 137 Potassium 4.3 Chloride 102 Carbon Dioxide 29 Anion Gap 6 BUN 15 Creatinine 1.07 Est Cr Clr Drug Dosing 63.0 eGFR 69.72 BUN/Creatinine Ratio 14.0 Glucose 165 H Calcium 9.7 Phosphorus Magnesium Total Bilirubin 1.3 H AST 17 ALT 19 Alkaline Phosphatase 50 Troponin I High Sens 8.2 9.1 Total Protein 8.2 Albumin 4.4 Globulin 3.8 Albumin/Globulin Ratio 1.2 Lipase 41 Urine Color Yellow Urine Appearance Clear Urine pH 6.5 Ur Specific [place] 1.033 H Urine Protein Negative Urine Glucose (UA) 1+ H Urine Ketones Negative Urine Blood Negative Urine Nitrite Negative Urine Bilirubin Negative Urine Urobilinogen Negative Ur Leukocyte Esterase Negative 03/31/24 06:39 WBC 10.38 RBC 4.71 Hgb 15.9 Hct 43.9 MCV 93.2 MCH 33.8 MCHC 36.2 H RDW Std Deviation 42.4 RDW Coeff of Marily 12.3 Plt Count 210 MPV 9.6 Immature Gran % (Auto) 0.4 Neut % (Auto) 56.2 Lymph % (Auto) 26.1 [place] % (Auto) 12.6 Eos % (Auto) 3.9 Baso % (Auto) 0.8 Neut # (Auto) 5.84 Lymph # (Auto) 2.71 [place] # (Auto) 1.31 H Eos # (Auto) 0.40 Baso # (Auto) 0.08 Immature Gran # (Auto) 0.04 PT INR Sodium 138 Potassium 3.9 Chloride 102 Carbon Dioxide 28 Anion Gap 8 BUN 13 Creatinine 1.01 Est Cr Clr Drug Dosing 66.7 eGFR 74.72 BUN/Creatinine Ratio 12.9 Glucose 154 H Calcium 9.4 Phosphorus 3.1 Magnesium 1.9 Total Bilirubin AST ALT Alkaline Phosphatase Troponin I High Sens 12.5 Total Protein Albumin 4.1 Globulin Albumin/Globulin Ratio Lipase Urine Color Urine Appearance Urine pH Ur Specific [place] Urine Protein Urine Glucose (UA) Urine Ketones Urine Blood Urine Nitrite Urine Bilirubin Urine Urobilinogen Ur Leukocyte Esterase Diagnostic Findings Chest CTA obtained at the time of admission with demonstrated thoracic aneurysm (known) but no other acute findings. (this is by report only, formal report still pending) Echocardiogram obtained today revealed preserved LV systolic function. Hqrw-tz-wuqibieg aortic regurgitation. PG Care Time/CCT Total # of Minutes Spent Total Time Spent with Patient: Total time spent is greater than 50% in coordination of care (as documented) at patient's floor/unit and/or counseling patient: Coding Level of Care Code 28048 INT INP/OBS CARE 3/75MIN Diagnoses Chest pain R07.9 Presence of Watchman left atrial appendage closure device Z95.818 Atrial fibrillation, unspecified type I48.91 Atrial fibrillation type: unspecified Thoracic ascending aortic aneurysm I71.21 Aortic regurgitation I35.1 (3) Unspecified atrial fibrillation Atrial fibrillation type: unspecified Qualified Code(s): I48.91 - Unspecified atrial fibrillation
[2024-03-31] MEDS: SIMETHICONE 80 MG CHEW PO SCH (09:36)
--- NOTE | 2024-03-31 10:39 | Discharge Summary ---
Discharge Summary Date of Service March 31, 2024 Principal Dx & Hospital Course #1 = Principal Diagnosis (1) Chest pain radiating to arm: (2) Presence of Watchman left atrial appendage closure device: (3) S/P ablation of atrial flutter: (4) Unspecified atrial fibrillation: (5) Thoracic ascending aortic aneurysm: (6) Shortness of breath: Plan Chest pain radiating to bilateral arms/accompanied by shortness of breath- The patient was monitored on telemetry - no arrhythmic events noted. Ruled out for ACS with serial cardiac enzymes, serial EKG's. Cardiology consultation completed - recommended outpatient follow up. CT angiography PE protocol, negative for PE or aortic dissection. Does note a 4.8 x 4.4 cm thoracic ascending aortic aneurysm, similar to previous size 4.6 x 4.5 Continue aspirin, metoprolol succinate. Follows with Dr. Henry in the outpatient setting Presence of Watchman left atrial appendage closure device- Status postplacement 02/01/[address] Shields at [facility] [place] Right subclavian artery moderate proximal narrowing- As noted on CTA PE protocol Can be followed serially, as patient is not symptomatic at this time Hyperlipidemia- Continue pravastatin Admission HPI Per Admitting Provider The patient is an 83-year-old male with a past medical history including atrial fibrillation status postplacement of Watchman left atrial appendage closure device on 02/01/2024, history of strokelike symptoms, status post ablation of atrial flutter, unspecified atrial fibrillation, PSVT history, history of vasovagal syncope, hypercholesterolemia, BPH with LUTS, diabetes mellitus type 2 and hypertension. Patient presents to the emergency department with symptoms as noted above. His reports that he has had a persistent intermittent cough over the past few months Discharge Exam well appearing, comfortable at rest Respiratory clear to auscultation bilaterally Cardiovascular RRR Gastrointestinal (Abdomen) Soft, NT, ND, BS+ Neurologic AAO#3, Non focal Discharge Plan Discharge Items Patient Disposition: Home - Self-Care Reason For Visit: CHEST PAIN RADIATING TO B/L ARMS Discharge Diagnosis: ATYPICAL CHEST PAIN Activity: Resume your previous activity Bathing: No limitations Non-emergency contact: Primary Care Provider and Toll Mechanic Call non-emergency contact if: your symptoms worsen Follow-up/Referrals: Shy Lugo MD [Primary Care Provider] - Diet: Regular Addtl Attending Provider Instructions: follow up with primary care provider Pending Studies at Discharge: No Stand-Alone Forms: My [facility], Smoking Cessation Medications and DC Order Prescriptions: Continued losartan 25 mg tablet 12.5 mg PO QAM Qty: 45 5RF pravastatin 40 mg tablet 40 mg PO HS Qty: 90 3RF metoprolol succinate 50 mg tablet extended release 24 hr 50 mg PO QAM Qty: 90 3RF fluticasone propionate 50 mcg/actuation spray,suspension 2 spray intranasal DAILY Qty: 16 3RF Rx Instructions: administer 2 sprays into each nostril daily lorazepam 0.5 mg tablet 0.5 mg PO DAILY PRN (Reason: anxiety) Qty: 20 0RF aspirin [Adult Low Dose Aspirin] 81 mg tablet,delayed release (DR/EC) 81 mg PO DAILY Probiotic 3 billion cell Capsule 3,000 mmu cells PO 3XWK Rx Instructions: TAKES MON, WED, & FRI Centrum Silver 400-250 mcg Tablet,Chewable 1 tab PO 3XWK Rx Instructions: TAKES MON, WED, & FRI. cholecalciferol (vitamin D3) [Vitamin D3] 1,000 unit Capsule 1,000 unit PO MOWEFR Discharge Orders: Discharge Order (Routine); Ordered 03/31/24 Ordered By: Noreen Moss Admission Data Admit Date/Time: 03/31/24 01:30 Attending Provider: Noreen Moss Admit Provider: Sunil Pena Primary Care Provider: Shy Lugo Other Providers: Sunil Pena; Farhan Henry Hospital Stay Data Consultations 03/31/24 00:31 ED Decision to Admit Stat 03/31/24 02:36 Consult Cardiology Routine Diagnostic Imagining Performed 03/30/24 22:32 CTA chest dissec wo/w con [CT angio chest dissec wo/w con] Stat Pending Results Patient Have Any Pending Studies at Discharge: No Discharge Instructions Given to Patient (Per Discharging Provider) follow up with primary care provider Total Time Total Time Spent Total Time Spent (In Minutes): 35 min Coding Level of Care Code 69911 INP/OBS DISCH >30 MIN Diagnoses Chest pain radiating to arm R07.89 Presence of Watchman left atrial appendage closure device Z95.818 S/P ablation of atrial flutter Z98.890; Z86.79 Atrial fibrillation, unspecified type I48.91 Atrial fibrillation type: unspecified Thoracic ascending aortic aneurysm I71.21 Shortness of breath R06.02
--- NOTE | 2024-03-31 11:24 | XCELERA ---
[id number]
--- NOTE | 2024-03-31 12:29 | XRay Report ---
Exam(s): XR CXR 1 VIEW EXAM: XR Chest, 1 View CLINICAL HISTORY: Chest pain, nonspecific. TECHNIQUE: Frontal view of the chest. COMPARISON: Portable chest single view dated 03/11/2023 FINDINGS: Lungs: The interstitial markings are stable with questionable slight coarse senescent changes. No focal airspace consolidation. The pulmonary vasculature demonstrates no significant radiographic abnormality. Pleural space: Unremarkable. No pneumothorax. No large pleural effusion. Heart: Unremarkable. No cardiomegaly. Mediastinum: The mediastinal contours are unremarkable. No tracheal deviation. Bones/joints: Unremarkable. No acute fracture. IMPRESSION: No acute cardiopulmonary process or significant alteration from the prior examination. Electronically signed by: Beny Lowe MD 03/30/24 23:54 PM
--- NOTE | 2024-03-31 12:29 | CT Scan Report ---
Exam(s): CTA CHEST W/WO Contrast IV Amt: 120 cc's optiray 320 EXAM: CT Angiography Chest Without and With Intravenous Contrast CLINICAL HISTORY: chest pain radiating into arms. TECHNIQUE: Axial computed tomographic angiography images of the chest without and with intravenous contrast. CTDI is 72.56 mGy and DLP is 1286.85 mGy-cm. Automated exposure control was utilized for the study. A dose lowering technique was utilized adhering to the principles of ALARA. MIP reconstructed images were created and reviewed. CONTRAST: Patient received 120 cc's optiray 320 of IV contrast COMPARISON: CTA chest 02/03/2022 FINDINGS: Pulmonary arteries: Unremarkable. No pulmonary embolism. Aorta: Ascending aortic aneurysm, with the mid a sending aorta measuring 4.8 x 4.4 cm in diameter from 4.6 x 4.5 cm previously. There is a gradual tapering distally with the aortic arch and descending aorta normal in caliber. The aorta measures 3 x 2.7 cm at the hiatus. No dissection. No intimal wall abnormality identified on the precontrast imaging. Mild atherosclerotic calcification. Great vessels of aortic arch: The proximal great vessels are patent with a type II branching pattern. No ostial stenosis, occlusion or dissection. Other arteries: There is moderate, he percent luminal stenosis suggested involving the proximal right subclavian artery with focal kinking in this area and slight poststenotic dilatation, measuring up to 12 mm. The right subclavian and axillary artery are otherwise patent. Lungs: No focal airspace consolidation. Peribronchial cuffing noted centrally. This is more prominent than on the previous examination. Minimal dependent subsegmental changes noted in the posterior aspect of both lungs. Pleural space: Unremarkable. No significant effusion. No pneumothorax. Heart: Unremarkable. No cardiomegaly. No significant pericardial effusion. Bones/joints: No acute fracture. No dislocation. Soft tissues: Unremarkable. Lymph nodes: Unremarkable. No enlarged lymph nodes. Tubes, lines and devices: The cardiac chambers are enlarged, more prominent than on the previous examination. There is a new left atrial appendage occlusive device noted with filling defect identified within the device. The atrial appendages otherwise patent. Mild pericardial effusion. Moderate coronary artery calcification. IMPRESSION: 1. Ascending aortic aneurysm, with the mid a sending aorta measuring 4.8 x 4.4 cm in diameter from 4.6 x 4.5 cm previously. There is a gradual tapering distally with the aortic arch and descending aorta normal in caliber. The aorta measures 3 x 2.7 cm at the hiatus. No dissection. No intimal wall abnormality identified on the precontrast imaging. Mild atherosclerotic calcification. Significant periaortic abnormality. 2. The proximal great vessels are patent with a type II branching pattern. No ostial stenosis, occlusion or dissection. 3. There is moderate, he percent luminal stenosis suggested involving the proximal right subclavian artery with focal kinking in this area and slight poststenotic dilatation, measuring up to 12 mm. The right subclavian and axillary artery are otherwise patent. The left subclavian and axillary artery are widely patent. 4. No focal airspace consolidation. Peribronchial cuffing noted centrally. This is more prominent than on the previous examination. Differential consideration includes inflammatory or infectious bronchitis. No significant distal small airways alveolitis. Minimal dependent atelectatic changes noted posteriorly. No pleural effusion or pneumothorax. Electronically signed by: Beny Lowe MD 03/30/24 23:17 PM
[2024-03-31] MEDS ORDERED: PRAVASTATIN SOD 40 MG TAB PO SCH (21:00)
[2024-04-02] MEDS ORDERED: ADVANCED PROBIOTIC 625 MG CAPSULE PO SCH (09:00)
[2024-04-02] MEDS ORDERED: CHOLECALCIFEROL 25 MCG (1000 UNITS) TAB PO SCH (09:00)
--- NOTE | 2024-04-02 15:47 | Electrocardiogram Report ---
Test Reason : Blood Pressure : */* mmHG Vent. Rate : 100 BPM Atrial Rate : 102 BPM P-R Int : * ms QRS Dur : 88 ms QT Int : 368 ms P-R-T Axes : * -57 34 degrees QTcB Int : 474 ms Atrial fibrillation Left anterior fascicular block Nonspecific ST abnormality Abnormal ECG When compared with ECG of 30-Mar-2024 21:48, Left anterior fascicular block is now Present Confirmed by Farhan Henry ([id number]) on 04/02/2024 3:46:57 PM Referred By: REFERRED SELF Confirmed By: Farhan Henry
== END 2024-03-31 12:22 | disposition home or self-care (01) ==
LOC: 2S 21:44 → ED 21:44 → SUATTDRO 03-31 01:30 → 2S 03-31 02:15

== ENCOUNTER 2024-09-05 16:30 | Observation (INO) ==
--- NOTE | 2024-09-05 16:34 | Emergency Department Note ---
Impression & Plan Hypertensive emergency, Atrial fibrillation with rapid ventricular response, Substernal chest pain relieved by nitroglycerin ED Provider Note NAME: JACQUELYN JUAREZR AGE: 84 SEX: M : 1940 ARRIVES VIA: Ambulance INFORMANT: Patient ED PROVIDER(S): Jared Cedeño MD CHIEF COMPLAINT: Chest pain PLAN: Disposition: Admit MEDICAL DECISION MAKING: The patient is a pleasant 84-year-old gentleman with a past medical history of atrial fibrillation s/po watchman not on anticoagulation 2/2 h/o GIB per patient who presents to the emergency department via EMS for evaluation of acute onset chest pain across his chest that occurred when he was performing mild exertion moving chairs around his home and had associated lightheadedness and nausea as well as diaphoresis. EMS arrived and performed an EKG which demonstrated pronounced anterior lateral ST depressions with slight elevation in aVR. Patient's blood pressure was noted to be elevated in the 190s/100s. EMS did administer full dose aspirin and provided nitroglycerin which resulted in improvement in the patient's blood pressure and symptoms. On arrival nurse department patient reports residual discomfort of 1/10. On evaluation the patient is no acute distress, afebrile with heart rate in the 110s in atrial fibrillation and blood pressure 150s/120s. EKG demonstrates atrial fibrillation with RVR with ST abnormalities significantly improved from EMS twelve-lead without overt ST elevation. Chest x-ray demonstrates vascular congestion without focal infiltrates per my personal preliminary review/interpretation. WBC, H/H and platelets within normal limits. Chemistry without metabolic acidosis. Glucose 255. Magnesium 1.9. LFTs unremarkable. Initial high- sensitivity troponin was 7.7, within normal limits. Lipase is normal. UA without evidence of infection. Patient was administered nitroglycerin paste on arrival and experienced an additional improvement in his blood pressure and complete resolution of chest pain. CT of the chest was performed and was negative for acute aortic pathology, PE or acute process otherwise. Given the patient's resolution of symptoms in the setting of elevated blood pressure symptoms consistent with hypertensive emergency with ACS not completely excluded. Given resolution of chest pain no indication for heart alert at this time. Patient does agree plan for admission for further management. Case was discussed with QUENTIN Montoya PAC, with QUENTIN Schaefer hospitalist who will evaluate the patient for admission. Delta troponin elevated to 98.8. Further management per admitting team. Triage Nursing notes reviewed and agree them. Prior/external medical records reviewed Vital Signs: reviewed Differential diagnosis: Cardiac ischemia, aortic dissection, pulmonary embolism, pneumothorax, pneumonia, pericarditis, myocarditis, esophageal rupture, GERD, cholecystitis, pancreatitis, musculoskeletal, as well as other pathologies. ER treatment provided: See below. Diagnostics interpreted by me: ECG: Atrial fibrillation with RVR, 120 bpm, LVH, anterior lateral ST abnormalities without overt ST elevation, QTc 477, QRS 94. Cardiac Monitoring: An order for continuous cardiac monitoring was placed and demonstrated Atrial fibrillation with RVR, 120 bpm, no ectopy. Laboratory studies: See below Imaging studies: See below Consultation(s): QUENTIN Montoya PAC, with QUENTIN Schaefer hospitalist HPI: Per MDM. ROS: See above HPI for pertinent positives & negatives. A total of 10 systems reviewed and were otherwise negative. VITALS:See Below PHYSICAL EXAMINATION: GENERAL: Awake, alert, in no distress HENT: Normocephalic, atraumatic. Oropharynx unremarkable. EYES: Normal conjunctiva. Sclera non-icteric. NECK: Supple. No nuchal rigidity. FROM. No JVD. RESPIRATORY: Clear to auscultation. CARDIAC: Tachcyardic rate, irregular rhythm. Extremities warm and well perfused. Pulses equal. ABDOMEN: Soft, non-distended. No tenderness to palpation. No rebound or guarding. No masses. MUSCULOSKELETAL: Chest examination reveals no tenderness. The back is symmetrical on inspection without obvious abnormality. There is no CVA tenderness to palpation. No joint edema. LOWER EXTREMITIES: Calves are equal size bilaterally and non-tender. No edema. No discoloration. NEURO: Normal sensorium. No sensory or motor deficits noted. SKIN: No rash or jaundice noted. ED COURSE: Critical Care: I have personally spent greater than 35 minutes of critical care time in the direct management of this patient. This includes bedside care, interpretation of diagnostic studies, and testing, discussion with consultants, patient, and family members, and other required patient management activities. This 35 minutes is in excess of all separately billable procedures. Jared Cedeño MD Past Med/Surg History Problem List Substernal chest pain relieved by nitroglycerin (Acute) Atrial fibrillation with rapid ventricular response (Acute) Hypertensive emergency (Acute) Atrial fibrillation with rapid ventricular response ACS (acute coronary syndrome) Situational anxiety Chest pain (Acute) Aortic regurgitation Status post catheter ablation of atrial flutter LVH (left ventricular hypertrophy) PSVT (paroxysmal supraventricular tachycardia) Atrial flutter Pure hypercholesterolemia (Chronic) Diverticulosis of colon (without mention of hemorrhage) (Chronic) Vasovagal syncope (Chronic) Umbilical hernia (Chronic) Seasonal allergies (Chronic) Osteoarthritis of knee (Chronic) Onychomycosis of toenail (Chronic) Hypercholesterolemia (Chronic) Essential hypertriglyceridemia (Chronic) Eczema (Chronic) Benign prostatic hyperplasia (Chronic) Atrial premature complex (Chronic) Arthritis (Chronic) Anxiety disorder (Chronic) Aneurysm of aortic arch (Chronic) Cyst of soft tissue Hypertension, essential SVT (supraventricular tachycardia) Diabetes mellitus type 2, diet-controlled Cervical strain, acute (Acute) Medical History Thoracic ascending aortic aneurysm Presence of Watchman left atrial appendage closure device Unspecified atrial fibrillation History of anesthesia reaction BRADYCARDIA AND O2 SAT DROPS Osteoarthritis Bleeding hemorrhoid NOT CURRENLTY BLEEDING Anxiety Syncopal episodes "A COUPLE MONTHS AGO" FOLLOWED UP WITH NEUROLOGY (RESULT OF ILLNESS AND DEHYDRATION" Transient ischemic attack (TIA) ? (DX ON MRI BUT NEVER HAD SYMPTOMS OF EVENT) Irregular heart beat Hyperlipemia Hypertension Stroke Surgical History S/P ablation of atrial flutter History of removal of cyst (03/30/19) Back Sebaceous Cyst Excision Dr. Galloway 03/30/19 History of colonoscopy History of tooth extraction History of cataract surgery RT/LEFT Family History Mother Diabetes Hypertension Father Cancer Family/Other Cancer Other Family history non-contributory Denies family history of Ovarian cancer Prostate cancer Myocardial infarction Breast cancer Colorectal cancer Social History Smoking Status: Former smoker Tobacco Type: Cigarettes Age Started Using Tobacco: 18; Age Quit Using Tobacco: 44; packs per day: 0.5; Second Hand Exposure: No; Do You Dip or Chew Tobacco: No; Hx Alcohol Use: No Hx Substance Use: No Preferred Language: Turkmen Communication Ability: Effective Visual Impairment: No Limitations Hearing Ability: Normal Conveyor Technician Required: No Beliefs That Will Affect Care: None marital status: Current Living Situation: Spouse current occupational status: retired 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 Other Information That Helps Us Care for You: No Feels Safe at Home: Yes Safety Concerns: Feels Safe At This Time Childhood Exposure to Second-Hand Smoke: Yes Diet: regular Dental Care, Regularly: Yes Physical Activity Frequency: Does not Exercise Seatbelt Use: always Sunscreen Use: No Assistive Devices: Glasses Allergies Allergies Allergy/AdvReac Type Severity Reaction Status Date / Time acetaminophen AdvReac Intermediate "DOES NOT Verified 09/04/24 09:46 AGREE WITH ME" aspirin AdvReac Intermediate "THIN Verified 09/04/24 09:46 BLOOD" caffeine AdvReac Intermediate "THIN Verified 09/04/24 09:46 BLOOD" phenacetin AdvReac Intermediate "THIN Verified 09/04/24 09:46 BLOOD" Sulfa (Sulfonamide AdvReac Intermediate GI UPSET Verified 09/04/24 09:46 Antibiotics) ANESTHESIA Allergy Intermediate Bradycardia Uncoded 09/04/24 09:46 Arrhythmia and Diaphoretic Home Meds Home Medications Medication Instructions Recorded Confirmed lactobacillus combination no.4 3 3,000 mmu cells PO 3XWK 09/14/18 09/05/24 billion cell capsule (Probiotic) [id number] acid 1 tab PO 3XWK 03/30/19 09/05/24 400 mcg-lutein 250 mcg chewable tablet (Centrum Silver) aspirin 81 mg tablet,delayed 81 mg PO DAILY 03/23/24 09/05/24 release (Adult Low Dose Aspirin) fluticasone propionate 50 2 spray intranasal DAILY PRN 09/05/24 09/05/24 mcg/actuation nasal Congestion spray,suspension Previous Rx's Medication Instructions Recorded metoprolol succinate 50 mg 50 mg PO QAM #90 tabs 03/14/24 tablet,extended release 24 hr pravastatin 40 mg tablet 40 mg PO HS #90 tabs 07/03/24 losartan 25 mg tablet 12.5 mg (1/2 x 25 mg) PO QAM #45 08/07/24 tabs fluocinonide 0.05 % topical cream 1 applic topical BID #15 grams 09/04/24 lorazepam 0.5 mg tablet 0.5 mg PO DAILY PRN anxiety #20 09/04/24 tabs prednisone 10 mg tablet See Rx Instructions PO DAILY #30 09/04/24 tabs Results & Data (ED) Vital Signs Vital Signs - 24 hr 09/05/24 16:46 09/05/24 16:46 09/05/24 16:46 Temperature 36.3 C L 36.3 C L Temperature Source Axillary Axillary Pulse Rate 117 H Pulse Rate [Apical] 117 H Respiratory Rate 18 18 Blood Pressure 153/123 H Blood Pressure [Right Arm] 153/123 H Blood Pressure Mean 133 Blood Pressure Mean [Right Arm] 133 Pulse Oximetry 94 94 94 Oxygen Delivery Method Room Air Room Air Room Air Sepsis Recent Fever Within 48 Hours No Sepsis New/Unexplained Change in Mental Status N/A Sepsis Action Taken by Nursing No Action Required 09/05/24 16:46 09/05/24 16:48 09/05/24 18:50 Temperature Temperature Source Pulse Rate 117 H 110 H Pulse Rate [Apical] 103 H Respiratory Rate 18 25 H Blood Pressure Blood Pressure [Right Arm] 124/102 H Blood Pressure Mean Blood Pressure Mean [Right Arm] 109 Pulse Oximetry 94 94 Oxygen Delivery Method Room Air Room Air Sepsis Recent Fever Within 48 Hours Sepsis New/Unexplained Change in Mental Status Sepsis Action Taken by Nursing 09/05/24 19:32 Temperature Temperature Source Pulse Rate 115 H Pulse Rate [Apical] Respiratory Rate Blood Pressure 134/101 H Blood Pressure [Right Arm] Blood Pressure Mean Blood Pressure Mean [Right Arm] Pulse Oximetry Oxygen Delivery Method Sepsis Recent Fever Within 48 Hours Sepsis New/Unexplained Change in Mental Status Sepsis Action Taken by Nursing Laboratory Data Attestation: I reviewed the patient's lab results. 09/06/24 04:57 09/06/24 04:53 Lab Results 09/05/24 09/05/24 09/05/24 Range/Units 16:40 16:46 18:18 WBC 6.77 (4.8-10.8) K/ul RBC 5.10 (4.70-6.10) M/uL Hgb 16.7 (14.0-18.0) g/dl POC Hgb 16.3 (14.0-18.0) g/dl Hct 46.5 (42.0-52.0) % POC Hct 48 (42-52) % MCV 91.2 (80.0-100.0) fL MCH 32.7 (25.0-34.0) pg MCHC 35.9 (32.0-36.0) g/dL RDW Std Deviation 40.8 (36.4-46.3) fL RDW Coeff of Marily 12.1 (11.5-14.5) % Plt Count 239 (130-400) K/uL MPV 9.5 (9.4-12.4) fL Immature Gran % (Auto) 0.3 % Neut % (Auto) 77.1 % Lymph % (Auto) 19.1 % [place] % (Auto) 3.0 % Eos % (Auto) 0.1 % Baso % (Auto) 0.4 % Neut # (Auto) 5.22 (1.40-6.50) K/uL Lymph # (Auto) 1.29 (1.20-3.40) K/uL [place] # (Auto) 0.20 (0.11-0.59) K/uL Eos # (Auto) 0.01 (0.00-0.50) K/uL Baso # (Auto) 0.03 (0.00-0.20) K/uL Immature Gran # (Auto) 0.02 (0.01-0.20) K/uL PT 11.3 (9.0-12.0) Seconds INR 1.0 (0.9-1.1) POC Sodium 138 (135-144) mmol/L Sodium 135 L (136-145) mmol/L POC Potassium 4.2 (3.3-5.0) mmol/L Potassium 4.2 (3.5-5.1) mmol/L POC Chloride 100 L (101-112) mmol/L Chloride 101 (98-107) mmol/L Carbon Dioxide 25 (21-32) mmol/L POC Total CO2 20 L (24-31) mmol/L Anion Gap 9 (3-11) POC Anion Gap 23.0 (16-25) mmol/L POC BUN 19 H (7-18) mg/dl BUN 17 (6-23) mg/dl Creatinine 0.98 (0.6-1.4) mg/dl POC Creatinine 1.1 (0.6-1.3) mg/dl Est Cr Clr Drug Dosing Not Reportable eGFR 76.99 BUN/Creatinine Ratio 17.3 (10-20) Glucose 255 H (70-99(Fasting)) mg/dl POC Glucose (other) 258 H (70-99) mg/dl Calcium 9.3 (8.6-10.3) mg/dl POC Ioniz Calcium Claribel 1.13 (1.12-1.32) mmol/l Magnesium 1.9 (1.7-2.4) mg/dl Total Bilirubin 1.4 H (0.2-1.0) mg/dl AST 18 (13-39) U/L ALT 20 (7-52) U/L Alkaline Phosphatase 50 (34-104) U/L Troponin I High Sens 7.7 (0-20) pg/ml Total Protein 7.9 (6.0-8.3) gm/dl Albumin 4.5 (3.4-5.0) gm/dl Globulin 3.4 (2.5-4.0) gm/dl Albumin/Globulin Ratio 1.3 (0.9-2) Lipase 29 (11-82) U/L Urine Color Yellow Urine Appearance Clear (Clear) Urine pH 6.5 (4.5-7.5) Ur Specific Mineral 1.042 H (1.000-1.030) Urine Protein Trace H (Negative) Urine Glucose (UA) 3+ H (Negative) Urine Ketones 1+ H (Negative) Urine Blood Negative (Negative) Urine Nitrite Negative (Negative) Urine Bilirubin Negative (Negative) Urine Urobilinogen Negative (Negative) Ur Leukocyte Esterase Negative (Negative) Urine WBC (Auto) 0-5 (0-5) /hpf Urine RBC (Auto) 0-2 (0-2) /hpf U Hyaline Cast (Auto) 0-2 (0-2) /lpf U Epithel Cells (Auto) 0-2 (0-2) /hpf Urine Bacteria (Auto) None Seen (None Seen) 09/05/24 Range/Units 19:05 WBC (4.8-10.8) K/ul RBC (4.70-6.10) M/uL Hgb (14.0-18.0) g/dl POC Hgb (14.0-18.0) g/dl Hct (42.0-52.0) % POC Hct (42-52) % MCV (80.0-100.0) fL MCH (25.0-34.0) pg MCHC (32.0-36.0) g/dL RDW Std Deviation (36.4-46.3) fL RDW Coeff of Marily (11.5-14.5) % Plt Count (130-400) K/uL MPV (9.4-12.4) fL Immature Gran % (Auto) % Neut % (Auto) % Lymph % (Auto) % [place] % (Auto) % Eos % (Auto) % Baso % (Auto) % Neut # (Auto) (1.40-6.50) K/uL Lymph # (Auto) (1.20-3.40) K/uL [place] # (Auto) (0.11-0.59) K/uL Eos # (Auto) (0.00-0.50) K/uL Baso # (Auto) (0.00-0.20) K/uL Immature Gran # (Auto) (0.01-0.20) K/uL PT (9.0-12.0) Seconds INR (0.9-1.1) POC Sodium (135-144) mmol/L Sodium (136-145) mmol/L POC Potassium (3.3-5.0) mmol/L Potassium (3.5-5.1) mmol/L POC Chloride (101-112) mmol/L Chloride (98-107) mmol/L Carbon Dioxide (21-32) mmol/L POC Total CO2 (24-31) mmol/L Anion Gap (3-11) POC Anion Gap (16-25) mmol/L POC BUN (7-18) mg/dl BUN (6-23) mg/dl Creatinine (0.6-1.4) mg/dl POC Creatinine (0.6-1.3) mg/dl Est Cr Clr Drug Dosing eGFR BUN/Creatinine Ratio (10-20) Glucose (70-99(Fasting)) mg/dl POC Glucose (other) (70-99) mg/dl Calcium (8.6-10.3) mg/dl POC Ioniz Calcium Claribel (1.12-1.32) mmol/l Magnesium (1.7-2.4) mg/dl Total Bilirubin (0.2-1.0) mg/dl AST (13-39) U/L ALT (7-52) U/L Alkaline Phosphatase (34-104) U/L Troponin I High Sens 98.8 H* D (0-20) pg/ml Total Protein (6.0-8.3) gm/dl Albumin (3.4-5.0) gm/dl Globulin (2.5-4.0) gm/dl Albumin/Globulin Ratio (0.9-2) Lipase (11-82) U/L Urine Color Urine Appearance (Clear) Urine pH (4.5-7.5) Ur Specific Mineral (1.000-1.030) Urine Protein (Negative) Urine Glucose (UA) (Negative) Urine Ketones (Negative) Urine Blood (Negative) Urine Nitrite (Negative) Urine Bilirubin (Negative) Urine Urobilinogen (Negative) Ur Leukocyte Esterase (Negative) Urine WBC (Auto) (0-5) /hpf Urine RBC (Auto) (0-2) /hpf U Hyaline Cast (Auto) (0-2) /lpf U Epithel Cells (Auto) (0-2) /hpf Urine Bacteria (Auto) (None Seen) Administered Medications Aspirin (Aspirin 81 Mg Ectab) 81 mg PO DAILY [facility] Stop: 10/06/24 08:59 Last Admin: 09/06/24 07:57 Dose: 81 mg Documented By: SORIN Betamethasone Dipropion Augmented (Betamethasone Dip Aug (Diprolene) 0.05% Cr 15 Gm Tube) 1 appln EXT BID [facility] Stop: 10/05/24 20:59 Last Admin: 09/06/24 07:58 Dose: 1 appln Documented By: Admin: 09/05/24 21:31 Dose: 1 appln Documented By: JORJE Heparin Sodium/Dextrose (Heparin 60862 Unit/500 Ml D5w) 25,000 units in 500 mls @ 20 mls/hr IV .Q24H [facility]; Protocol Stop: 10/05/24 20:29 Last Titration: 09/06/24 11:43 Dose: 1,000 units/hr, 20 mls/hr Documented By: PETER Co-signed By: IVAN Titration: 09/06/24 10:54 Dose: 1,000 units/hr, 20 mls/hr Documented By: PETER Co-signed By: SORIN Titration: 09/06/24 07:13 Dose: 1,000 units/hr, 20 mls/hr Documented By: SORIN Co-signed By: [facility] Admin: 09/05/24 22:00 Dose: 1,000 units/hr, 20 mls/hr Documented By: JORJE Co-signed By: LEO Insulin Aspart (Insulin Aspart Per Unit Charge) 0 units SC Q6 [facility] Stop: 10/05/24 21:29 Last Admin: 09/06/24 12:26 Dose: Not Given Documented By: Admin: 09/06/24 05:49 Dose: Not Given Documented By: Admin: 09/05/24 21:35 Dose: Not Given Documented By: CRYS Losartan Potassium (Losartan Potassium 25 Mg Tab) 12.5 mg PO [facility] Stop: 10/06/24 08:59 Last Admin: 09/06/24 07:58 Dose: 12.5 mg Documented By: SORIN Metoprolol Succinate (Metoprolol Succ 50mg Ext Rel Tab) 50 mg PO [facility] Stop: 10/06/24 08:59 Last Admin: 09/06/24 07:58 Dose: 50 mg Documented By: SORIN Nitroglycerin (Nitroglycerin 2% Ointment 30gm Tube) 1 inch EXT Q6 [facility] Stop: 10/05/24 21:59 Last Admin: 09/06/24 12:25 Dose: 1 inch Documented By: Admin: 09/06/24 05:55 Dose: 1 inch Documented By: Admin: 09/05/24 22:41 Dose: 1 inch Documented By: CRYS Pravastatin Sodium (Pravastatin Sod 40 Mg Tab) 40 mg PO HS [facility] Stop: 10/05/24 20:59 Last Admin: 09/05/24 21:31 Dose: 40 mg Documented By: CRYS Prednisone (Prednisone 10 Mg Tablet) 40 mg PO DAILY [facility]; Taper Stop: 09/16/24 08:59 Last Admin: 09/06/24 07:57 Dose: 40 mg Documented By: SORIN Discontinued Medications Heparin Sodium (Porcine) (Heparin Sod (Porcine) 1000 Unit/Ml) 4,000 units IV NOW ONE Stop: 09/05/24 20:31 Last Admin: 09/05/24 21:59 Dose: 4,000 units Documented By: JORJE Co-signed By: LEO Ioversol (Optiray 320 125ml) 115 ml IV ONCE ONE Stop: 09/05/24 17:54 Last Admin: 09/05/24 17:54 Dose: 115 ml Documented By: SMITH Metoprolol Tartrate (Metoprolol Tartrate 1 Mg/Ml Vial) 5 mg IV NOW STA Stop: 09/05/24 19:02 Last Admin: 09/05/24 19:32 Dose: 5 mg Documented By: ANJELICA Nitroglycerin (Nitroglycerin 2% Ointment 30gm Tube) 1 inch EXT NOW STA Stop: 09/05/24 16:47 Last Admin: 09/05/24 17:11 Dose: 1 inch Documented By: AVM Imaging Data Radiologist's Impression: Chest X-Ray 09/05/24 16:33 EXAM: XR chest 1V portable CLINICAL HISTORY: Chest pain, nonspecific. TECHNIQUE: An X-ray image of the chest is obtained in AP projection. COMPARISON: No prior studies are available for comparison. FINDINGS: Pulmonary Parenchyma: Prominent vascular lung markings bilaterally. No evidence of consolidation, collapse, or focal opacities. No pulmonary nodules are identified. No evidence of pleural effusion or pleural thickening. Heart and Mediastinum: Heart size and shape are normal. No mediastinal widening or masses. Prominent hilar vascular shadows. Calcified aortic arch. Bony Thorax: Bony thorax appears intact without fractures or deformities. Soft Tissues: Soft tissues overlying the chest wall are unremarkable. IMPRESSION: Increased vascular lung markings with prominent hilar vascular shadows. Pulmonary congestion is suggested. Correlate with clinical findings. Electronically signed by Herminio Desouza 09-05-2024 6:43 PM Chest CTA 09/05/24 16:49 Clinical history: Chest pain and hypertension Technique: Axial computed tomography images were obtained of the chest before and after the administration of intravenous contrast according to the CT angiogram protocol Comparison is made to the prior CT dated 03/30/2024 Findings: There is subsegmental atelectasis in both lower lobes. There is an unchanged 8 mm irregular nodular opacity in the right middle lobe that could be due to focal scarring. There is no pleural effusion or pneumothorax. There is no sign of pulmonary fibrosis or other diffuse interstitial process. No endobronchial lesion is seen There is no mediastinal, hilar, or axillary adenopathy. There is an unchanged mild thoracic aortic aneurysm with the ascending aorta measuring up to 4.7 cm in diameter. The distal aortic arch measures up to 3.6 cm. The descending aorta is mildly aneurysmal, measuring up to 3.1 cm. No aortic dissection is seen. There is no pericardial effusion. There is coronary atherosclerosis. There is no definite sign of pulmonary embolism. There is a 2.4 cm cyst in the right hepatic lobe. There is an apparent 2 cm cyst in the upper pole of the right kidney. 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 No fracture is seen. No focal osseous lesion is evident Impression: 1. Unchanged thoracic aortic aneurysm 2. No sign of aortic dissection 3. No definite sign of pulmonary embolism 4. Coronary atherosclerosis 5. Unchanged nodular opacity in the right middle lobe, likely benign. A follow-up chest CT could be obtained in 6 months to ensure continued stability 6. Bilateral lower lobe atelectasis 7. Hepatic and right renal cysts ACT 112: Positive. There are findings on this exam that require communication between the performing entity and the patient following Patient Test Result Information Act ([place] ACT 112) guidelines. Electronically signed by Reuben Franklin 09-05-2024 6:40 PM Discharge Plan Visit Data Chief Complaint: Chest Pain Stated Complaint: CHEST PAIN ED Provider: Jared Cedeño Discharge Problem: Hypertensive emergency, Atrial fibrillation with rapid ventricular response, Substernal chest pain relieved by nitroglycerin Patient Disposition: Admitted As Inpatient Condition: Fair Discharge Instructions Interventions: ED Discharge Assessment Last Done: 09/05/24 20:31
[2024-09-05 16:59] LABS: Basophils # (auto) 0.03 K/uL (0.00-0.20); Basophils % (auto) 0.4 %; Eosinophils # (auto) 0.01 K/uL (0.00-0.50); Eosinophils % (auto) 0.1 %; Hematocrit (blood only) 46.5 % (42.0-52.0); Hemoglobin 16.7 g/dl (14.0-18.0); Immature Granulocytes # (auto) 0.02 K/uL (0.01-0.20); Immature Granulocytes % (auto) 0.3 %; Lymphocytes # (auto) 1.29 K/uL (1.20-3.40); Lymphocytes % (auto) 19.1 %; Mean Corpuscular Hemoglobin 32.7 pg (25.0-34.0); Mean Corpuscular Hgb Conc 35.9 g/dL (32.0-36.0); Mean Corpuscular Volume 91.2 fL (80.0-100.0); Mean Platelet Volume 9.5 fL (9.4-12.4); Neutrophils # (auto) 5.22 K/uL (1.40-6.50); Neutrophils % (auto) 77.1 %; Platelet Count 239 K/uL (130-400); RDW Coefficient of Variation 12.1 % (11.5-14.5); RDW Standard Deviation 40.8 fL (36.4-46.3); White Blood Count 6.77 K/ul (4.8-10.8)
[2024-09-05 17:11] LABS: Alanine Aminotransferase 20 U/L (7-52); Albumin Globulin Ratio 1.3 (0.9-2); Albumin Level 4.5 gm/dl (3.4-5.0); Alkaline Phosphatase 50 U/L (34-104); Anion Gap 9 (3-11); Aspartate Aminotransferase 18 U/L (13-39); BUN Creatinine Ratio 17.3 (10-20); Bilirubin,Total 1.4 mg/dl (0.2-1.0); Blood Urea Nitrogen 17 mg/dl (6-23); Calcium 9.3 mg/dl (8.6-10.3); Carbon Dioxide 25 mmol/L (21-32); Chloride 101 mmol/L (98-107); Globulin 3.4 gm/dl (2.5-4.0); Glucose 255 mg/dl (70-99(Fasting)); Lipase 29 U/L (11-82); Magnesium 1.9 mg/dl (1.7-2.4); Potassium 4.2 mmol/L (3.5-5.1); Sodium 135 mmol/L (136-145); Total Protein 7.9 gm/dl (6.0-8.3)
[2024-09-05] MEDS: NITROGLYCERIN 2% OINTMENT 30GM TUBE EXT STA (17:11)
[2024-09-05 17:19] LABS: Troponin I High Sensitivity 7.7 pg/ml (0-20)
[2024-09-05 17:32] LABS: Prothrombin Time 11.3 Seconds (9.0-12.0)
[2024-09-05] MEDS: OPTIRAY 320 125ml IV ONE (17:54)
[2024-09-05 18:17] LABS: iSTAT Creatinine 1.1 mg/dl (0.6-1.3); iSTAT Hemoglobin 16.3 g/dl (14.0-18.0); iSTAT Ionized Calcium 1.13 mmol/l (1.12-1.32); iSTAT Potassium 4.2 mmol/L (3.3-5.0)
--- NOTE | 2024-09-05 18:40 | CT Scan Report ---
Clinical history: Chest pain and hypertension Technique: Axial computed tomography images were obtained of the chest before and after the administration of intravenous contrast according to the CT angiogram protocol Comparison is made to the prior CT dated 03/30/2024 Findings: There is subsegmental atelectasis in both lower lobes. There is an unchanged 8 mm irregular nodular opacity in the right middle lobe that could be due to focal scarring. There is no pleural effusion or pneumothorax. There is no sign of pulmonary fibrosis or other diffuse interstitial process. No endobronchial lesion is seen There is no mediastinal, hilar, or axillary adenopathy. There is an unchanged mild thoracic aortic aneurysm with the ascending aorta measuring up to 4.7 cm in diameter. The distal aortic arch measures up to 3.6 cm. The descending aorta is mildly aneurysmal, measuring up to 3.1 cm. No aortic dissection is seen. There is no pericardial effusion. There is coronary atherosclerosis. There is no definite sign of pulmonary embolism. There is a 2.4 cm cyst in the right hepatic lobe. There is an apparent 2 cm cyst in the upper pole of the right kidney. 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 No fracture is seen. No focal osseous lesion is evident Impression: 1. Unchanged thoracic aortic aneurysm 2. No sign of aortic dissection 3. No definite sign of pulmonary embolism 4. Coronary atherosclerosis 5. Unchanged nodular opacity in the right middle lobe, likely benign. A follow-up chest CT could be obtained in 6 months to ensure continued stability 6. Bilateral lower lobe atelectasis 7. Hepatic and right renal cysts ACT 112: Positive. There are findings on this exam that require communication between the performing entity and the patient following Patient Test Result Information Act ([place] ACT 112) guidelines. Electronically signed by Reuben Franklin 09-05-2024 6:40 PM
[2024-09-05 18:43] LABS: Appearance Urine Clear (Clear); Bacteria Urine Automated None Seen (None Seen); Bilirubin Urine Negative (Negative); Blood Urine Negative (Negative); Cast Urine Automated 0-2 /lpf (0-2); Color Urine Yellow; Epithelial Cell Urine Auto 0-2 /hpf (0-2); Glucose Urine UA 3+ (Negative); Ketones Urine 1+ (Negative); Leukocyte Esterase Urine Negative (Negative); Nitrite Urine Negative (Negative); Protein Urine Trace (Negative); RBC Urine Automated 0-2 /hpf (0-2); Specific Gravity Urine 1.042 (1.000-1.030); Urobilinogen Urine Negative (Negative); WBC Urine Automated 0-5 /hpf (0-5); pH Urine 6.5 (4.5-7.5)
--- NOTE | 2024-09-05 18:44 | XRay Report ---
EXAM: XR chest 1V portable CLINICAL HISTORY: Chest pain, nonspecific. TECHNIQUE: An X-ray image of the chest is obtained in AP projection. COMPARISON: No prior studies are available for comparison. FINDINGS: Pulmonary Parenchyma: Prominent vascular lung markings bilaterally. No evidence of consolidation, collapse, or focal opacities. No pulmonary nodules are identified. No evidence of pleural effusion or pleural thickening. Heart and Mediastinum: Heart size and shape are normal. No mediastinal widening or masses. Prominent hilar vascular shadows. Calcified aortic arch. Bony Thorax: Bony thorax appears intact without fractures or deformities. Soft Tissues: Soft tissues overlying the chest wall are unremarkable. IMPRESSION: Increased vascular lung markings with prominent hilar vascular shadows. Pulmonary congestion is suggested. Correlate with clinical findings. Electronically signed by Herminio Desouza 09-05-2024 6:43 PM
[2024-09-05] MEDS: METOPROLOL TARTRATE 1 MG/ML VIAL IV STA (19:32)
--- NOTE | 2024-09-05 19:46 | History & Physical Report ---
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 ED evaluation reveals no leukocytosis, stable H&H; PT/INR WNL; CMP sodium 135, glucose 255, bilirubin 1.4; troponin 7.7, repeat 98.8; lipase 29; UA with glucose present; CXR with increased vascular lung markings and prominent hilar vascular shadows, pulmonary congestion suggested; chest CTA unchanged TAA, no dissection, no signs of pulmonary embolism, unchanged nodular opacity in RML, bilateral lower lobe atelectasis, coronary atherosclerosis, hepatic and right renal cyst; EKG A-fib with RVR at 120 bpm.; Provided with nitroglycerin paste and metoprolol tartrate 5 mg IV in ED #ACS/Afib with RVR Chest pain starting day of arrival, sudden onset and 9/10 on the pain scale, radiation bilateral arms, associated symptoms of nausea and diaphoresis; h/o Afib with Watchman YAMILEX closure procedure (02/01/2024, [facility]). Initial EKG per EMS with ST depressions in anterio-lateral leads, resolved once at ED. Currently chest pain free. Does follow with cardiology, most recent visit 01/03/2024. In terms of Afib, typically runs at faster rates, asymptomatic with such, presence of watchman, on metoprolol succinate for. No anticoagulants due to hemorrhoidal bleeding and epistaxis in past. However, given bump in troponin, patient agreeable to starting low dose heparin during inpatient stay for ACS. - CBC w/o leukocytosis, H/H stable - CBC am - EKG Afib w/ RVR @ 120 bpm, no ischemic changes; telemetry with afib and rate 90s-110s. - Troponin 7.7, repeat 98.8- continue to trend to peak - CXR increased vascular lung markings and prominent hilar vascular shadows with pulm congestion - Chest CTA w/ BLL atelectasis, coronary atherosclerosis - Echo 03/2024 mild to moderate AR, moderate aortic root dilatation, LA dilated - pending repeat - Lipid panel 08/29/2024 - total 176, LDL 87, HDL 44, TG 226 - Pravastatin 40mg outpatient - continue - NPO midnight - Heparin low dose started at time of admission - continue -- will monitor CBC given h/o bleeding in past, no recent major bleed and no prior transfusions required - patient and family agreeable to heparin while inpatient - Cardiology consulted - appreciate input + recs #T2DM H/o DMT2, managed by diet. Insulin sensitive. Elevated glucose on arrival, so added SSI. - Most recent A1C 08/2023 @ 7.1% - SSI range 110-140, CF 40, CR 20 - BSG ACHS - Pharm glycemic management consult placed, adjust regimen as needed - appreciate assistance + recs #HTN- Losartan - continue #Arthritis/Shoulder impingement- Prednisone taper - OK to continue #Situational anxiety- Lorazepam prn - continue #Dermatitis- Topical steroid - continue Of note, unchanged nodular opacity in RML identified on CTA chest-- F/u chest CT in 6 months recommended Dispo: Admit, PCU VTE Prophylaxis: Heparin started This document was dictated utilizing [employer] Please excuse any grammatical errors that may be secondary to use of this software. 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 States that he was outside moving some chairs around when he developed a sudden onset of "severe" chest pain that initiated under his bilateral armpits and then spread across to his chest like a band and radiated down both arms. States at that time he also had an episode of "incoherent" which lasted approximately 15 to 20 minutes per his . Patient states that he was doubled over in pain and had an episode of nausea without vomiting. Also had whole body diaphoresis. States that the pain continued at a 9 out of 10 on the pain scale until the ambulance was able to provide him with nitroglycerin, aspirin, and oxygen, then his pain subsided some. Was around a 6 out of 10 on the pain scale whenever he arrived to the ED. Since then his pain has come down to a 1 out of 10 on the pain scale and has just been coming and going. States that his chest pain, at its worst, lasted approximately 30 minutes in duration. He states he did have an episode similar to this in the past in March 2020 for which he had exertional chest pain but it was much less severe than this. States that this is the most severe chest pain he has had. He did have some SOB but not currently. 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 States that he has taken this before and has not had prior a dverse reactions from it. Patient resting comfortably in bed at time of evaluation, no current complaints. Denying SOB, palpitations, abdominal pain, diarrhea/constipation, fever/chills, URI symptoms, LUTS, numbness/tingling, weakness, or syncopal events. ED evaluation reveals no leukocytosis, stable H&H; PT/INR WNL; CMP sodium 135, glucose 255, bilirubin 1.4; troponin 7.7, repeat 98.8; lipase 29; UA with glucose present; CXR with increased vascular lung markings and prominent hilar vascular shadows, pulmonary congestion suggested; chest CTA unchanged TAA, no dissection, no signs of pulmonary embolism, unchanged nodular opacity in RML, bilateral lower lobe atelectasis, coronary atherosclerosis, hepatic and right renal cyst; EKG A-fib with RVR at 120 bpm.; Provided with nitroglycerin paste and metoprolol tartrate 5 mg IV in ED. Please see Dr. Elliott's attestation for adjustments/additions to treatment plan. Allergies Allergy/AdvReac Type Severity Reaction Status Date / Time acetaminophen AdvReac Intermediate "DOES NOT Verified 09/04/24 09:46 AGREE WITH ME" aspirin AdvReac Intermediate "THIN Verified 09/04/24 09:46 BLOOD" caffeine AdvReac Intermediate "THIN Verified 09/04/24 09:46 BLOOD" phenacetin AdvReac Intermediate "THIN Verified 09/04/24 09:46 BLOOD" Sulfa (Sulfonamide AdvReac Intermediate GI UPSET Verified 09/04/24 09:46 Antibiotics) ANESTHESIA Allergy Intermediate Bradycardia Uncoded 09/04/24 09:46 Arrhythmia and Diaphoretic Home Medications Medication Instructions Recorded Confirmed Type lactobacillus combination no.4 3 3,000 mmu cells PO 3XWK 09/14/18 09/05/24 History billion cell capsule (Probiotic) ftsabwlhqqkr-xxkesck-zisvb acid 1 tab PO 3XWK 03/30/19 09/05/24 History 400 mcg-lutein 250 mcg chewable tablet (Centrum Silver) metoprolol succinate 50 mg 50 mg PO QAM #90 tabs 03/14/24 09/05/24 Rx tablet,extended release 24 hr aspirin 81 mg tablet,delayed 81 mg PO DAILY 03/23/24 09/05/24 History release (Adult Low Dose Aspirin) pravastatin 40 mg tablet 40 mg PO HS #90 tabs 07/03/24 09/05/24 Rx losartan 25 mg tablet 12.5 mg (1/2 x 25 mg) PO QAM #45 08/07/24 09/05/24 Rx tabs fluocinonide 0.05 % topical cream 1 applic topical BID #15 grams 09/04/24 09/05/24 Rx lorazepam 0.5 mg tablet 0.5 mg PO DAILY PRN anxiety #20 09/04/24 09/05/24 Rx tabs prednisone 10 mg tablet See Rx Instructions PO DAILY #30 09/04/24 09/05/24 Rx tabs fluticasone propionate 50 2 spray intranasal DAILY PRN 09/05/24 09/05/24 History mcg/actuation nasal Congestion spray,suspension Past Med/Surg History Problem List (Updated 09/05/24 @ 20:35 by Jared Cedeño MD) Substernal chest pain relieved by nitroglycerin (Acute) Atrial fibrillation with rapid ventricular response (Acute) Hypertensive emergency (Acute) Atrial fibrillation with rapid ventricular response ACS (acute coronary syndrome) Situational anxiety Chest pain (Acute) Aortic regurgitation Status post catheter ablation of atrial flutter LVH (left ventricular hypertrophy) PSVT (paroxysmal supraventricular tachycardia) Atrial flutter Pure hypercholesterolemia (Chronic) Diverticulosis of colon (without mention of hemorrhage) (Chronic) Vasovagal syncope (Chronic) Umbilical hernia (Chronic) Seasonal allergies (Chronic) Osteoarthritis of knee (Chronic) Onychomycosis of toenail (Chronic) Hypercholesterolemia (Chronic) Essential hypertriglyceridemia (Chronic) Eczema (Chronic) Benign prostatic hyperplasia (Chronic) Atrial premature complex (Chronic) Arthritis (Chronic) Anxiety disorder (Chronic) Aneurysm of aortic arch (Chronic) Cyst of soft tissue Hypertension, essential SVT (supraventricular tachycardia) Diabetes mellitus type 2, diet-controlled Cervical strain, acute (Acute) Medical History Thoracic ascending aortic aneurysm Presence of Watchman left atrial appendage closure device Unspecified atrial fibrillation History of anesthesia reaction BRADYCARDIA AND O2 SAT DROPS Osteoarthritis Bleeding hemorrhoid NOT CURRENLTY BLEEDING Anxiety Syncopal episodes "A COUPLE MONTHS AGO" FOLLOWED UP WITH NEUROLOGY (RESULT OF ILLNESS AND DEHYDRATION" Transient ischemic attack (TIA) ? (DX ON MRI BUT NEVER HAD SYMPTOMS OF EVENT) Irregular heart beat Hyperlipemia Hypertension Stroke Surgical History S/P ablation of atrial flutter History of removal of cyst (03/30/19) Back Sebaceous Cyst Excision Dr. Galloway 03/30/19 History of colonoscopy History of tooth extraction History of cataract surgery RT/LEFT Family History Mother Diabetes Hypertension Father Cancer Family/Other Cancer Other Family history non-contributory Denies family history of Ovarian cancer Prostate cancer Myocardial infarction Breast cancer Colorectal cancer Social History Smoking Status: Unknown if ever smoked Tobacco Type: Cigarettes Age Started Using Tobacco: 18; Age Quit Using Tobacco: 44; packs per day: 0.5; Second Hand Exposure: No; Do You Dip or Chew Tobacco: No; Hx Alcohol Use: No Hx Substance Use: No Preferred Language: Persian Communication Ability: Effective Visual Impairment: No Limitations Hearing Ability: Normal Minister Helper Required: No Beliefs That Will Affect Care: None marital status: Current Living Situation: Spouse current occupational status: retired 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 Feels Safe at Home: Yes Childhood Exposure to Second-Hand Smoke: Yes Diet: regular Dental Care, Regularly: Yes Physical Activity Frequency: Does not Exercise Seatbelt Use: always Sunscreen Use: No Assistive Devices: Glasses Review of Systems Review of Systems: All systems reviewed & are unremarkable except as noted in Subjective Physical Exam Physical Exam: General: No acute distress Skin: Warm and dry Head: Normocephalic, atraumatic Eyes: PERRL, conjunctivae clear, sclera non-icteric; wearing glasses ENT: External ear and ear canal without swelling; nose atraumatic; good dentition, tongue normal appearance, pharynx normal Neck: Supple, no LAD Cardio: irregularly irregular rhythm, slightly tachycardic in 90s-110s, no M/G/R, S1 and S2 normal Resp: No respiratory distress, Lungs CTA in all lobes bilaterally, no wheezes, rales, or rhonchi Abdomen: Soft, symmetric, nontender; No masses or hepatosplenomegaly; Bowel sounds normoactive MSK: No deformities; pulses palpable and equal; no edema. Neuro: Awake, alert; Sensation intact bilaterally; CN grossly intact Psych: Appropriate mood and affect; good judgement and insight. and son present in room at time of visit. Results & Data Results & Data Vital Signs (Past 12 Hours) Vital Signs Temp Pulse Pulse Resp BP BP Pulse Ox 09/05/24 19:32 115 H 134/101 H 09/05/24 18:50 103 H 25 H 124/102 H 94 09/05/24 16:48 110 H 09/05/24 16:46 117 H 18 94 09/05/24 16:46 36.3 C L 117 H 18 153/123 H 94 09/05/24 16:46 94 09/05/24 16:46 36.3 C L 117 H 18 153/123 H 94 O2 Del Method 09/05/24 19:32 09/05/24 18:50 Room Air 09/05/24 16:48 09/05/24 16:46 Room Air 09/05/24 16:46 Room Air 09/05/24 16:46 Room Air 09/05/24 16:46 Room Air Laboratory Results 09/05/24 09/05/24 09/05/24 18:18 16:46 16:40 WBC 6.77 RBC 5.10 Hgb 16.7 POC Hgb 16.3 Hct 46.5 POC Hct 48 MCV 91.2 MCH 32.7 MCHC 35.9 RDW Std Deviation 40.8 RDW Coeff of Marily 12.1 Plt Count 239 MPV 9.5 Immature Gran % (Auto) 0.3 Neut % (Auto) 77.1 Lymph % (Auto) 19.1 [place] % (Auto) 3.0 Eos % (Auto) 0.1 Baso % (Auto) 0.4 Neut # (Auto) 5.22 Lymph # (Auto) 1.29 [place] # (Auto) 0.20 Eos # (Auto) 0.01 Baso # (Auto) 0.03 Immature Gran # (Auto) 0.02 PT 11.3 INR 1.0 POC Sodium 138 Sodium 135 L POC Potassium 4.2 Potassium 4.2 POC Chloride 100 L Chloride 101 Carbon Dioxide 25 POC Total CO2 20 L Anion Gap 9 POC Anion Gap 23.0 POC BUN 19 H BUN 17 Creatinine 0.98 POC Creatinine 1.1 Est Cr Clr Drug Dosing Not Reportable eGFR 76.99 BUN/Creatinine Ratio 17.3 Glucose 255 H POC Glucose (other) 258 H Calcium 9.3 POC Ioniz Calcium Claribel 1.13 Magnesium 1.9 Total Bilirubin 1.4 H AST 18 ALT 20 Alkaline Phosphatase 50 Troponin I High Sens 7.7 Total Protein 7.9 Albumin 4.5 Globulin 3.4 Albumin/Globulin Ratio 1.3 Lipase 29 Urine Color Yellow Urine Appearance Clear Urine pH 6.5 Ur Specific [place] 1.042 H Urine Protein Trace H Urine Glucose (UA) 3+ H Urine Ketones 1+ H Urine Blood Negative Urine Nitrite Negative Urine Bilirubin Negative Urine Urobilinogen Negative Ur Leukocyte Esterase Negative Urine WBC (Auto) 0-5 Urine RBC (Auto) 0-2 U Hyaline Cast (Auto) 0-2 U Epithel Cells (Auto) 0-2 Urine Bacteria (Auto) None Seen Diagnostic Findings Chest X-Ray 09/05/24 16:33 EXAM: XR chest 1V portable CLINICAL HISTORY: Chest pain, nonspecific. TECHNIQUE: An X-ray image of the chest is obtained in AP projection. COMPARISON: No prior studies are available for comparison. FINDINGS: Pulmonary Parenchyma: Prominent vascular lung markings bilaterally. No evidence of consolidation, collapse, or focal opacities. No pulmonary nodules are identified. No evidence of pleural effusion or pleural thickening. Heart and Mediastinum: Heart size and shape are normal. No mediastinal widening or masses. Prominent hilar vascular shadows. Calcified aortic arch. Bony Thorax: Bony thorax appears intact without fractures or deformities. Soft Tissues: Soft tissues overlying the chest wall are unremarkable. IMPRESSION: Increased vascular lung markings with prominent hilar vascular shadows. Pulmonary congestion is suggested. Correlate with clinical findings. Electronically signed by Herminio Desouza 09-05-2024 6:43 PM Chest CTA 09/05/24 16:49 Clinical history: Chest pain and hypertension Technique: Axial computed tomography images were obtained of the chest before and after the administration of intravenous contrast according to the CT angiogram protocol Comparison is made to the prior CT dated 03/30/2024 Findings: There is subsegmental atelectasis in both lower lobes. There is an unchanged 8 mm irregular nodular opacity in the right middle lobe that could be due to focal scarring. There is no pleural effusion or pneumothorax. There is no sign of pulmonary fibrosis or other diffuse interstitial process. No endobronchial lesion is seen There is no mediastinal, hilar, or axillary adenopathy. There is an unchanged mild thoracic aortic aneurysm with the ascending aorta measuring up to 4.7 cm in diameter. The distal aortic arch measures up to 3.6 cm. The descending aorta is mildly aneurysmal, measuring up to 3.1 cm. No aortic dissection is seen. There is no pericardial effusion. There is coronary atherosclerosis. There is no definite sign of pulmonary embolism. There is a 2.4 cm cyst in the right hepatic lobe. There is an apparent 2 cm cyst in the upper pole of the right kidney. 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 No fracture is seen. No focal osseous lesion is evident Impression: 1. Unchanged thoracic aortic aneurysm 2. No sign of aortic dissection 3. No definite sign of pulmonary embolism 4. Coronary atherosclerosis 5. Unchanged nodular opacity in the right middle lobe, likely benign. A follow-up chest CT could be obtained in 6 months to ensure continued stability 6. Bilateral lower lobe atelectasis 7. Hepatic and right renal cysts ACT 112: Positive. There are findings on this exam that require communication between the performing entity and the patient following Patient Test Result Information Act ([place] ACT 112) guidelines. Electronically signed by Reuben Franklin 09-05-2024 6:40 PM Medications Administered NTG paste Metoprolol tartrate 5mg IV ECG Additional Comments: A-fib with RVR, LAD, LVH 120 bpm, QRS 94, QT/QTc 338/477, PRT -/-37/20 Code Status & VTE Plan Code Status Full Supervising Physician Co-Signing Physician Notes I personally saw and examined the patient. I independently reviewed the labs, EKG, imaging, problem list, medication list, past medical history and family history. I verified all hurtado points and agree with Danita Dawson PA-C with the following exceptions and/or additions: 84-year-old male presents to the ER with chest pain lasting for multiple hours started at 1-3pm and lasted till he came to the ER, improved with nitro paste. Currently chest pain-free. EKG with ST depressions anteriorly. O/E HS increased rate, irregular rhythm, no murmurs, Chest CTAB, No calf tenderness or edema A/P Possible NSTEMI - currently chest pain free, continue nitro paste, start IV heparin low dose with bolus, NPO after midnight, consult cardiology for ongoing recommendations PG Care Time/CCT Total # of Minutes Spent Total Time Spent with Patient: Total time spent is greater than 50% in coordination of care (as documented) at patient's floor/unit and/or counseling patient: Coding Level of Care Code 82416 INT INP/OBS CARE 3/75MIN Diagnoses ACS (acute coronary syndrome) I24.9 Atrial fibrillation with rapid ventricular response I48.91 Diabetes mellitus type 2, diet-controlled E11.9
[2024-09-05] MEDS ORDERED: Heparin IV Adult Wt-Based Low-Dose w/ INITIAL Bolus Protocol IV STA (20:08)
[2024-09-05] MEDS ORDERED: POLYETHYLENE (MIRALAX) 17 GM PACK PO PRN (20:40)
[2024-09-05] MEDS ORDERED: DEXTROSE 50% 50 ML SYRINGE IV PRN (20:40)
[2024-09-05] MEDS ORDERED: MAGNESIUM HYDROXIDE SUSP 30 ML UDC PO PRN (20:40)
[2024-09-05] MEDS ORDERED: ONDANSETRON INJ 2 MG/ML 2 ML VIAL IV PRN (20:40)
[2024-09-05] MEDS ORDERED: MELATONIN 3 MG TAB PO PRN (20:40)
[2024-09-05] MEDS ORDERED: CARBOHYDRATES FOR HYPOGLYCEMIA PO PRN (20:40)
[2024-09-05] MEDS ORDERED: GLUCOSE 40% GEL 15 GM TUBE PO PRN (20:40)
[2024-09-05] MEDS ORDERED: PHARMACY GLYCEMIC MGMT CONSULT PRN (20:40)
[2024-09-05] MEDS ORDERED: GLUCAGON FOR INJ 1 MG VIAL SQ PRN (20:40)
[2024-09-05] MEDS ORDERED: GLUCOSE 10 TAB/TUBE PO PRN (20:40)
[2024-09-05] MEDS ORDERED: ALUMINUM/MAGNESIUM SUSP 30 ML UDC PO PRN (20:40)
[2024-09-05] MEDS ORDERED: LORazepam 0.5 MG TAB PO PRN (20:40)
[2024-09-05] MEDS: BETAMETHASONE DIP AUG (DIPROLENE) 0.05% CR 15 GM TUBE EXT SCH (21:31)
[2024-09-05] MEDS: PRAVASTATIN SOD 40 MG TAB PO SCH (21:31)
[2024-09-05] MEDS: INSULIN ASPART PER UNIT CHARGE SC SCH (21:35)
[2024-09-05] MEDS: HEPARIN SOD (PORCINE) 1000 UNIT/ML IV ONE (21:59)
[2024-09-05] MEDS: HEPARIN 25000 UNIT/500 ML D5W 25,000 UNITS/500 ML BAG IV SCH (22:00)
[2024-09-05] MEDS: NITROGLYCERIN 2% OINTMENT 30GM TUBE EXT SCH (22:41)
[2024-09-06 05:48] LABS: ANTI-Xa, UFH(UnfractionatedHep 0.33 IU/ml (0.3-0.7)
[2024-09-06 06:22] LABS: Troponin I High Sensitivity 968.4 pg/ml (0-20)
[2024-09-06 06:58] LABS: Hematocrit (blood only) 41.9 % (42.0-52.0); Hemoglobin 14.9 g/dl (14.0-18.0); Mean Corpuscular Hgb Conc 35.6 g/dL (32.0-36.0); Mean Corpuscular Volume 92.9 fL (80.0-100.0); Mean Platelet Volume 9.9 fL (9.4-12.4); Platelet Count 215 K/uL (130-400); RDW Coefficient of Variation 12.5 % (11.5-14.5); RDW Standard Deviation 43.2 fL (36.4-46.3); Red Blood Count 4.51 M/uL (4.70-6.10); White Blood Count 10.66 K/ul (4.8-10.8)
[2024-09-06 07:18] LABS: BUN Creatinine Ratio 18.5 (10-20); Calcium 9.1 mg/dl (8.6-10.3); Creatinine Clr Calc Pharmacy 61.3 ml/min; Potassium 3.9 mmol/L (3.5-5.1)
--- NOTE | 2024-09-06 07:56 | Hospitalist Progress Note ---
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 ED evaluation reveals no leukocytosis, stable H&H; PT/INR WNL; CMP sodium 135, glucose 255, bilirubin 1.4; troponin 7.7, repeat 98.8; lipase 29; UA with glucose present; CXR with increased vascular lung markings and prominent hilar vascular shadows, pulmonary congestion suggested; chest CTA unchanged TAA, no dissection, no signs of pulmonary embolism, unchanged nodular opacity in RML, bilateral lower lobe atelectasis, coronary atherosclerosis, hepatic and right renal cyst; EKG A-fib with RVR at 120 bpm.; Provided with nitroglycerin paste and metoprolol tartrate 5 mg IV in ED #ACS #Afib with RVR Chest pain starting day of arrival, sudden onset and 9/10 on the pain scale, radiation bilateral arms, associated symptoms of nausea and diaphoresis after eating (was lifting furniture and tarp in afternoon prior, reports started in left arm and radiated across the precordium and into the other arm.) H/o Afib with Watchman YAMILEX closure procedure (02/01/2024, [facility]). Initial EKG per EMS with ST depressions in anteriolateral leads, resolved once at ED. Currently chest pain free. Does follow with cardiology, most recent visit 01/03/2024. In terms of Afib, typically runs at faster rates, asymptomatic with such, presence of watchman, on metoprolol succinate for. No anticoagulants due to hemorrhoidal bleeding and epistaxis in past. However, given bump in troponin, patient agreeable to starting low dose heparin during inpatient stay for ACS. Noted HTN on arrival w/BP was 148/100, 153/123 on arrival EKG w/ afib w/ RVR 120bpm Troponin 7.7--> 98.8--> 592.8--> 968.4 to peak, trending down 834.9 on repeat EKG w/ CP -- currently CP free NPO Remains on Heparin gtt, ASA 81mg daily Metoprolol continued, rates improved but remains in afib Repeat ECHO ordered, not yet read (prior w/ mild-moderate AR, mod aortic root dilatation, LA dilated, EF 50-55%) Lipid panel 08/29/2024 - total 176, LDL 87, HDL 44, TG 226 - Pravastatin 40mg outpatient - continue A1c 7.1, not on meds, rec starting for 2nd prevention/control of DM, ?[facility] consulted and notified, plans for cath this afternoon Recs/assistance by cardiology appreciated #T2DM - h/o DMT2, A1c in August 13. but NOT on medications/reports diet controlled BSG AC/HS, DM diet Pharmacy consulted for glycemic ?[facility] benefit outpt for above #HTN- BP ELEVATED 153/123 on admission, IV lopressor provided Continues on losartan, metoprolol 50mg daily for now, BP stable 146/84 . Further recs pending cath above #Arthritis/Shoulder impingement- Prednisone taper - OK to continue for now #Situational anxiety- Lorazepam prn - continue #Dermatitis- Topical steroid - continue DVT proph: heparin continued Dispo: NPO for CATH this afternoon, further recs pending results Patient HOPEFUL for dc 5/2 Of note, unchanged nodular opacity in RML identified on CTA chest-- F/u chest CT in 6 months recommended Admission and Anticipated Discharge Date Admission Date: September 05, 2024 Supervising Physician Co-Signing Physician Notes The patient was not seen by me. The chart was reviewed. Case discussed with NADIRA Castaneda. Agree with assessment and plan Subjective Eval this morning, resting in bed.. No CP at present. Reported he was removing tarp from furniture yesterday, moved ~20 lb chair then ate lunch and developed pain about 20-30 minutes following. Started in left arm and radiated across the precordium and into the other arm. Hx watchman procedure. Cardiology consulted/NPO for possible cath. Questions/concerns addressed at this time. Physical Exam 2 Physical Exam: General: 84yo male resting in bed, NAD upon entry, no further reports CP HEENT: head atraumatic, normocephalic, mm stable, trachea midline Resp: even, unlabored, slightly diminished in the bases but no wheezing/rales, on room air CV: irregularly irregular, rates better controlled, +systolic murmur, no pitting edema/calf tenderness GI: +BS, soft/NT no miranad MSK/Neuro: nonfocal, ambulating in the room for nursing earlier, not confused, answering questions appropriately Psych: AOx3, cooperative with exam Results & Data Results & Data Vital Signs (Past 12 Hours) Vital Signs Temp Pulse Pulse Resp BP Pulse Ox O2 Del Method 09/06/24 07:26 36.4 C L 75 19 137/81 90 Room Air 09/06/24 02:35 36.6 C 80 20 134/80 94 Room Air 09/05/24 22:45 36.5 C 79 18 124/86 93 Room Air 09/05/24 22:16 91 H 09/05/24 21:04 94 H 09/05/24 20:47 36.7 C 101 H 16 152/99 H 95 Room Air Laboratory Results 09/06/24 04:57 09/06/24 04:53 Troponin 7.7--> 98.8--> 592.8--> 968.4 Diagnostic Findings Chest X-Ray 09/05/24 16:33 EXAM: XR chest 1V portable CLINICAL HISTORY: Chest pain, nonspecific. TECHNIQUE: An X-ray image of the chest is obtained in AP projection. COMPARISON: No prior studies are available for comparison. FINDINGS: Pulmonary Parenchyma: Prominent vascular lung markings bilaterally. No evidence of consolidation, collapse, or focal opacities. No pulmonary nodules are identified. No evidence of pleural effusion or pleural thickening. Heart and Mediastinum: Heart size and shape are normal. No mediastinal widening or masses. Prominent hilar vascular shadows. Calcified aortic arch. Bony Thorax: Bony thorax appears intact without fractures or deformities. Soft Tissues: Soft tissues overlying the chest wall are unremarkable. IMPRESSION: Increased vascular lung markings with prominent hilar vascular shadows. Pulmonary congestion is suggested. Correlate with clinical findings. Electronically signed by Herminio Desouza 09-05-2024 6:43 PM Chest CTA 09/05/24 16:49 Clinical history: Chest pain and hypertension Technique: Axial computed tomography images were obtained of the chest before and after the administration of intravenous contrast according to the CT angiogram protocol Comparison is made to the prior CT dated 03/30/2024 Findings: There is subsegmental atelectasis in both lower lobes. There is an unchanged 8 mm irregular nodular opacity in the right middle lobe that could be due to focal scarring. There is no pleural effusion or pneumothorax. There is no sign of pulmonary fibrosis or other diffuse interstitial process. No endobronchial lesion is seen There is no mediastinal, hilar, or axillary adenopathy. There is an unchanged mild thoracic aortic aneurysm with the ascending aorta measuring up to 4.7 cm in diameter. The distal aortic arch measures up to 3.6 cm. The descending aorta is mildly aneurysmal, measuring up to 3.1 cm. No aortic dissection is seen. There is no pericardial effusion. There is coronary atherosclerosis. There is no definite sign of pulmonary embolism. There is a 2.4 cm cyst in the right hepatic lobe. There is an apparent 2 cm cyst in the upper pole of the right kidney. 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 No fracture is seen. No focal osseous lesion is evident Impression: 1. Unchanged thoracic aortic aneurysm 2. No sign of aortic dissection 3. No definite sign of pulmonary embolism 4. Coronary atherosclerosis 5. Unchanged nodular opacity in the right middle lobe, likely benign. A follow-up chest CT could be obtained in 6 months to ensure continued stability 6. Bilateral lower lobe atelectasis 7. Hepatic and right renal cysts ACT 112: Positive. There are findings on this exam that require communication between the performing entity and the patient following Patient Test Result Information Act ([place] ACT 112) guidelines. Electronically signed by Reuben Franklin 09-05-2024 6:40 PM ECG Additional Comments: Initial EKG w/ ST depression in anterior leads, improved on repeat. Afib w/ RVR (rates improved on repeat to 60s) PG Care Time/CCT Total # of Minutes Spent Total Time Spent with Patient: Total time spent is greater than 50% in coordination of care (as documented) at patient's floor/unit and/or counseling patient: Coding Level of Care Code 69573 SUB INP/OBS CARE 3/50MIN Diagnoses ACS (acute coronary syndrome) I24.9 Atrial fibrillation with rapid ventricular response I48.91 Diabetes mellitus type 2, diet-controlled E11.9
[2024-09-06] MEDS: predniSONE 10 MG TABLET PO SCH (07:57)
[2024-09-06] MEDS: ASPIRIN 81 MG ECTAB PO SCH (07:57)
[2024-09-06] MEDS: LOSARTAN POTASSIUM 25 MG TAB PO SCH (07:58)
[2024-09-06] MEDS: METOPROLOL SUCC 50MG EXT REL TAB PO SCH ×2 (07:58→19:33)
--- NOTE | 2024-09-06 09:58 | Electrocardiogram Report ---
Test Reason : Blood Pressure : */* mmHG Vent. Rate : 120 BPM Atrial Rate : * BPM P-R Int : * ms QRS Dur : 94 ms QT Int : 338 ms P-R-T Axes : * -37 20 degrees QTcB Int : 477 ms Atrial fibrillation with rapid ventricular response Left axis deviation Minimal voltage criteria for LVH, may be normal variant ( Bertram product ) Cannot rule out Anterior infarct , age undetermined Abnormal ECG When compared with ECG of 31-Mar-2024 06:10, ST more depressed Anterior leads Confirmed by Asher Saldana ([id number]) on 09/06/2024 9:58:14 AM Referred By: REFERRED SELF Confirmed By: Asher Saldana
--- NOTE | 2024-09-06 11:37 | Cardiology Consultation ---
Date of Consultation September 06, 2024 Assessment & Plan (1) ACS (acute coronary syndrome): (2) Substernal chest pain relieved by nitroglycerin: (3) Atrial fibrillation with rapid ventricular response: (4) Hypertension, essential: (5) Hypercholesterolemia: Plan Mr. Monson is an 84-year-old male with a history of Hypertension, Hypercholesterolemia, PACs, PVCs, PSVT, Aneurysm of the Aortic Arch, BPH, Osteoarthritis, Prior CVA, history of Vasovagal Syncope (most likely to occur when patient is ill with a viral syndrome, bacterial infection, or after receiving anesthesia), Paroxysmal Atrial Fibrillation s/p Watchman LAAO, and ParoxysmalAtrial Flutter s/p Caval Tricuspid Isthmus Ablation 08/05/22 who presented 09/05/24 after the onset of Chest Pain with radiation down both arms L>R with associated nausea and diaphoresis. These symptoms came on after he moved some chairs around. Patient states that the pain was severe and had an episode of nausea without vomiting. Also had whole body diaphoresis. He states that the pain continued at a 9 out of 10 on the pain scale until the ambulance was able to provide him with nitroglycerin, aspirin, and oxygen, then his pain improved. His chest pain was around a 6 out of 10 on the pain scale whenever he arrived to the ER. Patient then had 1/10 chest intermittently thereafter. Heparin drip was started and the patient has remained completely asymptomatic since that time. Additionally, patient was found to be in A-Fib with RVR on admission but his rate is now well controlled. Initial EKG per EMS with ST depressions in the anterolateral leads, resolved after arriving in the ER. Initial high sensitivity troponin I was normal at 7.7 pg/mL however his follow-up values were abnormal at 98.8, 592.8, 968.4, and 834.9 pg/mL. Echocardiogram has been completed but is not read yet. Cardiac catheterization/Coronary Angiography +/- PCI is pending. Recommend the followin. Cardiac catheterization/coronary angiography. 2. Continue Aspirin 81 mg daily. 3. Continue the Heparin drip for the time being. 4. Continue Losartan 12.5 mg daily. 5. Continue Metoprolol Succinate ER 50 mg daily. 6. Continue Nitro-paste topical. 7. Continue Pravastatin 40 mg daily. Thank you for asking us to see this patient in consultation. Supervising Physician Co-Signing Physician Notes I have seen and examined this patient in conjunction with Chava Mejia PA-C. I have reviewed all available records. I have formulated the plan of care and discussed in detail with the patient and Mr. Mejia. I agree with the assessment and plan as documented. Patient will be undergoing coronary angiography to evaluate for occlusive coronary disease. Fortunately, his echo does not suggest segmental wall motion abnormality or change in EF. However, he certainly could have underlying CAD which manifest as elevated troponin and ST depressions with tachycardia events. Will make additional recommendations pending results of his catheterization. History of Present Illness Reason for Consultation: -- ACS/NSTEMI. Requesting Physician: Uche Hairston MD Attending Physician: Asher Saldana MD. History of Present Illness Mr. Monson is an 84-year-old male with a history of Hypertension, Hypercholesterolemia, PACs, PVCs, PSVT, Aneurysm of the Aortic Arch, BPH, Osteoarthritis, Prior CVA, history of Vasovagal Syncope (most likely to occur when patient is ill with a viral syndrome, bacterial infection, or after receiving anesthesia), Paroxysmal Atrial Fibrillation s/p Watchman LAAO, and ParoxysmalAtrial Flutter s/p Caval Tricuspid Isthmus Ablation 08/05/22 who presented 09/05/24 after the onset of Chest Pain with radiation down both arms L>R with associated nausea and diaphoresis. These symptoms came on after he moved some chairs around. Patient states that the pain was severe and had an episode of nausea without vomiting. Also had whole body diaphoresis. He states that the pain continued at a 9 out of 10 on the pain scale until the ambulance was able to provide him with nitroglycerin, aspirin, and oxygen, then his pain improved. His chest pain was around a 6 out of 10 on the pain scale whenever he arrived to the ER. Patient then had 1/10 chest intermittently thereafter. Heparin drip was started and the patient has remained completely asymptomatic since that time. Additionally, patient was found to be in A-Fib with RVR on admission but his rate is now well controlled. Initial EKG per EMS with ST depressions in nickolas-lateral leads, resolved once at ER. Initial high sensitivity troponin I was normal at 7.7 pg/mL however his follow-up values were abnormal at 98.8, 592.8, 968.4, and 834.9 pg/mL. Echocardiogram has been completed but is not read yet. HISTORICAL BACKGROUND: Patient had syncopal episodes twice before in 2017 in his typical scenario when he was acutely ill with something else and has a marked prodrome followed by vasovagal syncope. In the early part of September 2018 patient developed upper respir atory symptoms including sinus pressure, nasal congestion, postnasal drip, purulent rhinorrhea, and a cough with occasional sputum production. He also complained of some mild positional lightheaded during that same time span. He was seeing his PCP for these symptoms on 09/14/2018 -- when he began to feel nauseated, recurrently yawned, and disengaged from the conversation. Apparently the color drain from his face, and his told his PCP that he was going to pass out -- which the patient subsequently did. Patient did have some shaking movements when this occurred, but after being placed in a supine position, he developed a strong pulse within 1 minutes and came around relatively quickly. He felt somewhat fatigued afterwards. Interestingly, he had a seated BP of 132/90 and a standing BP of 110/65 on the day of his syncopal episode. Allergies Allergy/AdvReac Type Severity Reaction Status Date / Time acetaminophen AdvReac Intermediate "DOES NOT Verified 09/04/24 09:46 AGREE WITH ME" aspirin AdvReac Intermediate "THIN Verified 09/04/24 09:46 BLOOD" caffeine AdvReac Intermediate "THIN Verified 09/04/24 09:46 BLOOD" phenacetin AdvReac Intermediate "THIN Verified 09/04/24 09:46 BLOOD" Sulfa (Sulfonamide AdvReac Intermediate GI UPSET Verified 09/04/24 09:46 Antibiotics) ANESTHESIA Allergy Intermediate Bradycardia Uncoded 09/04/24 09:46 Arrhythmia and Diaphoretic Home Medications Medication Instructions Recorded Confirmed Type lactobacillus combination no.4 3 3,000 mmu cells PO 3XWK 09/14/18 09/05/24 History billion cell capsule (Probiotic) hsaglycmkepx-uhemtvl-lqfqn acid 1 tab PO 3XWK 03/30/19 09/05/24 History 400 mcg-lutein 250 mcg chewable tablet (Centrum Silver) metoprolol succinate 50 mg 50 mg PO QAM #90 tabs 03/14/24 09/05/24 Rx tablet,extended release 24 hr aspirin 81 mg tablet,delayed 81 mg PO DAILY 03/23/24 09/05/24 History release (Adult Low Dose Aspirin) pravastatin 40 mg tablet 40 mg PO HS #90 tabs 07/03/24 09/05/24 Rx losartan 25 mg tablet 12.5 mg (1/2 x 25 mg) PO QAM #45 08/07/24 09/05/24 Rx tabs fluocinonide 0.05 % topical cream 1 applic topical BID #15 grams 09/04/24 09/05/24 Rx lorazepam 0.5 mg tablet 0.5 mg PO DAILY PRN anxiety #20 09/04/24 09/05/24 Rx tabs prednisone 10 mg tablet See Rx Instructions PO DAILY #30 09/04/24 09/05/24 Rx tabs fluticasone propionate 50 2 spray intranasal DAILY PRN 09/05/24 09/05/24 History mcg/actuation nasal Congestion spray,suspension Patient History Medical History Thoracic ascending aortic aneurysm Presence of Watchman left atrial appendage closure device Unspecified atrial fibrillation History of anesthesia reaction BRADYCARDIA AND O2 SAT DROPS Osteoarthritis Bleeding hemorrhoid NOT CURRENLTY BLEEDING Anxiety Syncopal episodes "A COUPLE MONTHS AGO" FOLLOWED UP WITH NEUROLOGY (RESULT OF ILLNESS AND DEHYDRATION" Transient ischemic attack (TIA) ? (DX ON MRI BUT NEVER HAD SYMPTOMS OF EVENT) Irregular heart beat Hyperlipemia Hypertension Stroke Surgical History S/P ablation of atrial flutter History of removal of cyst (03/30/19) Back Sebaceous Cyst Excision Dr. Galloway 03/30/19 History of colonoscopy History of tooth extraction History of cataract surgery RT/LEFT Family History Mother Diabetes Hypertension Father Cancer Family/Other Cancer Other Family history non-contributory Denies family history of Ovarian cancer Prostate cancer Myocardial infarction Breast cancer Colorectal cancer Social History Smoking Status: Former smoker Tobacco Type: Cigarettes Age Started Using Tobacco: 18; Age Quit Using Tobacco: 44; packs per day: 0.5; Second Hand Exposure: No; Do You Dip or Chew Tobacco: No; Hx Alcohol Use: No Hx Substance Use: No Preferred Language: Filipino Communication Ability: Effective Visual Impairment: No Limitations Hearing Ability: Normal Ccu Nurse Required: No Beliefs That Will Affect Care: None marital status: Current Living Situation: Spouse current occupational status: retired 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 Physical Exam Physical Exam: Blood pressure is 146/84, pulse is 78 and irregularly irregular. General: Patient in no acute distress. HEENT: Head is atraumatic, normocephalic. EOM's intact. Sclerae anicteric. Facies symmetric. No perioral cyanosis. Neck: No JVD. JVP is not elevated. Carotid upstrokes +2 bilaterally without bruits. Chest and Lungs: Clear to auscultation throughout all lung dove, no wheezes, rales, or rhonchi. CVS: S1 and S2 are irregularly irregular at 78 bpm without murmurs, gallops, or rubs. PMI is nonpalpable. No lifts, heaves, or thrills. No abdominal aortic or renal bruits. Abdominal Exam: Bowel sounds present. Extremities: No clubbing, cyanosis, or edema. Elvin's test is positive for right radial and ulnar arterial reflow. Neurologic Exam: Patient is awake, alert, and interactive. Pleasant and cooperative. Answers questions appropriately. Echocardiogram was done today, interpretation is pending. Cardiac Catheterization/Coronary Angiography is planned. Results & Data Vital Signs (Past 12 Hours) Vital Signs Temp Pulse Pulse Resp BP Pulse Ox O2 Del Method 09/06/24 08:00 66 09/06/24 07:26 36.4 C L 75 19 137/81 90 Room Air 09/06/24 02:35 36.6 C 80 20 134/80 94 Room Air Laboratory Results Laboratory Results - last 24 hr 09/05/24 09/05/24 09/05/24 16:40 16:46 18:18 WBC 6.77 RBC 5.10 Hgb 16.7 POC Hgb 16.3 Hct 46.5 POC Hct 48 MCV 91.2 MCH 32.7 MCHC 35.9 RDW Std Deviation 40.8 RDW Coeff of Marily 12.1 Plt Count 239 MPV 9.5 Immature Gran % (Auto) 0.3 Neut % (Auto) 77.1 Lymph % (Auto) 19.1 Haywood % (Auto) 3.0 Eos % (Auto) 0.1 Baso % (Auto) 0.4 Neut # (Auto) 5.22 Lymph # (Auto) 1.29 Haywood # (Auto) 0.20 Eos # (Auto) 0.01 Baso # (Auto) 0.03 Immature Gran # (Auto) 0.02 PT 11.3 INR 1.0 Heparin Anti-Xa, Unfract POC Sodium 138 Sodium 135 L POC Potassium 4.2 Potassium 4.2 POC Chloride 100 L Chloride 101 Carbon Dioxide 25 POC Total CO2 20 L Anion Gap 9 POC Anion Gap 23.0 POC BUN 19 H BUN 17 Creatinine 0.98 POC Creatinine 1.1 Est Cr Clr Drug Dosing Not Reportable eGFR 76.99 BUN/Creatinine Ratio 17.3 Glucose 255 H POC Glucose POC Glucose (other) 258 H Calcium 9.3 POC Ioniz Calcium Claribel 1.13 Magnesium 1.9 Total Bilirubin 1.4 H AST 18 ALT 20 Alkaline Phosphatase 50 Troponin I High Sens 7.7 Total Protein 7.9 Albumin 4.5 Globulin 3.4 Albumin/Globulin Ratio 1.3 Lipase 29 Urine Color Yellow Urine Appearance Clear Urine pH 6.5 Ur Specific Mark 1.042 H Urine Protein Trace H Urine Glucose (UA) 3+ H Urine Ketones 1+ H Urine Blood Negative Urine Nitrite Negative Urine Bilirubin Negative Urine Urobilinogen Negative Ur Leukocyte Esterase Negative Urine WBC (Auto) 0-5 Urine RBC (Auto) 0-2 U Hyaline Cast (Auto) 0-2 U Epithel Cells (Auto) 0-2 Urine Bacteria (Auto) None Seen 09/05/24 09/05/24 09/06/24 19:05 20:58 00:29 WBC RBC Hgb POC Hgb Hct POC Hct MCV MCH MCHC RDW Std Deviation RDW Coeff of Marily Plt Count MPV Immature Gran % (Auto) Neut % (Auto) Lymph % (Auto) Haywood % (Auto) Eos % (Auto) Baso % (Auto) Neut # (Auto) Lymph # (Auto) Haywood # (Auto) Eos # (Auto) Baso # (Auto) Immature Gran # (Auto) PT INR Heparin Anti-Xa, Unfract POC Sodium Sodium POC Potassium Potassium POC Chloride Chloride Carbon Dioxide POC Total CO2 Anion Gap POC Anion Gap POC BUN BUN Creatinine POC Creatinine Est Cr Clr Drug Dosing eGFR BUN/Creatinine Ratio Glucose POC Glucose 169 H POC Glucose (other) Calcium POC Ioniz Calcium Claribel Magnesium Total Bilirubin AST ALT Alkaline Phosphatase Troponin I High Sens 98.8 H* D 592.8 H* D Total Protein Albumin Globulin Albumin/Globulin Ratio Lipase Urine Color Urine Appearance Urine pH Ur Specific Mark Urine Protein Urine Glucose (UA) Urine Ketones Urine Blood Urine Nitrite Urine Bilirubin Urine Urobilinogen Ur Leukocyte Esterase Urine WBC (Auto) Urine RBC (Auto) U Hyaline Cast (Auto) U Epithel Cells (Auto) Urine Bacteria (Auto) 09/06/24 09/06/24 09/06/24 04:53 04:57 10:48 WBC 10.66 RBC 4.51 L Hgb 14.9 POC Hgb Hct 41.9 L POC Hct MCV 92.9 MCH 33.0 MCHC 35.6 RDW Std Deviation 43.2 RDW Coeff of Marily 12.5 Plt Count 215 MPV 9.9 Immature Gran % (Auto) Neut % (Auto) Lymph % (Auto) Haywood % (Auto) Eos % (Auto) Baso % (Auto) Neut # (Auto) Lymph # (Auto) Haywood # (Auto) Eos # (Auto) Baso # (Auto) Immature Gran # (Auto) PT INR Heparin Anti-Xa, Unfract 0.33 0.30 POC Sodium Sodium 138 POC Potassium Potassium 3.9 POC Chloride Chloride 103 Carbon Dioxide 26 POC Total CO2 Anion Gap 9 POC Anion Gap POC BUN BUN 20 Creatinine 1.08 POC Creatinine Est Cr Clr Drug Dosing 61.3 eGFR 68.52 BUN/Creatinine Ratio 18.5 Glucose 204 H POC Glucose POC Glucose (other) Calcium 9.1 POC Ioniz Calcium Claribel Magnesium 2.0 Total Bilirubin AST ALT Alkaline Phosphatase Troponin I High Sens 968.4 H* D 834.9 H* Total Protein Albumin Globulin Albumin/Globulin Ratio Lipase Urine Color Urine Appearance Urine pH Ur Specific Mark Urine Protein Urine Glucose (UA) Urine Ketones Urine Blood Urine Nitrite Urine Bilirubin Urine Urobilinogen Ur Leukocyte Esterase Urine WBC (Auto) Urine RBC (Auto) U Hyaline Cast (Auto) U Epithel Cells (Auto) Urine Bacteria (Auto) Diagnostic Findings CXR 09/05/24: Increased vascular lung markings with prominent hilar vascular shadows. Pulmonary congestion is suggested. Correlate with clinical findings. CTA CHEST 09/05/24: There is subsegmental atelectasis in both lower lobes. There is an unchanged 8 mm irregular nodular opacity in the right middle lobe that could be due to focal scarring. There is no pleural effusion or pneumothorax. There is no sign of pulmonary fibrosis or other diffuse interstitial process. No endobronchial lesion is seen There is no mediastinal, hilar, or axillary adenopathy. There is an unchanged mild thoracic aortic aneurysm with the ascending aorta measuring up to 4.7 cm in diameter. The distal aortic arch measures up to 3.6 cm. The descending aorta is mildly aneurysmal, measuring up to 3.1 cm. No aortic dissection is seen. There is no pericardial effusion. There is coronary atherosclerosis. There is no definite sign of pulmonary embolism. There is a 2.4 cm cyst in the right hepatic lobe. There is an apparent 2 cm cyst in the upper pole of the right kidney. 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 No fracture is seen. No focal osseous lesion is evident Impression: 1. Unchanged thoracic aortic aneurysm 2. No sign of aortic dissection 3. No definite sign of pulmonary embolism 4. Coronary atherosclerosis 5. Unchanged nodular opacity in the right middle lobe, likely benign. A follow-up chest CT could be obtained in 6 months to ensure continued stability 6. Bilateral lower lobe atelectasis 7. Hepatic and right renal cysts Medications Administered Medication List Aspirin (Aspirin 81 Mg Ectab) 81 mg PO DAILY [facility] Stop: 10/06/24 08:59 Last Admin: 09/06/24 07:57 Dose: 81 mg Documented By: SORIN Betamethasone Dipropion Augmented (Betamethasone Dip Aug (Diprolene) 0.05% Cr 15 Gm Tube) 1 appln EXT BID [facility] Stop: 10/05/24 20:59 Last Admin: 09/06/24 07:58 Dose: 1 appln Documented By: Admin: 09/05/24 21:31 Dose: 1 appln Documented By: [facility] Heparin Sodium/Dextrose (Heparin 05661 Unit/500 Ml D5w) 25,000 units in 500 mls @ 20 mls/hr IV .Q24H HAWK; Protocol Stop: 10/05/24 20:29 Last Titration: 09/06/24 11:43 Dose: 1,000 units/hr, 20 mls/hr Documented By: PETER Co-signed By: IVAN Titration: 09/06/24 10:54 Dose: 1,000 units/hr, 20 mls/hr Documented By: PETER Co-signed By: SORIN Titration: 09/06/24 07:13 Dose: 1,000 units/hr, 20 mls/hr Documented By: SORIN Co-signed By: GT Admin: 09/05/24 22:00 Dose: 1,000 units/hr, 20 mls/hr Documented By: JORJE Co-signed By: LEO Insulin Aspart (Insulin Aspart Per Unit Charge) 0 units SC Q6 [facility] Stop: 10/05/24 21:29 Last Admin: 09/06/24 05:49 Dose: Not Given Documented By: GT Admin: 09/05/24 21:35 Dose: Not Given Documented By: JORJE Losartan Potassium (Losartan Potassium 25 Mg Tab) 12.5 mg PO [facility] Stop: 10/06/24 08:59 Last Admin: 09/06/24 07:58 Dose: 12.5 mg Documented By: SORIN Metoprolol Succinate (Metoprolol Succ 50mg Ext Rel Tab) 50 mg PO [facility] Stop: 10/06/24 08:59 Last Admin: 09/06/24 07:58 Dose: 50 mg Documented By: SORIN Nitroglycerin (Nitroglycerin 2% Ointment 30gm Tube) 1 inch EXT Q6 [facility] Stop: 10/05/24 21:59 Last Admin: 09/06/24 05:55 Dose: 1 inch Documented By: GT Admin: 09/05/24 22:41 Dose: 1 inch Documented By: JORJE Pravastatin Sodium (Pravastatin Sod 40 Mg Tab) 40 mg PO HS [facility] Stop: 10/05/24 20:59 Last Admin: 09/05/24 21:31 Dose: 40 mg Documented By: GT Prednisone (Prednisone 10 Mg Tablet) 40 mg PO DAILY [facility]; Taper Stop: 09/16/24 08:59 Last Admin: 09/06/24 07:57 Dose: 40 mg Documented By: SORIN Discontinued Medications Heparin Sodium (Porcine) (Heparin Sod (Porcine) 1000 Unit/Ml) 4,000 units IV NOW ONE Stop: 09/05/24 20:31 Last Admin: 09/05/24 21:59 Dose: 4,000 units Documented By: GT Co-signed By: LEO Ioversol (Optiray 320 125ml) 115 ml IV ONCE ONE Stop: 09/05/24 17:54 Last Admin: 09/05/24 17:54 Dose: 115 ml Documented By: SMITH Metoprolol Tartrate (Metoprolol Tartrate 1 Mg/Ml Vial) 5 mg IV NOW STA Stop: 09/05/24 19:02 Last Admin: 09/05/24 19:32 Dose: 5 mg Documented By: ANJELICA Nitroglycerin (Nitroglycerin 2% Ointment 30gm Tube) 1 inch EXT NOW STA Stop: 09/05/24 16:47 Last Admin: 09/05/24 17:11 Dose: 1 inch Documented By: SHAKA PG Care Time/CCT Total # of Minutes Spent Total Time Spent with Patient: Total time spent is greater than 50% in coordination of care (as documented) at patient's floor/unit and/or counseling patient:54 [place] [address] INT INP/OBS CARE 3/75MIN Patient Type Established Medical Decision Making High Complexity Diagnoses ACS (acute coronary syndrome) I24.9 Substernal chest pain relieved by nitroglycerin R07.2 Atrial fibrillation with rapid ventricular response I48.91 Hypertension, essential I10 Hypercholesterolemia E78.00 Time Spent (min) 82
--- NOTE | 2024-09-06 12:26 | XCELERA ---
[id number] [id number]
--- NOTE | 2024-09-06 13:18 | Pharmacy Report ---
Pharmacy Glycemic Short Note 2 - Date of Service September 06, 2024 - Glycemic Short BSG Results (Last 24 hours): 09/05/24 09/05/24 09/05/24 16:40 16:46 20:58 Glucose 255 H POC Glucose 169 H POC Glucose (other) 258 H 09/06/24 09/06/24 04:53 12:05 Glucose 204 H POC Glucose 200 H POC Glucose (other) OUTPATIENT ANTIDIABETIC REGIMEN: * Diet-controlled HbA1c: 7.1% (08/29/24) ASSESSMENT: * PETER is an 84 year old male who presented to ED on 09/05/24 w/ complaint of chest pain radiating to left arm * Diet-controlled T2DM as an outpatient * Recently prescribed a prednisone taper for shoulder pain, received prednisone 40 mg this morning * Patient is currently NPO pending cardiology plan * Blood sugars have been elevated, but patient has been refusing insulin thus far PLAN FOR INPATIENT GLYCEMIC CONTROL: * Hold outpatient oral diabetes medications * Basal insulin * Lantus 0-5-10 units SC HS (see EHR for details) * Bolus insulin * NovoLog per scale ACHS or Q6hrs while NPO * Goal Range: Low 110 mg/dL - High 140 mg/dL * Correction Factor: 30 mg/dL/unit * Nutritional / Prandial insulin per carb ratio of 1 unit per 15 grams CHO consumed
--- NOTE | 2024-09-06 14:18 | Pre Anesthesia Assessment ---
Date of Service September 06, 2024 Pre Sedation Assessment Vital Signs Temp Pulse Pulse Pulse Resp BP BP 09/06/24 14:00 86 09/06/24 13:53 36.6 C 67 18 164/102 H 09/06/24 11:36 36.7 C 71 20 146/84 H 09/06/24 08:00 66 09/06/24 07:26 36.4 C L 75 19 137/81 09/06/24 02:35 36.6 C 80 20 134/80 09/05/24 22:45 36.5 C 79 18 124/86 09/05/24 22:16 91 H 09/05/24 21:04 94 H 09/05/24 20:47 36.7 C 101 H 16 152/99 H 09/05/24 19:46 102 H 129/98 09/05/24 19:32 115 H 134/101 H 09/05/24 18:50 103 H 25 H 124/102 H 09/05/24 16:48 110 H 09/05/24 16:46 117 H 18 09/05/24 16:46 36.3 C L 117 H 18 153/123 H 09/05/24 16:46 09/05/24 16:46 36.3 C L 117 H 18 153/123 H Pulse Ox O2 Del Method 09/06/24 14:00 09/06/24 13:53 98 Room Air 09/06/24 11:36 91 Room Air 09/06/24 08:00 09/06/24 07:26 90 Room Air 09/06/24 02:35 94 Room Air 09/05/24 22:45 93 Room Air 09/05/24 22:16 09/05/24 21:04 09/05/24 20:47 95 Room Air 09/05/24 19:46 92 Room Air 09/05/24 19:32 09/05/24 18:50 94 Room Air 09/05/24 16:48 09/05/24 16:46 94 Room Air 09/05/24 16:46 94 Room Air 09/05/24 16:46 94 Room Air 09/05/24 16:46 94 Room Air Cardiovascular Additional Comments: irregular, normal rate no edema Respiratory normal respiratory effort, lungs clear to auscultation Pre-Sedation Airway Assessment Smoking Status: Former smoker Hx Sleep Apnea: No Hx Difficult Intubation: No Short, Thick Neck: No Thyromental Distance: > or= 3.5 Finger Breadths Oral Cavity: + WNL Mallampati Class: III ASA: ASA3 NPO Status Date of Last Intake of Fluids: 09/06/24 Time of Last Intake of Fluids: 04:00 Date of Last Intake of Solid Food: 09/05/24 Time of Last Intake of Solid Foods: 22:00 Notes The planned sedation has been discussed with the patient. Informed Consent was obtained. I have identified the patient, determined the appropriateness of sedation and have assessed the patient immediately prior to the procedure. All medicine(s) and interventions are by my order.
[2024-09-06] MEDS ORDERED: METOPROLOL TARTRATE 1 MG/ML VIAL IV PRN (14:25)
[2024-09-06] MEDS: hydrALAZINE HCL 20 MG/ML VIAL ONE (14:29)
[2024-09-06] MEDS: niCARdipine 2,000 MCG/20 ML SYR ONE (14:57)
[2024-09-06] MEDS: NITROGLYCERIN/D5W 100MCG/ML 20ML SYR ONE (14:57)
[2024-09-06] MEDS: MIDAZOLAM HCL 1 MG/ML 2ML VIAL ONE ×2 (14:57→15:09)
--- NOTE | 2024-09-06 15:04 | Post Anesthesia Assessment ---
Date of Service September 06, 2024 Post Sedation Assessment Vital Signs Temp Pulse Pulse Pulse Resp BP BP 09/06/24 14:00 86 09/06/24 13:53 36.6 C 67 18 164/102 H 09/06/24 11:36 36.7 C 71 20 146/84 H 09/06/24 08:00 66 09/06/24 07:26 36.4 C L 75 19 137/81 09/06/24 02:35 36.6 C 80 20 134/80 09/05/24 22:45 36.5 C 79 18 124/86 09/05/24 22:16 91 H 09/05/24 21:04 94 H 09/05/24 20:47 36.7 C 101 H 16 152/99 H 09/05/24 19:46 102 H 129/98 09/05/24 19:32 115 H 134/101 H 09/05/24 18:50 103 H 25 H 124/102 H 09/05/24 16:48 110 H 09/05/24 16:46 117 H 18 09/05/24 16:46 36.3 C L 117 H 18 153/123 H 09/05/24 16:46 09/05/24 16:46 36.3 C L 117 H 18 153/123 H Pulse Ox O2 Del Method 09/06/24 14:00 09/06/24 13:53 98 Room Air 09/06/24 11:36 91 Room Air 09/06/24 08:00 09/06/24 07:26 90 Room Air 09/06/24 02:35 94 Room Air 09/05/24 22:45 93 Room Air 09/05/24 22:16 09/05/24 21:04 09/05/24 20:47 95 Room Air 09/05/24 19:46 92 Room Air 09/05/24 19:32 09/05/24 18:50 94 Room Air 09/05/24 16:48 09/05/24 16:46 94 Room Air 09/05/24 16:46 94 Room Air 09/05/24 16:46 94 Room Air 09/05/24 16:46 94 Room Air Recovery Score Activity: Moves 4 extremities Respiration: Deep Breath/Cough Circulation: +/-20% PreAnes Value Consciousness: Fully Awake Oxygen Saturation: > 92% On Room Air Discharge Sedation Level of Care: Fast Track Phase II Post Sedation Plan On clinical assessment, the patient appears to have tolerated the sedation without complications. Patient is recovering as anticipated. Patient will continue to be monitored by nursing and may be discharged when sedation discharge criteria are met per below protocol. Upon Completions of procedure up to 15 minutes continue every 5 minute vital signs and the P.A.R. score; then discharge to a Phase I or Fast Track to Phase II per the following guidelines: * Discharge Patient to appropriate Phase II area if PAR is 8 or greater or return to pre- procedure baseline. The post - procedure orders will be as directed. * If PAR score is less than 8 or not return to pre-procedure baseline then patient will follow Phase I monitoring till PAR is reached for Phase II. The Phase I may be done in procedure room or may call to secure a Phase I area. * If naloxone or flumazenil are used for reversal, hold in Phase I for continued monitoring from when last reversal dose was given for a minimum of 60 minutes or longer pending the nurse and/or physician discretion of patient condition before discharge to Phase II. Please call the Sedation Physician to re-evaluate and complete post-note for discharge to Phase II area. Do NOT discharge from procedure sedation or Phase 1 until post- sedation evaluation note is complete by procedure /sedation MD Sedation Discharge Instructions to be given to the patient at discharge to home. [facility] [place] Procedure Codes (Charges) Indication for Procedure Indication for procedure: NSTEMI
[2024-09-06] MEDS: fentaNYL citrate PF 100 MCG/2 ML VIAL ONE (15:08)
[2024-09-06] MEDS: HEPARIN (PORCINE) 1000 UNIT/ML 10 ML (CATH LAB USE ONLY) ONE (15:09)
[2024-09-06] MEDS: OPTIRAY 350 ONE (15:09)
[2024-09-06] MEDS: IODIXANOL (VISIPAQUE) 320 MG/ML 100ML IV ONE (15:09)
--- NOTE | 2024-09-06 15:10 | Cardiac Catheterization ---
[facility] Data: Gin Operator Cardiac Status Clinical evaluation leading to the procedure CAD Presenation: Non STEMI Anginal Classification: CCS IV Heart Failure: No Cardiogenic Shock within 24 Hours: No Cardiac Arrest within 24 Hours: No Imaging Studies Past 6 Months: Yes Stress Studies Past 6 Months: No Coronary Anatomy Left Main (% Stenosis): Normal LAD (% Stenosis): Proximal (50%), Mid (70%) and Distal (99% (early)) D1 (% Stenosis): Proximal (80 to 90%) D2 (% Stenosis): Proximal (80 to 90%) Circumflex (% Stenosis): Proximal (60 to 80%), Mid and Distal (Long calcified up to 80%) OM1 (% Stenosis): Proximal (50 to 60%) OM2 (% Stenosis): Proximal (95 to 99%) L PL1 (% Stenosis): Ostial (99 to 100%) RCA (% Stenosis): Proximal (70%), Mid (99-100 %) and Distal (50%) R PDA (% Stenosis): Mid (100%) R PL1 (% Stenosis): Normal Diagnostic Physicians Name: Asher Saldana MD, PhD Closure Device Percutaneous Entry Location: Radial Closure Device: Radial Band Recommendations: Medical Therapy and/or Counseling, CABG and Management Recommendatons (Aortic repair) Cardiac Cath Procedure Full Procedure Date September 06, 2024 Pre-Procedure Diagnosis Pre-Procedure Diagnosis: Non STEMI and Arrhythmia (Atrial fibrillation) AUC Score AUC Score: 09 Post-Procedure Diagnosis Post-Procedure Diagnosis: Severe CAD Procedure(s) Performed Procedure(s) Performed: Coronary Angiography and Left Heart Cath Sizing Sprayer Asher Saldana MD, PhD Estimated Blood Loss Estimated Blood Loss: 5 cc Medication(s) Medication(s): Fentanyl, Heparin, Hydralazine, Lidocaine 1%, Nicardipine, Nitroglycerin and Versed Summary of Findings Brief description: Patient was brought to the cardiac catheterization suite where he was shaved and prepped in a sterile fashion. Sedated using IV Versed and fentanyl. Soft tissues of the right wrist were anesthetized using 2 mL of 1% Xylocaine. The right radial artery was accessed using a modified Seldinger technique and a 6 Norwegian radial artery glide sheath was placed. Patient was provided anticoagulation with IV heparin and antispasmodics including nicardipine and nitroglycerin. All catheters were advanced over a 0.035 J-tip wire. However, delivery and exchange of other catheters required an Amplatz stiff wire. Left coronary angiography was performed in orthogonal views with a 5 Norwegian Santee 4 diagnostic catheter. Right coronary angiography was performed with a 5 Norwegian JR 5 diagnostic catheter Left heart cath was performed with a 5 Norwegian 3 DRC diagnostic catheter. All diagnostic catheters were removed. Radial artery sheath was removed. Hemostasis was obtained using a TR band. Patient was hemodynamically stable and asymptomatic. He was returned to the recovery area. This ended the case. Coronary angiography findings: CEI-npizq-ydzfuvd short vessel bifurcating into LAD and circumflex. Mild luminal irregularities. OKZ-ksgvn-umtibkl and transapical. Gives a large branching first diagonal and a medium caliber second diagonal. Proximal LAD has diffuse disease and tapers down to 50% stenosis. Mid segment has up to 70% stenosis. Early distal vessel with 99% stenosis in the remainder of the distal vessel has scattered moderate disease. TYs-tshev-lrexkdt and nondominant. Proximal segment gives an atrial branch and then there is 60 to 80% long stenosis. First OM is large and branching and has proximal diffuse disease of 50 to 60% The mid AV groove circumflex is very short. There is a medium caliber OM 2 which has ostial to proximal diffuse 95 to 99% stenosis. The distal AV groove vessel continues on and there is diffuse calcification with up to 80% stenosis and a long lesion. Then, there is an ostial 99 to 100% stenosis for a branching posterior lateral. Left to left collateralization noted. [id number]-pwftp-[id number] and dominant. Proximal 70% stenosis. Mid vessel 99 to 100% stenosis just after the RV marginal. The distal segment has up to 50% stenosis and then bifurcates into the PDA and posterolateral branches. PDA has mid 100% stenosis. PLB with diffuse mild disease. There are [id number]-dj-qkcvq collaterals to the distal branches. Summary: 1. No acute thrombotic stenosis. Patient has severe multivessel coronary artery disease as described. 2. Continue guideline directed medical therapy for secondary prevention of coronary disease including low-dose aspirin, high intensity statin therapy, beta-doris, and angiotensin receptor doris. 3. Recommend referral to tertiary center regarding coronary artery bypass grafting and ascending aortic aneurysm repair. Hemodynamics Rest Ao:: 117/83 mmHg Final Ao: 103/74 mmHg LV: 90/13 mmHg Recommendations Recommendations: Medical Therapy and/or Counseling, CABG and Management Recommendatons (Aortic repair) Radiation Exposure (mGy) 1370 mGy. Fluoroscopy time 7.9 minutes Contrast (mls) 100 cc Anesthesia 2 mg Versed IV, 50 mcg fentanyl IV. Start 1433, end 1503 Procedural Complication(s) None Disposition Gin Operator Holding/Recovery I attest to the content of the Intraoperative Record and any orders documented therein. Any exceptions are noted below. [facility] Card Cath Procedure Codes Cardiac Catheterization Procedure 1: Cardiovascular Cath Procedures: 10091 Coronaries and LHC (+/-LV) Moderate Sedation Procedure 1: Sedation/Anesthesia: 71408 Mod Sedation by the same physician;Init15 Min Child Age 5 & Up (Initial 15 minutes, start 1433) Procedure 2: Sedation/Anesthesia: 22777 Mod Sedation by the same physician; Ea [id number] Minutes (Additional 15 minutes, and 1503) PG Care Time/CCT Total # of Minutes Spent Total Time Spent with Patient: Total time spent is greater than 50% in coordination of care (as documented) at patient's floor/unit and/or counseling patient:
[2024-09-06] MEDS: INSULIN ASPART PER UNIT CHARGE SC SCH (21:29)
[2024-09-06] MEDS: LANTUS PER UNIT CHARGE SC SCH (21:29)
[2024-09-07 06:09] LABS: Hemoglobin 15.9 g/dl (14.0-18.0); Mean Corpuscular Hemoglobin 32.9 pg (25.0-34.0); Mean Corpuscular Hgb Conc 35.3 g/dL (32.0-36.0); Mean Corpuscular Volume 93.2 fL (80.0-100.0); Mean Platelet Volume 9.5 fL (9.4-12.4); Platelet Count 235 K/uL (130-400); RDW Coefficient of Variation 12.6 % (11.5-14.5); RDW Standard Deviation 43.2 fL (36.4-46.3); Red Blood Count 4.83 M/uL (4.70-6.10); White Blood Count 9.97 K/ul (4.8-10.8)
[2024-09-07 06:30] LABS: Calcium 9.1 mg/dl (8.6-10.3); Creatinine Clr Calc Pharmacy 63.1 ml/min; Potassium 3.8 mmol/L (3.5-5.1)
[2024-09-07 06:42] LABS: ANTI-Xa, UFH(UnfractionatedHep < 0.10 IU/ml (0.3-0.7)
--- NOTE | 2024-09-07 08:04 | Hospitalist Progress Note ---
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 ED evaluation reveals no leukocytosis, stable H&H; PT/INR WNL; CMP sodium 135, glucose 255, bilirubin 1.4; troponin 7.7, repeat 98.8; lipase 29; UA with glucose present; CXR with increased vascular lung markings and prominent hilar vascular shadows, pulmonary congestion suggested; chest CTA unchanged TAA, no dissection, no signs of pulmonary embolism, unchanged nodular opacity in RML, bilateral lower lobe atelectasis, coronary atherosclerosis, hepatic and right renal cyst; EKG A-fib with RVR at 120 bpm.; Provided with nitroglycerin paste and metoprolol tartrate 5 mg IV in ED #ACS #Afib with RVR Chest pain starting day of arrival, sudden onset and 9/10 on the pain scale, radiation bilateral arms, associated symptoms of nausea and diaphoresis after eating (was lifting furniture and tarp in afternoon prior, reports started in left arm and radiated across the precordium and into the other arm.) H/o Afib with Watchman YAMILEX closure procedure (02/01/2024, [facility]). Initial EKG per EMS with ST depressions in anteriolateral leads, resolved once at ED. Currently chest pain free. Does follow with cardiology, most recent visit 01/03/2024. In terms of Afib, typically runs at faster rates, asymptomatic with such, presence of watchman, on metoprolol succinate for. No anticoagulants due to hemorrhoidal bleeding and epistaxis in past. However, given bump in troponin, patient agreeable to starting low dose heparin during inpatient stay for ACS. Noted HTN on arrival w/BP was 148/100, 153/123 on arrival EKG w/ afib w/ RVR 120bpm Troponin 7.7--> 98.8--> 592.8--> 968.4 to peak, trending down 834.9 on repeat EKG w/ CP -- currently CP free NPO Remains on Heparin gtt, ASA 81mg daily Metoprolol continued, rates improved but remains in afib Repeat ECHO ordered, not yet read (prior w/ mild-moderate AR, mod aortic root dilatation, LA dilated, EF 50-55%) Lipid panel 08/29/2024 - total 176, LDL 87, HDL 44, TG 226 - Pravastatin 40mg outpatient - continue A1c 7.1, not on meds, rec starting for 2nd prevention/control of DM, ?[facility] consulted and notified, plans for cath this afternoon Recs/assistance by cardiology appreciated 09/07 s/p cardiac cath 09/[address] Saldana, multivessel disease, need for ref for CABG at in. Patient updated last evening, wanting to talk w/ Kip today about [facility] [place] vs [place] and will have CM work on referral once decided --> Metoprolol tartrate increased to 50mg BID for BP/HR ?switch to succinate for longer term HR control? - defer to cards Will WI NITROPASTE, as scheduled q6h --> Started IMDUR 30mg daily for this morning for assistance while waiting for outpt cath Would CONTINUE IMDUR at in Notable A1C>7 for several years, discussed HIGH risk factor for disease and progression and recommendation to start treatment. Notable had DECLINED insulin sliding scale while inpatient. Messaged ANA about ?[facility], but recs to wait to start this until AFTER CABG ?WI on inc metoprolol BID, +imdur, outpt CABG ref #T2DM - h/o DMT2, A1c in August 13. but NOT on medications/reports diet controlled BSG AC/HS, DM diet Pharmacy consulted for glycemic ?[facility]ard[facility] benefit outpt for above #HTN- BP ELEVATED 153/123 on admission, IV lopressor provided Continues on losartan, metoprolol 50mg daily for now, BP stable 146/84 . Further recs pending cath above #Arthritis/Shoulder impingement- Prednisone taper - OK to continue for now #Situational anxiety- Lorazepam prn - continue #Dermatitis- Topical steroid - continue DVT proph: heparin continued Dispo: NPO for CATH this afternoon, further recs pending results Patient HOPEFUL for in 5/2 Of note, unchanged nodular opacity in RML identified on CTA chest-- F/u chest CT in 6 months recommended Admission and Anticipated Discharge Date Admission Date: September 05, 2024 Results & Data Results & Data Vital Signs (Past 12 Hours) Vital Signs Temp Pulse Resp BP Pulse Ox O2 Del Method 09/07/24 03:25 36.6 C 85 18 134/88 96 Room Air 09/06/24 23:36 36.8 C 82 19 138/70 94 Room Air PG Care Time/CCT Total # of Minutes Spent Total Time Spent with Patient: Total time spent is greater than 50% in coordination of care (as documented) at patient's floor/unit and/or counseling patient: Coding Diagnoses ACS (acute coronary syndrome) I24.9 Atrial fibrillation with rapid ventricular response I48.91 Diabetes mellitus type 2, diet-controlled E11.9 Substernal chest pain relieved by nitroglycerin R07.2 Hypertensive emergency I16.1 Multi-vessel coronary artery stenosis I25.10
[2024-09-07] MEDS: ISOSORBIDE MONO EXTENDED REL 30 MG TABCR PO ONE (09:22)
--- NOTE | 2024-09-07 09:53 | Cardiology Progress Note ---
Date of Service September 07, 2024 Assessment & Plan (1) ACS (acute coronary syndrome): (2) Substernal chest pain relieved by nitroglycerin: (3) Atrial fibrillation with rapid ventricular response: (4) Hypertension, essential: (5) Hypercholesterolemia: Plan Mr. Monson is an 84-year-old male with a history of Hypertension, Hypercholesterolemia, PACs, PVCs, PSVT, Aneurysm of the Aortic Arch, BPH, Osteoarthritis, Prior CVA, history of Vasovagal Syncope (most likely to occur when patient is ill with a viral syndrome, bacterial infection, or after receiving anesthesia), Paroxysmal Atrial Fibrillation s/p Watchman LAAO, and ParoxysmalAtrial Flutter s/p Caval Tricuspid Isthmus Ablation 08/05/22 who presented 09/05/24 after the onset of Chest Pain with radiation down both arms L>R with associated nausea and diaphoresis. These symptoms came on after he moved some chairs around. Patient states that the pain was severe and had an episode of nausea without vomiting. Also had whole body diaphoresis. He states that the pain continued at a 9 out of 10 on the pain scale until the ambulance was able to provide him with nitroglycerin, aspirin, and oxygen, then his pain improved. His chest pain was around a 6 out of 10 on the pain scale whenever he arrived to the ER. Patient then had 1/10 chest intermittently thereafter. Heparin drip was started and the patient has remained completely asymptomatic since that time. Additionally, patient was found to be in A-Fib with RVR on admission but his rate is now well controlled. Initial EKG per EMS with ST depressions in the anterolateral leads, resolved after arriving in the ER. Initial high sensitivity troponin I was normal at 7.7 pg/mL however his follow-up values were abnormal at 98.8, 592.8, 968.4, and 834.9 pg/mL. We reviewed his echocardiogram and coronary angiography in detail. He has multi- vessel CAD as described below and an ascending thoracic aortic aneurysm. Recommend the followin. Referral to Dr. Pimentel at [facility] for CABG and ascending aortic aneurysm repair. 2. Continue Aspirin 81 mg daily. 3. Begin Imdur ER 30 mg daily. 4. Continue Losartan 12.5 mg daily. 5. Continue Metoprolol Succinate ER 50 mg b.i.d.. 6. Stop Pravastatin. 7. Begin Atorvastatin 40 mg daily. 8. Prescribe SL Nitroglycerin 0.4 mg as needed and as directed. [place] with [facility] [place] heart surgery. Admission and Anticipated Discharge Date Admission Date: September 05, 2024 Subjective Mr. Monson is an 84-year-old male with a history of Hypertension, Hypercholes terolemia, PACs, PVCs, PSVT, Aneurysm of the Aortic Arch, BPH, Osteoarthritis, Prior CVA, history of Vasovagal Syncope (most likely to occur when patient is ill with a viral syndrome, bacterial infection, or after receiving anesthesia), Paroxysmal Atrial Fibrillation s/p Watchman LAAO, and ParoxysmalAtrial Flutter s/p Caval Tricuspid Isthmus Ablation 08/05/22 who presented with ACS/NSTEMI on 09/05/24 after the onset of Chest Pain with radiation down both arms L>R with associated nausea and diaphoresis. These symptoms came on after he moved some chairs around. Patient states that the pain was severe and had an episode of nausea without vomiting. Also had whole body diaphoresis. He states that the pain continued at a 9 out of 10 on the pain scale until the ambulance was able to provide him with nitroglycerin, aspirin, and oxygen, then his pain improved. His chest pain was around a 6 out of 10 on the pain scale whenever he arrived to the ER. Patient then had 1/10 chest intermittently thereafter. Heparin drip was started and the patient has remained completely asymptomatic since that time. Additionally, patient was found to be in A-Fib with RVR on admission but his rate is now well controlled. Initial EKG per EMS with ST depressions in nickolas-lateral leads, resolved once at ER. Initial high sensitivity troponin I was normal at 7.7 pg/mL however his follow-up values were abnormal at 98.8, 592.8, 968.4, and 834.9 pg/mL. Echocardiogram 09/06/24 showed normal LV size and systolic function, LVEF 50% to 55% with normal wall motion, normal RV size and systolic function, mildly dilated left atrium, moderately dilated aortic root, mild AI, mild MR. CARDIAC CATHETERIZATION/CORONARY ANGIOGRAPHY 09/06/24: LMCA- Large-caliber short vessel bifurcating into LAD and circumflex. Mild luminal irregularities. LAD- Large-caliber and transapical. Gives a large branching first diagonal and a medium caliber second diagonal. Proximal LAD has diffuse disease and tapers down to 50% stenosis. Mid segment has up to 70% stenosis. Early distal vessel with 99% stenosis in the remainder of the distal vessel has scattered moderate disease. LCx- Large-caliber and nondominant. Proximal segment gives an atrial branch and then there is 60% to 80% long stenosis. First OM is large and branching and has proximal diffuse disease of 50% to 60% The mid AV groove circumflex is very short. There is a medium caliber OM 2 which has ostial to proximal diffuse 95% to 99% stenosis. The distal AV groove vessel continues on and there is diffuse calcification with up to 80% stenosis and a long lesion. Then, there is an ostial 99% to 100% stenosis for a branching posterior lateral. Left to left collateralization noted. RCA- Large-caliber and dominant. Proximal 70% stenosis. Mid vessel 99% to 100% stenosis just after the RV marginal. The distal segment has up to 50% stenosis and then bifurcates into the PDA and posterolateral branches. PDA has mid 100% stenosis. PLB with diffuse mild disease. There are [id number] collaterals to the distal branches. Summary: 1. No acute thrombotic stenosis. Patient has severe multivessel coronary artery disease as described. 2. Continue guideline directed medical therapy for secondary prevention of coronary disease including low-dose aspirin, high intensity statin therapy, beta-doris, and angiotensin receptor doris. 3. Recommend referral to tertiary center regarding coronary artery bypass grafting and ascending aortic aneurysm repair. Review of Systems Review of Systems: -- As per HPI. Physical Exam Physical Exam: Blood pressure is 147/85. General: Patient in no acute distress. HEENT: Head is atraumatic, normocephalic. EOM's intact. Sclerae anicteric. Facies symmetric. No perioral cyanosis. Neck: No JVD. JVP is not elevated. Carotid upstrokes +2 bilaterally without bruits. Chest and Lungs: Clear to auscultation throughout all lung dove, no wheezes, rales, or rhonchi. CVS: S1 and S2 are irregularly irregular at 67 bpm without murmurs, gallops, or rubs. PMI is nonpalpable. No lifts, heaves, or thrills. No abdominal aortic or renal bruits. Abdominal Exam: Bowel sounds present. Extremities: No clubbing, cyanosis, or edema. Right radial arterial access site is closed, no hematoma. Neurologic Exam: Patient is awake, alert, and interactive. Pleasant and cooperative. Answers questions appropriately. Results & Data Vital Signs (Past 12 Hours) Vital Signs Temp Pulse Pulse Pulse Resp BP Pulse Ox 09/07/24 08:15 36.5 C 67 20 147/85 H 94 09/07/24 05:36 69 09/07/24 03:25 36.6 C 85 18 134/88 96 09/06/24 23:36 36.8 C 82 19 138/70 94 O2 Del Method 09/07/24 08:15 Room Air 09/07/24 05:36 09/07/24 03:25 Room Air 09/06/24 23:36 Room Air Laboratory Results Laboratory Results - last 24 hr 09/06/24 09/06/24 09/06/24 10:48 12:05 17:02 WBC RBC Hgb Hct MCV MCH MCHC RDW Std Deviation RDW Coeff of Marily Plt Count MPV Heparin Anti-Xa, Unfract 0.30 Sodium Potassium Chloride Carbon Dioxide Anion Gap BUN Creatinine Est Cr Clr Drug Dosing eGFR BUN/Creatinine Ratio Glucose POC Glucose 200 H 194 H Calcium Magnesium Troponin I High Sens 834.9 H* 09/06/24 09/07/24 09/07/24 20:25 05:36 07:41 WBC 9.97 RBC 4.83 Hgb 15.9 Hct 45.0 MCV 93.2 MCH 32.9 MCHC 35.3 RDW Std Deviation 43.2 RDW Coeff of Marily 12.6 Plt Count 235 MPV 9.5 Heparin Anti-Xa, Unfract < 0.10 L Sodium 137 Potassium 3.8 Chloride 103 Carbon Dioxide 26 Anion Gap 8 BUN 20 Creatinine 1.05 Est Cr Clr Drug Dosing 63.1 eGFR 70.87 BUN/Creatinine Ratio 19.0 Glucose 122 H POC Glucose 171 H 138 H Calcium 9.1 Magnesium 2.0 Troponin I High Sens Medications Administered Medication List Aspirin (Aspirin 81 Mg Ectab) 81 mg PO DAILY [facility] Stop: 10/06/24 08:59 Last Admin: 09/07/24 08:57 Dose: 81 mg Documented By: Admin: 09/06/24 07:57 Dose: 81 mg Documented By: SORIN Betamethasone Dipropion Augmented (Betamethasone Dip Aug (Diprolene) 0.05% Cr 15 Gm Tube) 1 appln EXT BID [facility] Stop: 10/05/24 20:59 Last Admin: 09/07/24 08:57 Dose: 1 appln Documented By: Admin: 09/06/24 19:32 Dose: 1 appln Documented By: Admin: 09/06/24 07:58 Dose: 1 appln Documented By: Admin: 09/05/24 21:31 Dose: 1 appln Documented By: CRYS Insulin Aspart (Insulin Aspart Per Unit Charge) 0 units SC ACHS [facility] Stop: 10/06/24 21:14 Last Admin: 09/07/24 08:56 Dose: 3 units Documented By: KRISTA Co-signed By: IVAN Admin: 09/06/24 21:29 Dose: 2 units Documented By: CRYS Co-signed By: MACO Insulin Glargine (Lantus Per Unit Charge) 0 units SC [facility]; Protocol Stop: 10/06/24 20:59 Last Admin: 09/06/24 21:29 Dose: 5 units Documented By: CRYS Co-signed By: MACO Losartan Potassium (Losartan Potassium 25 Mg Tab) 12.5 mg PO QAM [facility] Stop: 10/06/24 08:59 Last Admin: 09/07/24 08:58 Dose: 12.5 mg Documented By: Admin: 09/06/24 07:58 Dose: 12.5 mg Documented By: SORIN Metoprolol Succinate (Metoprolol Succ 50mg Ext Rel Tab) 50 mg PO BID [facility] Stop: 10/06/24 20:59 Last Admin: 09/07/24 08:58 Dose: 50 mg Documented By: Admin: 09/06/24 19:33 Dose: 50 mg Documented By: CRYS Nitroglycerin (Nitroglycerin 2% Ointment 30gm Tube) 1 inch EXT Q6 [facility] Stop: 10/05/24 21:59 Last Admin: 09/07/24 05:54 Dose: 1 inch Documented By: Admin: 09/07/24 00:21 Dose: 1 inch Documented By: Admin: 09/06/24 14:59 Dose: Not Given Documented By: Admin: 09/06/24 12:25 Dose: 1 inch Documented By: Admin: 09/06/24 05:55 Dose: 1 inch Documented By: Admin: 09/05/24 22:41 Dose: 1 inch Documented By: CRYS Pravastatin Sodium (Pravastatin Sod 40 Mg Tab) 40 mg PO HS [facility] Stop: 10/05/24 20:59 Last Admin: 09/06/24 19:34 Dose: 40 mg Documented By: Admin: 09/05/24 21:31 Dose: 40 mg Documented By: CRYS Prednisone (Prednisone 10 Mg Tablet) 30 mg PO DAILY HAWK; Taper Stop: 09/16/24 08:59 Last Admin: 09/07/24 08:58 Dose: 30 mg Documented By: Admin: 09/06/24 07:57 Dose: 40 mg Documented By: SORIN Discontinued Medications Fentanyl Citrate (Fentanyl Citrate Pf 100 Mcg/2 Ml Vial) Confirm Administered Dose 100 mcg .ROUTE .STK-MED ONE Stop: 09/06/24 13:38 Last Increment: 09/06/24 15:08 Dose: 50 mcg Documented By: DONAVAN Heparin Sodium (Porcine) (Heparin Sod (Porcine) 1000 Unit/Ml) 4,000 units IV NOW ONE Stop: 09/05/24 20:31 Last Admin: 09/05/24 21:59 Dose: 4,000 units Documented By: CRYS Co-signed By: LEO Heparin Sodium (Porcine) (Heparin (Porcine) 1000 Unit/Ml 10 Ml (Drum Tender Use Only)) Confirm Administered Dose 10,000 units .ROUTE .STK-MED ONE Stop: 09/06/24 13:38 Last Admin: 09/06/24 15:09 Dose: 5,000 units Documented By: DONAVAN Heparin Sodium/Sodium Chloride (Heparin In Nss Infusion 1000 Unit/500 Ml (2 U/Ml) Bag) Confirm Administered Dose 3,000 units IV .STK-MED ONE Stop: 09/06/24 13:38 Last Admin: 09/06/24 14:57 Dose: 3,000 units Documented By: DONAVAN Hydralazine HCl (Hydralazine Hcl 20 Mg/Ml Vial) Confirm Administered Dose 20 mg .ROUTE .STK-MED ONE Stop: 09/06/24 14:29 Last Increment: 09/06/24 14:29 Dose: 10 mg Documented By: DONAVAN Heparin Sodium/Dextrose (Heparin 16678 Unit/500 Ml D5w) 25,000 units in 500 mls @ 20 mls/hr IV .Q24H [facility]; Protocol Stop: 10/05/24 20:29 Last Titration: 09/06/24 16:12 Dose: Infused Documented By: PETER Co-signed By: IVAN Titration: 09/06/24 11:43 Dose: 1,000 units/hr, 20 mls/hr Documented By: PETER Co-signed By: IVAN Titration: 09/06/24 10:54 Dose: 1,000 units/hr, 20 mls/hr Documented By: PETER Co-signed By: SORIN Titration: 09/06/24 07:13 Dose: 1,000 units/hr, 20 mls/hr Documented By: SORIN Co-signed By: JORJE Admin: 09/05/24 22:00 Dose: 1,000 units/hr, 20 mls/hr Documented By: CRYS Co-signed By: LEO Insulin Aspart (Insulin Aspart Per Unit Charge) 0 units SC Q6 [facility] Stop: 10/05/24 21:29 Last Admin: 09/06/24 18:17 Dose: Not Given Documented By: Admin: 09/06/24 12:26 Dose: Not Given Documented By: Admin: 09/06/24 05:49 Dose: Not Given Documented By: Admin: 09/05/24 21:35 Dose: Not Given Documented By: JORJE Iodixanol (Iodixanol (Visipaque) 320 Mg/Ml 100ml) Confirm Administered Dose 1 ml IV .STK-MED ONE Stop: 09/06/24 13:39 Last Admin: 09/06/24 15:09 Dose: Not Given Documented By: DONAVAN Ioversol (Optiray 320 125ml) 115 ml IV ONCE ONE Stop: 09/05/24 17:54 Last Admin: 09/05/24 17:54 Dose: 115 ml Documented By: SMITH Ioversol (Optiray 350) Confirm Administered Dose 1 ml .ROUTE .STK-MED ONE Stop: 09/06/24 13:39 Last Admin: 09/06/24 15:09 Dose: 100 ml Documented By: DONAVAN Isosorbide Mononitrate (Isosorbide [place] Extended Rel 30 Mg Tabcr) 30 mg PO NOW ONE Stop: 09/07/24 08:48 Last Admin: 09/07/24 09:22 Dose: 30 mg Documented By: KRISTA Metoprolol Succinate (Metoprolol Succ 50mg Ext Rel Tab) [facility]: 10/06/24 08:59 Last Admin: 09/06/24 07:58 Dose: 50 mg Documented By: SORIN Metoprolol Tartrate (Metoprolol Tartrate 1 Mg/Ml Vial) 5 mg IV NOW STA Stop: 09/05/24 19:02 Last Admin: 09/05/24 19:32 Dose: 5 mg Documented By: ANJELICA Midazolam HCl (Midazolam Hcl 1 Mg/Ml 2ml Vial) Confirm Administered Dose 2 mg .ROUTE .STK-MED ONE Stop: 09/06/24 13:38 Last Admin: 09/06/24 14:57 Dose: 2 mg Documented By: DONAVAN Midazolam HCl (Midazolam Hcl 1 Mg/Ml 2ml Vial) Confirm Administered Dose 2 mg .ROUTE .STK-MED ONE Stop: 09/06/24 14:32 Last Admin: 09/06/24 15:09 Dose: Not Given Documented By: DONAVAN Nicardipine HCl (Nicardipine 2,000 Mcg/20 Ml Syr) Confirm Administered Dose 2,000 mcg .ROUTE .STK-MED ONE Stop: 09/06/24 13:39 Last Admin: 09/06/24 14:57 Dose: 2,000 mcg Documented By: DONAVAN Nitroglycerin (Nitroglycerin 2% Ointment 30gm Tube) 1 inch EXT NOW STA Stop: 09/05/24 16:47 Last Admin: 09/05/24 17:11 Dose: 1 inch Documented By: SHAKA Nitroglycerin/Dextrose (Nitroglycerin/D5w 100mcg/Ml 20ml Syr) Confirm Administered Dose 2,000 mcg .ROUTE .STK-MED ONE Stop: 09/06/24 13:39 Last Admin: 09/06/24 14:57 Dose: 2,000 mcg Documented By: DONAVAN PG Care Time/CCT Total # of Minutes Spent Total Time Spent with Patient: Total time spent is greater than 50% in coordination of care (as documented) at patient's floor/unit and/or counseling patient:44 Coding [place] [address] SUB INP/OBS CARE 3/50MIN Patient Type Established History Detailed Exam Detailed Medical Decision Making High Complexity Diagnoses ACS (acute coronary syndrome) I24.9 Substernal chest pain relieved by nitroglycerin R07.2 Atrial fibrillation with rapid ventricular response I48.91 Hypertension, essential I10 Hypercholesterolemia E78.00 Time Spent (min) 56
--- NOTE | 2024-09-07 09:58 | Discharge Summary ---
Discharge Summary Date of Service September 07, 2024 Principal Dx & Hospital Course #1 = Principal Diagnosis (1) Multi-vessel coronary artery stenosis: (2) ACS (acute coronary syndrome): (3) Atrial fibrillation with rapid ventricular response: (4) Diabetes mellitus type 2, diet-controlled: (5) Substernal chest pain relieved by nitroglycerin: (6) Hypertensive emergency: Plan #ACS, multivessel coronary artery disease #Afib with RVR #DM II 84yo male with PMHx significant for afib (s/p watchman procedure 01/2024 [facility]), HTN, HLD, dermatitis, anxiety, DM II (diet controlled, A1c >7 for ~5yrs per ) presented for CHEST PAIN. Patient reports CP starting in LEFT arm on 09/05 after moving furniture/eating and radiated across precordium and into other arm, sudden onset, 01/16 pain. Initial EKG per EMS with ST depressions in anteriolateral leads, resolved once at ED, AFIB w/ RVR to 120bpm Provided w/ Nitropaste and metoprolol tartrate 5mg IV in ER (reports got nitro spray w/ EMS en route). BP was 153/123 on admission. Trop initially 7.7 but rise to 592, peak 968 concerning for unstable angina/ACS and was placed on Heparin GTT (CTA negative for PE) and NPO at midnight with cardiology consult for catheterization for evaluation. Was placed nitropaste q6h and continued on metoprolol 50mg daily, losartan 12.5mg daily and statin. Repeat troponin 834 Echocardiogram 09/06/24 showed normal LV size and systolic function, LVEF 50% to 55% with normal wall motion, normal RV size and systolic function, mildly dilated left atrium, moderately dilated aortic root, mild AI, mild MR (no significant change) s/p cardiac cath 09/[address] Saldana, multivessel disease, need for ref for CABG at [place]. Patient updated last evening, wanting to talk w/ Kip today about [facility] vs [place] and will have CM work on referral once decided Coronary angiography findings: * JJX-lorxq-iuzhbok short vessel bifurcating into LAD and circumflex. Mild luminal irregularities. * BUU-kdhxd-txfyzhi and transapical. Gives a large branching first diagonal and a medium caliber second diagonal. Proximal LAD has diffuse disease and tapers down to 50% stenosis. Mid segment has up to 70% stenosis. Early distal vessel with 99% stenosis in the remainder of the distal vessel has scattered moderate disease. * FRu-ukrih-utrotaf and nondominant. Proximal segment gives an atrial branch and then there is 60 to 80% long stenosis. First OM is large and branching and has proximal diffuse disease of 50 to 60% * The mid AV groove circumflex is very short. There is a medium caliber OM 2 which has ostial to proximal diffuse 95 to 99% stenosis. The distal AV groove vessel continues on and there is diffuse calcification with up to 80% stenosis and a long lesion. Then, there is an ostial 99 to 100% stenosis for a branching posterior lateral. Left to left collateralization noted. * LXN-yoxza-elsvyaj and dominant. Proximal 70% stenosis. Mid vessel 99 to 100% stenosis just after the RV marginal. The distal segment has up to 50% stenosis and then bifurcates into the PDA and posterolateral branches. PDA has mid 100% stenosis. PLB with diffuse mild disease. There are rlap-lr-uqlma collaterals to the distal branches. Summary: * 1. No acute thrombotic stenosis. Patient has severe multivessel coronary artery disease as described. * 2. Continue guideline directed medical therapy for secondary prevention of coronary disease including low-dose aspirin, high intensity statin therapy, beta-doris, and angiotensin receptor doris. * 3. Recommend referral to tertiary center regarding coronary artery bypass grafting and ascending aortic aneurysm repair. Metoprolol succinate increased to 50mg BID for BP/HR control, afib in 70-80s, no palpitations or CP AM 5/2. Losartan 12.5mg continued, BP 147/85 stable in hospital setting and to monitor at dc Nitropaste DISCONTINUED, started IMDUR 30mg daily - continue at dc. Rx for Nitro SL provided and discussed use Given multivessel disease on cath, discussed switch pravastatin 40mg to atorvastatin 40mg daily per guidelines and sent rx at dc, they want to discuss w/ PCP in f/u Also discussed A1c 7.1, has been elevated >7 for many years but "diet controlled" and rec f/u discussion to start treatment but per discussion w/ cards ANA when inquired about jardiance, recommended to WAIT until after CABG CM Navigator to send referral to Dr Miramontes at [facility] for CABG/aortic aneurysm repair #T2DM - h/o DMT2, A1c in August 13. but NOT on medications/reports diet controlled. See above, outpt f/u and rec starting tx after CABG (sooner if needed) #HTN- BP ELEVATED 153/123 on admission, IV lopressor provided for above and continued losartan home dose but metoprolol increased to 50mg BID as above. Imdur 30mg added/continued. Rec continued monitoring BP at dc, BP improved. consideration for 100mg daily BB in f/u PCP to prevent BID dosing but defer to cards/PCP in f/u pending serial measurements #Arthritis/Shoulder impingement- Prednisone taper, cautious use steroids w/ DM and no coverage (declined insulin while inpatient). #Situational anxiety- Lorazepam prn, mood stable #Dermatitis- Topical steroid , stable Notes For Next Care Provider Ensure cards fu GM for CABG and aortic aneursym repair - New rx increased metoprolol NEW, imdur & nitro SL. Changed pravastatin to lipitor but patient wants to discuss w/ you prior to starting (not prior rec'd by cards but did discuss given multivessel disease and current recs should be on high intensity statin for prevention) - consider changing metoprolol to once daily 100mg for ease in f/u pending serial BP measurements but has been better in hospital. Provided w/ new BP cuff to continue to monitor at dc but Bps much better controlled compared to admission and no further CP reported and HR afib in 60-70s, 80s at times. 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 States that he was outside moving some chairs around when he developed a sudden onset of "severe" chest pain that initiated under his bilateral armpits and then spread across to his chest like a band and radiated down both arms. States at that time he also had an episode of "incoherent" which lasted approximately 15 to 20 minutes per his . Patient states that he was doubled over in pain and had an episode of nausea without vomiting. Also had whole body diaphoresis. States that the pain continued at a 9 out of 10 on the pain scale until the ambulance was able to provide him with nitroglycerin, aspirin, and oxygen, then his pain subsided some. Was around a 6 out of 10 on the pain scale whenever he arrived to the ED. Since then his pain has come down to a 1 out of 10 on the pain scale and has just been coming and going. States that his chest pain, at its worst, lasted approximately 30 minutes in duration. He states he did have an episode similar to this in the past in March 2020 for which he had exertional chest pain but it was much less severe than this. States that this is the most severe chest pain he has had. He did have some SOB but not currently. 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 States that he has taken this before and has not had prior adverse reactions from it. Patient resting comfortably in bed at time of evaluation, no current complaints. Denying SOB, palpitations, abdominal pain, diarrhea/constipation, fever/chills, URI symptoms, LUTS, numbness/tingling, weakness, or syncopal events. ED evaluation reveals no leukocytosis, stable H&H; PT/INR WNL; CMP sodium 135, glucose 255, bilirubin 1.4; troponin 7.7, repeat 98.8; lipase 29; UA with glucose present; CXR with increased vascular lung markings and prominent hilar vascular shadows, pulmonary congestion suggested; chest CTA unchanged TAA, no dissection, no signs of pulmonary embolism, unchanged nodular opacity in RML, bilateral lower lobe atelectasis, coronary atherosclerosis, hepatic and right renal cyst; EKG A-fib with RVR at 120 bpm.; Provided with nitroglycerin paste and metoprolol tartrate 5 mg IV in ED. Please see Dr. Elliott's attestation for adjustments/additions to treatment plan. Admission Exam Per Admitting Provider General: No acute distress Skin: Warm and dry Head: Normocephalic, atraumatic Eyes: PERRL, conjunctivae clear, sclera non-icteric; wearing glasses ENT: External ear and ear canal without swelling; nose atraumatic; good dentition, tongue normal appearance, pharynx normal Neck: Supple, no LAD Cardio: irregularly irregular rhythm, slightly tachycardic in 90s-110s, no M/G/R, S1 and S2 normal Resp: No respiratory distress, Lungs CTA in all lobes bilaterally, no wheezes, rales, or rhonchi Abdomen: Soft, symmetric, nontender; No masses or hepatosplenomegaly; Bowel sounds normoactive MSK: No deformities; pulses palpable and equal; no edema. Neuro: Awake, alert; Sensation intact bilaterally; CN grossly intact Psych: Appropriate mood and affect; good judgement and insight. and son present in room at time of visit. Discharge Exam General: 84yo male resting in bed, NAD upon entry, no further reports CP HEENT: head atraumatic, normocephalic, mm stable, trachea midline Resp: even, unlabored, slightly diminished in the bases but no wheezing/rales, on room air CV: irregularly irregular, rates better controlled, +systolic murmur, no pitting edema/calf tenderness GI: +BS, soft/NT no miranda MSK/Neuro: nonfocal, ambulating in the room for nursing earlier, not confused, answering questions appropriately Psych: AOx3, cooperative with exam Discharge Plan Discharge Items Patient Disposition: Home - Self-Care Reason For Visit: UNSTABLE ANGINA Discharge Diagnosis: Multivessel coronary artery disease Condition on Discharge: Fair Goals: You have been hospitalized for an acute medical problem. During your stay at [facility], we have made an effort to correct the problem that brought you to the hospital while keeping you as comfortable as possible. Medications were used to bring your condition under control and your discharge instructions will include directions for any medications you should take after leaving the hospital. Please make sure you see your Primary Care Provider as pa rt of your follow up plan. Activity: As commented below Non-emergency contact: Primary Care Provider and Mini Bar Attendant Call non-emergency contact if: you have any medication questions, your symptoms worsen, your pain is concerning for you and you have a fever Follow-up/Referrals: Chava Mejia PA-C [Physician Wind Turbine Controls Engineer] - Shy Lugo MD [Primary Care Provider] - Diet: Carb Consistent or DM2 and Heart Healthy Addtl Attending Provider Instructions: You have been hospitalized for chest pain. Cardiology was consulted and took for a catheterization for concern for blockage. Unfortunately not able to stent and noting having MULTIPLE vessels with disease and recommendation is for a procedure called a CABG as discussed. [facility] discussed and should have outpatient follow up. You should discuss diabetes with primary care in follow up to get better control of your sugars. Your blood pressure has been ELEVATED as well as afib with higher rates. Your METOPROLOL has been increased to 50mg TWICE daily. We have ADDED a medication called IMDUR to help dilate vessels to improve blood flow to heart/prevent symptoms and recommend avoiding strenuous activity for now until your procedure (no heavy lifting >40lb,etc). Your PRAVASTATIN is going to be STOPPED and SWITCHED to ATORVASTATIN 40mg given cath results for per most current guidelines. We have sent a medication called NITRO to take if you have any chest pain. This can be repeated every 5 minutes but if you take more than 2 please return to ER for eval. Please follow up with primary care and cardiology at discharge. Please return to the ER with any fever/chills, worsening chest pain, palpitations or other symptoms concerning for you. It has been a pleasure being a part of the medical team providing for you while you have been in the hospital. Take care! Pending Studies at Discharge: No Stand-Alone Forms: My [facility] Lola Pirindola, Smoking Cessation Medications and DC Order Prescriptions: New metoprolol succinate 50 mg Tablet Extended Release 24 Hr 50 mg PO BID Qty: 60 0RF isosorbide mononitrate 30 mg Tablet Extended Release 24 Hr 30 mg PO QAM Qty: 30 0RF atorvastatin 40 mg tablet 40 mg PO DAILY Qty: 30 0RF nitroglycerin 0.4 mg tablet, sublingual 0.4 mg sublingual Q5M PRN (Reason: chest pain) Qty: 14 0RF Continued losartan 25 mg tablet 12.5 mg PO QAM Qty: 45 5RF aspirin [Adult Low Dose Aspirin] 81 mg tablet,delayed release (DR/EC) 81 mg PO DAILY lorazepam 0.5 mg tablet 0.5 mg PO DAILY PRN (Reason: anxiety) Qty: 20 0RF prednisone 10 mg tablet See Rx Instructions PO DAILY Qty: 30 0RF Rx Instructions: 4 tabs for 3 days, then 3 tabs for 3 days, then 2 tabs for 3 days, then 1 tab for 3 days. PO DAILY; fluocinonide 0.05 % cream 1 applic topical BID Qty: 15 1RF Rx Instructions: Do not use for any longer than 2 wks at a time Probiotic 3 billion cell Capsule 3,000 mmu cells PO 3XWK Rx Instructions: TAKES MON, WED, & FRI Centrum Silver 400-250 mcg Tablet,Chewable 1 tab PO 3XWK Rx Instructions: TAKES MON, WED, & FRI. fluticasone propionate 50 mcg/actuation spray,suspension 2 spray intranasal DAILY PRN (Reason: Congestion) Rx Instructions: administer 2 sprays into each nostril daily Discontinued metoprolol succinate 50 mg tablet extended release 24 hr 50 mg PO QAM Qty: 90 3RF pravastatin 40 mg tablet 40 mg PO HS Qty: 90 3RF Discharge Orders: Discharge Order (Routine); Ordered 09/07/24 Ordered By: Jennifer Calhoun Admission Data Admit Date/Time: 09/05/24 19:46 Attending Provider: Uche Hairston Admit Provider: Arash Elliott Primary Care Provider: Shy Lugo Other Providers: Arash Elliott; Chava Mejia Other Interventions: Discharge Summary Assessment (RN) Last Done: 09/07/24 13:24 Hospital Stay Data Consultations 09/05/24 19:04 ED Decision to Admit Stat 09/05/24 20:40 Consult Cardiology Routine Procedures Performed Operation Date: 09/06/24 14:00 Actual Procedures p Cineradiography w/Routine Exam - Asher Saldana MD, PhD p Cath, Coronaries ONLY (no LV) - Asher Saldana MD, PhD Summary of Findings Brief description: Patient was brought to the cardiac catheterization suite where he was shaved and prepped in a sterile fashion. Sedated using IV Versed and fentanyl. Soft tissues of the right wrist were anesthetized using 2 mL of 1% Xylocaine. The right radial artery was accessed using a modified Seldinger technique and a 6 Guyanese radial artery glide sheath was placed. Patient was provided anticoagulation with IV heparin and antispasmodics including nicardipine and nitroglycerin. All catheters were advanced over a 0.035 J-tip wire. However, delivery and exchange of other catheters required an Amplatz stiff wire. Left coronary angiography was performed in orthogonal views with a 5 Guyanese Drummond 4 diagnostic catheter. Right coronary angiography was performed with a 5 Guyanese JR 5 diagnostic catheter Left heart cath was performed with a 5 Guyanese 3 DRC diagnostic catheter. All diagnostic catheters were removed. Radial artery sheath was removed. Hemostasis was obtained using a TR band. Patient was hemodynamically stable and asymptomatic. He was returned to the recovery area. This ended the case. Coronary angiography findings: WIS-iyawc-prxwwoz short vessel bifurcating into LAD and circumflex. Mild luminal irregularities. ELZ-umozn-ijnwkhm and transapical. Gives a large branching first diagonal and a medium caliber second diagonal. Proximal LAD has diffuse disease and tapers down to 50% stenosis. Mid segment has up to 70% stenosis. Early distal vessel with 99% stenosis in the remainder of the distal vessel has scattered moderate disease. VEa-cybzu-ytghkjg and nondominant. Proximal segment gives an atrial branch and then there is 60 to 80% long stenosis. First OM is large and branching and has proximal diffuse disease of 50 to 60% The mid AV groove circumflex is very short. There is a medium caliber OM 2 which has ostial to proximal diffuse 95 to 99% stenosis. The distal AV groove vessel continues on and there is diffuse calcification with up to 80% stenosis and a long lesion. Then, there is an ostial 99 to 100% stenosis for a branching posterior lateral. Left to left collateralization noted. BBC-jmfyy-jqyoxpo and dominant. Proximal 70% stenosis. Mid vessel 99 to 100% stenosis just after the RV marginal. The distal segment has up to 50% stenosis and then bifurcates into the PDA and posterolateral branches. PDA has mid 100% stenosis. PLB with diffuse mild disease. There are fdej-da-wxewz collaterals to the distal branches. Summary: 1. No acute thrombotic stenosis. Patient has severe multivessel coronary artery disease as described. 2. Continue guideline directed medical therapy for secondary prevention of coronary disease including low-dose aspirin, high intensity statin therapy, beta-doris, and angiotensin receptor doris. 3. Recommend referral to tertiary center regarding coronary artery bypass grafting and ascending aortic aneurysm repair. Diagnostic Imagining Performed Chest X-Ray 09/05/24 16:33 EXAM: XR chest 1V portable CLINICAL HISTORY: Chest pain, nonspecific. TECHNIQUE: An X-ray image of the chest is obtained in AP projection. COMPARISON: No prior studies are available for comparison. FINDINGS: Pulmonary Parenchyma: Prominent vascular lung markings bilaterally. No evidence of consolidation, collapse, or focal opacities. No pulmonary nodules are identified. No evidence of pleural effusion or pleural thickening. Heart and Mediastinum: Heart size and shape are normal. No mediastinal widening or masses. Prominent hilar vascular shadows. Calcified aortic arch. Bony Thorax: Bony thorax appears intact without fractures or deformities. Soft Tissues: Soft tissues overlying the chest wall are unremarkable. IMPRESSION: Increased vascular lung markings with prominent hilar vascular shadows. Pulmonary congestion is suggested. Correlate with clinical findings. Electronically signed by Herminio Desouza 09-05-2024 6:43 PM Chest CTA 09/05/24 16:49 Clinical history: Chest pain and hypertension Technique: Axial computed tomography images were obtained of the chest before and after the administration of intravenous contrast according to the CT angiogram protocol Comparison is made to the prior CT dated 03/30/2024 Findings: There is subsegmental atelectasis in both lower lobes. There is an unchanged 8 mm irregular nodular opacity in the right middle lobe that could be due to focal scarring. There is no pleural effusion or pneumothorax. There is no sign of pulmonary fibrosis or other diffuse interstitial process. No endobronchial lesion is seen There is no mediastinal, hilar, or axillary adenopathy. There is an unchanged mild thoracic aortic aneurysm with the ascending aorta measuring up to 4.7 cm in diameter. The distal aortic arch measures up to 3.6 cm. The descending aorta is mildly aneurysmal, measuring up to 3.1 cm. No aortic dissection is seen. There is no pericardial effusion. There is coronary atherosclerosis. There is no definite sign of pulmonary embolism. There is a 2.4 cm cyst in the right hepatic lobe. There is an apparent 2 cm cyst in the upper pole of the right kidney. 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 No fracture is seen. No focal osseous lesion is evident Impression: 1. Unchanged thoracic aortic aneurysm 2. No sign of aortic dissection 3. No definite sign of pulmonary embolism 4. Coronary atherosclerosis 5. Unchanged nodular opacity in the right middle lobe, likely benign. A follow-up chest CT could be obtained in 6 months to ensure continued stability 6. Bilateral lower lobe atelectasis 7. Hepatic and right renal cysts ACT 112: Positive. There are findings on this exam that require communication between the performing entity and the patient following Patient Test Result Information Act ([place] ACT 112) guidelines. Electronically signed by Reuben Franklin 09-05-2024 6:40 PM ECHOCARDIOGRAM 09/06 - reports unchanged from prior - normal LV size and systolic function, LVEF 50% to 55% with normal wall motion, normal RV size and systolic function, mildly dilated left atrium, moderately dilated aortic root, mild AI, mild MR. Discharge Instructions Given to Patient (Per Discharging Provider) You have been hospitalized for chest pain. Cardiology was consulted and took for a catheterization for concern for tiffani zaynab. Unfortunately not able to stent and noting having MULTIPLE vessels with disease and recommendation is for a procedure called a CABG as discussed. We will [facility] discussed and should have outpatient follow up. You should discuss diabetes with primary care in follow up to get better control of your sugars. Your blood pressure has been ELEVATED as well as afib with higher rates. Your METOPROLOL has been increased to 50mg TWICE daily. We have ADDED a medication called IMDUR to help dilate vessels to improve blood flow to heart/prevent symptoms and recommend avoiding strenuous activity for now until your procedure (no heavy lifting >40lb,etc). Your PRAVASTATIN is going to be STOPPED and SWITCHED to ATORVASTATIN 40mg given cath results for per most current guidelines. We have sent a medication called NITRO to take if you have any chest pain. This can be repeated every 5 minutes but if you take more than 2 please return to ER for eval. Please follow up with primary care and cardiology at discharge. Please return to the ER with any fever/chills, worsening chest pain, palpitations or other symptoms concerning for you. It has been a pleasure being a part of the medical team providing for you while you have been in the hospital. Take care! Supervising Physician Co-Signing Physician Notes The patient was not seen by me. The chart was reviewed. Case discussed with NADIRA Castaneda. Agree with assessment and plan Total Time Total Time Spent Total Time Spent (In Minutes): 60 Coding Level of Care Code 04747 INP/OBS DISCH >30 MIN Diagnoses Multi-vessel coronary artery stenosis I25.10 ACS (acute coronary syndrome) I24.9 Atrial fibrillation with rapid ventricular response I48.91 Diabetes mellitus type 2, diet-controlled E11.9 Substernal chest pain relieved by nitroglycerin R07.2 Hypertensive emergency I16.1
[2024-09-07 12:02] VITALS: RESP 22; TEMP 97.3; O2SAT 93
[2024-09-07 13:26] VITALS: BP 134/93; PULSE 67
[2024-09-08] MEDS ORDERED: ISOSORBIDE MONO EXTENDED REL 30 MG TABCR PO SCH (09:00)
--- NOTE | 2024-09-08 14:51 | Electrocardiogram Report ---
Test Reason : Blood Pressure : */* mmHG Vent. Rate : 68 BPM Atrial Rate : * BPM P-R Int : * ms QRS Dur : 100 ms QT Int : 436 ms P-R-T Axes : * -29 61 degrees QTcB Int : 463 ms Atrial fibrillation Left axis deviation Abnormal ECG When compared with ECG of 05-Sep-2024 16:35, (unconfirmed) Vent. rate has decreased by 52 bpm Minimal criteria for Anterior infarct are no longer Present ST no longer depressed in Anterolateral leads Confirmed by Asiya Zurita (Kortney) on 09/08/2024 2:50:55 PM Referred By: REFERRED SELF Confirmed By: Asiya Zurita
--- NOTE | 2024-09-08 15:00 | Electrocardiogram Report ---
Test Reason : Blood Pressure : */* mmHG Vent. Rate : 68 BPM Atrial Rate : * BPM P-R Int : * ms QRS Dur : 114 ms QT Int : 460 ms P-R-T Axes : * -13 56 degrees QTcB Int : 489 ms Atrial fibrillation with premature ventricular or aberrantly conducted complexes Minimal voltage criteria for LVH, may be normal variant ( Bertram product ) QTcB >= 480 msec Abnormal ECG When compared with ECG of 06-Sep-2024 05:45, (unconfirmed) No significant change was found Confirmed by Asiya Zurita ([id number]) on 09/08/2024 2:59:55 PM Referred By: REFERRED SELF Confirmed By: Asiya Zurita
== END 2024-09-07 13:59 | disposition home or self-care (01) ==
LOC: 4W 16:30 → ED 16:30 → SUATTDRO 19:46 → 4W 20:31
PROC: CLB.CCO (2024-09-06 14:00)

== ENCOUNTER 2024-11-19 21:35 | Observation (INO) ==
[2024-11-19 22:26] LABS: Hematocrit (blood only) 34.0 % (42.0-52.0); Hemoglobin 11.6 g/dl (14.0-18.0); Immature Granulocytes # (auto) 0.06 K/uL (0.01-0.20); Immature Granulocytes % (auto) 0.6 %; Mean Corpuscular Hemoglobin 32.7 pg (25.0-34.0); Mean Corpuscular Volume 95.8 fL (80.0-100.0); Platelet Count 243 K/uL (130-400); RDW Standard Deviation 44.6 fL (36.4-46.3); Red Blood Count 3.55 M/uL (4.70-6.10); White Blood Count 9.71 K/ul (4.8-10.8)
[2024-11-19] MEDS: SODIUM CHLORIDE 0.9% 500 ML IV ONE ×2 (22:29→23:18)
[2024-11-19] MEDS: ONDANSETRON INJ 2 MG/ML 2 ML VIAL IV STA (22:29)
[2024-11-19 22:42] LABS: Alanine Aminotransferase 19.0 U/L (7-52); Albumin Globulin Ratio 1.0 (0.9-2); Alkaline Phosphatase 62.0 U/L (34-104); Anion Gap 8.0 (3-11); Bilirubin,Total 2.2 mg/dl (0.2-1.0); Blood Urea Nitrogen 22.0 mg/dl (6-23); Calcium 8.2 mg/dl (8.6-10.3); Carbon Dioxide 23.0 mmol/L (21-32); Chloride 104.0 mmol/L (98-107); Creatinine Clr Calc Pharmacy 61.2 ml/min; Globulin 3.5 gm/dl (2.5-4.0); Glucose 179.0 mg/dl (70-99(Fasting)); Magnesium 2.1 mg/dl (1.7-2.4); Potassium 3.7 mmol/L (3.5-5.1); Sodium 135.0 mmol/L (136-145); Total Protein 6.9 gm/dl (6.0-8.3)
[2024-11-19 22:58] LABS: Thyroid Stimulating Hormone 5.471 uIu/ml (0.300-4.500)
--- NOTE | 2024-11-19 23:26 | XRay Report ---
Exam(s): XR CXR 1 VIEW EXAM: XR Chest, 1 View CLINICAL HISTORY: Reason for exam: weakness. TECHNIQUE: Frontal views of the chest. COMPARISON: 09/05/2024. FINDINGS: There is a poor inspiratory effort. Lungs: No consolidation. Pleural space: No pleural effusion is seen. No pneumothorax. Heart: The heart is top normal in size.. Mediastinum: There is uncoiling of thoracic aorta.. Bones/joints: There are degenerative changes in the spine. IMPRESSION: No acute pulmonary disease.. Electronically signed by: Elvis Emmanuel MD 11/19/24 23:25 PM
--- NOTE | 2024-11-19 23:34 | Emergency Department Note ---
Impression & Plan Hypotension, Altered mental status, Near syncope, Elevated troponin, History of coronary artery disease ED Provider Note NAME: JACQUELYN Mcqueen AIDEN AGE: 84 SEX: M : 1940 ARRIVES VIA: Ambulance INFORMANT: [Patient][family, ] ED PROVIDER(S): [Donte Euceda MD] CHIEF COMPLAINT: Altered mental state HISTORY OF PRESENT ILLNESS: The patient is an 84-year-old male who was discharged from [facility] today. He was in the hospital for coronary stenting. There was a complication in that the left femoral artery was torn and he required vascular surgical intervention. During his hospital stay, he did not move his bowels, his thinks it has been 4 or 5 days since he had a bowel movement. Today, he seemed fine. He had some prune juice at home to help with bowel movements. The patient felt he needed to have a bowel movement and went to the bathroom. About 1-1/2 hours ago in the bathroom, he was found somewhat unresponsive. He did not feel well. He seemed groggy and was slumped over. He had dry heaves. He was sweaty. He seemed confused and the ambulance was called. As per the family, EMS recorded a blood pressure in the 70s systolic. Upon arrival to the ED, the patient is somnolent. His blood pressure has improved. He at times moans as if he is in some discomfort. His is the primary historian. PMHx/PSHx/Social Hx: See Below PHYSICAL EXAM: GENERAL: Patient is in no acute distress. HEENT: No acute trauma, normocephalic atraumatic, mucous membranes moist, no nasal congestion. NECK: No stridor, no adenopathy, no meningismus, trachea is midline. LUNGS: Clear to auscultation bilaterally, no wheeze, no rhonchi, breath sounds equal. HEART: Without murmurs gallops or rubs, regular rate and rhythm. ABDOMEN: Soft, no peritonitis. No significant distention. He does have an umbilical hernia which is somewhat tender but as per family is chronic. EXTREMITIES: No cyanosis, full range of motion of all the joints without pain or difficulty. NEUROLOGIC: Somnolent, does respond to pain. Seen to move all extremities. SKIN: No jaundice, no diaphoresis. Pale. DIFFERENTIAL DIAGNOSIS: Bowel obstruction, dehydration, IL, intracranial bleeding, UTI, stroke, among others. EMERGENCY DEPARTMENT PROCEDURES: MEDICAL DECISION MAKING: There is no leukocytosis. The patient is anemic however, this would be consistent with the recent hospitalization and procedures performed. There was a normal platelet count. No bandemia. No coagulopathy. No renal failure or significant electrolyte abnormality. Bilirubin was somewhat elevated, the remaining liver enzymes were unremarkable. The patient did have an elevation of the TSH however, the T4 was normal. ECG showed atrial fibrillation without acute ischemia. Cardiac enzyme testing x 2 is elevated although, trending downward--the troponin elevation is likely from his recent hospitalization and coronary stenting. Urinalysis does suggest dehydration, no infection. Chest film does not show pneumonia or CHF. Brain CT showed no acute bleed or mass effect. Abdominal and pelvis CT did not show any bowel obstruction or acute surgical process. On exam, the patient was slightly hypotensive and somewhat somnolent. He at times seemed to moan as if he was in discomfort. Patient was given IV Zofran, IV saline--he received 1 L of IV saline. With the above interventions, patient's blood pressure has improved, he feels markedly better, he is awake and interactive and back to his mental baseline. I suspect the patient had a vasovagal event on the toilet, this led to some near syncope and his presentation this evening. I do think the patient deserves a stay in the hospital for further hydration, observation and troponin trending. I spoke with the patient and his family. I spoke with case management, the on- call hospitalist was consulted. Prior/Outside records/notes reviewed: Today's EMS notes describing his presentation and transport at this hospital. ECG per my interpretation: Indication was near syncope. The ECG shows atrial fibrillation with a rate of 64. There is some nonspecific ST change. There are some inverted T waves seen a laterally. There is an old septal infarct. No acute ST elevation, no PVCs. The QTc is 443. Continuous Cardiac Monitoring per my interpretation: An order was placed for continuous cardiac monitoring. The monitor shows a rate of 74 with atrial fibrillation. Imaging/x-ray results per my interpretation: Chest x-ray does not show CHF or pneumonia. Chronic Medical/Social conditions affecting care: Advanced age, recent hospitalization at [facility] Care/Management discussed with: Case management, the on-call hospitalist. Level of care consideration(s): After review of the information above and other included data: --I believe the patient requires escalation of care to admission Critical Care Note: I have personally spent 48 minutes of critical care time in the direct management of this patient. This includes bedside care, interpretation of diagnostic studies, and testing, discussion with consultants, patient, and family members, and other required patient management activities. This 48 minutes is in excess of all separately billable procedures. DISPOSITION: Admission Past Med/Surg History Problem List History of coronary artery disease (Acute) Elevated troponin (Acute) Near syncope (Acute) Altered mental status (Acute) Hypotension (Acute) Morbilliform rash Syncope Multi-vessel coronary artery stenosis Substernal chest pain relieved by nitroglycerin (Acute) Atrial fibrillation with rapid ventricular response Situational anxiety Aortic regurgitation Status post catheter ablation of atrial flutter LVH (left ventricular hypertrophy) PSVT (paroxysmal supraventricular tachycardia) Atrial flutter Pure hypercholesterolemia (Chronic) Diverticulosis of colon (without mention of hemorrhage) (Chronic) Vasovagal syncope (Chronic) Umbilical hernia (Chronic) Seasonal allergies (Chronic) Osteoarthritis of knee (Chronic) Onychomycosis of toenail (Chronic) Hypercholesterolemia (Chronic) Essential hypertriglyceridemia (Chronic) Eczema (Chronic) Benign prostatic hyperplasia (Chronic) Atrial premature complex (Chronic) Arthritis (Chronic) Anxiety disorder (Chronic) Aneurysm of aortic arch (Chronic) Cyst of soft tissue Hypertension, essential SVT (supraventricular tachycardia) Diabetes mellitus type 2, diet-controlled Cervical strain, acute (Acute) Medical History Thoracic ascending aortic aneurysm Presence of Watchman left atrial appendage closure device Unspecified atrial fibrillation History of anesthesia reaction BRADYCARDIA AND O2 SAT DROPS Osteoarthritis Bleeding hemorrhoid NOT CURRENLTY BLEEDING Anxiety Transient ischemic attack (TIA) ? (DX ON MRI BUT NEVER HAD SYMPTOMS OF EVENT) Irregular heart beat Hyperlipemia Hypertension Stroke Surgical History S/P ablation of atrial flutter History of removal of cyst (03/30/19) Back Sebaceous Cyst Excision Dr. Galloway 03/30/19 History of colonoscopy History of tooth extraction History of cataract surgery RT/LEFT Family History Mother Diabetes Hypertension Father Cancer Family/Other Cancer Other Family history non-contributory Denies family history of Ovarian cancer Prostate cancer Myocardial infarction Breast cancer Colorectal cancer Social History Smoking Status: Former smoker Tobacco Type: Cigarettes Age Started Using Tobacco: 18; Age Quit Using Tobacco: 44; packs per day: 0.5; Second Hand Exposure: No; Do You Dip or Chew Tobacco: No; Hx Alcohol Use: No Hx Substance Use: No Preferred Language: Persian Communication Ability: Effective Visual Impairment: No Limitations Hearing Ability: Normal Line Decorator Required: No Beliefs That Will Affect Care: None marital status: Current Living Situation: Spouse current occupational status: retired 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 Feels Safe at Home: Yes Childhood Exposure to Second-Hand Smoke: Yes Diet: regular Dental Care, Regularly: Yes Physical Activity Frequency: Does not Exercise Seatbelt Use: always Sunscreen Use: No Assistive Devices: None Allergies Allergies Allergy/AdvReac Type Severity Reaction Status Date / Time acetaminophen AdvReac Intermediate "DOES NOT Verified 10/03/24 11:36 AGREE WITH ME" aspirin AdvReac Intermediate "THIN Verified 10/03/24 11:36 BLOOD" caffeine AdvReac Intermediate "THIN Verified 10/03/24 11:36 BLOOD" phenacetin AdvReac Intermediate "THIN Verified 10/03/24 11:36 BLOOD" Sulfa (Sulfonamide AdvReac Intermediate GI UPSET Verified 10/03/24 11:36 Antibiotics) ANESTHESIA Allergy Intermediate Bradycardia Uncoded 10/03/24 11:36 Arrhythmia and Diaphoretic Home Meds Home Medications Medication Instructions Recorded Confirmed lactobacillus combination no.4 3 3,000 mmu cells PO 3XWK 09/14/18 10/03/24 billion cell capsule (Probiotic) [id number]-[id number] acid 1 tab PO 3XWK 03/30/19 10/03/24 400 mcg-lutein 250 mcg chewable tablet (Centrum Silver) aspirin 81 mg tablet,delayed 81 mg PO DAILY 03/23/24 10/03/24 release (Adult Low Dose Aspirin) fluticasone propionate 50 2 spray intranasal DAILY PRN 09/05/24 10/03/24 mcg/actuation nasal Congestion spray,suspension Previous Rx's Medication Instructions Recorded losartan 25 mg tablet 12.5 mg (1/2 x 25 mg) PO QAM #45 08/07/24 tabs fluocinonide 0.05 % topical cream 1 applic topical BID #15 grams 09/04/24 lorazepam 0.5 mg tablet 0.5 mg PO DAILY PRN anxiety #20 09/04/24 tabs nitroglycerin 0.4 mg sublingual 0.4 mg sublingual Q5M PRN chest 09/07/24 tablet pain #14 tabs blood sugar diagnostic (MobilitrixTouch #50 ea 09/14/24 Ultra Test strips) blood-glucose meter (MobilitrixTouch #1 ea 09/14/24 Ultra2 Meter) lancets 30 gauge (MobilitrixTouch Delica #100 ea 09/14/24 Plus Lancet) metoprolol succinate 50 mg 50 mg PO BID #180 tabs 10/03/24 tablet,extended release 24 hr atorvastatin 40 mg tablet 40 mg PO DAILY #90 tabs 10/29/24 isosorbide mononitrate 30 mg 30 mg PO QAM #90 tabs 10/29/24 tablet,extended release 24 hr Results & Data (ED) Vital Signs Vital Signs - 24 hr 11/19/24 22:03 11/19/24 22:15 11/19/24 22:15 Temperature 36.5 C Temperature Source Oral Pulse Rate 76 70 Pulse Rate [Apical] Pulse Rhythm Irregular Pulse Rhythm [Apical] Pulse Strength Normal Pulse Strength [Apical] Respiratory Rate 15 Respiratory Effort / Characteristics Non-Labored Respiratory Depth Normal Respiratory Pattern Regular Blood Pressure 100/69 Blood Pressure [Right Arm] Blood Pressure Mean 79 Blood Pressure Mean [Right Arm] Blood Pressure Position Sitting Blood Pressure Position [Right Arm] Pulse Oximetry 97 97 Oxygen Delivery Method Room Air Room Air Sepsis Recent Fever Within 48 Hours No Sepsis New/Unexplained Change in Mental Status Yes Sepsis Action Taken by Nursing No Action Required 11/19/24 22:19 11/19/24 22:19 11/19/24 22:45 Temperature Temperature Source Pulse Rate Pulse Rate [Apical] 62 72 Pulse Rhythm Pulse Rhythm [Apical] Regular Irregular Pulse Strength Pulse Strength [Apical] Normal Normal Respiratory Rate 15 Respiratory Effort / Characteristics Non-Labored Respiratory Depth Normal Respiratory Pattern Regular Blood Pressure Blood Pressure [Right Arm] 87/63 L 99/76 L Blood Pressure Mean Blood Pressure Mean [Right Arm] 71 83 Blood Pressure Position Blood Pressure Position [Right Arm] Sitting Sitting Pulse Oximetry 97 97 Oxygen Delivery Method Room Air Room Air Sepsis Recent Fever Within 48 Hours Sepsis New/Unexplained Change in Mental Status Sepsis Action Taken by Nursing 11/19/24 23:00 11/19/24 23:18 11/19/24 23:30 Temperature Temperature Source Pulse Rate 77 81 Pulse Rate [Apical] 74 Pulse Rhythm Pulse Rhythm [Apical] Regular Pulse Strength Pulse Strength [Apical] Normal Respiratory Rate 14 22 18 Respiratory Effort / Characteristics Non-Labored Spontaneous Respiratory Depth Normal Respiratory Pattern Regular Blood Pressure 119/82 128/95 Blood Pressure [Right Arm] 127/82 Blood Pressure Mean 94 106 Blood Pressure Mean [Right Arm] 97 Blood Pressure Position Blood Pressure Position [Right Arm] Pulse Oximetry 95 97 97 Oxygen Delivery Method Room Air Sepsis Recent Fever Within 48 Hours Sepsis New/Unexplained Change in Mental Status Sepsis Action Taken by Nursing 11/20/24 00:30 11/20/24 01:00 11/20/24 01:48 Temperature Temperature Source Pulse Rate 84 86 80 Pulse Rate [Apical] Pulse Rhythm Pulse Rhythm [Apical] Pulse Strength Pulse Strength [Apical] Respiratory Rate 22 19 22 Respiratory Effort / Characteristics Respiratory Depth Respiratory Pattern Blood Pressure 132/93 115/71 115/82 Blood Pressure [Right Arm] Blood Pressure Mean 98 84 93 Blood Pressure Mean [Right Arm] Blood Pressure Position Blood Pressure Position [Right Arm] Pulse Oximetry 97 93 97 Oxygen Delivery Method Sepsis Recent Fever Within 48 Hours Sepsis New/Unexplained Change in Mental Status Sepsis Action Taken by Prison Medications Current Medication List: was personally reviewed by me Laboratory Data Attestation: I reviewed the patient's lab results. 11/19/24 21:52 11/19/24 21:52 Lab Results 11/19/24 11/20/24 11/20/24 Range/Units 21:52 00:00 00:08 WBC 9.71 (4.8-10.8) K/ul RBC 3.55 L (4.70-6.10) M/uL Hgb 11.6 L (14.0-18.0) g/dl Hct 34.0 L (42.0-52.0) % MCV 95.8 (80.0-100.0) fL MCH 32.7 (25.0-34.0) pg MCHC 34.1 (32.0-36.0) g/dL RDW Std Deviation 44.6 (36.4-46.3) fL RDW Coeff of Marily 13.0 (11.5-14.5) % Plt Count 243 (130-400) K/uL MPV 9.9 (9.4-12.4) fL Immature Gran % (Auto) 0.6 % Neut % (Auto) 59.8 % Lymph % (Auto) 17.2 % Sharp % (Auto) 15.6 % Eos % (Auto) 6.1 % Baso % (Auto) 0.7 % Neut # (Auto) 5.81 (1.40-6.50) K/uL Lymph # (Auto) 1.67 (1.20-3.40) K/uL Sharp # (Auto) 1.51 H (0.11-0.59) K/uL Eos # (Auto) 0.59 H (0.00-0.50) K/uL Baso # (Auto) 0.07 (0.00-0.20) K/uL Immature Gran # (Auto) 0.06 (0.01-0.20) K/uL PT 11.7 (9.0-12.0) Seconds INR 1.1 (0.9-1.1) APTT 26 (21-31) Seconds PTT Ratio 1.0 Sodium 135 L (136-145) mmol/L Potassium 3.7 (3.5-5.1) mmol/L Chloride 104 (98-107) mmol/L Carbon Dioxide 23 (21-32) mmol/L Anion Gap 8 (3-11) BUN 22 (6-23) mg/dl Creatinine 1.14 (0.6-1.4) mg/dl Est Cr Clr Drug Dosing 61.2 ml/min eGFR 64.21 BUN/Creatinine Ratio 19.3 (10-20) Glucose 179 H (70-99(Fasting)) mg/dl Calcium 8.2 L (8.6-10.3) mg/dl Magnesium 2.1 (1.7-2.4) mg/dl Total Bilirubin 2.2 H (0.2-1.0) mg/dl AST 19 (13-39) U/L ALT 19 (7-52) U/L Alkaline Phosphatase 62 (34-104) U/L Troponin I High Sens 1404.7 H* 1217.7 H* (0-20) pg/ml Total Protein 6.9 (6.0-8.3) gm/dl Albumin 3.4 (3.4-5.0) gm/dl Globulin 3.5 (2.5-4.0) gm/dl Albumin/Globulin Ratio 1.0 (0.9-2) TSH 5.471 H (0.300-4.500) uIu/ml Free T4 1.02 (0.61-1.60) ng/dl Urine Color Yellow Urine Appearance Clear (Clear) Urine pH 5.5 (4.5-7.5) Ur Specific [place] 1.032 H (1.000-1.030) Urine Protein Negative (Negative) Urine Glucose (UA) 3+ H (Negative) Urine Ketones Trace H (Negative) Urine Blood Negative (Negative) Urine Nitrite Negative (Negative) Urine Bilirubin Negative (Negative) Urine Urobilinogen Negative (Negative) Ur Leukocyte Esterase Negative (Negative) Urine Comment Administered Medications Discontinued Medications Sodium Chloride (Nss) 500 mls @ 999 mls/hr IV .Q31M ONE Stop: 11/19/24 22:44 Last Infusion: 11/19/24 23:17 Dose: Infused Documented By: Admin: 11/19/24 22:29 Dose: 999 mls/hr Documented By: JESSE Sodium Chloride (Nss) 500 mls @ 999 mls/hr IV .Q31M ONE Stop: 11/19/24 23:11 Last Infusion: 11/20/24 00:17 Dose: Infused Documented By: Admin: 11/19/24 23:18 Dose: 999 mls/hr Documented By: MARK Ondansetron HCl (Ondansetron Inj 2 Mg/Ml 2 Ml Vial) 4 mg IV NOW STA Stop: 11/19/24 22:15 Last Admin: 11/19/24 22:29 Dose: 4 mg Documented By: JESSE Imaging Data Radiologist's Impression: Abdomen/Pelvis CT 11/19/24 22:14 Exam(s): CT ABDOMEN + PELVIS Without Contrast EXAM: CT Abdomen and Pelvis Without Intravenous Contrast CLINICAL HISTORY: Reason for exam: poss obstruc. TECHNIQUE: Axial computed tomography images of the abdomen and pelvis without intravenous contrast. CTDI is 36.49 mGy and DLP is 1944.87 mGy-cm. Automated exposure control was utilized for the study. A dose lowering technique was utilized adhering to the principles of ALARA. COMPARISON: No relevant prior studies available. FINDINGS: Exam is limited due to lack of contrast. Lung bases: There is some dependent atelectasis. The heart contains coronary artery calcifications. ABDOMEN: Liver: There is a 2.5 cm lucency in the right lobe of the liver. Gallbladder and bile ducts: No calcified stones. No ductal dilation. Pancreas: The visualized portions of the pancreas, on this noncontrast study, are grossly normal.. Spleen: No splenomegaly. Adrenals: No mass. Kidneys and ureters: No obstructing stones. No hydronephrosis. There is a 2 cm lucency in the right kidney. Stomach and bowel: There is air and fluid within the stomach. There is air and stool noted in the colon. No distended loops of small bowel are identified.. PELVIS: Appendix: Unremarkable CT scan appearance noted the appendix.. Bladder: Urinary bladder is distended. No bladder calculi are seen.. Reproductive: The prostate gland is enlarged. ABDOMEN and PELVIS: Intraperitoneal space: No free air. No significant fluid collection. Bones/joints: There are marked degenerative changes in the spine.. Soft tissues: There are some inflammatory changes noted in the left inguinal region. There is an umbilical hernia containing fat. Vasculature: There are atherosclerotic changes. There is a 4.5 cm abdominal aortic aneurysm. There is a stent noted in the left external iliac and common femoral arteries. Lymph nodes: No enlarged lymph nodes. IMPRESSION: Limited exam. No evidence of bowel obstruction. There is a 4.5 cm abdominal aortic aneurysm. No evidence of renal calculi or hydronephrosis. There is a possible right renal cyst. A 2.5 cm lucency in the right lobe of the liver may represent a cyst. See discussion above. Electronically signed by: Elvis Emmanuel MD 11/19/24 23:49 PM Chest X-Ray 11/19/24 22:15 Exam(s): XR CXR 1 VIEW EXAM: XR Chest, 1 View CLINICAL HISTORY: Reason for exam: weakness. TECHNIQUE: Frontal views of the chest. COMPARISON: 09/05/2024. FINDINGS: There is a poor inspiratory effort. Lungs: No consolidation. Pleural space: No pleural effusion is seen. No pneumothorax. Heart: The heart is top normal in size.. Mediastinum: There is uncoiling of thoracic aorta.. Bones/joints: There are degenerative changes in the spine. IMPRESSION: No acute pulmonary disease.. Electronically signed by: Elvis Emmanuel MD 11/19/24 23:[address] 11/19/24 22:16 Exam(s): CT HEAD Without Contrast EXAM: CT Head Without Intravenous Contrast CLINICAL HISTORY: Reason for exam: altered. TECHNIQUE: Axial computed tomography images of the head/brain without intravenous contrast. CTDI is 62.75 mGy and DLP is 1098.96 mGy-cm. Automated exposure control was utilized for the study. A dose lowering technique was utilized adhering to the principles of ALARA. COMPARISON: 03/11/2023. FINDINGS: Brain: No acute intracranial hemorrhage. There is decreased attenuation within the white matter.. Ventricles: There is prominence of the ventricular system with deepening of the sulci consistent with cortical and central atrophy. Bones/joints: Unremarkable. No acute fracture. Soft tissues: Unremarkable. Sinuses: Unremarkable as visualized. No acute sinusitis. Mastoid air cells: Unremarkable as visualized. No mastoid effusion. IMPRESSION: Atrophy. Nonspecific white matter disease. Findings appears similar to previous exam. If further evaluation is clinically necessary, consider correlation with MRI Electronically signed by: Elvis Emmanuel MD 11/19/24 23:39 PM Discharge Plan Visit Data Chief Complaint: Altered Mental Status Stated Complaint: AMS, Lethargic ED Provider: Donte Euceda Discharge Problem: Hypotension, Altered mental status, Near syncope, Elevated troponin, History of coronary artery disease Patient Disposition: Admitted As Inpatient Condition: Fair Forms Stand Alone Forms: [facility] Prescriptions Prescriptions: No Action losartan 25 mg tablet 12.5 mg PO QAM Qty: 45 5RF (DME) lancets [OneTouch Delica Plus Lancet] 30 gauge misc See Rx Instructions .Route Qty: 100 0RF Rx Instructions: use once per day and as needed (DME) OneTouch Ultra Test Strip See Rx Instructions .Route Qty: 50 0RF Rx Instructions: once per day and as needed (DME) blood-glucose meter [OneTouch Ultra2 Meter] Misc See Rx Instructions .Route Qty: 1 0RF Rx Instructions: test once per day and as needed atorvastatin 40 mg tablet 40 mg PO DAILY Qty: 90 3RF isosorbide mononitrate 30 mg tablet extended release 24 hr 30 mg PO QAM Qty: 90 3RF aspirin [Adult Low Dose Aspirin] 81 mg tablet,delayed release (DR/EC) 81 mg PO DAILY metoprolol succinate 50 mg tablet extended release 24 hr 50 mg PO BID Qty: 180 3RF lorazepam 0.5 mg tablet 0.5 mg PO DAILY PRN (Reason: anxiety) Qty: 20 0RF fluocinonide 0.05 % cream 1 applic topical BID Qty: 15 1RF Rx Instructions: Do not use for any longer than 2 wks at a time Probiotic 3 billion cell Capsule 3,000 mmu cells PO 3XWK Rx Instructions: TAKES MON, WED, & FRI Centrum Silver 400-250 mcg Tablet,Chewable 1 tab PO 3XWK Rx Instructions: TAKES MON, WED, & FRI. fluticasone propionate 50 mcg/actuation spray,suspension 2 spray intranasal DAILY PRN (Reason: Congestion) Rx Instructions: administer 2 sprays into each nostril daily nitroglycerin 0.4 mg tablet, sublingual 0.4 mg sublingual Q5M PRN (Reason: chest pain) Qty: 14 0RF Referrals Referrals: Shy Lugo MD [Primary Care Provider] - Discharge Problem: Hypotension Qualifiers: Hypotension type: unspecified hypotension type Qualified Code(s): I95.9 - Hypotension, unspecified Altered mental status Qualifiers: Altered mental status type: somnolence Qualified Code(s): R40.0 - Somnolence
--- NOTE | 2024-11-19 23:40 | CT Scan Report ---
Exam(s): CT HEAD Without Contrast EXAM: CT Head Without Intravenous Contrast CLINICAL HISTORY: Reason for exam: altered. TECHNIQUE: Axial computed tomography images of the head/brain without intravenous contrast. CTDI is 62.75 mGy and DLP is 1098.96 mGy-cm. Automated exposure control was utilized for the study. A dose lowering technique was utilized adhering to the principles of ALARA. COMPARISON: 03/11/2023. FINDINGS: Brain: No acute intracranial hemorrhage. There is decreased attenuation within the white matter.. Ventricles: There is prominence of the ventricular system with deepening of the sulci consistent with cortical and central atrophy. Bones/joints: Unremarkable. No acute fracture. Soft tissues: Unremarkable. Sinuses: Unremarkable as visualized. No acute sinusitis. Mastoid air cells: Unremarkable as visualized. No mastoid effusion. IMPRESSION: Atrophy. Nonspecific white matter disease. Findings appears similar to previous exam. If further evaluation is clinically necessary, consider correlation with MRI Electronically signed by: Elvis Emmanuel MD 11/19/24 23:39 PM
[2024-11-19 23:42] LABS: INR 1.1 (0.9-1.1); Partial Thromboplastin Time 26 Seconds (21-31); Prothrombin Time 11.7 Seconds (9.0-12.0)
--- NOTE | 2024-11-19 23:50 | CT Scan Report ---
Exam(s): CT ABDOMEN + PELVIS Without Contrast EXAM: CT Abdomen and Pelvis Without Intravenous Contrast CLINICAL HISTORY: Reason for exam: poss obstruc. TECHNIQUE: Axial computed tomography images of the abdomen and pelvis without intravenous contrast. CTDI is 36.49 mGy and DLP is 1944.87 mGy-cm. Automated exposure control was utilized for the study. A dose lowering technique was utilized adhering to the principles of ALARA. COMPARISON: No relevant prior studies available. FINDINGS: Exam is limited due to lack of contrast. Lung bases: There is some dependent atelectasis. The heart contains coronary artery calcifications. ABDOMEN: Liver: There is a 2.5 cm lucency in the right lobe of the liver. Gallbladder and bile ducts: No calcified stones. No ductal dilation. Pancreas: The visualized portions of the pancreas, on this noncontrast study, are grossly normal.. Spleen: No splenomegaly. Adrenals: No mass. Kidneys and ureters: No obstructing stones. No hydronephrosis. There is a 2 cm lucency in the right kidney. Stomach and bowel: There is air and fluid within the stomach. There is air and stool noted in the colon. No distended loops of small bowel are identified.. PELVIS: Appendix: Unremarkable CT scan appearance noted the appendix.. Bladder: Urinary bladder is distended. No bladder calculi are seen.. Reproductive: The prostate gland is enlarged. ABDOMEN and PELVIS: Intraperitoneal space: No free air. No significant fluid collection. Bones/joints: There are marked degenerative changes in the spine.. Soft tissues: There are some inflammatory changes noted in the left inguinal region. There is an umbilical hernia containing fat. Vasculature: There are atherosclerotic changes. There is a 4.5 cm abdominal aortic aneurysm. There is a stent noted in the left external iliac and common femoral arteries. Lymph nodes: No enlarged lymph nodes. IMPRESSION: Limited exam. No evidence of bowel obstruction. There is a 4.5 cm abdominal aortic aneurysm. No evidence of renal calculi or hydronephrosis. There is a possible right renal cyst. A 2.5 cm lucency in the right lobe of the liver may represent a cyst. See discussion above. Electronically signed by: Elvis Emmanuel MD 11/19/24 23:49 PM
[2024-11-20 00:13] LABS: Appearance Urine Clear (Clear); Glucose Urine UA 3+ (Negative)
--- NOTE | 2024-11-20 01:16 | History & Physical Report ---
Date of Service November 20, 2024 Assessment & Plan (1) Syncope: (2) Multi-vessel coronary artery stenosis: (3) Morbilliform rash: Plan Patient is an 84-year-old male with past medical history of recent cardiac cath discharged from [facility] this morning with a complicated course including reported left groin rupture requiring repeat cath and stent placement with a current drain in place. Past medical history of A-fib s/p Watchman procedure in 2022, type II DM, hypertension. Patient presented via EMS after suspected syncopal episode in his bathroom at home after not having a bowel movement for approximately 4 to 5 days. He is being admitted for syncope requiring cardiac monitoring, however suspect vasovagal syncope with a bowel movement. #syncope - suspect vasovagal during bowel movement however admitting for monitoring given recent cardiac procedure with complications. VSS. Trop 1404.7 -> 1217.17. EKG []. - repeat trop with AM labs, anticipate to remain elevated with recent cath Received total of 2L NSS with EMS in ED, recent EF 55%; will defer further IVF resuscitation Promote oral hydration Telemetry monitoring EKG with chest pain as needed, patient currently denies any chest pain #CADrecent cardiac cath with complications at [facility]. Daily wound care for drain Patient on Keflex reportedly for drain, will continue at this time Continue Plavix, aspirin, statin, isosorbide mononitrate #Rasherythematous diffuse macules and papules on patient's back, new since 11/19. 2/ irritation with bedsheets/laying frequently on back versus new medications. Will continue Keflex at this time is unclear as to why patient is on this, suspect infection around drain site however she Clau ordered at time of admission #Anemiaappears to be new onset. Hgb dropped from 15.9-11.6. suspect ABLA with recent procedure. Trend CBC with a.m. labs #A-fibs/p ablation and watchman in 2022. Not in A-fib at time of admission. Continue metoprolol. #HTNcontinue losartan and metoprolol VTE ppx: SCDs Dispo: med/tele, anticipate dc 11/20 Admission and Anticipated Discharge Date Admission Date: 11/20/24 History of Present Illness Chief Complaint: ams Primary Care Provider: Shy Lugo MD Patient is an 84-year-old male with past medical history of recent cardiac cath discharged from [facility] this morning with a complicated course including reported left groin rupture requiring repeat cath and stent placement with a current drain in place. Past medical history of A-fib s/p Watchman procedure in 2022, type II DM, hypertension. Patient presented via EMS after suspected syncopal episode in his bathroom at home after not having a bowel movement for approximately 4 to 5 days. He is being admitted for syncope requiring cardiac monitoring, however suspect vasovagal syncope with a bowel movement. Patient seen at bedside with his , son, and niece present. He stated he went home from [place] today feeling well. This evening when he went to have a bowel movement he is suspected to have had a syncopal episode as he does not remember however he does remember seeing him to have a bowel movement and then woke up to EMS and his present. His stated he was unconscious and EMS noted he was lethargic, confused, with dry heaves and had a BP of 78/42. His BP improved to 113/66 after liter of fluids with EMS. His stated he had 5 heart stents and 3 groin stents at [place] and has a current drain in place, dressings changed this morning prior to discharge. He has not had a bowel movement in approximately 4 to 5 days and does feel complicated. Patient denies any dizziness, shortness of breath, or chest pain before or after the fall. He is feeling well now other than having a dry mouth. He is most concerned about a new rash that started this afternoon on his back and is itchy, no allergies to antibiotics that he is aware of. He started a new antibiotic called Keflex with his drain, potassium supplement, and Plavix which were all started on Tuesday. He is due for his evening medications. 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 Allergies Allergy/AdvReac Type Severity Reaction Status Date / Time acetaminophen AdvReac Intermediate "DOES NOT Verified 10/03/24 11:36 AGREE WITH ME" aspirin AdvReac Intermediate "THIN Verified 10/03/24 11:36 BLOOD" caffeine AdvReac Intermediate "THIN Verified 10/03/24 11:36 BLOOD" phenacetin AdvReac Intermediate "THIN Verified 10/03/24 11:36 BLOOD" Sulfa (Sulfonamide AdvReac Intermediate GI UPSET Verified 10/03/24 11:36 Antibiotics) ANESTHESIA Allergy Intermediate Bradycardia Uncoded 10/03/24 11:36 Arrhythmia and Diaphoretic Home Medications Medication Instructions Recorded Confirmed Type lactobacillus combination no.4 3 3,000 mmu cells PO 3XWK 09/14/18 11/20/24 History billion cell capsule (Probiotic) qvpsgbtxpjsw-nvyecli-lylpe acid 1 tab PO 3XWK 03/30/19 11/20/24 History 400 mcg-lutein 250 mcg chewable tablet (Centrum Silver) aspirin 81 mg tablet,delayed 81 mg PO DAILY 03/23/24 11/20/24 History release (Adult Low Dose Aspirin) losartan 25 mg tablet 12.5 mg (1/2 x 25 mg) PO QAM #45 08/07/24 11/20/24 Rx tabs nitroglycerin 0.4 mg sublingual 0.4 mg sublingual Q5M PRN chest 09/07/24 11/20/24 Rx tablet pain #14 tabs blood sugar diagnostic (OneTouch #50 ea 09/14/24 10/03/24 Rx Ultra Test strips) blood-glucose meter (OneTouch #1 ea 09/14/24 10/03/24 Rx Ultra2 Meter) lancets 30 gauge (OneTouch Delica #100 ea 09/14/24 10/03/24 Rx Plus Lancet) metoprolol succinate 50 mg 50 mg PO BID #180 tabs 10/03/24 11/20/24 Rx tablet,extended release 24 hr atorvastatin 40 mg tablet 40 mg PO DAILY #90 tabs 10/29/24 11/20/24 Rx isosorbide mononitrate 30 mg 30 mg PO QAM #90 tabs 10/29/24 11/20/24 Rx tablet,extended release 24 hr cephalexin 500 mg capsule 500 mg PO QID 11/20/24 11/20/24 History clopidogrel 75 mg tablet 75 mg PO DAILY 11/20/24 11/20/24 History potassium chloride 20 mEq 20 meq PO DAILY 11/20/24 11/20/24 History tablet,extended release Past Med/Surg History Problem List History of coronary artery disease (Acute) Elevated troponin (Acute) Near syncope (Acute) Altered mental status (Acute) Hypotension (Acute) Morbilliform rash Syncope Multi-vessel coronary artery stenosis Substernal chest pain relieved by nitroglycerin (Acute) Atrial fibrillation with rapid ventricular response Situational anxiety Aortic regurgitation Status post catheter ablation of atrial flutter LVH (left ventricular hypertrophy) PSVT (paroxysmal supraventricular tachycardia) Atrial flutter Pure hypercholesterolemia (Chronic) Diverticulosis of colon (without mention of hemorrhage) (Chronic) Vasovagal syncope (Chronic) Umbilical hernia (Chronic) Seasonal allergies (Chronic) Osteoarthritis of knee (Chronic) Onychomycosis of toenail (Chronic) Hypercholesterolemia (Chronic) Essential hypertriglyceridemia (Chronic) Eczema (Chronic) Benign prostatic hyperplasia (Chronic) Atrial premature complex (Chronic) Arthritis (Chronic) Anxiety disorder (Chronic) Aneurysm of aortic arch (Chronic) Cyst of soft tissue Hypertension, essential SVT (supraventricular tachycardia) Diabetes mellitus type 2, diet-controlled Cervical strain, acute (Acute) Medical History Thoracic ascending aortic aneurysm Presence of Watchman left atrial appendage closure device Unspecified atrial fibrillation History of anesthesia reaction BRADYCARDIA AND O2 SAT DROPS Osteoarthritis Bleeding hemorrhoid NOT CURRENLTY BLEEDING Anxiety Transient ischemic attack (TIA) ? (DX ON MRI BUT NEVER HAD SYMPTOMS OF EVENT) Irregular heart beat Hyperlipemia Hypertension Stroke Surgical History S/P ablation of atrial flutter History of removal of cyst (03/30/19) Back Sebaceous Cyst Excision Dr. Galloway 03/30/19 History of colonoscopy History of tooth extraction History of cataract surgery RT/LEFT Family History Mother Diabetes Hypertension Father Cancer Family/Other Cancer Other Family history non-contributory Denies family history of Ovarian cancer Prostate cancer Myocardial infarction Breast cancer Colorectal cancer Social History Smoking Status: Former smoker Tobacco Type: Cigarettes Age Started Using Tobacco: 18; Age Quit Using Tobacco: 44; packs per day: 0.5; Smoking End Date: 30 yrs ago; Second Hand Exposure: No; Do You Dip or Chew Tobacco: No; Tobacco Cessation Education Requested by Patient: No Hx Alcohol Use: Yes Alcohol type: wine Hx Substance Use: No Preferred Language: Haitian Communication Ability: Effective Visual Impairment: No Limitations Hearing Ability: Normal Rip Tailer Required: No Beliefs That Will Affect Care: None marital status: Current Living Situation: Spouse Current Living Situation Comment: lives home with current occupational status: retired 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 Non-toxic appearing. HEENT- EOMI, mucous membranes dry. Hearing grossly intact. Heart-normal S1 and S2. No murmurs, rubs or gallops. Lungs-clear bilaterally, no respiratory distress, no accessory muscle use. Abdomen-normal bowel sounds and soft. No ascites noted. Non-tender. Extremities- no clubbing, cyanosis, or edema. Rheumatologic-normal range of motion. Psychiatric-normal affect. Skin: Diffuse erythematous macules and papules across patient's back. Results & Data Results & Data Vital Signs (Past 12 Hours) Vital Signs Temp Pulse Pulse Resp BP BP Pulse Ox 11/20/24 01:00 86 19 115/71 93 11/20/24 00:30 84 22 132/93 97 11/19/24 23:30 81 18 128/95 97 11/19/24 23:18 74 22 127/82 97 11/19/24 23:00 77 14 119/82 95 11/19/24 22:45 72 99/76 L 11/19/24 22:19 62 15 87/63 L 97 11/19/24 22:19 97 11/19/24 22:15 70 11/19/24 22:15 97 11/19/24 22:03 36.5 C 76 15 100/69 97 O2 Del Method 11/20/24 01:00 11/20/24 00:30 11/19/24 23:30 11/19/24 23:18 Room Air 11/19/24 23:00 11/19/24 22:45 11/19/24 22:19 Room Air 11/19/24 22:19 Room Air 11/19/24 22:15 11/19/24 22:15 Room Air 11/19/24 22:03 Room Air Code Status & VTE Plan Code Status dnr/dni VTE Prophylaxis Plan VTE Prophylaxis will be ordered: Yes Supervising Physician Co-Signing Physician Notes I personally saw and examined the patient. I independently reviewed the labs, EKG, imaging, problem list, medication list, past medical history and family history. I verified all hurtado points and agree with Kya Roland PA-C with the following exceptions and/or additions: 84 year old male presents to the ER after discharge from [place] earlier in the morning with a syncopal episode while having a bowel movement O/E HS RRR, no murmurs, Chest CTAB, Abdo SNT, maculopapular rash on back, chest and abdomen A/P Syncope - suspect vasovagal in setting of bowel movement. Monitor overnight on telemetry but if doing well can likely be discharged tomorrow Maculopapular rash - possibly related to Keflex but until we have records from [place] I'm reluctant to discontinue this and will see how Clau works PG Care Time/CCT Total # of Minutes Spent Total Time Spent with Patient: Total time spent is greater than 50% in coordination of care (as documented) at patient's floor/unit and/or counseling patient: Coding Level of Care Code 23258 INT INP/OBS CARE 3/75MIN Diagnoses Syncope R55 Multi-vessel coronary artery stenosis I25.10 Morbilliform rash R21
[2024-11-20] MEDS: FEXOFENADINE 60 MG TAB PO STA (01:57)
[2024-11-20] MEDS ORDERED: ONDANSETRON INJ 2 MG/ML 2 ML VIAL IV PRN (03:42)
[2024-11-20] MEDS ORDERED: DOCUSATE SODIUM 100 MG CAP PO PRN (03:42)
[2024-11-20] MEDS ORDERED: ACETAMINOPHEN 325 MG TAB PO PRN (03:42)
[2024-11-20] MEDS ORDERED: NITROGLYCERIN SL 0.4 MG/TAB TAB SL PRN (03:42)
[2024-11-20] MEDS ORDERED: MELATONIN 3 MG TAB PO PRN (03:42)
[2024-11-20] MEDS: ATORVASTATIN 40 MG TAB PO STA (03:43)
[2024-11-20 06:32] LABS: Hematocrit (blood only) 32.8 % (42.0-52.0); Hemoglobin 11.3 g/dl (14.0-18.0); Immature Granulocytes # (auto) 0.06 K/uL (0.01-0.20); Immature Granulocytes % (auto) 0.7 %; Mean Corpuscular Hemoglobin 33.0 pg (25.0-34.0); Mean Corpuscular Volume 95.9 fL (80.0-100.0); Platelet Count 213 K/uL (130-400); RDW Standard Deviation 45.0 fL (36.4-46.3); Red Blood Count 3.42 M/uL (4.70-6.10); White Blood Count 9.21 K/ul (4.8-10.8)
[2024-11-20 06:50] LABS: Anion Gap 7.0 (3-11); Blood Urea Nitrogen 17.0 mg/dl (6-23); Calcium 8.0 mg/dl (8.6-10.3); Carbon Dioxide 25.0 mmol/L (21-32); Chloride 106.0 mmol/L (98-107); Creatinine Clr Calc Pharmacy 69.0 ml/min; Glucose 122.0 mg/dl (70-99(Fasting)); Magnesium 2.1 mg/dl (1.7-2.4); Potassium 4.0 mmol/L (3.5-5.1); Sodium 138.0 mmol/L (136-145)
[2024-11-20] MEDS: ISOSORBIDE MONO EXTENDED REL 30 MG TABCR PO SCH (08:47)
[2024-11-20] MEDS: CLOPIDOGREL BISULFATE 75 MG TAB PO SCH (08:48)
[2024-11-20] MEDS: ASPIRIN 81 MG ECTAB PO SCH (08:48)
[2024-11-20] MEDS: LOSARTAN POTASSIUM 25 MG TAB PO SCH (08:48)
[2024-11-20] MEDS: METOPROLOL SUCC 50MG EXT REL TAB PO SCH (08:48)
[2024-11-20] MEDS: FEXOFENADINE HCL 180 MG TAB PO SCH (08:49)
[2024-11-20] MEDS: POTASSIUM CHLORIDE CRTAB 20 MEQ TABCR PO SCH (08:53)
[2024-11-20] MEDS: POLYETHYLENE (MIRALAX) 17 GM PACK PO SCH (08:53)
[2024-11-20] MEDS ORDERED: methylPREDNISolone 10 mg/mL (For Ped Dose < 7mg) IV SCH (10:30)
--- NOTE | 2024-11-20 11:15 | Hospitalist Progress Note ---
Date of Service November 20, 2024 Assessment & Plan (1) Syncope: Plan: Suspected vasovagal etiology while straining to have a bowel movement. Telemetry. (2) Contact dermatitis: Plan: Parenteral steroid therapy ordered. (3) Chronic atrial fibrillation: Plan: Rate controlled. Telemetry. He received a Watchman device in 2022 and is no longer on systemic anticoagulation. (4) Diabetes mellitus: Plan: ADA diet. Sliding scale coverage. The patient was told his glucose levels may increase with parenteral steroid therapy (5) Multi-vessel coronary artery stenosis: Plan: Currently stable. Continue medical management (6) Essential hypertension: Plan: Currently stable. Continue current medical management Plan Hopeful discharge to home tomorrow, November 21 Admission and Anticipated Discharge Date Admission Date: November 20, 2024 Subjective Alert and oriented. No distress. He does have a rash on his back that could be contact dermatitis. Parenteral steroid therapy started which should make it resolve. He was told that his glucose probably will bump up with parenteral steroid therapy. Sliding-scale insulin coverage ordered. Troponin level is trending down. This was elevated on admission from his recent hospitalization at [facility]. Head CT scan and abdominal CT scan nonacute on admission. Admission EKG reveals atrial fibrillation with no acute changes. Admission chest x-ray unremarkable. Review of Systems 2 Review of Systems: Constitutionalno fever or chills ENTno blurred vision, no double vision, no epistaxis, no sore throat Respiratoryno cough, no wheezing, no shortness of breath Cardiacno palpitations, no chest pain, no syncope Dudley nausea, vomiting, diarrhea, melena, hematochezia GUno urinary retention, no urinary incontinence, no dysuria, no hematuria Musculoskeletalno joint pain, no muscle tenderness Skinpruritic rash on back Neurono isolated weakness, no paresthesia Psychno depression, no anxiety Physical Exam 2 Physical Exam: General-alert and oriented x3, no fever, no chills HEENT-head atraumatic and normocephalic, pupils equal and reactive to light, extraocular muscles intact Neck-no lymphadenopathy or thyromegaly, trachea midline Chest-clear to auscultation. No rales, wheezing or rhonchi Cardiac-irregularly irregular rhythm. Controlled rate. Normal S1 and S2 Abdomen-normal bowel sounds, no hepatosplenomegaly Extremities-no cyanosis, clubbing, or edema Skinnonconfluent pruritic maculopapular blanching rash noted on his back. No evidence of zoster lesions. Neuro-cranial nerves II through XII intact, motor and sensory function within normal limits, strength symmetrical, no focal deficits Psych-normal affect, normal mood Results & Data Results & Data Vital Signs (Past 12 Hours) Vital Signs Temp Pulse Pulse Pulse Resp BP BP 11/20/24 08:00 11/20/24 07:46 36.7 C 91 H 19 111/73 11/20/24 07:00 76 11/20/24 05:08 11/20/24 05:08 36.5 C 83 24 11/20/24 03:05 36.5 C 83 24 130/83 11/20/24 02:30 85 23 108/69 11/20/24 02:20 91 H 11/20/24 02:00 81 22 132/85 11/20/24 01:48 80 22 115/82 11/20/24 01:00 86 19 115/71 11/20/24 00:30 84 22 132/93 11/19/24 23:30 81 18 128/95 11/19/24 23:18 74 22 127/82 Pulse Ox O2 Del Method 11/20/24 08:00 Room Air 11/20/24 07:46 99 Room Air 11/20/24 07:00 11/20/24 05:08 Room Air 11/20/24 05:08 94 Room Air 11/20/24 03:05 94 Room Air 11/20/24 02:30 97 11/20/24 02:20 11/20/24 02:00 98 11/20/24 01:48 97 11/20/24 01:00 93 11/20/24 00:30 97 11/19/24 23:30 97 11/19/24 23:18 97 Room Air Laboratory Results 11/20/24 06:07 11/20/24 06:07 PG Care Time/CCT Total # of Minutes Spent Total Time Spent with Patient: Total time spent is greater than 50% in coordination of care (as documented) at patient's floor/unit and/or counseling patient: Coding Level of Care Code 99842 SUB INP/OBS CARE 3/50MIN Diagnoses Syncope R55 Contact dermatitis L25.9 Chronic atrial fibrillation I48.20 Diabetes mellitus E11.9 Multi-vessel coronary artery stenosis I25.10 Essential hypertension I10
[2024-11-20] MEDS ORDERED: DEXTROSE 50% 50 ML SYRINGE IV PRN (11:28)
[2024-11-20] MEDS ORDERED: CARBOHYDRATES FOR HYPOGLYCEMIA PO PRN (11:28)
[2024-11-20] MEDS ORDERED: GLUCOSE 10 TAB/TUBE PO PRN (11:28)
[2024-11-20] MEDS ORDERED: GLUCOSE 40% GEL 15 GM TUBE PO PRN (11:28)
[2024-11-20] MEDS ORDERED: GLUCAGON FOR INJ 1 MG VIAL SQ PRN (11:28)
--- NOTE | 2024-11-20 11:43 | Electrocardiogram Report ---
Test Reason : Blood Pressure : */* mmHG Vent. Rate : 64 BPM Atrial Rate : * BPM P-R Int : * ms QRS Dur : 96 ms QT Int : 430 ms P-R-T Axes : * -41 205 degrees QTcB Int : 443 ms Atrial fibrillation Left axis deviation Septal infarct , age undetermined Abnormal ECG When compared with ECG of 06-Sep-2024 08:17, Questionable change in QRS duration Septal infarct is now Present Confirmed by Kristopher River ([id number]) on 11/20/2024 11:42:43 AM Referred By: REFERRED SELF Confirmed By: Kristopher River
[2024-11-20] MEDS: INSULIN ASPART PER UNIT CHARGE SC SCH (13:26)
[2024-11-20] MEDS: ATORVASTATIN 40 MG TAB PO SCH (20:04)
[2024-11-20 21:09] VITALS: TEMP 97.5
[2024-11-21 06:47] LABS: Hematocrit (blood only) 33.4 % (42.0-52.0); Hemoglobin 11.6 g/dl (14.0-18.0); Immature Granulocytes # (auto) 0.14 K/uL (0.01-0.20); Immature Granulocytes % (auto) 1.0 %; Mean Corpuscular Hemoglobin 33.3 pg (25.0-34.0); Mean Corpuscular Volume 96.0 fL (80.0-100.0); Platelet Count 257 K/uL (130-400); RDW Standard Deviation 43.6 fL (36.4-46.3); Red Blood Count 3.48 M/uL (4.70-6.10); White Blood Count 13.62 K/ul (4.8-10.8)
[2024-11-21 07:09] LABS: Anion Gap 8.0 (3-11); Blood Urea Nitrogen 21.0 mg/dl (6-23); Calcium 8.4 mg/dl (8.6-10.3); Carbon Dioxide 24.0 mmol/L (21-32); Chloride 104.0 mmol/L (98-107); Creatinine Clr Calc Pharmacy 75.2 ml/min; Glucose 172.0 mg/dl (70-99(Fasting)); Potassium 4.2 mmol/L (3.5-5.1); Sodium 136.0 mmol/L (136-145)
[2024-11-21 08:22] VITALS: RESP 18; O2SAT 96
--- NOTE | 2024-11-21 10:19 | Discharge Summary ---
Date of Service November 21, 2024 Admission HPI Per Admitting Provider Patient is an 84-year-old male with past medical history of recent cardiac cath discharged from [facility] this morning with a complicated course including reported left groin rupture requiring repeat cath and stent placement with a current drain in place. Past medical history of A-fib s/p Watchman procedure in 2022, type II DM, hypertension. Patient presented via EMS after suspected syncopal episode in his bathroom at home after not having a bowel movement for approximately 4 to 5 days. He is being admitted for syncope requiring cardiac monitoring, however suspect vasovagal syncope with a bowel mo vement. Patient seen at bedside with his , son, and niece present. He stated he went home from [place] today feeling well. This evening when he went to have a bowel movement he is suspected to have had a syncopal episode as he does not remember however he does remember seeing him to have a bowel movement and then woke up to EMS and his present. His stated he was unconscious and EMS noted he was lethargic, confused, with dry heaves and had a BP of 78/42. His BP improved to 113/66 after liter of fluids with EMS. His stated he had 5 heart stents and 3 groin stents at [place] and has a current drain in place, dressings changed this morning prior to discharge. He has not had a bowel movement in approximately 4 to 5 days and does feel complicated. Patient denies any dizziness, shortness of breath, or chest pain before or after the fall. He is feeling well now other than having a dry mouth. He is most concerned about a new rash that started this afternoon on his back and is itchy, no allergies to antibiotics that he is aware of. He started a new antibiotic called Keflex with his drain, potassium supplement, and Plavix which were all started on Tuesday. He is due for his evening medications. He wishes to be DNR/DNI, his son is his medical power of staff attorney. Principal Diagnosis Vasovagal Syncope Contact dermatitis versus skin allergic reaction Discharge Exam General: Awake, conversant Heart: S1, S2/regular rate and rhythm, no murmur rubs or gallops Lungs: Clear to auscultation bilaterally. Normal effort Abdomen: Soft/nontender/nondistended. No hepatosplenomegaly Extremities: No clubbing/cyanosis. No edema Behavior: Appropriate, cooperative Discharge Data Allergies Allergy/AdvReac Type Severity Reaction Status Date / Time acetaminophen AdvReac Intermediate "DOES NOT Verified 10/03/24 11:36 AGREE WITH ME" aspirin AdvReac Intermediate "THIN Verified 10/03/24 11:36 BLOOD" caffeine AdvReac Intermediate "THIN Verified 10/03/24 11:36 BLOOD" phenacetin AdvReac Intermediate "THIN Verified 10/03/24 11:36 BLOOD" Sulfa (Sulfonamide AdvReac Intermediate GI UPSET Verified 10/03/24 11:36 Antibiotics) ANESTHESIA Allergy Intermediate Bradycardia Uncoded 10/03/24 11:36 Arrhythmia and Diaphoretic Consultations 11/20/24 00:44 ED Decision to Admit Stat Ordered Studies 11/19/24 22:14 CT abd pelvis wo con Stat 11/19/24 22:16 CT head/brain wo con Stat Hospital Course (1) Syncope: Suspected vasovagal etiology while straining to have a bowel movement. Monitored him on telemetry during the hospital stay (2) Contact dermatitis: Patient is on p.o. Keflex. He has 1 more week remaining. He was given a few doses of IV Solu-Medrol. He will be switched to prednisone taper that will last him until he gets off of Keflex. (3) Chronic atrial fibrillation: Rate controlled. Telemetry. He received a Watchman device in 2022 and is no longer on systemic anticoagulation. (4) Diabetes mellitus: ADA diet. Sliding scale coverage. The patient was told his glucose levels may increase with parenteral steroid therapy (5) Multi-vessel coronary artery stenosis: Currently stable. Continue medical management (6) Essential hypertension: Currently stable. Continue current medical management Plan Discharged to home today. Total Time Total Time Spent Total Time Spent (In Minutes): 35 Discharge Plan Discharge Items Patient Disposition: Home - Self-Care Reason For Visit: SYNCOPE Discharge Diagnosis: vasovasal syncope Condition on Discharge: Fair Activity: Resume your previous activity Non-emergency contact: Primary Care Provider Call non-emergency contact if: you have any medication questions and your symptoms worsen Follow-up/Referrals: Shy Lugo MD [Primary Care Provider] - 11/28/24 11:00 am Diet: Carb Consistent or DM2 and Heart Healthy Addtl Attending Provider Instructions: Advised to follow-up with PCP in 1 week Advised to note that you are being discharged with a Prednisone taper to cover the remaining duration of Keflex. Encouraged to ambulate at home. That will facilitate bowel movements. Pending Studies at Discharge: No Stand-Alone Forms: [facility] Medications and DC Order Prescriptions: New prednisone 10 mg tablet 10 mg PO DAILY Qty: 20 0RF Rx Instructions: 4 tabs for 2 days, then drop by 1 tab every 2 days, then stop Continued losartan 25 mg tablet 12.5 mg PO QAM Qty: 45 5RF (DME) lancets [OneTouch Delica Plus Lancet] 30 gauge misc See Rx Instructions .Route Qty: 100 0RF Rx Instructions: use once per day and as needed (DME) OneTouch Ultra Test Strip See Rx Instructions .Route Qty: 50 0RF Rx Instructions: once per day and as needed (DME) blood-glucose meter [[employer] FundTouch Ultra2 Meter] Misc See Rx Instructions .Route Qty: 1 0RF Rx Instructions: test once per day and as needed atorvastatin 40 mg tablet 40 mg PO DAILY Qty: 90 3RF isosorbide mononitrate 30 mg tablet extended release 24 hr 30 mg PO QAM Qty: 90 3RF aspirin [Adult Low Dose Aspirin] 81 mg tablet,delayed release (DR/EC) 81 mg PO DAILY metoprolol succinate 50 mg tablet extended release 24 hr 50 mg PO BID Qty: 180 3RF Probiotic 3 billion cell Capsule 3,000 mmu cells PO 3XWK Rx Instructions: TAKES MON, WED, & FRI Centrum Silver 400-250 mcg Tablet,Chewable 1 tab PO 3XWK Rx Instructions: TAKES MON, WED, & FRI. nitroglycerin 0.4 mg tablet, sublingual 0.4 mg sublingual Q5M PRN (Reason: chest pain) Qty: 14 0RF potassium chloride 20 mEq tablet extended release 20 meq PO DAILY cephalexin 500 mg capsule 500 mg PO QID clopidogrel 75 mg tablet 75 mg PO DAILY Discharge Orders: Discharge Order (Routine); Ordered 11/21/24 Ordered By: Fadumo Bruce Admission Data Admit Date/Time: 11/20/24 01:45 Attending Provider: Fadumo Bruce Admit Provider: Arash Elliott Primary Care Provider: Shy Lugo Other Providers: Arash Elliott; [facility]; [facility] [place]
[2024-11-21 10:31] VITALS: BP 103/68; PULSE 74
== END 2024-11-21 11:34 | disposition home or self-care (01) ==
LOC: ED 21:35 → 2N 21:35 → SUATTDRO 11-20 01:45 → 2N 11-20 02:45

== ENCOUNTER 2025-02-06 20:50 | Observation (INO) ==
[2025-02-06 21:19] LABS: Hematocrit (blood only) 42.7 % (42.0-52.0); Hemoglobin 15.2 g/dl (14.0-18.0); Mean Corpuscular Hemoglobin 33.5 pg (25.0-34.0); Mean Corpuscular Volume 94.1 fL (80.0-100.0); Platelet Count 243 K/uL (130-400); RDW Standard Deviation 42.7 fL (36.4-46.3); Red Blood Count 4.54 M/uL (4.70-6.10); White Blood Count 7.70 K/ul (4.8-10.8)
[2025-02-06] MEDS: ONDANSETRON INJ 2 MG/ML 2 ML VIAL IV STA (21:40)
[2025-02-06] MEDS: FAMOTIDINE 20MG IV PUSH 20 MG/5 ML SYR IV STA (21:40)
[2025-02-06] MEDS: SODIUM CHLORIDE 0.9% 1,000 ML IV ONE (21:41)
[2025-02-06] MEDS: OXYMETAZOLINE 0.05% 30 ML BTL ONE (21:41)
[2025-02-06 21:51] LABS: INR 1.0 (0.9-1.1); Partial Thromboplastin Time 27 Seconds (21-31); Prothrombin Time 11.0 Seconds (9.0-12.0)
--- NOTE | 2025-02-06 22:15 | Emergency Department Note ---
ED Visit Note I was consulted by the Advanced Practice Provider, Ashlee Dawson PA-C. I performed a substantive portion of the visit. This includes aspects of: History: Patient is an 84-year-old male presenting with epistaxis. Patient had a nosebleed cauterized with ENT yesterday. He presents with acute bleed. He was found to be hypotensive and passed out. MDM: Epistaxis was stopped with Afrin nasal spray and a clamp. Patient did have transient hypotension that improved in the emergency department after fluids. He will be admitted to the hospitalist service for further evaluation and monitoring. .
[2025-02-06 22:27] LABS: Alanine Aminotransferase 17 U/L (7-52); Albumin Globulin Ratio 1.2 (0.9-2); Albumin Level 3.4 gm/dl (3.4-5.0); Alkaline Phosphatase 51 U/L (34-104); Anion Gap 5 (3-11); Bilirubin,Total 0.9 mg/dl (0.2-1.0); Blood Urea Nitrogen 19 mg/dl (6-23); Calcium 7.9 mg/dl (8.6-10.3); Carbon Dioxide 27 mmol/L (21-32); Chloride 107 mmol/L (98-107); Globulin 2.8 gm/dl (2.5-4.0); Glucose 205 mg/dl (70-99(Fasting)); Potassium 3.7 mmol/L (3.5-5.1); Sodium 139 mmol/L (136-145); Total Protein 6.2 gm/dl (6.0-8.3)
--- NOTE | 2025-02-06 22:35 | Emergency Department Note ---
History of Present Illness General Chief complaint: Nose Bleed (Major) Stated complaint: NOSE BLEED Time Seen by Provider: 02/06/25 21:26 History of Present Illness This 84-year-old male that was cauterized yesterday with ENT who presents today for epistaxis. Family tried Afrin and pressure at home. Patient was hypotensive and passed out in the room. As meetly called the room. Nasal clamp is in place. Patient states he got lightheaded and passed out he did urinate himself also. Patient denies chest pain, dyspnea, abdominal pain, vomiting, diarrhea. Home Medications Medication Instructions Recorded Confirmed Type lactobacillus combination no.4 3 3,000 mmu cells PO QDL 09/14/18 02/06/25 History billion cell capsule (Probiotic) ezmyckwhkfus-jyqcoqp-ppipn acid 1 tab PO QDL 03/30/19 02/06/25 History 400 mcg-lutein 250 mcg chewable tablet (Centrum Silver) aspirin 81 mg tablet,delayed 81 mg PO DAILY 03/23/24 02/06/25 History release (Adult Low Dose Aspirin) nitroglycerin 0.4 mg sublingual 0.4 mg sublingual Q5M PRN chest 09/07/24 02/06/25 Rx tablet pain #14 tabs blood sugar diagnostic (OneTouch #50 ea 09/14/24 01/15/25 Rx Ultra Test strips) blood-glucose meter (OneTouch #1 ea 09/14/24 01/15/25 Rx Ultra2 Meter) lancets 30 gauge (OneTouch Delica #100 ea 09/14/24 01/15/25 Rx Plus Lancet) metoprolol succinate 50 mg 50 mg PO BID #180 tabs 10/03/24 02/06/25 Rx tablet,extended release 24 hr clopidogrel 75 mg tablet 75 mg PO DAILY 11/20/24 02/06/25 History fluticasone propionate 50 1 spray intranasal DAILY PRN 12/14/24 02/06/25 History mcg/actuation nasal Congestion spray,suspension (Flonase Allergy Relief) lorazepam 0.5 mg tablet 0.5 mg PO DAILY PRN Anxiety 12/14/24 02/06/25 History atorvastatin 40 mg tablet 40 mg PO HS 02/06/25 02/06/25 History mirtazapine 15 mg tablet 7.5 mg PO HS 02/06/25 02/06/25 History Allergies Allergy/AdvReac Type Severity Reaction Status Date / Time acetaminophen AdvReac Intermediate "DOES NOT Verified 02/06/25 23:43 AGREE WITH ME" aspirin AdvReac Intermediate "THIN Verified 02/06/25 23:43 BLOOD" caffeine AdvReac Intermediate "THIN Verified 02/06/25 23:43 BLOOD" phenacetin AdvReac Intermediate "THIN Verified 02/06/25 23:43 BLOOD" Sulfa (Sulfonamide AdvReac Intermediate GI UPSET Verified 02/06/25 23:43 Antibiotics) ANESTHESIA Allergy Intermediate Bradycardia Uncoded 02/06/25 23:43 Arrhythmia and Diaphoretic Past Med/Surg History Problem List (Updated 02/07/25 @ 01:02 by Ashlee Dawson PA-C) Acute anterior epistaxis (Acute) Hypotension (Acute) Syncope (Acute) Right-sided Arambula's palsy Epistaxis (Acute) Essential hypertension Chronic atrial fibrillation History of coronary artery disease (Acute) Hypotension (Acute) Multi-vessel coronary artery stenosis Situational anxiety Aortic regurgitation Status post catheter ablation of atrial flutter LVH (left ventricular hypertrophy) PSVT (paroxysmal supraventricular tachycardia) Atrial flutter Pure hypercholesterolemia (Chronic) Diverticulosis of colon (without mention of hemorrhage) (Chronic) Vasovagal syncope (Chronic) Umbilical hernia (Chronic) Seasonal allergies (Chronic) Osteoarthritis of knee (Chronic) Hypercholesterolemia (Chronic) Essential hypertriglyceridemia (Chronic) Eczema (Chronic) Benign prostatic hyperplasia (Chronic) Atrial premature complex (Chronic) Arthritis (Chronic) Anxiety disorder (Chronic) Aneurysm of aortic arch (Chronic) Hypertension, essential SVT (supraventricular tachycardia) Diabetes mellitus type 2, diet-controlled Medical History Thoracic ascending aortic aneurysm Presence of Watchman left atrial appendage closure device Unspecified atrial fibrillation History of anesthesia reaction Osteoarthritis Bleeding hemorrhoid Anxiety Transient ischemic attack (TIA) Irregular heart beat Hyperlipemia Hypertension Stroke Surgical History S/P ablation of atrial flutter History of removal of cyst (03/30/19) History of colonoscopy History of tooth extraction History of cataract surgery Family History Mother Diabetes Hypertension Father Cancer Family/Other Cancer Other Family history non-contributory Denies family history of Ovarian cancer Prostate cancer Myocardial infarction Breast cancer Colorectal cancer Social History Smoking Status: Never smoker Tobacco Type: Cigarettes Age Started Using Tobacco: 18; Age Quit Using Tobacco: 44; packs per day: 0.5; Second Hand Exposure: No; Do You Dip or Chew Tobacco: No; Hx Alcohol Use: Yes Alcohol type: wine Hx Substance Use: No Preferred Language: Moroccan Communication Ability: Effective Visual Impairment: No Limitations Hearing Ability: Normal Casino [employer] Server Required: No Beliefs That Will Affect Care: None marital status: Current Living Situation: Spouse Current Living Situation Comment: lives home with current occupational status: retired 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 Feels Safe at Home: Yes Childhood Exposure to Second-Hand Smoke: Yes Diet: regular Dental Care, Regularly: Yes Physical Activity Frequency: Does not Exercise Seatbelt Use: always Sunscreen Use: No Assistive Devices: Walker Review of Systems A total of 10 systems reviewed and were otherwise negative Physical Exam Vital Signs Vital Signs - 24 hr 02/06/25 20:55 02/06/25 21:23 02/06/25 21:46 Temperature 36.5 C Temperature Source Temporal Artery Scan Pulse Rate 85 Pulse Rate [Apical] 43 L 72 Pulse Rhythm [Apical] Regular Pulse Strength [Apical] Normal Respiratory Rate 17 12 20 Respiratory Effort / Characteristics Non-Labored Non-Labored Spontaneous Respiratory Depth Normal Normal Respiratory Pattern Regular Blood Pressure 138/88 Blood Pressure [Right Arm] 75/48 L 104/74 Blood Pressure Mean 104 Blood Pressure Mean [Right Arm] 57 84 Blood Pressure Position [Right Arm] Lying Pulse Oximetry 97 93 93 Oxygen Delivery Method Room Air Room Air Room Air Sepsis Recent Fever Within 48 Hours No Sepsis New/Unexplained Change in Mental Status No Sepsis Action Taken by Nursing No Action Required 02/06/25 22:11 02/06/25 23:00 Temperature Temperature Source Pulse Rate 75 Pulse Rate [Apical] Pulse Rhythm [Apical] Pulse Strength [Apical] Respiratory Rate Respiratory Effort / Characteristics Non-Labored Respiratory Depth Normal Respiratory Pattern Blood Pressure Blood Pressure [Right Arm] Blood Pressure Mean Blood Pressure Mean [Right Arm] Blood Pressure Position [Right Arm] Pulse Oximetry Oxygen Delivery Method Sepsis Recent Fever Within 48 Hours Sepsis New/Unexplained Change in Mental Status Sepsis Action Taken by Nursing VITALS: Vitals are noted on the nurse's note and reviewed by myself. Vital signs initially hypotensive but improved with IV fluids. GENERAL: Elderly male pale and diaphoretic, in acute distress, nondiaphoretic, well-developed well-nourished. SKIN: The skin was without rashes, erythema, edema, or bruising. There is no tenting of the skin. Capillary reflex less than 2 seconds. HEAD: Normocephalic atraumatic. EARS: External auditory canals clear EYES: Pupils equal round and reactive to light and accommodation. Conjunctivae without injection, sclerae without icterus. Extraocular movements intact. NOSE: Active bleeding from the Kiesselbach plexus area on the right nostril. Left nostril clear. MOUTH: Mucous membranes moist. Pharynx without erythema or exudate. Uvula midline. Airway patent. Tongue does not deviate. NECK: Supple without nuchal rigidity. No lymphadenopathy. No thyromegaly. Cervical spine is nontender. No JVD. HEART: Regular rate and rhythm LUNGS: Clear to auscultation bilaterally without wheezes, rales or rhonchi. No retractions or accessory muscle use. ABDOMEN: Positive bowel sounds x 4. Normal tympanic percussion. Soft, nontender, without masses or organomegaly. Larson sign negative. No guarding or rebound tenderness. No CVA tenderness MUSCULOSKELETAL: No muscle atrophy, erythema, or edema noted. NEURO: Patient was alert and oriented to person place and time. Normal sensation to light and sharp touch. No focal neurological deficits. Course Administered Medications Discontinued Medications Sodium Chloride (Nss) 1,000 mls @ 999 mls/hr IV .Q1H1M ONE Stop: 02/06/25 22:32 Last Infusion: 02/06/25 22:10 Dose: Infused Documented By: Admin: 02/06/25 21:41 Dose: 999 mls/hr Documented By: LOUIS Famotidine (Pepcid 20mg Iv Push) 20 mg in 5 mls @ 2.5 mls/min IV NOW STA Stop: 02/06/25 21:35 Last Admin: 02/06/25 21:40 Dose: 2.5 mls/min Documented By: LOUIS Ondansetron HCl (Ondansetron Inj 2 Mg/Ml 2 Ml Vial) 4 mg IV NOW STA Stop: 02/06/25 21:35 Last Admin: 02/06/25 21:40 Dose: 4 mg Documented By: LOUIS Oxymetazoline HCl (Oxymetazoline 0.05% 30 Ml Btl) 1 sprays NA NOW ONE Stop: 02/06/25 21:33 Last Admin: 02/06/25 21:41 Dose: 1 sprays Documented By: LOUIS Critical Care Time Critical Care Time: Yes Total Critical Care Time: 35 I have personally spent 35 minutes of critical care time in the direct management of this patient. This includes bedside care, interpretation of diagnostic studies, and testing, discussion with consultants, patient, and family members, and other required patient management activities. This 35 minutes is in excess of all separately billable procedures. Medical Decision Making Medical Records Attestation: I reviewed the patient's medical records. Home Medications Current Medication List: was personally reviewed by me Laboratory Data Attestation: I reviewed the patient's lab results. 02/06/25 21:05 02/06/25 21:59 Lab Results 02/06/25 02/06/25 Range/Units 21:05 21:59 WBC 7.70 (4.8-10.8) K/ul RBC 4.54 L (4.70-6.10) M/uL Hgb 15.2 (14.0-18.0) g/dl Hct 42.7 (42.0-52.0) % MCV 94.1 (80.0-100.0) fL MCH 33.5 (25.0-34.0) pg MCHC 35.6 (32.0-36.0) g/dL RDW Std Deviation 42.7 (36.4-46.3) fL RDW Coeff of Marily 12.3 (11.5-14.5) % Plt Count 243 (130-400) K/uL MPV 9.3 L (9.4-12.4) fL PT 11.0 (9.0-12.0) Seconds INR 1.0 (0.9-1.1) APTT 27 (21-31) Seconds PTT Ratio 1.0 Sodium 139 (136-145) mmol/L Potassium 3.7 (3.5-5.1) mmol/L Chloride 107 (98-107) mmol/L Carbon Dioxide 27 (21-32) mmol/L Anion Gap 5 (3-11) BUN 19 (6-23) mg/dl Creatinine 1.18 (0.6-1.4) mg/dl Est Cr Clr Drug Dosing Not Reportable eGFR 61.61 BUN/Creatinine Ratio 16.1 (10-20) Glucose 205 H (70-99(Fasting)) mg/dl Calcium 7.9 L (8.6-10.3) mg/dl Total Bilirubin 0.9 (0.2-1.0) mg/dl AST 15 (13-39) U/L ALT 17 (7-52) U/L Alkaline Phosphatase 51 (34-104) U/L Troponin I High Sens 8.1 (0-20) pg/ml Total Protein 6.2 (6.0-8.3) gm/dl Albumin 3.4 (3.4-5.0) gm/dl Globulin 2.8 (2.5-4.0) gm/dl Albumin/Globulin Ratio 1.2 (0.9-2) MDM Narrative prior records/ancillary studies reviewed. Triage Nursing notes reviewed. Additional history obtained from family. The patient's history was concerning for epistaxis. Differential diagnosis: Etiologies such as anterior epistaxis, coagulopathy, traumatic injury, fracture, septal hematoma, posterior epistaxis as well as other pathologies were entertained. Physical examination findings: As above. Anterior bleeding source. ER treatment provided: Direct pressure Intranasal phenylephrine Pepcid and Protonix were ordered, Zofran was ordered On reassessment the patient felt better. Diagnostics interpreted by me: EKG ordered for syncope EKG: Irregularly irregular with no acute ST-T wave changes, impression atrial fibrillation rate controlled independently interpreted by myself The labs Independently Interpreted by myself revealed stable H&H, negative troponin. No worrisome leukocytosis. Normal coag Consultation: A consultation was placed with hospitalist. The case was discussed and diagnostics were reviewed. The patient was evaluated in the ER for further treatment. Patient was admitted to their service. This appears to be consistent with anterior epistaxis who syncopized and who was hypotensive. Patient was observed for quite some time. He will be evaluated for admission for syncope. He was given IV fluids and blood pressure did improve. He most likely vagal. He also did urinate himself when he passed out. H&H was stable. Vital signs improved with IV fluids. He is agreeable to treatment plan of admission. By the evaluation outlined above emergent etiologies such as coagulopathy, traumatic injury, fracture, septal hematoma, posterior epistaxis, as well as others were deemed relatively unlikely. The pt informed about the findings as listed above. All questions were answered and pleased with the treatment. Return The chart was completed utilizing [employer] Speech voice recognition software. Grammatical errors, random word insertions, pronoun errors, and incomplete sentences are an occassional consequence of this system due to software limitations, ambient noise, and hardware issues. Any formal questions or concerns about the content, text, or information contained within the body of this dictation should be directly addressed to the physician higher level teaching assistant for clarification. Impression & Plan Syncope, Hypotension, Acute anterior epistaxis Discharge Plan Visit Data Chief Complaint: Nose Bleed (Major) Stated Complaint: NOSE BLEED ED Provider: Franny Mensah ED Midlevel Provider: Ashlee Dawson Discharge Problem: Syncope, Hypotension, Acute anterior epistaxis Patient Disposition: Admitted As Inpatient Condition: Good Forms Stand Alone Forms: [employer] Prescriptions Prescriptions: No Action (DME) lancets [OneTouch Delica Plus Lancet] 30 gauge misc See Rx Instructions .Route Qty: 100 0RF Rx Instructions: use once per day and as needed (DME) OneTouch Ultra Test Strip See Rx Instructions .Route Qty: 50 0RF Rx Instructions: once per day and as needed (DME) blood-glucose meter [OneTouch Ultra2 Meter] Misc See Rx Instructions .Route Qty: 1 0RF Rx Instructions: test once per day and as needed aspirin [Adult Low Dose Aspirin] 81 mg tablet,delayed release (DR/EC) 81 mg PO DAILY metoprolol succinate 50 mg tablet extended release 24 hr 50 mg PO BID Qty: 180 3RF lorazepam 0.5 mg tablet 0.5 mg PO DAILY PRN (Reason: Anxiety) fluticasone propionate [Flonase Allergy Relief] 50 mcg/actuation spray,suspension 1 spray intranasal DAILY PRN (Reason: Congestion) Rx Instructions: administer into each nostril Probiotic 3 billion cell Capsule 3,000 mmu cells PO QDL Centrum Silver 400-250 mcg Tablet,Chewable 1 tab PO QDL nitroglycerin 0.4 mg tablet, sublingual 0.4 mg sublingual Q5M PRN (Reason: chest pain) Qty: 14 0RF clopidogrel 75 mg tablet 75 mg PO DAILY mirtazapine 15 mg tablet 7.5 mg PO HS atorvastatin 40 mg tablet 40 mg PO HS Referrals Referrals: Shy Lugo MD [Primary Care Provider] - Discharge Problem: Syncope Qualifiers: Syncope type: vasovagal syncope Qualified Code(s): R55 - Syncope and collapse
--- NOTE | 2025-02-07 00:13 | History & Physical Report ---
Date of Service February 07, 2025 Assessment & Plan (1) Syncope: (2) Acute anterior epistaxis: (3) Essential hypertension: (4) Multi-vessel coronary artery stenosis: Plan 84yo male with history of CAD, HTN, HLP presenting with epistaxis at home. Syncopal event in the ER. #Syncope -Telemetry monitoring -Check orthostatic vital signs #Epistaxis - now resolved -Continue to monitor -CBC in AM #Multivessel CAD s/p stent placement in November 2024 -Continue ASA and plavix for now -Continue Atorvastatin - [place] [facility] if [place] can be stopped. Patient has experienced several nosebleeds since being on DAPT History of Present Illness Chief Complaint: syncope Primary Care Provider: Shy Lugo MD Jamal Ermias is an 84yo male with history of CAD s/p 5 stents placed on November 12 2024 complicated by damage to the femoral artery s/p surgical repair presenting with syncope, epistaxis. Patient had an episode of epistaxis earlier in the month which was packed. Had a second episode of epistaxis requiring cautery by ENT performed 02/05/25. Today patient got up to use the restroom and started bleeding from his nose. He tried Afrin and Afrin soaked gauze with a clamp but bleeding continued - first out of left nostril then out of right nostril. He has spit up two bloody clots. Bleeding has since stopped. He had a syncopal event in the ER while transferring. No chest pain or SOB. Allergies Allergy/AdvReac Type Severity Reaction Status Date / Time acetaminophen AdvReac Intermediate "DOES NOT Verified 02/06/25 23:43 AGREE WITH ME" aspirin AdvReac Intermediate "THIN Verified 02/06/25 23:43 BLOOD" caffeine AdvReac Intermediate "THIN Verified 02/06/25 23:43 BLOOD" phenacetin AdvReac Intermediate "THIN Verified 02/06/25 23:43 BLOOD" Sulfa (Sulfonamide AdvReac Intermediate GI UPSET Verified 02/06/25 23:43 Antibiotics) ANESTHESIA Allergy Intermediate Bradycardia Uncoded 02/06/25 23:43 Arrhythmia and Diaphoretic Home Medications Medication Instructions Recorded Confirmed Type lactobacillus combination no.4 3 3,000 mmu cells PO QDL 09/14/18 02/06/25 History billion cell capsule (Probiotic) ydusrzjqhwme-vwuaonc-xopcz acid 1 tab PO QDL 03/30/19 02/06/25 History 400 mcg-lutein 250 mcg chewable tablet (Centrum Silver) aspirin 81 mg tablet,delayed 81 mg PO DAILY 03/23/24 02/06/25 History release (Adult Low Dose Aspirin) nitroglycerin 0.4 mg sublingual 0.4 mg sublingual Q5M PRN chest 09/07/2406/02 Rx tablet pain #14 tabs blood sugar diagnostic (OneTouch #50 ea 09/14/24 01/15/25 Rx Ultra Test strips) blood-glucose meter (OneTouch #1 ea 09/14/24 01/15/25 Rx Ultra2 Meter) lancets 30 gauge (OneTouch Delica #100 ea 09/14/24 01/15/25 Rx Plus Lancet) metoprolol succinate 50 mg 50 mg PO BID #180 tabs 10/03/24 02/06/25 Rx tablet,extended release 24 hr clopidogrel 75 mg tablet 75 mg PO DAILY 11/20/24 02/06/25 History fluticasone propionate 50 1 spray intranasal DAILY PRN 12/14/24 02/06/25 History mcg/actuation nasal Congestion spray,suspension (Flonase Allergy Relief) lorazepam 0.5 mg tablet 0.5 mg PO DAILY PRN Anxiety 12/14/24 02/06/25 History atorvastatin 40 mg tablet 40 mg PO HS 02/06/25 02/06/25 History mirtazapine 15 mg tablet 7.5 mg PO HS 02/06/25 02/06/25 History Past Med/Surg History Problem List Acute anterior epistaxis (Acute) Hypotension (Acute) Syncope (Acute) Right-sided Arambula's palsy Epistaxis (Acute) Essential hypertension Chronic atrial fibrillation History of coronary artery disease (Acute) Hypotension (Acute) Multi-vessel coronary artery stenosis Situational anxiety Aortic regurgitation Status post catheter ablation of atrial flutter LVH (left ventricular hypertrophy) PSVT (paroxysmal supraventricular tachycardia) Atrial flutter Pure hypercholesterolemia (Chronic) Diverticulosis of colon (without mention of hemorrhage) (Chronic) Vasovagal syncope (Chronic) Umbilical hernia (Chronic) Seasonal allergies (Chronic) Osteoarthritis of knee (Chronic) Hypercholesterolemia (Chronic) Essential hypertriglyceridemia (Chronic) Eczema (Chronic) Benign prostatic hyperplasia (Chronic) Atrial premature complex (Chronic) Arthritis (Chronic) Anxiety disorder (Chronic) Aneurysm of aortic arch (Chronic) Hypertension, essential SVT (supraventricular tachycardia) Diabetes mellitus type 2, diet-controlled Medical History Thoracic ascending aortic aneurysm Presence of Watchman left atrial appendage closure device Unspecified atrial fibrillation History of anesthesia reaction BRADYCARDIA AND O2 SAT DROPS Osteoarthritis Bleeding hemorrhoid NOT CURRENLTY BLEEDING Anxiety Transient ischemic attack (TIA) ? (DX ON MRI BUT NEVER HAD SYMPTOMS OF EVENT) Irregular heart beat Hyperlipemia Hypertension Stroke Surgical History S/P ablation of atrial flutter History of removal of cyst (03/30/19) Back Sebaceous Cyst Excision Dr. Galloway 03/30/19 History of colonoscopy History of tooth extraction History of cataract surgery RT/LEFT Family History Mother Diabetes Hypertension Father Cancer Family/Other Cancer Other Family history non-contributory Denies family history of Ovarian cancer Prostate cancer Myocardial infarction Breast cancer Colorectal cancer Social History Smoking Status: Former smoker Tobacco Type: Cigarettes Age Started Using Tobacco: 18; Age Quit Using Tobacco: 44; packs per day: 0.5; Second Hand Exposure: No; Do You Dip or Chew Tobacco: No; Hx Alcohol Use: No Hx Substance Use: No Preferred Language: Salvadorean Communication Ability: Effective Visual Impairment: No Limitations Hearing Ability: Normal Senior Integration Architect Required: No Beliefs That Will Affect Care: Restorationist Restorationist Beliefs: pt says he is not allowed to eat pork marital status: Current Living Situation: Spouse Current Living Situation Comment: lives home with current occupational status: retired 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 Feels Safe at Home: Yes Safety Concerns: Feels Safe At This Time Childhood Exposure to Second-Hand Smoke: Yes Diet: regular Dental Care, Regularly: Yes Physical Activity Frequency: Does not Exercise Seatbelt Use: always Sunscreen Use: No Assistive Devices: Glasses and Walker Review of Systems Review of Systems: All systems reviewed & are unremarkable except as noted in HPI & below Physical Exam Physical Exam: General: patient resting comfortably, NAD, non-toxic in appearance, AA&O x 4 Skin: warm, dry, intact, no rashes or lesions HEENT: NC/AT, PERRL, EOMI, anicteric sclera, conjunctiva without injection, external ear normal to inspection and nontender, nares patent, moist mucus membranes, dentition intact, no oropharyngeal lesions, neck supple, trachea midline, no LAD, no thyromegaly, no JVD Heart: +S1/S2, regular, no m/r/g Lungs: equal air entry bilaterally, no rales/rhonchi/wheezes Abd: +BS, soft, NT/ND, no masses/organomegaly/ascites Ext: warm, 2+ pulses in UE/LE bilaterally, no clubbing/cyanosis or edema Neuro: nonfocal, patient AA&O x 4, speech intact, no facial droop, moving all extremities on command with equal strength 5/5 Results & Data Results & Data Vital Signs (Past 12 Hours) Vital Signs Temp Pulse Pulse Resp BP BP Pulse Ox 02/06/25 22:11 75 02/06/25 21:46 72 20 104/74 93 02/06/25 21:23 43 L 12 75/48 L 93 02/06/25 20:55 36.5 C 85 17 138/88 97 O2 Del Method 02/06/25 22:11 02/06/25 21:46 Room Air 02/06/25 21:23 Room Air 02/06/25 20:55 Room Air Laboratory Results Laboratory Results WBC 7.70 K/ul (4.8-10.8) 02/06/25 21:05 RBC 4.54 M/uL (4.70-6.10) L 02/06/25 21:05 Hgb 15.2 g/dl (14.0-18.0) 02/06/25 21:05 Hct 42.7 % (42.0-52.0) 02/06/25 21:05 MCV 94.1 fL (80.0-100.0) 02/06/25 21:05 MCH 33.5 pg (25.0-34.0) 02/06/25 21:05 MCHC 35.6 g/dL (32.0-36.0) 02/06/25 21:05 RDW Std Deviation 42.7 fL (36.4-46.3) 02/06/25 21:05 RDW Coeff of Marily 12.3 % (11.5-14.5) 02/06/25 21:05 Plt Count 243 K/uL (130-400) 02/06/25 21:05 MPV 9.3 fL (9.4-12.4) L 02/06/25 21:05 PT 11.0 Seconds (9.0-12.0) 02/06/25 21:05 INR 1.0 (0.9-1.1) 02/06/25 21:05 APTT 27 Seconds (21-31) 02/06/25 21:05 PTT Ratio 1.0 02/06/25 21:05 Sodium 139 mmol/L (136-145) 02/06/25 21:59 Potassium 3.7 mmol/L (3.5-5.1) 02/06/25 21:59 Chloride 107 mmol/L (98-107) 02/06/25 21:59 Carbon Dioxide 27 mmol/L (21-32) 02/06/25 21:59 Anion Gap 5 (3-11) 02/06/25 21:59 BUN 19 mg/dl (6-23) 02/06/25 21:59 Creatinine 1.18 mg/dl (0.6-1.4) 02/06/25 21:59 Est Cr Clr Drug Dosing Not Reportable 02/06/25 21:59 eGFR 61.61 02/06/25 21:59 BUN/Creatinine Ratio 16.1 (10-20) 02/06/25 21:59 Glucose 205 mg/dl (70-99(Fasting)) H 02/06/25 21:59 Calcium 7.9 mg/dl (8.6-10.3) L 02/06/25 21:59 Total Bilirubin 0.9 mg/dl (0.2-1.0) 02/06/25 21:59 AST 15 U/L (13-39) 02/06/25 21:59 ALT 17 U/L (7-52) 02/06/25 21:59 Alkaline Phosphatase 51 U/L (34-104) 02/06/25 21:59 Troponin I High Sens 8.1 pg/ml (0-20) 02/06/25 21:59 Total Protein 6.2 gm/dl (6.0-8.3) 02/06/25 21:59 Albumin 3.4 gm/dl (3.4-5.0) 02/06/25 21:59 Globulin 2.8 gm/dl (2.5-4.0) 02/06/25 21:59 Albumin/Globulin Ratio 1.2 (0.9-2) 02/06/25 21:59 Code Status & VTE Plan VTE Prophylaxis Plan VTE Prophylaxis will be ordered: Yes PG Care Time/CCT Total # of Minutes Spent Total Time Spent with Patient: Total time spent is greater than 50% in coordination of care (as documented) at patient's floor/unit and/or counseling patient: Coding Level of Care Code 92675 INT INP/OBS CARE 375MIN Diagnoses Syncope R55 Syncope type: vasovagal syncope Acute anterior epistaxis R04.0 Essential hypertension I10 Multi-vessel coronary artery stenosis I25.10 (1) Syncope Syncope type: vasovagal syncope Qualified Code(s): R55 - Syncope and collapse
[2025-02-07] MEDS: MIRTAZAPINE TAB 15 MG TAB PO ONE (01:22)
[2025-02-07] MEDS: ATORVASTATIN 40 MG TAB PO STA (01:22)
[2025-02-07] MEDS ORDERED: ONDANSETRON INJ 2 MG/ML 2 ML VIAL IV PRN (02:30)
[2025-02-07] MEDS ORDERED: FLUTICASONE PROPIONATE NA SPR 16 GM BTL PRN (02:30)
[2025-02-07] MEDS ORDERED: LORazepam 0.5 MG TAB PO PRN (02:30)
[2025-02-07] MEDS ORDERED: ACETAMINOPHEN 325 MG TAB PO PRN (02:30)
[2025-02-07] MEDS ORDERED: DOCUSATE SODIUM 100 MG CAP PO PRN (02:30)
[2025-02-07 04:37] VITALS: RESP 18; O2SAT 94
[2025-02-07 07:23] VITALS: BP 129/81; TEMP 98.1
--- NOTE | 2025-02-07 08:37 | Electrocardiogram Report ---
Test Reason : Blood Pressure : */* mmHG Vent. Rate : 74 BPM Atrial Rate : * BPM P-R Int : * ms QRS Dur : 88 ms QT Int : 428 ms P-R-T Axes : * -26 90 degrees QTcB Int : 475 ms Atrial fibrillation Abnormal ECG When compared with ECG of 19-Dec-2024 13:56, QRS axis Shifted left T wave inversion less evident in Anterior leads Confirmed by Farhan Henry ([id number]) on 02/07/2025 8:37:15 AM Referred By: REFERRED SELF Confirmed By: Farhan Henry
[2025-02-07] MEDS: ASPIRIN 81 MG ECTAB PO SCH (08:42)
[2025-02-07] MEDS: CLOPIDOGREL BISULFATE 75 MG TAB PO SCH (08:42)
[2025-02-07 09:35] LABS: Hematocrit (blood only) 39.4 % (42.0-52.0); Hemoglobin 13.7 g/dl (14.0-18.0); Mean Corpuscular Hemoglobin 32.8 pg (25.0-34.0); Mean Corpuscular Volume 94.3 fL (80.0-100.0); Platelet Count 208 K/uL (130-400); RDW Standard Deviation 43.5 fL (36.4-46.3); Red Blood Count 4.18 M/uL (4.70-6.10); White Blood Count 9.02 K/ul (4.8-10.8)
[2025-02-07 09:54] LABS: Anion Gap 7.0 (3-11); Blood Urea Nitrogen 17.0 mg/dl (6-23); Calcium 8.7 mg/dl (8.6-10.3); Carbon Dioxide 26.0 mmol/L (21-32); Chloride 105.0 mmol/L (98-107); Creatinine Clr Calc Pharmacy 61.9 ml/min; Glucose 201.0 mg/dl (70-99(Fasting)); Potassium 4.2 mmol/L (3.5-5.1); Sodium 138.0 mmol/L (136-145)
--- NOTE | 2025-02-07 10:54 | Discharge Summary ---
Discharge Summary Date of Service February 07, 2025 Principal Dx & Hospital Course #1 = Principal Diagnosis (1) Syncope: (2) Acute anterior epistaxis: (3) Essential hypertension: (4) Multi-vessel coronary artery stenosis: Plan #Epistaxis 84yo male with history of CAD, HTN, HLP presenting with epistaxis at home. Has had multiple episodes of epistaxis, follows with ENT. Exacerbated by DAPT from recent heart stent 11/2024. Continue DAPT - has reached out to [facility] [place] to see if this can be stopped, however, I suspect it will need to be continued for 6 months. No further recurrence of epistaxis while inpatient - we discussed further prevention strategies (humidifier in room at night, not blowing nose, using qtip instead of finger to apply vaseline, etc). Hgb acceptable. Routine ENT follow up. #Syncope Syncopal event in the ER during nose bleed. No events on tele, orthostatic VS negative. Suspect hypotensive/vagal event. If continues to have lightheadedness or dizziness, Consider decreasing his metoprolol to daily #Multivessel CAD s/p stent placement in November 2024 -Continue ASA and plavix and atorvastatin. discussing with [facility] if DAPT can be stopped Admission HPI Per Admitting Provider Jamal Monson is an 84yo male with history of CAD s/p 5 stents placed on November 12 2024 complicated by damage to the femoral artery s/p surgical repair presenting with syncope, epistaxis. Patient had an episode of epistaxis earlier in the month which was packed. Had a second episode of epistaxis requiring cautery by ENT performed 02/05/25. Today patient got up to use the restroom and started bleeding from his nose. He tried Afrin and Afrin soaked gauze with a clamp but bleeding continued - first out of left nostril then out of right nostril. He has spit up two bloody clots. Bleeding has since stopped. He had a syncopal event in the ER while transferr ing. No chest pain or SOB. Discharge Plan Discharge Items Patient Disposition: Home - Self-Care Reason For Visit: NOSEBLEED, SYNCOPE Discharge Diagnosis: Nosebleed Condition on Discharge: Good Activity: Resume your previous activity Weightbearing: Full weightbearing Non-emergency contact: Primary Care Provider Call non-emergency contact if: you have any medication questions, your pain is not controlled and your temperature is above 101 Follow-up/Referrals: Shy Lugo MD [Primary Care Provider] - 02/14/25 11:00 am (follow up within one week ) Sky Acuña MD [Physician] - (keep appointment 02/22 ) Diet: Heart Healthy Addtl Attending Provider Instructions: Mr. Monson, Aj were hospitalized after having another nose bleed and an episode of syncope. The syncope was likely from low blood pressure, called a vagal event from the bleeding. We checked your orthostatic vital signs and your blood pressure does not drop when you stand, which is reassuring. Unfortunately because you are only 3 months out from your heart stent placement, you are likely going to have to stay on the aspirin and plavix. If Shreya tells you differently please follow their recommendations. Continue to follow the recommendations from ENT to prevent nose bleeds. Also recommend: - not blowing your nose, especially forcefully, also drainage to drip out of your nose. Blowing your nose can dislodge clots - If you have increased congestion, take Mucinex - do not stick your fingers in your nose, can use a small qtip to apply vaseline/neosporin on the edges - keep a humidifier by you, especially at night when you are sleeping. Follow up with your PCP within one week, follow up with ENT as scheduled. No changes to your home medications. If you are having worsening lightheadedness or dizziness at home, would recommend decreasing your metoprolol to once a day. Activity: You can do normal everyday activities as your body allows. Take rest breaks if you feel tired. Do not overexert. Stop activity if you have pain, shortness of breath or feel dizzy. Follow-up appointments: Make an appointment with your primary care physician within one week of discharge. A copy of this summary will be sent to them. Every time you see your primary care physician, or any other doctor, bring your medication list, and a list of questions. CONTACT YOUR PRIMARY CARE PROVIDER if you experience any of the following: Shortness of breath or difficulty breathing Fevers or chills Feeling tired with normal activity or experiencing dizziness or fainting Difficulty following your treatment plan, or difficulty taking medications CALL 911 OR GO TO THE EMERGENCY DEPARTMENT if you experience any of the following: Severe abdominal pain or nausea/vomiting Severe chest pain, or chest pain that radiates (moves) to your jaw or arm Sudden, severe shortness of breath or difficulty breathing Thank you for allowing us to participate in your care. Pending Studies at Discharge: No Stand-Alone Forms: My [facility], Smoking Cessation Medications and DC Order Prescriptions: Continued (DME) lancets [OneTouch Delica Plus Lancet] 30 gauge misc See Rx Instructions .Route Qty: 100 0RF Rx Instructions: use once per day and as needed (DME) OneTouch Ultra Test Strip See Rx Instructions .Route Qty: 50 0RF Rx Instructions: once per day and as needed (DME) blood-glucose meter [OneTouch Ultra2 Meter] Misc See Rx Instructions .Route Qty: 1 0RF Rx Instructions: test once per day and as needed aspirin [Adult Low Dose Aspirin] 81 mg tablet,delayed release (DR/EC) 81 mg PO DAILY metoprolol succinate 50 mg tablet extended release 24 hr 50 mg PO BID Qty: 180 3RF lorazepam 0.5 mg tablet 0.5 mg PO DAILY PRN (Reason: Anxiety) fluticasone propionate [Flonase Allergy Relief] 50 mcg/actuation spray,suspension 1 spray intranasal DAILY PRN (Reason: Congestion) Rx Instructions: administer into each nostril Probiotic 3 billion cell Capsule 3,000 mmu cells PO QDL Centrum Silver 400-250 mcg Tablet,Chewable 1 tab PO QDL nitroglycerin 0.4 mg tablet, sublingual 0.4 mg sublingual Q5M PRN (Reason: chest pain) Qty: 14 0RF clopidogrel 75 mg tablet 75 mg PO DAILY mirtazapine 15 mg tablet 7.5 mg PO HS atorvastatin 40 mg tablet 40 mg PO HS Discharge Orders: Discharge Order (Routine); Ordered 02/07/25 Ordered By: Shelbi Ball/Other Patient Handouts: Nosebleed, ED Epistaxis (Adult) Admission Data Admit Date/Time: 02/07/25 00:12 Attending Provider: Caryn Dang Admit Provider: Migdalia Phillip Primary Care Provider: Shy Lugo Other Providers: Migdalia Phillip Other Interventions: Discharge Summary Assessment (RN) Last Done: 02/07/25 12:09 Hospital Stay Data Consultations 02/07/25 00:08 ED Decision to Admit Stat Pending Results Patient Have Any Pending Studies at Discharge: No Discharge Instructions Given to Patient (Per Discharging Provider) Mr. Monson, Aj were hospitalized after having another nose bleed and an episode of syncope. The syncope was likely from low blood pressure, called a vagal event from the bleeding. We checked your orthostatic vital signs and your blood pressure does not drop when you stand, which is reassuring. Unfortunately because you are only 3 months out from your heart stent placement, you are likely going to have to stay on the aspirin and plavix. If Shreya tells you differently please follow their recommendations. Continue to follow the recommendations from ENT to prevent nose bleeds. Also recommend: - not blowing your nose, especially forcefully, also drainage to drip out of your nose. Blowing your nose can dislodge clots - If you have increased congestion, take Mucinex - do not stick your fingers in your nose, can use a small qtip to apply vaseline/neosporin on the edges - keep a humidifier by you, especially at night when you are sleeping. Follow up with your PCP within one week, follow up with ENT as scheduled. No changes to your home medications. If you are having worsening lightheadedness or dizziness at home, would recommend decreasing your metoprolol to once a day. Activity: You can do normal everyday activities as your body allows. Take rest breaks if you feel tired. Do not overexert. Stop activity if you have pain, shortness of breath or feel dizzy. Follow-up appointments: Make an appointment with your primary care physician within one week of discharge. A copy of this summary will be sent to them. Every time you see your primary care physician, or any other doctor, bring your medication list, and a list of questions. CONTACT YOUR PRIMARY CARE PROVIDER if you experience any of the following: Shortness of breath or difficulty breathing Fevers or chills Feeling tired with normal activity or experiencing dizziness or fainting Difficulty following your treatment plan, or difficulty taking medications CALL 911 OR GO TO THE EMERGENCY DEPARTMENT if you experience any of the following: Severe abdominal pain or nausea/vomiting Severe chest pain, or chest pain that radiates (moves) to your jaw or arm Sudden, severe shortness of breath or difficulty breathing Thank you for allowing us to participate in your care. Total Time Total Time Spent Total Time Spent (In Minutes): Time spent day of discharge 33 minutes including direct patient care, medication reconciliation, documentation, review of labs and images, and coordination of care. plus additional time spent by the admitting team on admission Coding Level of Care Code INP/OBS EV SAME DAY LV 3,85MIN Diagnoses Syncope R55 Syncope type: vasovagal syncope Acute anterior epistaxis R04.0 Essential hypertension I10 Multi-vessel coronary artery stenosis I25.10
[2025-02-07 12:10] VITALS: PULSE 94
[2025-02-07] MEDS ORDERED: MIRTAZAPINE TAB 15 MG TAB PO SCH (21:00)
[2025-02-07] MEDS ORDERED: ATORVASTATIN 40 MG TAB PO SCH (21:00)
== END 2025-02-07 12:39 | disposition home or self-care (01) ==
LOC: SUATTDRO → ED 20:50 → 2N 20:50 → SUATTDRO 02-07 00:12 → 2N 02-07 01:19